=== PATIENT | female | born 1935 | race African-American/Black ===

== ENCOUNTER → 2016-08-20 | Outpatient (CLI) | payer MEDICARE, OTHER | LOC: RAD 13:08 | PROVIDERS: ATTEND Family Medicine | DX: R22.32 Localized swelling, mass and lump, left upper limb (principal) | CPT/HCPCS: 76882 ==

== ENCOUNTER → 2016-11-06 | Outpatient (CLI) | payer MEDICARE, OTHER ==
--- NOTE | 2016-11-06 08:44 | RADIOLOGY REPORT (SQ) ---
EXAM DESCRIPTION: U/S ABDOMEN COMPLETE W/DOPPLER COMPLETED DATE/TIME: 11/06/2016 8:36 am REASON FOR STUDY: ABD DISTENTION (R14.0) R14.0 ABDOMINAL DISTENSION (GASEOUS) COMPARISON: None. TECHNIQUE: Dynamic and static grayscale images acquired of the abdomen and recorded on PACS. Additio nal selected color Doppler and spectral images recorded. LIMITATIONS: None. FINDINGS: PANCREAS: No masses. Visualized pancreatic duct normal caliber. LIVER: The liver demonstrates nodular/coarsened echotexture with increased echogenicity. Liver is no rmal in size. No focal liver lesions. LIVER VASCULATURE: Normal directional flow of the main portal vein and hepatic veins. GALLBLADDER: No stones. Normal wall thickness. No pericholecystic fluid. ULTRASOUND-DETECTED LOYD'S SIGN: Negative. INTRAHEPATIC DUCTS AND COMMON DUCT: CBD and intrahepatic ducts normal caliber. No filling defects. INFERIOR VENA CAVA: Normal flow. AORTA: No aneurysm. RIGHT KIDNEY: Normal size. Normal echogenicity. No solid or suspicious masses. No hydronephros is. No calcifications. LEFT KIDNEY: Normal size. Normal echogenicity. No solid or suspicious masses. No hydronephrosi s. No calcifications. SPLEEN: Normal size. No solid masses. PERITONEAL AND PLEURAL SPACES: No ascites or effusions. OTHER: No other significant finding. IMPRESSION: 1. Hepatic steatosis/ possible early cirrhosis. No focal liver lesions. 2. Otherwise unremarkable abdominal ultrasound. TECHNICAL DOCUMENTATION: JOB ID: [id number] [employer]- All Rights Reserved
== END ==
LOC: RAD 07:55
PROVIDERS: ATTEND Family Medicine
DX: R14.0 Abdominal distension (gaseous) (principal); K76.0 Fatty (change of) liver, not elsewhere classified
CPT/HCPCS: 76700; 93976

== ENCOUNTER → 2016-11-22 | Outpatient (CLI) | payer MEDICARE, OTHER ==
--- NOTE | 2016-11-22 08:48 | RADIOLOGY REPORT (SQ) ---
EXAM DESCRIPTION: CT ABD/PELVIS WITH IV ORAL COMPLETED DATE/TIME: 11/22/2016 8:23 am REASON FOR STUDY: ABDOMINAL DISTENSION GASEOUS (R14.0), BILIARY CIRRHOSIS, UNSPEC (K74.5) R14.0 ABD OMINAL DISTENSION (GASEOUS) K74.5 BILIARY CIRRHOSIS, UNSPECIFIED COMPARISON: 04/04/2011 CT abdomen pelvis Abdominal ultrasound 11/06/2016 TECHNIQUE: CT scan of the abdomen and pelvis performed using helical scanning technique with dynamic intravenous contrast injection. No oral contrast. Images reviewed with lung, soft tissue, and bone windows. Reconstructed coronal and sagittal MPR images reviewed. Delayed images for evaluation of the urinary system also acquired. All images stored on PACS. All CT scanners at this facility use dose modulation, iterative reconstruction, and/or weight based d osing when appropriate to reduce radiation dose to as low as reasonably achievable (ALARA). [facility]: Dose Right [facility]: CareDose [facility]: Dose Right [facility]: Teradose 4D [facility]: [employer] CONTRAST TYPE AND DOSE: contrast/concentration: Isovue 370.00 mg/ml; Total Contrast Delivered: 81.0 ml; Total Saline Delivered: 68.0 ml RENAL FUNCTION: Creatinine 0.74 RADIATION DOSE: Up-to-date CT equipment and radiation dose reduction techniques were employed. CTDIv ol: 9.6 - 11.0 mGy. DLP: 947 mGy-cm.. LIMITATIONS: None. FINDINGS: LOWER CHEST: Mild cardiomegaly. No nodules or infiltrates. LIVER: Normal size. No masses. No dilated ducts. SPLEEN: Normal size. No focal lesions. PANCREAS: No masses. No significant calcifications. No adjacent inflammation or peripancreatic fluid collections. Pancreatic duct not dilated. GALLBLADDER: No identified stones by CT criteria. No inflammatory changes to suggest cholecystitis. ADRENAL GLANDS: Right adrenal gland unremarkable. Stable 1.4 cm and 1.7 cm low-density left adrenal nodules as compared to 04/04/2011, benign. RIGHT KIDNEY AND URETER: No solid masses. No significant calcifications. No hydronephrosis or hyd roureter. LEFT KIDNEY AND URETER: No solid masses. No significant calcifications. No hydronephrosis or hydr oureter. AORTA AND VESSELS: No aneurysm. No dissection. Renal arteries, SMA, celiac without stenosis. RETROPERITONEUM: No retroperitoneal adenopathy, hemorrhage or masses. BOWEL AND PERITONEAL CAVITY: No masses or inflammatory changes. No free fluid or peritoneal masses. Descending and sigmoid colon diverticuli without CT signs of acute diverticulitis APPENDIX: Normal. PELVIS: No mass. No free fluid. Normal bladder. ABDOMINAL WALL: Tiny fat containing umbilical hernia sagittal image 44 BONES: No significant or acute findings. OTHER: No other significant finding. IMPRESSION: NO SIGNIFICANT OR ACUTE FINDING IN THE ABDOMEN OR PELVIS ON CT SCAN WITH IV CONTRAST. TECHNICAL DOCUMENTATION: JOB ID: [id number] Quality ID # [id number]: Final reports with documentation of one or more dose reduction techniques (e.g., Au tomated exposure control, adjustment of the mA and/or kV according to patient size, use of iterative reconstruction technique) 2010 [employer]- All Rights Reserved
== END ==
LOC: RAD 07:31
PROVIDERS: ATTEND Family Medicine
DX: R14.0 Abdominal distension (gaseous) (principal); K74.5 Biliary cirrhosis, unspecified
CPT/HCPCS: 74177

== ENCOUNTER → 2019-05-11 | Outpatient (CLI) | payer MEDICARE, OTHER ==
--- NOTE | 2019-05-11 16:07 | RADIOLOGY REPORT (SQ) ---
EXAM DESCRIPTION: CT ABD/PELVIS WITH IV ORAL COMPLETED DATE/TIME: 05/11/2019 3:53 pm REASON FOR STUDY: K57.32 DVTRCLI OF LG INT W/O PERFORATION OR ABSCESS W/O BLEEDING K57.32 DVTRCLI O F LG INT W/O PERFORATION OR ABSCESS W/O BLEE COMPARISON: 11/22/2016 TECHNIQUE: CT scan of the abdomen and pelvis performed with intravenous and oral contrast using enriqueta papo scanning technique with dynamic intravenous contrast injection. Images reviewed with lung, soft t issue, and bone windows. Reconstructed coronal and sagittal MPR images reviewed. Delayed images for e valuation of the urinary system also acquired. All images stored on PACS. All CT scanners at this facility use dose modulation, iterative reconstruction, and/or weight based d osing when appropriate to reduce radiation dose to as low as reasonably achievable (ALARA). [facility]: Dose Right [facility]: CareDose [facility]: Dose Right [facility]: Teradose 4D [facility]: [employer] CONTRAST TYPE AND DOSE: contrast/concentration: Isovue 350.00 mg/ml; Total Contrast Delivered: 78.0 ml; Total Saline Delivered: 67.0 ml RENAL FUNCTION: GFR > 60. RADIATION DOSE: CT Rad equipment meets quality standard of care and radiation dose reduction techniq ues were employed. CTDIvol: 8.9 - 8.9 mGy. DLP: 926 mGy-cm. . LIMITATIONS: None. FINDINGS: LOWER CHEST: Cardiomegaly. LIVER: Cirrhosis. No masses or biliary dilatation. SPLEEN: Normal size. No focal lesions. PANCREAS: No masses. No significant calcifications. No adjacent inflammation or peripancreatic fluid collections. Pancreatic duct not dilated. GALLBLADDER: No identified stones by CT criteria. No inflammatory changes to suggest cholecystitis. ADRENAL GLANDS: Stable small left adrenal nodule. RIGHT KIDNEY AND URETER: No solid masses. No significant calcifications. No hydronephrosis or hyd roureter. LEFT KIDNEY AND URETER: No solid masses. No significant calcifications. No hydronephrosis or hydr oureter. AORTA AND VESSELS: No aneurysm. RETROPERITONEUM: No retroperitoneal adenopathy, hemorrhage or masses. BOWEL AND PERITONEAL CAVITY: Diverticulosis proximal sigmoid colon. No abscess. No ascites or free air. APPENDIX: Normal. PELVIS: No significant masses. Normal bladder. No free fluid. ABDOMINAL WALL: No masses. No hernias. BONES: No significant or acute findings. OTHER: No other significant finding. IMPRESSION: Sigmoid diverticulitis. TECHNICAL DOCUMENTATION: JOB ID: [id number] Quality ID # [id number]: Final reports with documentation of one or more dose reduction techniques (e.g., Au tomated exposure control, adjustment of the mA and/or kV according to patient size, use of iterative reconstruction technique) 2010 [employer]- All Rights Reserved Reading location - IP/workstation name: [email or web address]
== END ==
LOC: RAD 13:27
PROVIDERS: ATTEND Internal Medicine Geriatric Medicine
DX: K57.32 Diverticulitis of large intestine without perforation or abscess without bleeding (principal)
CPT/HCPCS: 74177; 82565

== ENCOUNTER 2019-08-24 13:15 | Inpatient (IN) | payer MEDICARE, OTHER ==
--- NOTE | 2019-08-24 13:37 | ER Document Report ---
HPI - HPI Time Seen by Provider: 08/24/19 13:31 Notes: 83-year-old female presenting to the emergency department as a direct admission from Dr. Bloom. Patient reports she has been having blood in her stools for several days. She reports mild abdominal discomfort. She denies any other sym ptoms at this time. - REPRODUCTIVE Reproductive: DENIES: : Past Medical History - General Information source: Patient - Social History Smoking Status: Never Smoker Frequency of alcohol use: None Drug Abuse: None Family History: Reviewed & Not Pertinent - Past Medical History Cardiac Medical History: Reports: Hx Hypertension Denies: Hx Atrial Fibrillation, Hx Congestive Heart Failure, Hx Coronary Artery Disease, Hx Heart Attack, Hx Hypercholesterolemia, Hx Peripheral Vascular Disease, Hx Heart Murmur Pulmonary Medical History: Reports: Hx Pneumonia Denies: Hx Tuberculosis Neurological Medical History: Denies: Hx Cerebrovascular Accident, Hx Seizures, Hx Parkinson's Disease Endocrine Medical History: Reports: Hx Diabetes Mellitus Type 2, Hx Hyperthyroidism. Denies: Hx Graves' Disease, Hx Hypothyroidism Malignancy Medical History: Denies: Hx Leukemia GI Medical History: Reports: Hx Gastroesophageal Reflux Disease. Denies: Hx Crohn's Disease, Hx Hiatal Hernia, Hx Irritable Bowel, Hx Liver Failure, Hx Pancreatitis, Hx Ulcer Musculoskeletal Medical History: Reports Hx Arthritis, Denies Hx Fibromyalgia, Denies Hx Multiple Sclerosis, Denies Hx Muscular Dystrophy, Denies Hx Systemic Lupus Erythematosus Psychiatric Medical History: Denies: Hx Dementia Traumatic Medical History: Reports: Hx Fractures - toes Infectious Medical History: Denies: Hx HIV Past Surgical History: Reports: Hx Thyroid Surgery, Hx Tonsillectomy. Denies: Hx Appendectomy, Hx Bowel Surgery, Hx Section, Hx Cholecystectomy, Hx Colostomy, Hx Coronary Artery Bypass Graft, Hx Gastric Bypass Surgery, Hx Herniorrhaphy, Hx Hysterectomy, Hx Mastectomy, Hx Pacemaker, Hx Tubal Ligation - Immunizations Hx Diphtheria, Pertussis, Tetanus Vaccination: No Hx Pneumococcal Vaccination: 01/05/06 Vertical Provider Document - CONSTITUTIONAL Notes: PHYSICAL EXAMINATION: GENERAL: Well-appearing, well-nourished and in no acute distress. HEAD: Atraumatic, normocephalic. EYES: Pupils equal round and reactive to light, extraocular movements intact, conjunctiva are normal. ENT: Nares patent, oropharynx clear without exudates. Moist mucous membranes. NECK: Normal range of motion, supple without lymphadenopathy LUNGS: Breath sounds clear to auscultation bilaterally and equal. No wheezes rales or rhonchi. HEART: Regular rate and rhythm without murmurs ABDOMEN: Soft,nondistended abdomen. Generalized abdominal tenderness with palpation, increasing pain in the left upper quadrant. No guarding, no rebound. No masses appreciated. Female : deferred Musculoskeletal: Normal range of motion, no pitting or edema. No cyanosis. NEUROLOGICAL: Cranial nerves grossly intact. Normal speech, normal gait. Normal sensory, motor exams PSYCH: Normal mood, normal affect. SKIN: Warm, Dry, normal turgor, no rashes or lesions noted. - INFECTION CONTROL TRAVEL OUTSIDE OF THE [place] IN LAST 30 DAYS: No Course - Re-evaluation Re-evalutation: 08/24/19 13:37 Patient is a direct admit from Dr. Bloom. She comes to the emergency department with admission orders. She will be held in the emergency department until there is a bed available upstairs. Patient has no acute complaints at this time. 08/24/19 13:38 Copy of admission orders given to secretary book keeper for order caller. - Vital Signs Vital signs: Temp Pulse Resp BP Pulse Ox 97.6 F 90 16 152/73 H 97 08/24/19 13:20 08/24/19 13:20 08/24/19 13:20 08/24/19 13:20 08/24/19 13:20 Discharge - Discharge Clinical Impression: Lower GI bleed, Colonic diverticular disease Hypertension Qualifiers: Hypertension type: unspecified Qualified Code(s): I10 - Essential (primary) hypertension GERD (gastroesophageal reflux disease) Qualifiers: Esophagitis presence: esophagitis presence not specified Qualified Code(s): K21.9 - Gastro-esophageal reflux disease without esophagitis Diabetes mellitus, type 2 Qualifiers: Diabetes mellitus rn long term care insulin use: unspecified retirement insulin use status Diabetes mellitus complication status: with other specified complication Qualified Code(s): E11.69 - Type 2 diabetes mellitus with other specified complication Coronary artery disease Qualifiers: Coronary Disease-Associated Artery/Lesion type: unspecified vessel or lesion type [place] vs. transplanted heart: [place] heart Associated angina: angina presence unspecified Qualified Code(s): I25.10 - Atherosclerotic heart disease of [place] coronary artery without angina pectoris Hyperlipidemia Qualifiers: Hyperlipidemia type: unspecified Qualified Code(s): E78.5 - Hyperlipidemia, unspecified Hypothyroidism Qualifiers: Hypothyroidism type: unspecified Qualified Code(s): E03.9 - Hypothyroidism, unspecified Condition: Good Disposition: ADMITTED INPATIENT Admitting Provider: Melody Unit Admitted: [facility] Referrals: MYRA BLOOM MD [Primary Care Provider] - Follow up as needed
[2019-08-24 14:27] LABS: HEMATOCRIT 34.2 % (36.0-47.0); HEMOGLOBIN 11.5 g/dL (12.0-15.5); MEAN CORPUSCULAR HEMOGLOBIN 29.4 pg (27.0-33.4); MEAN CORPUSCULAR HGB CONC 33.6 g/dL (32.0-36.0); MEAN CORPUSCULAR VOLUME 88 fl (80-97); PLATELET COUNT 185 10^3/uL (150-450); RED CELL DISTRIBUTION WIDTH 15.7 % (11.5-14.0); WHITE BLOOD COUNT 6.1 10^3/uL (4.0-10.5)
[2019-08-24 14:31] LABS: INTERNATIONAL RATION (INR) 1.29; PROTHROMBIN TIME 16.2 SEC (11.4-15.4)
[2019-08-24 14:32] LABS: PARTIAL THROMBOPLASTIN TIME 27.6 SEC (23.5-35.8)
[2019-08-24 14:52] LABS: ALBUMIN 4.2 g/dL (3.5-5.0); ALKALINE PHOSPHATASE 40 U/L (38-126); ANION GAP 7 (5-19); ASPARTATE AMINO TRANSFERASE 20 U/L (14-36); BILIRUBIN,TOTAL 0.6 mg/dL (0.2-1.3); BLOOD UREA NITROGEN 15 mg/dL (7-20); CALCIUM 9.1 mg/dL (8.4-10.2); CARBON DIOXIDE 28 mmol/L (22-30); CHLORIDE 103 mmol/L (98-107); GLUCOSE 91 mg/dL (75-110); TOTAL PROTEIN 7.4 g/dL (6.3-8.2)
[2019-08-24] MEDS: PIPERACILLIN SODIUM/TAZOBACTAM 3.375 GM in NORMAL SALINE 100 ML IV SCH (20:54)
[2019-08-24] MEDS: NORMAL SALINE 1000 ML 1,000 ML IV PRN (20:54)
--- NOTE | 2019-08-24 21:23 | PDOC H&P ---
History of Present Illness Admission Date/PCP: 08/24/19 13:48 MYRA MILTONFIONAPaul Patient complains of: Abdominal Pain, Blood in stool History of Present Illness: VANDA TAYLOR is a 83 year old female patient known to my practice who presented at the office earlier today with complain about three episodes of large amount of blood with bowel movement today. She reported that her toilet bowl was filled with blood and clot. She reported abdominal pain more to left side of her abdomen. No associated nausea or vomiting. No rectal pain or any protruding mass through her anus. She denied any significant history of hemorrhoid or constipation. She reported feeling sickly but denied dizziness, passing out, headache, fever or chills. While in the office she excused herself to use the bathroom but denied recurrent blood in her stool since she mainly urinate. Review of her laboratory report in the office revealed downward trend in her hemoglobin from 12 to 10 gm/dl over last 3 months. She was advised hospitalization for further evaluation and management. Her morbidities are as listed below. Past Medical History Cardiac Medical History: Reports: Hypertension Denies: Atrial Fibrillation, Congestive Heart Failure, Coronary Artery Disease, Myocardial Infarction, Hyperlipidema, Peripheral Vascular Disease, Heart Murmur Pulmonary Medical History: Reports: Pneumonia Denies: Tuberculosis Neurological Medical History: Denies: Seizures Endocrine Medical History: Reports: Diabetes Mellitus Type 2, Hyperthyroidism Denies: Hypothyroidism Malignancy Medical History: Denies: Leukemia GI Medical History: Reports: Gastroesophageal Reflux Disease Denies: Crohn's Disease, Hiatal Hernia Musculoskeltal Medical History: Reports: Arthritis Denies: Fibromyalgia Psychiatric Medical History: Denies: Dementia, Depression Hematology: Reports: Anemia Denies: Hemophilia, Sickle Cell Disease Infectious Medical History: Denies: HIV Past Surgical History Past Surgical History: Reports: Tonsillectomy Denies: Amputation, Appendectomy, Section, Cholecystectomy, Colostomy, Coronary Artery Bypass Graft, Gastric Bypass Surgery, Herniorrhaphy, Hysterectomy, Mastectomy, Pacemaker, Tubal Ligation Social History Smoking Status: Never Smoker Hx Recreational Drug Use: No Hx Prescription Drug Abuse: No - Advance Directive Resuscitation Status: Full Code Family History Family History: Reviewed & Not Pertinent Parental Family History Reviewed: Yes Children Family History Reviewed: Yes Sibling(s) Family History Reviewed.: Yes Medication/Allergy Home Medications: Metformin HCl [Glucophage 500 Mg Tablet] 1,000 mg PO BID 12/29/11 Omeprazole [Prilosec] 20 mg PO Q6AM 04/04/11 Acetylcyst/Nuzqemx65/Levomefol [Metafolbic Plus Caplet] 1 tab PO DAILY 08/24/19 Famotidine [Pepcid 20 mg Tablet] 40 mg PO DAILY 08/24/19 Fosinopril Sodium 20 mg PO DAILY 08/24/19 Gabapentin [Neurontin 100 mg Capsule] 100 mg PO BID 08/24/19 Glipizide [Glucotrol 10 mg Tablet] 10 mg PO BID 08/24/19 Levothyroxine Sodium [Synthroid 0.05 mg Tablet] 0.05 mg PO Q6AM 08/24/19 Pravastatin Sodium 10 mg PO DAILY 08/24/19 Allergies/Adverse Reactions: No Known Allergies Allergy (Verified 12/11/11 09:56) Review of Systems Constitutional: ABSENT: chills, fever(s), headache(s), weight gain, weight loss Eyes: ABSENT: visual disturbances Ears: ABSENT: hearing changes Nose, Mouth, and Throat: ABSENT: headache(s), mouth pain, sore throat, vertigo Cardiovascular: ABSENT: chest pain, dyspnea on exertion, edema, orthropnea, palpitations Respiratory: ABSENT: cough, hemoptysis Gastrointestinal: PRESENT: abdominal pain, hematochezia. ABSENT: bloating, coffee ground emesis, constipation, diarrhea, dysphagia, heartburn, hematemesis, melena, nausea, vomiting Genitourinary: ABSENT: dysuria, hematuria Musculoskeletal: ABSENT: joint swelling Integumentary: ABSENT: rash, wounds Neurological: ABSENT: abnormal gait, abnormal speech, confusion, dizziness, focal weakness, syncope Psychiatric: ABSENT: anxiety, depression, homidical ideation, suicidal ideation Endocrine: ABSENT: cold intolerance, heat intolerance, polydipsia, polyuria Hematologic/Lymphatic: ABSENT: easy bleeding, easy bruising, lymphadenopathy Allergic/Immunologic: ABSENT: seasonal rhinorrhea Physical Exam Vital Signs: Temp Pulse Resp BP Pulse Ox 98 F 83 18 132/54 H 93 08/24/19 17:51 08/24/19 17:30 08/24/19 17:51 08/24/19 17:51 08/24/19 17:51 Intake & Output 08/23/19 08/24/19 08/25/19 06:59 06:59 06:59 Intake Total 240 Balance 240 Weight 69 kg General appearance: PRESENT: no acute distress Head exam: PRESENT: atraumatic, normocephalic Eye exam: PRESENT: conjunctiva pink, EOMI, PERRLA. ABSENT: scleral icterus Ear exam: PRESENT: normal external ear exam Mouth exam: PRESENT: moist, tongue midline Throat exam: ABSENT: post pharyngeal erythema, tonsillar erythema, tonsillar exudate, tonsillogmegaly Neck exam: PRESENT: full ROM. ABSENT: carotid bruit, JVD, lymphadenopathy, thyromegaly Respiratory exam: PRESENT: clear to auscultation jaison Cardiovascular exam: PRESENT: RRR, +S1, +S2. ABSENT: diastolic murmur, rubs, systolic murmur Pulses: PRESENT: normal dorsalis pedis pul, +2 pedal pulses bilateral Vascular exam: ABSENT: pallor GI/Abdominal exam: PRESENT: normal bowel sounds, soft, tenderness - LUQ and LLQ in particular to deep palpation. ABSENT: distended, guarding, mass, organolmegaly, rebound Rectal exam: PRESENT: deferred Extremities exam: ABSENT: pedal edema Neurological exam: PRESENT: alert, awake, oriented to person, oriented to place, oriented to time, oriented to situation, CN II-XII grossly intact. ABSENT: motor sensory deficit Psychiatric exam: PRESENT: appropriate affect, normal mood. ABSENT: homicidal ideation, suicidal ideation Skin exam: PRESENT: dry, intact, warm. ABSENT: cyanosis, rash Results Laboratory Results: 08/24/19 14:10 08/24/19 14:10 08/24/19 08/24/19 14:10 14:10 WBC 6.1 RBC 3.90 Hgb 11.5 L Hct 34.2 L MCV 88 MCH 29.4 MCHC 33.6 RDW 15.7 H Plt Count 185 Sodium 138.4 Potassium 4.0 Chloride 103 Carbon Dioxide 28 Anion Gap 7 BUN 15 Creatinine 0.67 Est GFR ( Amer) > 60 Glucose 91 Calcium 9.1 Total Bilirubin 0.6 AST 20 Alkaline Phosphatase 40 Total Protein 7.4 Albumin 4.2 Assessment & Plan - Diagnosis (1) Lower GI bleed Is this a current diagnosis for this admission?: Yes Plan: See admitting attending physician orders for details about care plan. (2) Colonic diverticular disease Is this a current diagnosis for this admission?: Yes Plan: See admitting attending physician orders for details about care plan. (3) Diabetes mellitus, type 2 Qualifiers: Diabetes mellitus watermelon inspector insulin use: unspecified longterm insulin use status Diabetes mellitus complication status: with other specified complication Qualified Code(s): E11.69 - Type 2 diabetes mellitus with other specified complication Is this a current diagnosis for this admission?: Yes Plan: See admitting attending physician orders for details about care plan. (4) Hypertension Qualifiers: Hypertension type: unspecified Qualified Code(s): I10 - Essential (primary) hypertension Is this a current diagnosis for this admission?: Yes Plan: See admitting attending physician orders for details about care plan. (5) Coronary artery disease Qualifiers: Coronary Disease-Associated Artery/Lesion type: unspecified vessel or lesion type [place] vs. transplanted heart: [place] heart Associated angina: angina presence unspecified Qualified Code(s): I25.10 - Atherosclerotic heart disease of [place] coronary artery without angina pectoris Is this a current diagnosis for this admission?: Yes Plan: See admitting attending physician orders for details about care plan. (6) Hyperlipidemia Qualifiers: Hyperlipidemia type: unspecified Qualified Code(s): E78.5 - Hyperlipidemia, unspecified Is this a current diagnosis for this admission?: Yes Plan: See admitting attending physician orders for details about care plan. (7) Hypothyroidism Qualifiers: Hypothyroidism type: acquired Qualified Code(s): E03.9 - Hypothyroidism, unspecified Is this a current diagnosis for this admission?: Yes Plan: See admitting attending physician orders for details about care plan. (8) GERD (gastroesophageal reflux disease) Qualifiers: Esophagitis presence: esophagitis presence not specified Qualified Code(s): K21.9 - Gastro-esophageal reflux disease without esophagitis Is this a current diagnosis for this admission?: Yes Plan: See admitting attending physician orders for details about care plan. - Time Time Spent: 50 to 70 Minutes Medications reviewed and adjusted accordingly: Yes Anticipated discharge: Home with Homehealth Within: Other - Inpatient Certification Based on my medical assessment, after consideration of the patient's comorbidities, presenting symptoms, or acuity I expect that the services needed warrant INPATIENT care.: Yes I certify that my determination is in accordance with my understanding of [facility]'s requirements for reasonable and necessary INPATIENT services [42 CFR 412.3e].: Yes Medical Necessity: Significant Comorbidiites Make Outpatient Treatment Too Risky, Need Close Monitoring Due to Risk of Patient Decompensation, Need For IV Fluids, Need For Continuous Telemetry Monitoring, Need for IV Antibiotics, Risk of Complication if Not Cared For in Hospital, Risk of Diagnosis Which Will Require Inpatient Eval/Care/Monitoring Post Hospital Care: D/C Personnel Research Psychologist Documentation - Plan Summary Plan Summary: See admitting attending physician orders for details about care plan.
[2019-08-24] MEDS ORDERED: GLUCAGON,HUMAN RECOMB 1 MG INJ IM PRN (21:25)
[2019-08-24] MEDS ORDERED: DEXTROSE 50%-WATER 25 GM/50 ML DISP.SYRIN IV PRN ×2 (21:25)
[2019-08-24] MEDS ORDERED: DEXTROSE 40% GEL 15 GM TUBE PO PRN ×2 (21:25)
[2019-08-24] MEDS: INSULIN LISPRO 100 UNIT/ML 3 ML VIAL SUBCUT SCH (22:47)
[2019-08-25] MEDS: PIPERACILLIN SODIUM/TAZOBACTAM 3.375 GM in NORMAL SALINE 100 ML IV SCH ×4 (03:02→21:22)
[2019-08-25] MEDS: PANTOPRAZOLE SODIUM 40 MG TABLET.DR PO SCH (05:29)
[2019-08-25] MEDS: LEVOTHYROXINE SODIUM 0.05 MG TABLET PO SCH (05:29)
[2019-08-25] MEDS: INSULIN LISPRO 100 UNIT/ML 3 ML VIAL SUBCUT SCH ×4 (08:45→21:19)
[2019-08-25] MEDS: GLIPIZIDE 10 MG TABLET PO SCH ×2 (08:46→17:07)
[2019-08-25] MEDS: METFORMIN HCL 500 MG TABLET PO SCH ×2 (08:46→17:07)
[2019-08-25] MEDS: NORMAL SALINE 1000 ML 1,000 ML IV PRN (08:48)
[2019-08-25] MEDS: ENALAPRIL MALEATE 10 MG TABLET PO SCH (09:18)
[2019-08-25] MEDS: GABAPENTIN 100 MG CAPSULE PO SCH ×2 (09:18→17:07)
[2019-08-25] MEDS ORDERED: ENALAPRIL MALEATE 10 MG TABLET PO SCH (10:00)
[2019-08-25] MEDS ORDERED: (PENDING PHARMACY ID) (Pravastatin Sodium [Pravastatin Sodium] 10 MG) PO SCH (10:00)
--- NOTE | 2019-08-25 22:21 | PDOC PROGRESS REPORT ---
Subjective Progress Note for:: 08/25/19 Subjective:: No recurrent lower GI bleed since admission. No nausea, vomiting, or abdominal pain. No chest pain or difficulty with breathing. She remain on IV antibiotic and IV fluid support. Reason For Visit: LOWER GI BLEED,DM TYPE 2,HTN,GERD,CAD Physical Exam Vital Signs: Temp Pulse Resp BP Pulse Ox 97.5 F 59 L 18 123/64 100 08/25/19 16:08 08/25/19 16:08 08/25/19 16:08 08/25/19 16:08 08/25/19 16:08 Intake & Output 08/24/19 08/25/19 08/26/19 06:59 06:59 06:59 Intake Total 1440 975 Output Total 350 Balance 1090 975 Weight 68.5 kg 68.5 kg General appearance: PRESENT: no acute distress Head exam: PRESENT: atraumatic, normocephalic Eye exam: PRESENT: conjunctiva pink. ABSENT: scleral icterus Mouth exam: PRESENT: moist Respiratory exam: PRESENT: clear to auscultation jaison Cardiovascular exam: PRESENT: RRR, +S1, +S2. ABSENT: diastolic murmur, rubs, systolic murmur Vascular exam: ABSENT: pallor GI/Abdominal exam: PRESENT: normal bowel sounds, soft. ABSENT: distended, guarding, mass, organolmegaly, rebound, tenderness Extremities exam: ABSENT: pedal edema Musculoskeletal exam: PRESENT: ambulatory Neurological exam: PRESENT: alert, awake, oriented to person, oriented to place Psychiatric exam: PRESENT: appropriate affect, normal mood. ABSENT: homicidal ideation, suicidal ideation Skin exam: PRESENT: dry, warm Results Laboratory Results: 08/24/19 14:10 08/24/19 14:10 Assessment & Plan - Diagnosis (1) Lower GI bleed Is this a current diagnosis for this admission?: Yes (2) Colonic diverticular disease Is this a current diagnosis for this admission?: Yes (3) Diabetes mellitus, type 2 Qualifiers: Diabetes mellitus continuous churn buttermaker insulin use: unspecified continuous churn buttermaker insulin use status Diabetes mellitus complication status: with other specified complication Qualified Code(s): E11.69 - Type 2 diabetes mellitus with other specified complication Is this a current diagnosis for this admission?: Yes (4) Hypertension Qualifiers: Hypertension type: unspecified Qualified Code(s): I10 - Essential (primary) hypertension Is this a current diagnosis for this admission?: Yes (5) Coronary artery disease Qualifiers: Coronary Disease-Associated Artery/Lesion type: unspecified vessel or lesion type [place] vs. transplanted heart: [place] heart Associated angina: angina presence unspecified Qualified Code(s): I25.10 - Atherosclerotic heart disease of [place] coronary artery without angina pectoris Is this a current diagnosis for this admission?: Yes (6) Hyperlipidemia Qualifiers: Hyperlipidemia type: unspecified Qualified Code(s): E78.5 - Hyperlipidemia, unspecified Is this a current diagnosis for this admission?: Yes (7) Hypothyroidism Qualifiers: Hypothyroidism type: acquired Qualified Code(s): E03.9 - Hypothyroidism, unspecified Is this a current diagnosis for this admission?: Yes (8) GERD (gastroesophageal reflux disease) Qualifiers: Esophagitis presence: esophagitis presence not specified Qualified Code(s): K21.9 - Gastro-esophageal reflux disease without esophagitis Is this a current diagnosis for this admission?: Yes - Time Time Spent with patient: 25-34 minutes Level of Care: IMCU Medications reviewed and adjusted accordingly: Yes Anticipated discharge: Home with Homehealth Within: Other - Inpatient Certification Based on my medical assessment, after consideration of the patient's comorbidities, presenting symptoms, or acuity I expect that the services needed warrant INPATIENT care.: Yes I certify that my determination is in accordance with my understanding of Medicare's requirements for reasonable and necessary INPATIENT services [42 CFR 412.3e].: Yes Medical Necessity: Significant Comorbidiites Make Outpatient Treatment Too Risky, Need Close Monitoring Due to Risk of Patient Decompensation, Need For IV Fluids, Need For Continuous Telemetry Monitoring, Need for IV Antibiotics, Risk of Complication if Not Cared For in Hospital, Risk of Diagnosis Which Will Require Inpatient Eval/Care/Monitoring Post Hospital 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 Follow up on culture findings. Obtain CBC with Diff in AM.
[2019-08-26] MEDS: NORMAL SALINE 1000 ML 1,000 ML IV PRN (02:09)
[2019-08-26] MEDS: PIPERACILLIN SODIUM/TAZOBACTAM 3.375 GM in NORMAL SALINE 100 ML IV SCH ×4 (02:10→21:04)
[2019-08-26 03:48] LABS: ABSOLUTE EOSINOPHILS # (AUTO) 0.1 10^3/uL (0.0-0.6); ABSOLUTE LYMPHOCYTES (AUTO) 2.5 10^3/uL (0.5-4.7); ABSOLUTE MONOCYTES (AUTO) 0.7 10^3/uL (0.1-1.4); ABSOLUTE NEUT (AUTO) 2.9 10^3/uL (1.7-8.2); BASOPHILS % (AUTO) 0.8 % (0-2); EOSINOPHILS % (AUTO) 1.5 % (0-6); HEMATOCRIT 27.6 % (36.0-47.0); LYMPHOCYTES % (AUTO) 40.3 % (13-45); MEAN CORPUSCULAR HEMOGLOBIN 29.5 pg (27.0-33.4); MEAN CORPUSCULAR HGB CONC 33.4 g/dL (32.0-36.0); MEAN CORPUSCULAR VOLUME 88 fl (80-97); MONOCYTES % (AUTO) 10.6 % (3-13); PLATELET COUNT 154 10^3/uL (150-450); RED BLOOD COUNT 3.13 10^6/uL (3.72-5.28); RED CELL DISTRIBUTION WIDTH 15.6 % (11.5-14.0); SEGMENTED NEUTROPHILS % (AUTO) 46.8 % (42-78); TOTAL CELLS COUNTED % (AUTO) 100 %; WHITE BLOOD COUNT 6.2 10^3/uL (4.0-10.5)
[2019-08-26 03:51] LABS: HEMOGLOBIN 9.2 g/dL (12.0-15.5)
[2019-08-26] MEDS: PANTOPRAZOLE SODIUM 40 MG TABLET.DR PO SCH (05:03)
[2019-08-26] MEDS: LEVOTHYROXINE SODIUM 0.05 MG TABLET PO SCH (05:03)
--- NOTE | 2019-08-26 08:29 | PDOC PROGRESS REPORT ---
Subjective Progress Note for:: 08/26/19 Subjective:: Patient developed recurrent lower GI bleed since her last evaluation by me. She reported associated more PATEL and less LL quadrant pain. No nausea, vomiting, or abdominal pain. No chest pain or difficulty with breathing. She remain on IV antibiotic and IV fluid support.She is currently NPO awaiting bleeding scan. Surgicalist team are consulting on her at this time. Reason For Visit: LOWER GI BLEED,DM TYPE 2,HTN,GERD,CAD Physical Exam Vital Signs: Temp Pulse Resp BP Pulse Ox 98.2 F 57 L 18 114/51 L 100 08/26/19 03:51 08/26/19 06:56 08/26/19 03:51 08/26/19 03:51 08/26/19 03:51 Intake & Output 08/25/19 08/26/19 08/27/19 06:59 06:59 06:59 Intake Total 1440 2175 Output Total 350 Balance 1090 2175 Weight 68.5 kg 69.6 kg Results Laboratory Results: 08/26/19 03:30 08/24/19 14:10 08/26/19 03:30 WBC 6.2 RBC 3.13 L Hgb 9.2 L D Hct 27.6 L MCV 88 MCH 29.5 MCHC 33.4 RDW 15.6 H Plt Count 154 Seg Neutrophils % 46.8 Assessment & Plan - Diagnosis (1) Lower GI bleed Is this a current diagnosis for this admission?: Yes (2) Colonic diverticular disease Is this a current diagnosis for this admission?: Yes (3) Diabetes mellitus, type 2 Qualifiers: Diabetes mellitus salvage determiner insulin use: unspecified salvage determiner insulin use status Diabetes mellitus complication status: with other specified complication Qualified Code(s): E11.69 - Type 2 diabetes mellitus with other specified complication Is this a current diagnosis for this admission?: Yes (4) Hypertension Qualifiers: Hypertension type: unspecified Qualified Code(s): I10 - Essential (primary) hypertension Is this a current diagnosis for this admission?: Yes (5) Coronary artery disease Qualifiers: Coronary Disease-Associated Artery/Lesion type: unspecified vessel or lesion type [place] vs. transplanted heart: [place] heart Associated angina: angina presence unspecified Qualified Code(s): I25.10 - Atherosclerotic heart disease of [place] coronary artery without angina pectoris Is this a current diagnosis for this admission?: Yes (6) Hyperlipidemia Qualifiers: Hyperlipidemia type: unspecified Qualified Code(s): E78.5 - Hyperlipidemia, unspecified Is this a current diagnosis for this admission?: Yes (7) Hypothyroidism Qualifiers: Hypothyroidism type: acquired Qualified Code(s): E03.9 - Hypothyroidism, unspecified Is this a current diagnosis for this admission?: Yes (8) GERD (gastroesophageal reflux disease) Qualifiers: Esophagitis presence: esophagitis presence not specified Qualified Code(s): K21.9 - Gastro-esophageal reflux disease without esophagitis Is this a current diagnosis for this admission?: Yes - Time Time Spent with patient: 25-34 minutes Level of Care: IMCU Medications reviewed and adjusted accordingly: Yes Anticipated discharge: Home with Homehealth Within: Other - Inpatient Certification Based on my medical assessment, after consideration of the patient's comorbidities, presenting symptoms, or acuity I expect that the services needed warrant INPATIENT care.: Yes I certify that my determination is in accordance with my understanding of Medicare's requirements for reasonable and necessary INPATIENT services [42 CFR 412.3e].: Yes Medical Necessity: Significant Comorbidiites Make Outpatient Treatment Too Risky, Need Close Monitoring Due to Risk of Patient Decompensation, Need For IV Fluids, Need For Continuous Telemetry Monitoring, Need for IV Antibiotics, Need for Surgery, Risk of Complication if Not Cared For in Hospital, Risk of Diagnosis Which Will Require Inpatient Eval/Care/Monitoring Post Hospital 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 I will call her children to inform them about the turn of event. Dr. Reyes will cover my service till 09/01/2019.
--- NOTE | 2019-08-26 08:36 | PDOC CONSULTATION ---
Consultation Consult Date: 08/26/19 Attending physician:: MYRA BLOOM Provider Consulted: HÉCTOR YEH Consult reason:: lower gi bleed History of Present Illness Admission Date/PCP: 08/24/19 13:48 MYRA BLOOM History of Present Illness: VANDA TAYLOR is a 83 year old femaleVANDA TAYLOR is a 83 year old female patient known to my practice who presented at the office earlier today with complain about three episodes of large amount of blood with bowel movement today. She reported that her toilet bowl was filled with blood and clot. She reported abdominal pain more to left side of her abdomen. No associated nausea or vomiting. No rectal pain or any protruding mass through her anus. She denied any significant history of hemorrhoid or constipation. She reported feeling sickly but denied dizziness, passing out, headache, fever or chills. While in the office she excused herself to use the bathroom but denied recurrent blood in her stool since she mainly urinate. Review of her laboratory report in the office revealed downward trend in her hemoglobin from 12 to 10 gm/dl over last 3 months. She was advised hospitalization for further evaluation and management. Her morbidities are as listed below Past Medical History Cardiac Medical History: Reports: Hypertension Denies: Atrial Fibrillation, Congestive Heart Failure, Coronary Artery Disease, Myocardial Infarction, Hyperlipidema, Peripheral Vascular Disease, Heart Murmur Pulmonary Medical History: Reports: Pneumonia Denies: Tuberculosis Neurological Medical History: Denies: Seizures Endocrine Medical History: Reports: Diabetes Mellitus Type 2, Hyperthyroidism Denies: Hypothyroidism Malignancy Medical History: Denies: Leukemia GI Medical History: Reports: Gastroesophageal Reflux Disease Denies: Crohn's Disease, Hiatal Hernia Musculoskeltal Medical History: Reports: Arthritis Denies: Fibromyalgia Psychiatric Medical History: Denies: Dementia, Depression Hematology: Reports: Anemia Denies: Hemophilia, Sickle Cell Disease Infectious Medical History: Denies: HIV Past Surgical History Past Surgical History: Reports: Tonsillectomy Denies: Amputation, Appendectomy, Section, Cholecystectomy, Colostomy, Coronary Artery Bypass Graft, Gastric Bypass Surgery, Herniorrhaphy, Hysterectomy, Mastectomy, Pacemaker, Tubal Ligation Social History Smoking Status: Never Smoker Hx Recreational Drug Use: No Hx Prescription Drug Abuse: No - Advance Directive Resuscitation Status: Full Code Family History Family History: Reviewed & Not Pertinent Parental Family History Reviewed: No Children Family History Reviewed: NA Sibling(s) Family History Reviewed.: NA Medication/Allergy Home Medications: Metformin HCl [Glucophage 500 Mg Tablet] 1,000 mg PO BID 04/04/11 Omeprazole [Prilosec] 20 mg PO Q6AM 04/04/11 Acetylcyst/Dizentc88/Levomefol [Metafolbic Plus Caplet] 1 tab PO DAILY 08/24/19 Famotidine [Pepcid 20 mg Tablet] 40 mg PO DAILY 08/24/19 Fosinopril Sodium 20 mg PO DAILY 08/24/19 Gabapentin [Neurontin 100 mg Capsule] 100 mg PO BID 08/24/19 Glipizide [Glucotrol 10 mg Tablet] 10 mg PO BID 08/24/19 Levothyroxine Sodium [Synthroid 0.05 mg Tablet] 0.05 mg PO Q6AM 08/24/19 Pravastatin Sodium 10 mg PO DAILY 08/24/19 Allergies/Adverse Reactions: No Known Allergies Allergy (Verified 12/11/11 09:56) Review of Systems Constitutional: PRESENT: fatigue, weakness Ears: ABSENT: as per HPI, hearing changes, other Nose, Mouth, and Throat: ABSENT: as per HPI, headache(s), mouth pain, sore throat, vertigo, other Cardiovascular: ABSENT: as per HPI, chest pain, dyspnea on exertion, edema, orthropnea, palpitations, other Respiratory: ABSENT: as per HPI, cough, dyspnea, hemoptysis, sputum, other Gastrointestinal: PRESENT: abdominal pain, hematochezia Neurological: ABSENT: as per HPI, abnormal gait, abnormal movements, abnormal speech, confusion, convulsions, dizziness, focal weakness, frequent falls, lack of coordination, memory loss, numbness, paresthesias, restless legs, syncope, tingling, tremor(s), vertigo, weakness, other Psychiatric: ABSENT: as per HPI, anxiety, depression, hallucinations, homidical ideation, suicidal ideation, other Endocrine: ABSENT: as per HPI, cold intolerance, flushing, heat intolerance, menstrual abnormalities, polydipsia, polyphagia, polyuria, other Hematologic/Lymphatic: ABSENT: as per HPI, easy bleeding, easy bruising, lymph adenopathy, other Allergic/Immunologic: ABSENT: as per HPI, seasonal rhinorrhea, other Physical Exam Vital Signs: Temp Pulse Resp BP Pulse Ox 98.2 F 57 L 18 114/51 L 100 08/26/19 03:51 08/26/19 06:56 08/26/19 03:51 08/26/19 03:51 08/26/19 03:51 Intake & Output 08/25/19 08/26/19 08/27/19 06:59 06:59 06:59 Intake Total 1440 2175 Output Total 350 Balance 1090 2175 Weight 68.5 kg 69.6 kg General appearance: PRESENT: mild distress, obese Eye exam: PRESENT: EOMI Ear exam: PRESENT: normal external ear exam Mouth exam: PRESENT: moist Neck exam: PRESENT: full ROM Respiratory exam: PRESENT: clear to auscultation jaison Cardiovascular exam: PRESENT: RRR Pulses: PRESENT: normal radial pulses, normal femoral pulses Vascular exam: PRESENT: normal capillary refill Breast: PRESENT: Normal GI/Abdominal exam: PRESENT: soft, tenderness - left side Extremities exam: PRESENT: full ROM Musculoskeletal exam: PRESENT: full ROM Neurological exam: PRESENT: alert, awake, oriented to person, oriented to place Psychiatric exam: PRESENT: appropriate affect Skin exam: PRESENT: dry Results Laboratory Results: 08/26/19 03:30 08/24/19 14:10 08/26/19 03:30 WBC 6.2 RBC 3.13 L Hgb 9.2 L D Hct 27.6 L MCV 88 MCH 29.5 MCHC 33.4 RDW 15.6 H Plt Count 154 Seg Neutrophils % 46.8 Assessment & Plan - Plan Summary Plan Summary: pt with previous hx of lower gi bleed, known diverticulosis\ now with recurrent bleeding last colo 2 yrs ago\ will obtain tagged rbc scan.
[2019-08-26] MEDS: INSULIN LISPRO 100 UNIT/ML 3 ML VIAL SUBCUT SCH ×3 (08:43→23:26)
[2019-08-26] MEDS ORDERED: NEOSTIGMINE METHYLSULFATE 10 MG/10 ML VIAL ONE (09:54)
[2019-08-26] MEDS ORDERED: ROCURONIUM BROMIDE INJ 50 MG/5 ML VIAL IV ONE (09:54)
[2019-08-26] MEDS ORDERED: GLYCOPYRROLATE 1 MG/5 ML VIAL ONE (09:54)
[2019-08-26] MEDS ORDERED: SUCCINYLCHOLINE CHLORIDE INJ 200 MG/10 ML VIAL ONE (09:54)
--- NOTE | 2019-08-26 10:36 | RADIOLOGY REPORT (SQ) ---
EXAM DESCRIPTION: NM GI BLEED SCAN IMAGES COMPLETED DATE/TIME: 08/26/2019 10:20 am REASON FOR STUDY: chronic rectal bleeding COMPARISON: None. RADIONUCLIDE AND DOSE: 24.7 millicuries Technetium-labeled red blood cells. The route of agent administration: Intravenous. TECHNIQUE: Serial arterial-phase images acquired for 80 seconds immediately following injection of r adionuclide. Additional images acquired at 60 seconds per image. The study was terminated at 33 min utes at the patient's request, complaining of severe cramping with bright red stools. LIMITATIONS: None. FINDINGS: Flow images without focal areas of abnormal radionuclide location. Serial images show acc umulation of activity in the left lower quadrant corresponding to the proximal sigmoid colon. IMPRESSION: FINDINGS CONSISTENT WITH ACTIVE GI BLEEDING IN THE SIGMOID COLON. TECHNICAL DOCUMENTATION: JOB ID: [id number] 2010 [employer]- All Rights Reserved Reading location - IP/workstation name: [email or web address]
[2019-08-26 11:05] LABS: ABSOLUTE LYMPHOCYTES (AUTO) 2.4 10^3/uL (0.5-4.7); ABSOLUTE MONOCYTES (AUTO) 0.5 10^3/uL (0.1-1.4); ABSOLUTE NEUT (AUTO) 3.3 10^3/uL (1.7-8.2); BASOPHILS % (AUTO) 0.5 % (0-2); EOSINOPHILS % (AUTO) 0.7 % (0-6); HEMATOCRIT 21.3 % (36.0-47.0); LYMPHOCYTES % (AUTO) 37.9 % (13-45); MEAN CORPUSCULAR HEMOGLOBIN 29.6 pg (27.0-33.4); MEAN CORPUSCULAR HGB CONC 33.7 g/dL (32.0-36.0); MEAN CORPUSCULAR VOLUME 88 fl (80-97); MONOCYTES % (AUTO) 7.5 % (3-13); PLATELET COUNT 132 10^3/uL (150-450); RED BLOOD COUNT 2.42 10^6/uL (3.72-5.28); RED CELL DISTRIBUTION WIDTH 15.9 % (11.5-14.0); SEGMENTED NEUTROPHILS % (AUTO) 53.4 % (42-78); TOTAL CELLS COUNTED % (AUTO) 100 %; WHITE BLOOD COUNT 6.2 10^3/uL (4.0-10.5)
[2019-08-26 11:09] LABS: HEMOGLOBIN 7.2 g/dL (12.0-15.5)
[2019-08-26] MEDS ORDERED: MIDAZOLAM 2 MG/2 ML INJ ONE (12:43)
[2019-08-26] MEDS ORDERED: DEXAMETHASONE SOD PHOSPHATE INJ 4 MG/1 ML VIAL ONE (12:43)
[2019-08-26] MEDS ORDERED: FENTANYL CITRATE INJ/PF 100 MCG/2 ML AMPUL ONE ×2 (12:43→17:05)
[2019-08-26] MEDS ORDERED: ONDANSETRON HCL INJ/PF 4 MG/2 ML SDV ONE (12:43)
[2019-08-26] MEDS ORDERED: PROPOFOL INJ 200 MG/20 ML VIAL IV ONE (12:44)
[2019-08-26] MEDS ORDERED: BUPIVACAINE INJ/PF LIPOSOME/PF 266 MG/20 ML SDV ONE (12:51)
[2019-08-26] MEDS: METFORMIN HCL 500 MG TABLET PO SCH ×2 (13:22→17:27)
[2019-08-26] MEDS: GABAPENTIN 100 MG CAPSULE PO SCH ×2 (13:22→20:12)
[2019-08-26] MEDS: GLIPIZIDE 10 MG TABLET PO SCH ×2 (13:22→17:27)
[2019-08-26] MEDS: ENALAPRIL MALEATE 10 MG TABLET PO SCH (13:23)
[2019-08-26] MEDS ORDERED: DIPHENHYDRAMINE HCL 50 MG/ML VIAL IV PRN (14:32)
[2019-08-26] MEDS ORDERED: MEPERIDINE HCL/PF INJ 25 MG/1 ML DISP.SYRIN IV PRN (14:32)
[2019-08-26] MEDS ORDERED: PROMETHAZINE HCL INJ 25 MG/1 ML VIAL IV PRN ×2 (14:32)
[2019-08-26] MEDS ORDERED: ONDANSETRON HCL INJ/PF 4 MG/2 ML SDV IV PRN (14:32)
[2019-08-26] MEDS ORDERED: FENTANYL CITRATE INJ/PF 100 MCG/2 ML AMPUL IV PRN ×3 (14:32)
[2019-08-26] MEDS ORDERED: MORPHINE SULFATE 10 MG/ML INJ IV PRN (14:32)
[2019-08-26] MEDS ORDERED: BUPIVACAINE HCL 0.25 % INJ/PF (2.5 MG/1 ML) 30 ML VIAL ONE ×4 (17:05→18:30)
[2019-08-26] MEDS ORDERED: DEXTROSE 40% GEL 15 GM TUBE PO PRN ×2 (17:10)
[2019-08-26] MEDS ORDERED: DEXTROSE 50%-WATER 25 GM/50 ML DISP.SYRIN IV PRN ×2 (17:10)
[2019-08-26] MEDS ORDERED: GLUCAGON,HUMAN RECOMB 1 MG INJ SUBCUT PRN (17:10)
--- NOTE | 2019-08-26 17:22 | Operative Report ---
Nonrecallable Operative Report DATE OF SURGERY: 08/26/19 PREOPERATIVE DIAGNOSIS: Massive lower GI bleed POSTOPERATIVE DIAGNOSIS: Massive lower GI bleed secondary to diverticulosis OPERATION: Subtotal colectomy SURGEON: HÉCTOR YEH ANESTHESIA: GA TISSUE REMOVED OR ALTERED: ::colon COMPLICATIONS: None ESTIMATED BLOOD LOSS: 400 cc INTRAOPERATIVE FINDINGS: Severe pandiverticulosis PROCEDURE: Patient was brought to the operating room awake alert stable condition placed in the upper table supine position induced under general anesthesia intubated. After appropriate timeout site verification she was placed in low lithotomy position. The abdomen was prepped and draped in usual sterile fashion for the procedure. A midline incision was used from just above the umbilicus down to the pubic symphysis dissection was carried down through subcutaneous tissue with Bovie cautery midline fascia was entered. Prior entering the midline fascia we placed the Bookwalter retractor for visualization. The colon was tortuous and had multiple areas of diverticulosis with multiple most of them full of blood that extended mostly from the sigmoid colon all the way around to the proximal transverse colon. We initially began our dissection by mobilizing the white line of [place] on the left side down to the rectosigmoid junction. We carried this up to the splenic flexure. We divided the splenic flexure with the LigaSure device carrying this to the mid transverse colon. We then came across the rectosigmoid junction with 1 firing of the DIETER stapler with a blue load. I will mobilize the right side of the peritoneum to the inferior mesenteric artery and divided that with the LigaSure device. I continued my my mobilization all the way up to the mid transverse colon using the LigaSure device. Once this was accomplished we came across the mid transverse colon with 1 firing of the pursestring suture maker and divided the distal specimen and sent that off. We were careful not to injure the ureters or other surrounding structures. We then used a 29 mm anvil and placed it into the end of the distal transverse colon and tied the pursestring down. We then mobilized the rectosigmoid with blunt and sharp dissection using Bovie cautery to incise the peritoneum again avoiding injury to the ureters and then brought the transverse colon down to the rectosigmoid junction. However the because of the middle colic artery with short and there was significant amount of intra-abdominal fat it would not reach easily and there was some tension. However after completing anastomosis I noted that there was no leak but there was undue amount of tension therefore elected to redo the anastomosis. I mobilized the rest of the colon by dividing the omentum off the colon with the Bovie cautery and carried this around to the hepatic flexure and then the a sending colon. I elected to remove the ascending colon and divided it from the terminal ileum with a one firing of the DIETER stapler with a blue load. After removing the specimen I opened up the end of the terminal ileum and placed a 25 mm EEA stapler anvil into the end of the terminal ileum and closed down the pursestring. I then used a 25 mm stapler device through the rectum which was approximately 20 cm long and attach that to the anvil and the terminal ileum closed and fired creating an ileal proctostomy. We then checked this with the rigid proctoscope insufflating air with a bowel clamp on the distal small bowel with the anastomosis under water and there was no evidence of leak. I also visualize the anastomosis with the proctoscope and noted to be complete. I also noted both donuts were complete. Once this was complete I copiously irrigated the abdominal cavity and suctioned dry. Hemostasis was intact. Placed a Clark drain in the pelvis and brought out through separate stab wound in the left lower quadrant. We then closed midline fascia with a running double looped # PDS suture. Close skin with standard skin clips. Estimated blood loss was 400 cc sponge and needle counts were correct x2 the patient was awakened in the operative extubated transferred recovery in stable condition no complications.
[2019-08-26] MEDS ORDERED: TRANEXAMIC ACID INJ/PF 1,000 MG/10 ML SDV ONE (18:11)
[2019-08-26] MEDS ORDERED: PROMETHAZINE HCL INJ 25 MG/1 ML VIAL ONE (18:39)
[2019-08-26] MEDS ORDERED: TRANEXAMIC ACID INJ/PF 1,000 MG/10 ML SDV IV ONE (18:45)
[2019-08-26 18:57] LABS: ABSOLUTE LYMPHOCYTES (AUTO) 1.3 10^3/uL (0.5-4.7); ABSOLUTE MONOCYTES (AUTO) 0.3 10^3/uL (0.1-1.4); ABSOLUTE NEUT (AUTO) 2.4 10^3/uL (1.7-8.2); BASOPHILS % (AUTO) 0.2 % (0-2); EOSINOPHILS % (AUTO) 0.1 % (0-6); LYMPHOCYTES % (AUTO) 32.4 % (13-45); MEAN CORPUSCULAR HEMOGLOBIN 29.8 pg (27.0-33.4); MEAN CORPUSCULAR HGB CONC 33.5 g/dL (32.0-36.0); MEAN CORPUSCULAR VOLUME 89 fl (80-97); MONOCYTES % (AUTO) 6.7 % (3-13); RED BLOOD COUNT 3.37 10^6/uL (3.72-5.28); RED CELL DISTRIBUTION WIDTH 15.3 % (11.5-14.0); SEGMENTED NEUTROPHILS % (AUTO) 60.6 % (42-78); TOTAL CELLS COUNTED % (AUTO) 100 %; WHITE BLOOD COUNT 3.9 10^3/uL (4.0-10.5)
[2019-08-26 19:12] LABS: ANION GAP 8 (5-19); BLOOD UREA NITROGEN 13 mg/dL (7-20); CALCIUM 7.4 mg/dL (8.4-10.2); CARBON DIOXIDE 18 mmol/L (22-30); CHLORIDE 113 mmol/L (98-107); GLUCOSE 204 mg/dL (75-110)
[2019-08-26 19:23] LABS: PLATELET COUNT 81 10^3/uL (150-450)
[2019-08-26 19:31] LABS: INTERNATIONAL RATION (INR) 1.51; PROTHROMBIN TIME 18.4 SEC (11.4-15.4)
--- NOTE | 2019-08-26 20:50 | PDOC CRITICAL CARE PROG REPORT ---
General Date:: 08/26/19 ICU Day:: 0 Hospital Day:: 2 Resuscitation Status: Full Code Reason for ICU Addmission:: s/p subtotal colectomy, Post op Anemia - Medications: Medications reviewed and adjusted accordingly: Yes Physical Exam Vital Signs: Temp Pulse Resp BP Pulse Ox 98.2 F 92 24 H 134/68 H 97 08/26/19 17:22 08/26/19 17:52 08/26/19 17:52 08/26/19 17:52 08/26/19 17:52 Intake & Output 08/25/19 08/26/19 08/27/19 06:59 06:59 06:59 Intake Total 1440 2175 4500 Output Total 350 2285 Balance 1090 2175 2215 Weight 68.5 kg 69.6 kg Weight/Height Weight 69.6 kg Height 5 ft 4 in General appearance: PRESENT: mild distress Head exam: PRESENT: atraumatic Eye exam: PRESENT: PERRLA Mouth exam: PRESENT: moist Neck exam: PRESENT: full ROM Respiratory exam: PRESENT: decreased breath sounds, unlabored Cardiovascular exam: PRESENT: RRR, +S1, +S2 Pulses: PRESENT: +1 pedal pulses bilateral Vascular exam: PRESENT: normal capillary refill GI/Abdominal exam: PRESENT: soft, other - Midline lower abdominal incision Gentrourinary exam: PRESENT: indwelling catheter Tubes/Lines: PRESENT: Nasogastic Tube, Other - LLQ JUANY drain Laboratory/Radiographs Laboratory Results: 08/26/19 18:42 08/26/19 18:42 08/26/19 08/26/19 08/26/19 03:30 10:33 11:51 WBC 6.2 6.2 RBC 3.13 L 2.42 L Hgb 9.2 L D 7.2 L Hct 27.6 L 21.3 L MCV 88 88 MCH 29.5 29.6 MCHC 33.4 33.7 RDW 15.6 H 15.9 H Plt Count 154 132 L Seg Neutrophils % 46.8 53.4 Sodium Potassium Chloride Carbon Dioxide Anion Gap BUN Creatinine Est GFR ( Amer) Glucose Calcium Blood Type A POSITIVE Antibody Screen NEGATIVE 08/26/19 08/26/19 18:42 18:42 WBC 3.9 L RBC 3.37 L Hgb 10.0 L D Hct 30.0 L MCV 89 MCH 29.8 MCHC 33.5 RDW 15.3 H Plt Count 81 L Seg Neutrophils % 60.6 Sodium 139.3 Potassium 4.0 Chloride 113 H Carbon Dioxide 18 L Anion Gap 8 BUN 13 Creatinine 0.54 Est GFR ( Amer) > 60 Glucose 204 H Calcium 7.4 L Blood Type Antibody Screen Impressions: GI Bleed Scan Nuclear Medicine 08/26/19 00:00 IMPRESSION: FINDINGS CONSISTENT WITH ACTIVE GI BLEEDING IN THE SIGMOID COLON. All labs, radiographs, diagnostic studies and EKGs were personally reviewed: Yes In addition, reports of radiographic and diagnostic studies were read: Yes Assessment and Plan - Diagnosis (1) Colonic diverticular disease Is this a current diagnosis for this admission?: Yes (2) Lower GI bleed Is this a current diagnosis for this admission?: Yes Plan: s/p subtotal colectomy Monitor H&H and transfuse for less than 7.0 Monitor JUANY drain output (3) GERD (gastroesophageal reflux disease) Qualifiers: Esophagitis presence: esophagitis presence not specified Qualified Code(s): K21.9 - Gastro-esophageal reflux disease without esophagitis Is this a current diagnosis for this admission?: Yes Plan: Continue Protonix 40 mg IV every 12 hours (4) Hypertension Qualifiers: Hypertension type: unspecified Qualified Code(s): I10 - Essential (primary) hypertension Is this a current diagnosis for this admission?: Yes Plan: She is on Monopril at home, will hold at this time given her strict n.p.o. st atus and start Lopressor 5 mg IV every 4 hours (5) Diabetes mellitus, type 2 Qualifiers: Diabetes mellitus chcf insulin use: unspecified chcf insulin use status Diabetes mellitus complication status: with other specified complication Qualified Code(s): E11.69 - Type 2 diabetes mellitus with other specified complication Is this a current diagnosis for this admission?: Yes Plan: Is on metformin and glipizide at home will hold Continue sliding scale insulin coverage every 6 hours Critical Time Critical Time (minutes): 45 Level of Care: ICU -: 1. The care of a critical patient is a dynamic process. This note is a sales development representative synopsis but static in nature. The timeframe for treatments given in order is not necessarily the actual time these treatments may have been done. 2. This patient requires critical care secondary to ongoing requirements for therapy not offered or safe outside the critical care environment. Transfer to a lower level of care will result in altered life or limb morbidity and mortality. 3. Multidisciplinary rounds completed. 4. ABCDE bundle addressed. Provider Note Provider Note: Ms. Prince is an 83-year-old female with a past medical history of hyper tension, type 2 diabetes, hypothyroid, GERD, and osteoarthritis. She is a patient of Dr. Oliver, she presented to his office on 08/24/2019 with complaints of large amount of bleeding with bowel movements, and left-sided abdominal pain. She had no associated nausea or vomiting no rectal pain denied any history of hemorrhoids or constipation she did report of feeling lightheaded and fatigued, he was therefore instructed to be admitted to the hospital for further management. Her hemoglobin on admission was 11.5 she underwent a GI bleeding scan on 08/26/2019 which showed active bleeding in the sigmoid colon surgery was consulted and she was taken to the OR today she is status post subtotal colectomy. Intra-Op she received 4 units of packed red blood cells and 2 units of FFP, she remained oozy and her JUANY drain put out 500 cc she was given 1 dose of transexamic acid. She is admitted to the ICU and we are consulted for further ICU management.
[2019-08-26] MEDS: ONDANSETRON HCL INJ/PF 4 MG/2 ML SDV IV PRN (20:54)
[2019-08-26] MEDS: MORPHINE SULFATE 10 MG/ML INJ IV PRN ×2 (20:57→23:25)
[2019-08-26] MEDS: POTASSI CL 20 MEQ/1/2NS 1L 20 MEQ/1,000 ML RTUINJ IV PRN (21:05)
[2019-08-26] MEDS: METOPROLOL TARTRATE PF/INJ 5 MG/5 ML SDV IV SCH (21:41)
[2019-08-26] MEDS: PANTOPRAZOLE SODIUM 40 MG VIAL IV SCH (21:45)
[2019-08-27 00:39] LABS: ABSOLUTE LYMPHOCYTES (AUTO) 0.5 10^3/uL (0.5-4.7); ABSOLUTE MONOCYTES (AUTO) 0.4 10^3/uL (0.1-1.4); ABSOLUTE NEUT (AUTO) 3.2 10^3/uL (1.7-8.2); BASOPHILS % (AUTO) 0.1 % (0-2); HEMATOCRIT 26.9 % (36.0-47.0); HEMOGLOBIN 9.1 g/dL (12.0-15.5); LYMPHOCYTES % (AUTO) 11.2 % (13-45); MEAN CORPUSCULAR HEMOGLOBIN 29.9 pg (27.0-33.4); MEAN CORPUSCULAR HGB CONC 33.9 g/dL (32.0-36.0); MEAN CORPUSCULAR VOLUME 88 fl (80-97); MONOCYTES % (AUTO) 10.3 % (3-13); RED BLOOD COUNT 3.04 10^6/uL (3.72-5.28); SEGMENTED NEUTROPHILS % (AUTO) 78.4 % (42-78); TOTAL CELLS COUNTED % (AUTO) 100 %; WHITE BLOOD COUNT 4.1 10^3/uL (4.0-10.5)
[2019-08-27 01:05] LABS: PLATELET COUNT 87 10^3/uL (150-450)
[2019-08-27] MEDS: METOPROLOL TARTRATE PF/INJ 5 MG/5 ML SDV IV SCH ×7 (01:18→23:32)
[2019-08-27] MEDS: PIPERACILLIN SODIUM/TAZOBACTAM 3.375 GM in NORMAL SALINE 100 ML IV SCH ×4 (02:43→20:35)
[2019-08-27 05:16] LABS: ABSOLUTE LYMPHOCYTES (AUTO) 0.7 10^3/uL (0.5-4.7); ABSOLUTE MONOCYTES (AUTO) 0.5 10^3/uL (0.1-1.4); ABSOLUTE NEUT (AUTO) 5.2 10^3/uL (1.7-8.2); BASOPHILS % (AUTO) 0.3 % (0-2); HEMATOCRIT 26.3 % (36.0-47.0); HEMOGLOBIN 8.9 g/dL (12.0-15.5); LYMPHOCYTES % (AUTO) 10.3 % (13-45); MEAN CORPUSCULAR HEMOGLOBIN 29.6 pg (27.0-33.4); MEAN CORPUSCULAR HGB CONC 33.8 g/dL (32.0-36.0); MEAN CORPUSCULAR VOLUME 88 fl (80-97); RED BLOOD COUNT 3.01 10^6/uL (3.72-5.28); RED CELL DISTRIBUTION WIDTH 14.8 % (11.5-14.0); SEGMENTED NEUTROPHILS % (AUTO) 81.4 % (42-78); TOTAL CELLS COUNTED % (AUTO) 100 %; WHITE BLOOD COUNT 6.4 10^3/uL (4.0-10.5)
[2019-08-27 05:28] LABS: ANION GAP 11 (5-19); BLOOD UREA NITROGEN 10 mg/dL (7-20); CARBON DIOXIDE 17 mmol/L (22-30); CHLORIDE 111 mmol/L (98-107); GLUCOSE 233 mg/dL (75-110)
[2019-08-27 05:45] LABS: CALCIUM 6.9 mg/dL (8.4-10.2)
[2019-08-27] MEDS: INSULIN LISPRO 100 UNIT/ML 3 ML VIAL SUBCUT SCH ×4 (05:50→23:48)
[2019-08-27 06:06] LABS: PLATELET COUNT 89 10^3/uL (150-450)
--- NOTE | 2019-08-27 08:01 | EKG REPORT ---
SEVERITY:- ABNORMAL ECG - SINUS RHYTHM RBBB AND LAFB : Confirmed by: Veena Grant MD 27-Aug-2019 08:01:26
[2019-08-27] MEDS: FENTANYL CITRATE INJ/PF 100 MCG/2 ML AMPUL IV PRN ×4 (08:23→23:48)
[2019-08-27] MEDS ORDERED: NORMAL SALINE 250 ML IV PRN (08:31)
--- NOTE | 2019-08-27 08:38 | PDOC PROGRESS REPORT ---
Subjective Progress Note for:: 08/27/19 Subjective:: pod 1 subtotal colectomy Reason For Visit: LOWER GI BLEED,DM TYPE 2,HTN,GERD,CAD Physical Exam Vital Signs: Temp Pulse Resp BP Pulse Ox 97.4 F 100 16 104/47 L 100 08/27/19 03:35 08/26/19 19:22 08/27/19 05:32 08/27/19 05:32 08/27/19 05:32 Intake & Output 08/26/19 08/27/19 08/28/19 06:59 06:59 06:59 Intake Total 2175 5300 Output Total 4110 Balance 2175 1190 Weight 69.6 kg 69.8 kg General appearance: PRESENT: cooperative, mild distress Head exam: PRESENT: normocephalic Eye exam: PRESENT: EOMI Mouth exam: PRESENT: dry mucosa Teeth exam: PRESENT: poor dentation Neck exam: PRESENT: full ROM Respiratory exam: PRESENT: clear to auscultation jaison Cardiovascular exam: PRESENT: RRR Pulses: PRESENT: normal femoral pulses, normal dorsalis pedis pul Vascular exam: PRESENT: normal capillary refill Breast: PRESENT: Normal GI/Abdominal exam: PRESENT: other - abd soft, wound dry castillo 500cc last shift, more serous Rectal exam: PRESENT: deferred Gentrourinary exam: PRESENT: indwelling catheter Extremities exam: PRESENT: full ROM Musculoskeletal exam: PRESENT: full ROM Neurological exam: PRESENT: alert, awake, oriented to person Skin exam: PRESENT: dry Results Laboratory Results: 08/27/19 04:30 08/27/19 04:30 08/26/19 08/26/19 08/26/19 10:33 11:51 18:42 WBC 6.2 RBC 2.42 L Hgb 7.2 L Hct 21.3 L MCV 88 MCH 29.6 MCHC 33.7 RDW 15.9 H Plt Count 132 L Seg Neutrophils % 53.4 Sodium 139.3 Potassium 4.0 Chloride 113 H Carbon Dioxide 18 L Anion Gap 8 BUN 13 Creatinine 0.54 Est GFR ( Amer) > 60 Glucose 204 H Calcium 7.4 L Albumin Blood Type A POSITIVE Antibody Screen NEGATIVE 08/26/19 08/27/19 08/27/19 18:42 00:18 04:30 WBC 3.9 L 4.1 6.4 RBC 3.37 L 3.04 L 3.01 L Hgb 10.0 L D 9.1 L 8.9 L Hct 30.0 L 26.9 L 26.3 L MCV 89 88 88 MCH 29.8 29.9 29.6 MCHC 33.5 33.9 33.8 RDW 15.3 H 15.0 H 14.8 H Plt Count 81 L 87 L 89 L Seg Neutrophils % 60.6 78.4 H 81.4 H Sodium Potassium Chloride Carbon Dioxide Anion Gap BUN Creatinine Est GFR ( Amer) Glucose Calcium Albumin Blood Type Antibody Screen 08/27/19 08/27/19 04:30 04:30 WBC RBC Hgb Hct MCV MCH MCHC RDW Plt Count Seg Neutrophils % Sodium 138.7 Potassium 4.0 Chloride 111 H Carbon Dioxide 17 L Anion Gap 11 BUN 10 Creatinine 0.72 Est GFR ( Amer) > 60 Glucose 233 H Calcium 6.9 L* Albumin 2.4 L Blood Type Antibody Screen Impressions: GI Bleed Scan Nuclear Medicine 08/26/19 00:00 IMPRESSION: FINDINGS CONSISTENT WITH ACTIVE GI BLEEDING IN THE SIGMOID COLON. Assessment & Plan - Plan Summary Plan Summary: s/p subtotal colectomy for massive lower gi bleed due to diverticulosis doing better this am post op bleeing slowed hct more stable vitals more stable] will dc ng\ out of bed today txn 1 unit of prbc\ cont icu care today
[2019-08-27] MEDS: PANTOPRAZOLE SODIUM 40 MG VIAL IV SCH ×2 (09:08→21:09)
[2019-08-27] MEDS ORDERED: KETOROLAC TROMETHAMINE INJ/PF 30 MG/1 ML SDV IV PRN (10:15)
[2019-08-27 12:46] LABS: FREE T3 1.94 pg/mL (2.77-5.27); FREE T4 (FREE THYROXINE) 1.57 ng/dL (0.78-2.19)
[2019-08-27 12:59] LABS: THYROID STIMULATING HORMONE 2.38 uIU/mL (0.47-4.68)
--- NOTE | 2019-08-27 15:21 | PDOC CRITICAL CARE PROG REPORT ---
General Date:: 08/27/19 ICU Day:: 2 Hospital Day:: 4 Resuscitation Status: Full Code Events in the past 12 to 24 Hours:: 08/23: admitted with BRBPR. 08/25: RBC scan compatible with sigmoid bleed. subtotal colectomy w/reanastomosis. Transfused 4 units PRBC, 2 units FFP intraoperatively. Transfused 1 more unit PRBC postop. Extubated postop and transferred to ICU for postop care. 08/26: Complains of abdominal and thoracic pain with deep inspiration. Suboptimal postoperative pain control. Otherwise, no new complaints. Review of systems relevant to events:: Cardiovascular, gastrointestinal, hematologic Reason for ICU Addmission:: s/p subtotal colectomy, Post op Anemia - Medications: Medications reviewed and adjusted accordingly: Yes Physical Exam Vital Signs: Temp Pulse Resp BP Pulse Ox 97.4 F 100 19 115/59 L 100 08/27/19 03:35 08/26/19 19:22 08/27/19 08:32 08/27/19 08:32 08/27/19 08:32 Intake & Output 08/26/19 08/27/19 08/28/19 06:59 06:59 06:59 Intake Total 2175 5300 Output Total 4110 686 Balance 2175 1190 -686 Weight 69.6 kg 69.8 kg Weight/Height Weight 69.8 kg Height 1.63 m General appearance: PRESENT: no acute distress, well-developed, well-nourished Head exam: PRESENT: atraumatic, normocephalic Eye exam: PRESENT: conjunctiva pink, EOMI, PERRLA. ABSENT: scleral icterus Mouth exam: PRESENT: moist, tongue midline Neck exam: ABSENT: carotid bruit, JVD, lymphadenopathy, thyromegaly Respiratory exam: PRESENT: clear to auscultation jaison. ABSENT: rales, rhonchi, wheezes Cardiovascular exam: PRESENT: RRR. ABSENT: diastolic murmur, rubs, systolic murmur Pulses: PRESENT: normal dorsalis pedis pul GI/Abdominal exam: PRESENT: hypoactive bowel sounds, soft. ABSENT: distended, guarding, mass, organolmegaly, rebound, tenderness Extremities exam: PRESENT: full ROM, pedal edema. ABSENT: calf tenderness, clubbing Neurological exam: PRESENT: alert, awake, oriented to person, oriented to place, oriented to time, oriented to situation, CN II-XII grossly intact. ABSENT: motor sensory deficit Skin exam: PRESENT: dry, intact, warm, other - Abdominal incision site, clean, dry and intact. ABSENT: cyanosis, rash Tubes/Lines: PRESENT: Other - Clark drain Laboratory/Radiographs Laboratory Results: 08/27/19 04:30 08/27/19 04:30 08/26/19 08/26/19 08/26/19 10:33 11:51 18:42 WBC 6.2 RBC 2.42 L Hgb 7.2 L Hct 21.3 L MCV 88 MCH 29.6 MCHC 33.7 RDW 15.9 H Plt Count 132 L Seg Neutrophils % 53.4 Sodium 139.3 Potassium 4.0 Chloride 113 H Carbon Dioxide 18 L Anion Gap 8 BUN 13 Creatinine 0.54 Est GFR ( Amer) > 60 Glucose 204 H Calcium 7.4 L Albumin Blood Type A POSITIVE Antibody Screen NEGATIVE 08/26/19 08/27/19 08/27/19 18:42 00:18 04:30 WBC 3.9 L 4.1 6.4 RBC 3.37 L 3.04 L 3.01 L Hgb 10.0 L D 9.1 L 8.9 L Hct 30.0 L 26.9 L 26.3 L MCV 89 88 88 MCH 29.8 29.9 29.6 MCHC 33.5 33.9 33.8 RDW 15.3 H 15.0 H 14.8 H Plt Count 81 L 87 L 89 L Seg Neutrophils % 60.6 78.4 H 81.4 H Sodium Potassium Chloride Carbon Dioxide Anion Gap BUN Creatinine Est GFR ( Amer) Glucose Calcium Albumin Blood Type Antibody Screen 08/27/19 08/27/19 04:30 04:30 WBC RBC Hgb Hct MCV MCH MCHC RDW Plt Count Seg Neutrophils % Sodium 138.7 Potassium 4.0 Chloride 111 H Carbon Dioxide 17 L Anion Gap 11 BUN 10 Creatinine 0.72 Est GFR ( Amer) > 60 Glucose 233 H Calcium 6.9 L* Albumin 2.4 L Blood Type Antibody Screen Impressions: GI Bleed Scan Nuclear Medicine 08/26/19 00:00 IMPRESSION: FINDINGS CONSISTENT WITH ACTIVE GI BLEEDING IN THE SIGMOID COLON. All labs, radiographs, diagnostic studies and EKGs were personally reviewed: Yes In addition, reports of radiographic and diagnostic studies were read: Yes Assessment and Plan - Diagnosis (1) Colonic diverticular disease Is this a current diagnosis for this admission?: Yes Plan: Status post subtotal colectomy. Postoperative pain control. Currently trying fentanyl after morphine was found to cause hypotension. Incentive spirometry. (2) Lower GI bleed Is this a current diagnosis for this admission?: Yes Plan: Case discussed with Dr. Bush. S/p subtotal colectomy. Monitor H&H and transfuse for less than 7.0. Monitor JUANY drain output. (3) Diabetes mellitus, type 2 Qualifiers: Diabetes mellitus group home insulin use: without watermelon inspector use Diabetes mellitus complication status: with other specified complication Qualified Code(s): E11.69 - Type 2 diabetes mellitus with other specified complication Is this a current diagnosis for this admission?: Yes Plan: Continue to hold metformin and glipizide. Continue sliding scale insulin coverage every 6 hours (4) GERD (gastroesophageal reflux disease) Qualifiers: Esophagitis presence: esophagitis presence not specified Qualified Code(s): K21.9 - Gastro-esophageal reflux disease without esophagitis Is this a current diagnosis for this admission?: Yes Plan: Continue Protonix 40 mg IV twice daily. (5) Hypertension Qualifiers: Hypertension type: unspecified Qualified Code(s): I10 - Essential (primary) hypertension Is this a current diagnosis for this admission?: Yes Plan: Currently normotensive postoperatively. On Lopressor 5 mg IV every 4 hours. 5% salt poor albumin 500 mL infusion. Home antihypertensive medications on hold: Fosinopril 20 mg p.o. daily Lopressor 5 mg IV every 4 hours (6) Hypothyroidism Qualifiers: Hypothyroidism type: acquired Qualified Code(s): E03.9 - Hypothyroidism, unspecified Is this a current diagnosis for this admission?: Yes Plan: Home medication: Synthroid 0.05 mg p.o. daily Check TSH. Start IV Synthroid. (7) Coronary artery disease Qualifiers: Coronary Disease-Associated Artery/Lesion type: unspecified vessel or lesion type [place] vs. transplanted heart: [place] heart Associated angina: angina presence unspecified Qualified Code(s): I25.10 - Atherosclerotic heart disease of [place] coronary artery without angina pectoris Is this a current diagnosis for this admission?: Yes Critical Time Critical Time (minutes): 45 Level of Care: ICU -: 1. The care of a critical patient is a dynamic process. This note is a business services representative synopsis but static in nature. The timeframe for treatments given in order is not necessarily the actual time these treatments may have been done. 2. This patient requires critical care secondary to ongoing requirements for therapy not offered or safe outside the critical care environment. Transfer to a lower level of care will result in altered life or limb morbidity and mortality. 3. Multidisciplinary rounds completed. 4. ABCDE bundle addressed.
[2019-08-27 16:03] LABS: HEMATOCRIT 27.8 % (36.0-47.0); HEMOGLOBIN 9.7 g/dL (12.0-15.5); MEAN CORPUSCULAR HEMOGLOBIN 30.3 pg (27.0-33.4); MEAN CORPUSCULAR HGB CONC 34.8 g/dL (32.0-36.0); MEAN CORPUSCULAR VOLUME 87 fl (80-97); RED CELL DISTRIBUTION WIDTH 14.9 % (11.5-14.0); WHITE BLOOD COUNT 11.7 10^3/uL (4.0-10.5)
[2019-08-27 16:21] LABS: PLATELET COUNT 93 10^3/uL (150-450)
[2019-08-28] MEDS: METOPROLOL TARTRATE PF/INJ 5 MG/5 ML SDV IV SCH ×7 (01:44→21:43)
[2019-08-28] MEDS ORDERED: RINGERS SOLUTION,LACTATED 500 ML IV ONE ×2 (01:51→19:00)
[2019-08-28] MEDS: FENTANYL CITRATE INJ/PF 100 MCG/2 ML AMPUL IV PRN ×2 (02:05→06:18)
[2019-08-28] MEDS: PIPERACILLIN SODIUM/TAZOBACTAM 3.375 GM in NORMAL SALINE 100 ML IV SCH ×4 (02:23→21:43)
[2019-08-28] MEDS ORDERED: AMIODARONE HCL 150 MG in DEXTROSE 5%-WATER 100 ML IV ONE (03:54)
[2019-08-28] MEDS ORDERED: AMIODARONE HCL INJ 150 MG/3 ML VIAL IV ONE ×4 (04:01→20:48)
[2019-08-28] MEDS: DEXTROSE 5%-WATER 500 ML with AMIODARONE HCL 900 MG IV PRN ×4 (04:30→21:44)
[2019-08-28 04:42] LABS: HEMATOCRIT 27.1 % (36.0-47.0); HEMOGLOBIN 9.4 g/dL (12.0-15.5); MEAN CORPUSCULAR HEMOGLOBIN 30.2 pg (27.0-33.4); MEAN CORPUSCULAR HGB CONC 34.5 g/dL (32.0-36.0); MEAN CORPUSCULAR VOLUME 87 fl (80-97); RED CELL DISTRIBUTION WIDTH 15.4 % (11.5-14.0); WHITE BLOOD COUNT 11.3 10^3/uL (4.0-10.5)
[2019-08-28 04:43] LABS: PLATELET COUNT 93 10^3/uL (150-450)
[2019-08-28 04:49] LABS: ANION GAP 9 (5-19); BLOOD UREA NITROGEN 12 mg/dL (7-20); CALCIUM 7.4 mg/dL (8.4-10.2); CARBON DIOXIDE 17 mmol/L (22-30); CHLORIDE 112 mmol/L (98-107); GLUCOSE 191 mg/dL (75-110); POTASSIUM 3.6 mmol/L (3.6-5.0)
[2019-08-28 04:55] LABS: PREALBUMIN 11.1 mg/dL (17.6-36.0)
[2019-08-28 05:06] LABS: ABSOLUTE LYMPHOCYTES# (MANUAL) 0.6 10^3/uL (0.5-4.7); ABSOLUTE MONOCYTES # (MANUAL) 0.7 10^3/uL (0.1-1.4); BAND NEUTROPHILS % (MANUAL) 4 % (3-5); BASOPHILS % (MANUAL) 0 % (0-2); EOSINOPHILS % (MANUAL) 0 % (0-6); LYMPHOCYTES % (MANUAL) 5 % (13-45); MONOCYTES % (MANUAL) 6 % (3-13); SEGMENTED NEUTROPHILS % (MAN) 85 % (42-78); TOTAL CELLS COUNTED 100
[2019-08-28 05:08] LABS: ANISOCYTOSIS SLIGHT; PLATELET COMMENT DECREASED; TOXIC VACUOLATION PRESENT
[2019-08-28] MEDS: INSULIN LISPRO 100 UNIT/ML 3 ML VIAL SUBCUT SCH ×3 (06:17→17:36)
[2019-08-28] MEDS: POTASSI CL 20 MEQ/1/2NS 1L 20 MEQ/1,000 ML RTUINJ IV PRN ×2 (06:28→18:18)
--- NOTE | 2019-08-28 07:31 | PDOC PROGRESS REPORT ---
Subjective Progress Note for:: 08/28/19 Reason For Visit: LOWER GI BLEED,DM TYPE 2,HTN,GERD,CAD Physical Exam Vital Signs: Temp Pulse Resp BP Pulse Ox 98.1 F 102 H 26 H 109/79 100 08/28/19 03:34 08/27/19 19:56 08/28/19 06:00 08/28/19 05:33 08/28/19 06:00 Intake & Output 08/27/19 08/28/19 08/29/19 06:59 06:59 06:59 Intake Total 5300 2450 Output Total 4110 1451 Balance 1190 999 Weight 69.8 kg 71 kg Results Laboratory Results: 08/28/19 04:24 08/28/19 04:24 08/26/19 08/27/19 08/27/19 11:51 04:30 15:44 WBC 11.7 H RBC 3.20 L Hgb 9.7 L Hct 27.8 L MCV 87 MCH 30.3 MCHC 34.8 RDW 14.9 H Plt Count 93 L Seg Neutrophils % Sodium Potassium Chloride Carbon Dioxide Anion Gap BUN Creatinine Est GFR ( Amer) Glucose Calcium Magnesium Prealbumin TSH 2.38 Free T4 1.57 Free T3 pg/mL 1.94 L Blood Type A POSITIVE Antibody Screen NEGATIVE 08/28/19 08/28/19 04:24 04:24 WBC 11.3 H RBC 3.10 L Hgb 9.4 L Hct 27.1 L MCV 87 MCH 30.2 MCHC 34.5 RDW 15.4 H Plt Count 93 L Seg Neutrophils % Not Reportable Sodium 138.4 Potassium 3.6 Chloride 112 H Carbon Dioxide 17 L Anion Gap 9 BUN 12 Creatinine 0.65 Est GFR ( Amer) > 60 Glucose 191 H Calcium 7.4 L Magnesium 1.6 Prealbumin 11.1 L TSH Free T4 Free T3 pg/mL Blood Type Antibody Screen Impressions: GI Bleed Scan Nuclear Medicine 08/26/19 00:00 IMPRESSION: FINDINGS CONSISTENT WITH ACTIVE GI BLEEDING IN THE SIGMOID COLON. Assessment & Plan - Diagnosis (1) Colonic diverticular disease Is this a current diagnosis for this admission?: Yes (2) Lower GI bleed Is this a current diagnosis for this admission?: Yes - Plan Summary Plan Summary: 83-year-old female status post exploratory laparotomy for exsanguinating colonic hemorrhage. The patient is awake and alert this morning. She complains of abdominal pain. Overnight, she was found to be in atrial fibrillation. Consult will be made to cardiology today. She is currently controlled with amiodarone. Her urine output is marginal at 20 to 25 cc/h. She was given a 500 cc fluid bolus with good result. Her hemoglobin appears to be stable. Her abdomen is mildly distended this morning. She has not passed any flatus. Continue with n.p.o. for now. Continue IV fluids as previously ordered. Repeat labs tomorrow. Surgery will continue to follow closely with you.
[2019-08-28] MEDS: HALOPERIDOL LACTATE INJ 5 MG/1 ML VIAL ONE ×2 (08:00→08:03)
[2019-08-28] MEDS ORDERED: HALOPERIDOL LACTATE INJ 5 MG/1 ML VIAL IV ONE (08:15)
--- NOTE | 2019-08-28 08:45 | EKG REPORT ---
SEVERITY:- ABNORMAL ECG - ATRIAL FIBRILLATION RBBB AND LAFB : Confirmed by: Veena Grant MD 28-Aug-2019 08:45:13
--- NOTE | 2019-08-28 08:56 | RADIOLOGY REPORT (SQ) ---
EXAM DESCRIPTION: CHEST SINGLE VIEW IMAGES COMPLETED DATE/TIME: 08/28/2019 5:50 am REASON FOR STUDY: atelectasis COMPARISON: Two-view chest 10/10/2015 CTA chest 05/04/2011 EXAM PARAMETERS: NUMBER OF VIEWS: One view. TECHNIQUE: Single frontal radiographic view of the chest acquired. RADIATION DOSE: NA LIMITATIONS: Portable technique, rotated toward the [place] no orientation FINDINGS: LUNGS AND PLEURA: Question left basilar airspace disease atelectasis versus pneumonia. Right lung grossly clear. No pleural effusion or pneumothorax MEDIASTINUM AND HILAR STRUCTURES: No masses. Contour normal. HEART AND VASCULAR STRUCTURES: Stable moderate cardiomegaly BONES: No acute findings. HARDWARE: None in the chest. OTHER: No other significant finding. IMPRESSION: Opacity left lateral lung base, question atelectasis or pneumonia TECHNICAL DOCUMENTATION: JOB ID: [id number] 2010 [employer]- All Rights Reserved Reading location - IP/workstation name: [email or web address]
[2019-08-28] MEDS: PANTOPRAZOLE SODIUM 40 MG VIAL IV SCH ×2 (09:43→21:42)
[2019-08-28] MEDS ORDERED: DIGOXIN INJ 0.5 MG/2 ML AMPULE IV ONE ×3 (11:00→20:17)
[2019-08-28] MEDS ORDERED: METOPROLOL TARTRATE PF/INJ 5 MG/5 ML SDV IV ONE (12:45)
[2019-08-28] MEDS ORDERED: HALOPERIDOL LACTATE INJ 5 MG/1 ML VIAL IV PRN (15:07)
--- NOTE | 2019-08-28 15:40 | PDOC CRITICAL CARE PROG REPORT ---
General Date:: 08/28/19 ICU Day:: 3 Hospital Day:: 5 Resuscitation Status: Full Code Events in the past 12 to 24 Hours:: 08/23: admitted with BRBPR. 08/25: RBC scan compatible with sigmoid bleed. subtotal colectomy w/reanastomosis. Transfused 4 units PRBC, 2 units FFP intraoperatively. Transfused 1 more unit PRBC postop. Extubated postop and transferred to ICU for postop care. 08/26: Complains of abdominal and thoracic pain with deep inspiration. Suboptimal postoperative pain control. Otherwise, no new complaints. 08/27: Apparently experiencing delirium. The patient is quite verbally combative today. She called 911 from her hospital bed at shift change this morning. She stated that she had no idea where she was and how she got there. She does endorse some pain but states that it is reasonably controlled. WBC 6.4>11.7>11.3. Afebrile. Chest x-ray compatible with left basilar subsegmental atelectasis. Review of systems relevant to events:: Cardiovascular, gastrointestinal, hematologic Reason for ICU Addmission:: s/p subtotal colectomy, Post op Anemia - Medications: Medications reviewed and adjusted accordingly: Yes Physical Exam Vital Signs: Temp Pulse Resp BP Pulse Ox 97.9 F 137 H 21 H 103/61 59 L 08/28/19 14:00 08/28/19 10:00 08/28/19 14:45 08/28/19 14:45 08/28/19 14:20 Intake & Output 08/27/19 08/28/19 08/29/19 06:59 06:59 06:59 Intake Total 5300 2450 100 Output Total 4110 1451 Balance 1190 999 100 Weight 69.8 kg 71 kg Weight/Height Weight 71 kg Height 1.63 m General appearance: PRESENT: no acute distress, well-developed, well-nourished Head exam: PRESENT: atraumatic, normocephalic Eye exam: PRESENT: conjunctiva pink, EOMI, PERRLA. ABSENT: scleral icterus Neck exam: ABSENT: carotid bruit, JVD, lymphadenopathy, thyromegaly Respiratory exam: PRESENT: decreased breath sounds - Bases. ABSENT: rales, rhonchi, wheezes Cardiovascular exam: PRESENT: RRR. ABSENT: diastolic murmur, rubs, systolic murmur Pulses: PRESENT: normal dorsalis pedis pul GI/Abdominal exam: PRESENT: hypoactive bowel sounds, soft, other - Abdominal incision site clean, dry and intact.. ABSENT: distended, guarding, mass, organolmegaly, rebound, tenderness Extremities exam: PRESENT: full ROM. ABSENT: calf tenderness, clubbing, pedal edema Musculoskeletal exam: PRESENT: normal inspection. ABSENT: deformity Neurological exam: PRESENT: alert, awake, oriented to person, oriented to place, CN II-XII grossly intact. ABSENT: motor sensory deficit Psychiatric exam: PRESENT: agitated Skin exam: PRESENT: dry, intact, warm. ABSENT: cyanosis, rash Tubes/Lines: PRESENT: Other - Clark drain Laboratory/Radiographs Laboratory Results: 08/28/19 04:24 08/28/19 04:24 08/26/19 08/27/19 08/28/19 11:51 15:44 04:24 WBC 11.7 H 11.3 H RBC 3.20 L 3.10 L Hgb 9.7 L 9.4 L Hct 27.8 L 27.1 L MCV 87 87 MCH 30.3 30.2 MCHC 34.8 34.5 RDW 14.9 H 15.4 H Plt Count 93 L 93 L Seg Neutrophils % Not Reportable Sodium Potassium Chloride Carbon Dioxide Anion Gap BUN Creatinine Est GFR ( Amer) Glucose Calcium Magnesium Prealbumin Blood Type A POSITIVE Antibody Screen NEGATIVE 08/28/19 04:24 WBC RBC Hgb Hct MCV MCH MCHC RDW Plt Count Seg Neutrophils % Sodium 138.4 Potassium 3.6 Chloride 112 H Carbon Dioxide 17 L Anion Gap 9 BUN 12 Creatinine 0.65 Est GFR ( Amer) > 60 Glucose 191 H Calcium 7.4 L Magnesium 1.6 Prealbumin 11.1 L Blood Type Antibody Screen Impressions: GI Bleed Scan Nuclear Medicine 08/26/19 00:00 IMPRESSION: FINDINGS CONSISTENT WITH ACTIVE GI BLEEDING IN THE SIGMOID COLON. Chest X-Ray 08/28/19 05:00 IMPRESSION: Opacity left lateral lung base, question atelectasis or pneumonia All labs, radiographs, diagnostic studies and EKGs were personally reviewed: Yes In addition, reports of radiographic and diagnostic studies were read: Yes Assessment and Plan - Diagnosis (1) Colonic diverticular disease Is this a current diagnosis for this admission?: Yes Plan: Status post subtotal colectomy. Postoperative pain control. Hold fentanyl. Morphine as needed. Needs to do more incentive spirometry. 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 Continue sliding scale insulin coverage every 6 hours (4) GERD (gastroesophageal reflux disease) Qualifiers: Esophagitis presence: esophagitis presence not specified Qualified Code(s): K21.9 - Gastro-esophageal reflux disease without esophagitis Is this a current diagnosis for this admission?: Yes Plan: Continue Protonix 40 mg IV twice daily. (5) Hypertension Qualifiers: Hypertension type: unspecified Qualified Code(s): I10 - Essential (primary) hypertension Is this a current diagnosis for this admission?: Yes Plan: Currently normotensive postoperatively. On Lopressor 5 mg IV every 4 hours. 5% salt poor albumin 500 mL infusion. Home antihypertensive medications on hold: Fosinopril 20 mg p.o. daily Lopressor 5 mg IV every 4 hours (6) Hypothyroidism Qualifiers: Hypothyroidism type: acquired Qualified Code(s): E03.9 - Hypothyroidism, unspecified Is this a current diagnosis for this admission?: Yes (7) Coronary artery disease Qualifiers: Coronary Disease-Associated Artery/Lesion type: unspecified vessel or lesion type [place] vs. transplanted heart: [place] heart Associated angina: angina presence unspecified Qualified Code(s): I25.10 - Atherosclerotic heart disease of [place] coronary artery without angina pectoris Is this a current diagnosis for this admission?: Yes (8) Delirium Is this a current diagnosis for this admission?: Yes Plan: Haldol 2.5 mg IV every 6 hours PRN (9) Atrial fibrillation with rapid ventricular response Is this a current diagnosis for this admission?: Yes Plan: Currently on amiodarone infusion. Cardiology help appreciated. Plan Summary: OK to transfer out of ICU. Critical Time Critical Time (minutes): 60 Level of Care: ICU -: 1. The care of a critical patient is a dynamic process. This note is a financial foundations representative synopsis but static in nature. The timeframe for treatments given in order is not necessarily the actual time these treatments may have been done. 2. This patient requires critical care secondary to ongoing requirements for therapy not offered or safe outside the critical care environment. Transfer to a lower level of care will result in altered life or limb morbidity and mortality. 3. Multidisciplinary rounds completed. 4. ABCDE bundle addressed.
[2019-08-28] MEDS: MORPHINE SULFATE 10 MG/ML INJ IV PRN (18:34)
[2019-08-28] MEDS ORDERED: DIGOXIN INJ 0.5 MG/2 ML AMPULE ONE (20:21)
--- NOTE | 2019-08-28 20:28 | PDOC CONSULTATION ---
Consultation-Blank Consultation: CARDIOLOGY CONSULTATION by Dr. Veena Grant on 08/28/2019. Patient is seen at 12 noon. 60 minutes spent with patient more than 50% time spent direct patient care. REASON FOR CONSULTATION: Atrial fibrillation with rapid ventricular response POSTOPERATIVELY. Consult REQUESTING PROVIDER: Data Management Manager, [facility], [facility] ICU. Selected Entries 08/28/19 08/28/19 08/28/19 10:00 12:04 12:33 Heart Rate ( 128 Monitors) Respiratory 24 H Rate Blood Pressure 128/69 H Blood Pressure 88 Mean O2 Sat by Pulse 100 Oximetry Oxygen Delivery Room Air Method ( includes room air) HISTORY OF PRESENT ILLNESS: The patient appears to be drowsy and slightly confused although at times she answers questions appropriately. Chart reviewed. Patient is a 83-year-old Afro-Cuban female with known history of hypertension, diabetes mellitus type 2 [id number], hypothyroidism, and hyperlipidemia, with also some degree of Alzheimer's dementia who was admitted with acute GI bleed. The patient underwent total hemicolectomy for the GI bleed since it was ongoing. The patient postoperatively this morning was seen to go into atrial fibrillation with rapid ventricular response. Her heart rate is still fast in spite of the patient being on amiodarone drip. The patient denies chest pains or discomfort. She denies shortness of breath. She has no palpitations. Her blood pressure is stable. On review of her old records the patient in 2012 as mentioned to have atrial flutter. Although she is not been on anticoagulation since a long time. There is no history of TIA CVA. As mentioned earlier the patient has mild Alzheimer's dementia and is all met Folbic plus. In spite of the patient being on amiodarone drip after bolus and of also after the patient is received 2 doses of 0.25 mg of digoxin IV push she continues to be in atrial flutter fibrillation with a ventricular response in the 130s. With a stable blood pressure. She is hemodynamically stable. Past Medical History Cardiac Medical History: Reports: Hypertension Denies: Congestive Heart Failure, Coronary Artery Disease, Myocardial Infarction, Hyperlipidema, Peripheral Vascular Disease, Heart Murmur. As mentioned earlier and old records in 2012 there is a mention of atrial flutter. Full details of this is not known. Pulmonary Medical History: Reports: Pneumonia Denies: Tuberculosis Neurological Medical History: Denies: Seizures Endocrine Medical History: Reports: Diabetes Mellitus Type 2, Hypothyroidism Denies: Hyperthyroidism Malignancy Medical History: Denies: Leukemia GI Medical History: Reports: Gastroesophageal Reflux Disease Denies: Crohn's Disease, Hiatal Hernia Musculoskeltal Medical History: Reports: Arthritis Denies: Fibromyalgia Psychiatric Medical History: Denies: Dementia, Depression Hematology: Reports: Anemia Denies: Hemophilia, Sickle Cell Disease Infectious Medical History: Denies: HIV Past Surgical History Past Surgical History: Reports: Tonsillectomy Denies: Amputation, Appendectomy, Section, Cholecystectomy, Colostomy, Coronary Artery Bypass Graft, Gastric Bypass Surgery, Herniorrhaphy, Hysterectomy, Mastectomy, Pacemaker, Tubal Ligation Social History Smoking Status: Never Smoker Hx Recreational Drug Use: No Hx Prescription Drug Abuse: No - Advance Directive Resuscitation Status: Full Code Family History Family History: Reviewed & Not Pertinent Parental Family History Reviewed: Yes Children Family History Reviewed: Yes Sibling(s) Family History Reviewed.: Yes Medication/Allergy Home Medications: Metformin HCl [Glucophage 500 Mg Tablet] 1,000 mg PO BID 04/04/11 Omeprazole [Prilosec] 20 mg PO Q6AM 04/04/11 Acetylcyst/Jcydijw86/Levomefol [Metafolbic Plus Caplet] 1 tab PO DAILY 08/24/19 Famotidine [Pepcid 20 mg Tablet] 40 mg PO DAILY 08/24/19 Fosinopril Sodium 20 mg PO DAILY 08/24/19 Gabapentin [Neurontin 100 mg Capsule] 100 mg PO BID 08/24/19 Glipizide [Glucotrol 10 mg Tablet] 10 mg PO BID 08/24/19 Levothyroxine Sodium [Synthroid 0.05 mg Tablet] 0.05 mg PO Q6AM 08/24/19 Pravastatin Sodium 10 mg PO DAILY 08/24/19 Allergies/Adverse Reactions: No Known Allergies Allergy (Verified 12/11/11 09:56) Current Medications Generic Name Dose Route Start Last Admin Trade Name Freq PRN Reason Stop Dose Admin Dextrose 12.5 gm 08/26/19 17:10 Dextrose Inj 50% Syringe (25 Gm/50 Ml) IV 09/25/19 17:09 PRN PRN FOR BG 50-69 IN ALERT PATIENT Protocol Dextrose 25 gm 08/26/19 17:10 Dextrose Inj 50% Syringe (25 Gm/50 Ml) IV 09/25/19 17:09 PRN PRN See Label Comments Protocol Glucagon 1 mg 08/26/19 17:10 Glucagen Inj 1 Mg Vial SUBCUT 09/25/19 17:09 PRN PRN Evaluate for BG < 70 Protocol Glucose 15 gm 08/26/19 17:10 Glutose 40% Gel 15 Gm Tube PO 09/25/19 17:09 PRN PRN For BG 50-69 in Alert Patient Protocol Glucose 30 gm 08/26/19 17:10 Glutose 40% Gel 15 Gm Tube PO 09/25/19 17:09 PRN PRN FOR BG < 50 IN ALERT PATIENT Protocol Haloperidol Lactate 2.5 mg 08/28/19 15:07 Haldol 5 Mg/Ml Inj 1 Ml Vial IV 09/27/19 15:06 Q6HP PRN RESTLESSNESS/AGITATION Piperacillin Sod/Tazobactam 100 mls @ 200 mls/hr 08/24/19 21:00 08/28/19 21:43 Sod 3.375 gm/ Sodium Chloride IV 08/31/19 20:59 200 mls/hr Q6A LIZ Administration Potassium Chloride/Sodium Chloride 20 meq in 1,000 mls @ 100 mls/hr 08/26/19 17:10 08/28/19 18:18 1/2ns 1000 Ml/Kcl 20 Meq Premix Bag IV 09/25/19 17:09 100 mls/hr CONTINUOUS PRN 100 mls/hr THIS MED IS NOT "PRN" Administration Amiodarone HCl 900 mg/ 500 mls @ 0 mls/hr 08/28/19 03:52 08/28/19 21:44 Dextrose IV 08/31/19 03:51 33.33 mls/hr CONTINUOUS PRN 33.33 mls/hr THIS MED IS NOT "PRN" Administration Protocol Per Protocol Insulin Human Lispro 0 - 12 unit 08/27/19 00:00 08/28/19 17:36 Humalog Insulin 100 Unit/1 Ml 3 Ml Vial SUBCUT 09/26/19 00:00 Not Given Q6 LIZ Protocol Ketorolac Tromethamine 15 mg 08/28/19 20:49 08/28/19 21:42 Toradol Inj/Pf 30 Mg/1 Ml Sdv IV 09/02/19 20:48 15 mg Q6HP PRN Administration FOR PAIN SCALE 4-5 Metoprolol Tartrate 2.5 mg 08/28/19 22:00 08/28/19 21:43 Lopressor Inj/Pf 5 Mg/5 Ml Sdv IV 09/27/19 21:59 Not Given Q4 LIZ Morphine Sulfate 2 mg 08/26/19 17:10 08/26/19 23:25 Morphine 10 Mg/Ml Inj IV 09/02/19 17:09 2 mg Q2HP PRN Administration FOR PAIN Morphine Sulfate 1 mg 08/28/19 15:04 08/28/19 18:34 Morphine 10 Mg/Ml Inj IV 09/04/19 15:03 1 mg Q2HP PRN Administration FOR PAIN Ondansetron HCl 4 mg 08/26/19 17:10 08/26/19 20:54 Zofran Inj/Pf 4 Mg/2 Ml Sdv IV 09/25/19 17:09 4 mg Q4HP PRN Administration FOR NAUSEA/VOMITING Pantoprazole Sodium 40 mg 08/26/19 22:00 08/28/19 21:42 Protonix Iv Inj 40 Mg Vial IV 09/02/19 21:59 40 mg Q12 LIZ Administration Discontinued Medications Generic Name Dose Route Start Last Admin Trade Name Freq PRN Reason Stop Dose Admin Amiodarone HCl Confirm 08/28/19 04:01 08/28/19 04:23 Cordarone Inj 150 Mg/3 Ml Vial Administered 08/28/19 04:02 Not Given Dose 150 mg IV .STK-MED ONE Amiodarone HCl Confirm 08/28/19 04:20 08/28/19 04:31 Cordarone Inj 150 Mg/3 Ml Vial Administered 08/28/19 04:21 Not Given Dose 150 mg IV .STK-MED ONE Amiodarone HCl Confirm 08/28/19 20:41 08/28/19 21:25 Cordarone Inj 150 Mg/3 Ml Vial Administered 08/28/19 20:42 Not Given Dose 150 mg IV .STK-MED ONE Amiodarone HCl Confirm 08/28/19 20:48 08/28/19 21:25 Cordarone Inj 150 Mg/3 Ml Vial Administered 08/28/19 20:49 Not Given Dose 150 mg IV .STK-MED ONE Bupivacaine HCl Confirm 08/26/19 17:05 Sensorcaine-Mpf 0.25% Inj 30 Ml Sdv Administered 05/21/20 17:06 Dose 30 ml .ROUTE .STK-MED ONE Bupivacaine HCl Confirm 08/26/19 17:14 Sensorcaine-Mpf 0.25% Inj 30 Ml Sdv Administered 08/26/19 17:15 Dose 30 ml .ROUTE .STK-MED ONE Bupivacaine HCl Confirm 08/26/19 18:29 Sensorcaine-Mpf 0.25% Inj 30 Ml Sdv Administered 08/26/19 18:30 Dose 30 ml .ROUTE .STK-MED ONE Bupivacaine HCl Confirm 08/26/19 18:30 Sensorcaine-Mpf 0.25% Inj 30 Ml Sdv Administered 08/26/19 18:31 Dose 30 ml .ROUTE .STK-MED ONE Bupivacaine Liposome Confirm 08/26/19 12:51 Exparel 1.3% Inj/Pf 266 Mg/20 Ml Sdv Administered 08/26/19 12:52 Dose 266 mg .ROUTE .STK-MED ONE Dexamethasone Sodium Phosphate Confirm 08/26/19 12:43 Decadron Inj 4 Mg/Ml Vial Administered 08/26/19 12:44 Dose 4 mg .ROUTE .STK-MED ONE Dextrose 12.5 gm 08/24/19 21:25 Dextrose Inj 50% Syringe (25 Gm/50 Ml) IV 09/23/19 21:24 PRN PRN FOR BG 50-69 IN ALERT PATIENT Protocol Dextrose 25 gm 08/24/19 21:25 Dextrose Inj 50% Syringe (25 Gm/50 Ml) IV 09/23/19 21:24 PRN PRN PER PROTOCOL Protocol Digoxin 0.25 mg 08/28/19 11:00 08/28/19 11:03 Lanoxin Inj 0.5 Mg/2 Ml Ampule IV 08/28/19 11:01 0.25 mg NOW ONE Administration Digoxin 0.25 mg 08/28/19 14:00 08/28/19 14:03 Lanoxin Inj 0.5 Mg/2 Ml Ampule IV 08/28/19 14:01 0.25 mg NOW ONE Administration Digoxin 0.25 mg 08/28/19 20:17 08/28/19 20:43 Lanoxin Inj 0.5 Mg/2 Ml Ampule IV 08/28/19 20:18 0.25 mg NOW ONE Administration Digoxin Confirm 08/28/19 20:21 08/28/19 20:43 Lanoxin Inj 0.5 Mg/2 Ml Ampule Administered 08/28/19 20:22 Not Given Dose 0.5 mg .ROUTE .STK-MED ONE Diphenhydramine HCl 12.5 mg 08/26/19 14:32 Benadryl Inj 50 Mg/1 Ml Vial IV 08/26/19 17:32 .WHILE IN PACU PRN ITCHING Enalapril Maleate 10 mg 08/25/19 10:00 08/26/19 13:23 Vasotec 10 Mg Tablet PO 09/24/19 09:59 Not Given DAILY LIZ Epinephrine HCl Confirm 08/28/19 20:42 08/28/19 20:47 Epinephrine Inj 1 Mg/10 Ml Disp.Syrin Administered 08/28/19 20:43 Not Given Dose 1 mg .ROUTE .STK-MED ONE Fentanyl Citrate Confirm 08/26/19 12:43 Sublimaze Inj/Pf 100 Mcg/2 Ml Ampule Administered 08/26/19 12:44 Dose 100 mcg .ROUTE .STK-MED ONE Fentanyl Citrate 25 mcg 08/26/19 14:32 Sublimaze Inj/Pf 100 Mcg/2 Ml Ampule IV 08/26/19 17:32 .WHILE IN PACU PRN PAIN SCALE 2-3 Fentanyl Citrate 12.5 mcg 08/26/19 14:32 Sublimaze Inj/Pf 100 Mcg/2 Ml Ampule IV 08/26/19 17:32 .WHILE IN PACU PRN PAIN SCALE OF 1 Fentanyl Citrate 50 mcg 08/26/19 14:32 Sublimaze Inj/Pf 100 Mcg/2 Ml Ampule IV 08/26/19 17:32 .WHILE IN PACU PRN PAIN SCALE 4-5 Fentanyl Citrate Confirm 08/26/19 17:05 08/26/19 17:05 Sublimaze Inj/Pf 100 Mcg/2 Ml Ampule Administered 08/26/19 17:06 50 mcg Dose Administration 100 mcg .ROUTE .STK-MED ONE Fentanyl Citrate 25 mcg 08/27/19 07:31 08/28/19 06:18 Sublimaze Inj/Pf 100 Mcg/2 Ml Ampule IV 09/03/19 07:30 25 mcg Q2HP PRN Administration FOR PAIN SCALE 3-5 Gabapentin 100 mg 08/25/19 10:00 08/26/19 20:12 Neurontin 100 Mg Capsule PO 09/24/19 09:59 Not Given BID LIZ Glipizide 10 mg 08/25/19 08:00 08/26/19 17:27 Glucotrol 10 Mg Tablet PO 09/24/19 07:59 Not Given BIDBS LIZ Glucagon 1 mg 08/24/19 21:25 Glucagen Inj 1 Mg Vial IM 09/23/19 21:24 PRN PRN Evaluate for BG < 70 Protocol Glucose 15 gm 08/24/19 21:25 Glutose 40% Gel 15 Gm Tube PO 09/23/19 21:24 PRN PRN FOR BG 50-69 IN ALERT PATIENT Protocol Glucose 30 gm 08/24/19 21:25 Glutose 40% Gel 15 Gm Tube PO 09/23/19 21:24 PRN PRN FOR BG < 50 IN ALERT PATIENT Protocol Haloperidol Lactate 2.5 mg 08/28/19 08:15 08/28/19 08:03 Haldol 5 Mg/Ml Inj 1 Ml Vial IV 08/28/19 08:16 2.5 mg NOW ONE Administration Haloperidol Lactate Confirm 08/28/19 07:56 08/28/19 08:03 Haldol 5 Mg/Ml Inj 1 Ml Vial Administered 08/28/19 07:57 Not Given Dose 5 mg .ROUTE .STK-MED ONE Heparin Sodium (Porcine) Confirm 08/26/19 08:32 08/26/19 13:22 Heparin Flush 10 Unit/Ml 5 Ml Disp.Syrg Administered 08/26/19 08:33 Not Given Dose 50 unit IV .STK-MED ONE Sodium Chloride 1,000 mls @ 100 mls/hr 08/24/19 17:34 08/26/19 17:56 Nacl 0.9% 1000 Ml Iv Soln IV 09/23/19 17:33 Infused CONTINUOUS PRN Infusion THIS MED IS NOT "PRN" Sodium Chloride 250 mls @ 0 mls/hr 08/27/19 08:31 Nacl 0.9% 250 Ml Iv Soln IV 08/28/19 08:30 CONTINUOUS PRN AFTER EACH UNIT As Directed Lactated Ringer's 500 mls @ 0 mls/hr 08/28/19 01:51 08/28/19 02:37 Lactated Ringers 500 Ml Iv Soln IV 08/28/19 01:52 Infused BOLUS ONE Infusion Wide Open Amiodarone HCl 150 mg/ 100 mls @ 600 mls/hr 08/28/19 03:54 08/28/19 04:22 Dextrose IV 08/28/19 04:03 600 mls/hr NOW ONE Administration Protocol Lactated Ringer's 500 mls @ 999 mls/hr 08/28/19 19:00 08/28/19 19:07 Lactated Ringers 500 Ml Iv Soln IV 08/28/19 19:30 Infused NOW ONE Infusion Insulin Human Lispro 0 - 12 unit 08/24/19 22:00 08/26/19 17:28 Humalog Insulin 100 Unit/1 Ml 3 Ml Vial SUBCUT 09/23/19 21:59 Not Given ACHS [facility] Protocol Ketorolac Tromethamine 15 mg 08/27/19 10:15 Toradol Inj/Pf 30 Mg/1 Ml Sdv IV 09/01/19 10:14 Q6HP PRN FOR PAIN Levothyroxine Sodium 0.05 mg 08/25/19 06:00 08/26/19 05:03 Synthroid 0.05 Mg Tablet PO 09/24/19 05:59 0.05 mg Q6AM LIZ Administration Meperidine HCl 12.5 mg 08/26/19 14:32 Demerol Inj 25 Mg/1 Ml Syringe IV 08/26/19 17:32 .WHILE IN PACU PRN Shivering Metformin HCl 1,000 mg 08/25/19 08:00 08/26/19 17:27 Glucophage 500 Mg Tablet PO 09/24/19 07:59 Not Given BIDBS [facility] Metoprolol Tartrate 10 mg 08/26/19 22:00 08/28/19 17:36 Lopressor Inj/Pf 5 Mg/5 Ml Sdv IV 09/25/19 21:59 Not Given Q4 LIZ Metoprolol Tartrate 2.5 mg 08/28/19 12:45 08/28/19 12:58 Lopressor Inj/Pf 5 Mg/5 Ml Sdv IV 08/28/19 12:46 2.5 mg NOW ONE Administration Midazolam HCl Confirm 08/26/19 12:43 Versed 2 Mg/2 Ml Inj Administered 08/26/19 12:44 Dose 2 mg .ROUTE .STK-MED ONE Morphine Sulfate 3 mg 08/26/19 14:32 Morphine 10 Mg/Ml Inj IV 08/26/19 17:32 .WHILE IN PACU PRN FOR PAIN Ondansetron HCl Confirm 08/26/19 12:43 Zofran Inj/Pf 4 Mg/2 Ml Sdv Administered 08/26/19 12:44 Dose 4 mg .ROUTE .STK-MED ONE Ondansetron HCl 4 mg 08/26/19 14:32 Zofran Inj/Pf 4 Mg/2 Ml Sdv IV 08/26/19 17:33 .WHILE IN PACU PRN NAUSEA AND VOMITING Pantoprazole Sodium 40 mg 08/25/19 06:00 08/26/19 05:[address] Tablet PO 09/24/19 05:59 40 mg Q6AM LIZ Administration Patient Own Medication 10 mg 08/25/19 10:00 08/26/19 17:27 Pravastatin Sodium [Pravastatin Sodium] PO 09/24/19 09:59 Not Given DAILY LIZ Promethazine HCl 12.5 mg 08/26/19 14:32 Phenergan Inj 25 Mg/1 Ml Vial IV 08/26/19 17:32 .WHILE IN PACU PRN NAUSEA AND VOMITING Promethazine HCl 25 mg 08/26/19 14:32 Phenergan Inj 25 Mg/1 Ml Vial IV 08/26/19 17:32 .WHILE IN PACU PRN NAUSEA AND VOMITING Promethazine HCl Confirm 08/26/19 18:39 08/26/19 18:40 Phenergan Inj 25 Mg/1 Ml Vial Administered 08/26/19 18:40 3 mg Dose Administration 25 mg .ROUTE .STK-MED ONE Propofol Confirm 08/26/19 12:44 Diprivan Inj 200 Mg/20 Ml Vial Administered 08/26/19 12:45 Dose 200 mg IV .STK-MED ONE Tranexamic Acid Confirm 08/26/19 18:11 Tranexamic Acid Inj/Pf 1000 Mg/10 Ml Sdv Administered 08/26/19 18:12 Dose 1,000 mg .ROUTE .STK-MED ONE Tranexamic Acid 1,000 mg 08/26/19 18:45 08/26/19 20:13 Tranexamic Acid Inj/Pf 1000 Mg/10 Ml Sdv IV 08/26/19 18:46 Not Given NOW ONE RESUSCITATION STATUS: The patient is a full code. The patient's daughter is a surrogate healthcare decision maker. REVIEW OF SYSTEMS: Is limited due to the patient's mental status. There is no fever chills or Reiger's. HEAD: No severe headaches or head injury. EYES: Denies amlodipine or diplopia. No amaurosis fugax. EARS: No history of hearing loss or tinnitus. NOSE: No history of nosebleeds. No history of nasal polyps. No history of hayfever. MOUTH: No history of altered taste sensation. No bleeding from the gums. THROAT: No history of odynophagia or dysphagia. NECK: Denies neck pain or neck swelling. There is no goiter. LUNGS: No history of cough or sputum production or wheezing. No history of pulmonary embolism. No history of asthma or COPD. No sleep apnea. HEART: History of hypertension. No history of coronary artery disease denies chest pain or discomfort no history of congestive heart failure. No history of prior syncope. Patient at present in atrial fibrillation with rapid ventricular response. In 2011 there is a mention of atrial flutter but it is not very clear. ENDOCRINE: History of diabetes mellitus and hyper poor thyroidism on replacement. No history of heat or cold intolerance. No polydipsia polyuria. RENAL: No history of hematuria pyuria dysuria. No history of chronic kidney disease. MUSCULOSKELETAL. History of arthritis present. No psychological vascular disease. HE denies: No history of TIA or CVA. No history of headaches migraines or seizures. PSYCHIATRIC: Patient most likely has some mild Alzheimer's dementia. The patient is oriented to person but not to place or time. PHYSICAL EXAMINATION: The patient is well-built. In no acute distress. Selected Entries 08/28/19 08/28/19 08/28/19 10:00 12:03 12:04 Heart Rate ( 129 Monitors) Respiratory 20 Rate Blood Pressure 128/69 H Blood Pressure 88 Mean O2 Sat by Pulse Oximetry Oxygen Delivery Room Air Method ( includes room air) Temperature is 97.9 08/28/19 12:33 Heart Rate ( Monitors) Respiratory Rate Blood Pressure Blood Pressure Mean O2 Sat by Pulse 100 Oximetry Oxygen Delivery Method ( includes room air) Head: Is atraumatic normocephalic. EYES: Pupils are equal round regular reactive light accommodation. Extraocular movements are normal. There is no conjunctival pallor. There is no scleral icterus. EARS: Tympanic membranes are intact. External auditory canals are clear. NOSE: There is no deviated nasal septum. There is no inflammation of his mucous membrane. MOUTH: Mucous membranes in the mouth are dry. Tongue is dry. There is no ulcers of the mouth. There is no bleeding from the gums. THROAT: There is no redness of the oropharynx. There is no exudates. Acute neck: Supple. There is no JVD. Carotids are equal there is no bruit. There is no lymphadenopathy. There is no goiter. There is no accessory muscles of respiration use. Trachea central. LUNGS: There is a few dry crackles in the right mid zone right base. There is no rhonchi or wheezing. There is no rales of CHF. HEART: S1-S2 is heard. S1 is a variable intensity. There is no S3 gallop. There is no S4 gallop. There is systolic murmur left sternal border and the apex. There is murmur of aortic sclerosis present. There is no aortic stenosis or aortic regurgitation murmur heard. There is no significant valvular stenotic or regurgitant murmur heard. There is no rub. ABDOMEN: Soft dressing is dry. There is no hepatosp lenomegaly. Bowel sounds are absent. Extremities: Femorals are diminished there is no femoral bruits. Leg pulses are diminished. There is no pedal edema. There is no DVT or cellulitis. 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 With no focal deficits. PSYCHIATRIC: The patient does not appear to be agitated or anxious. Labs- Entire Visit 08/24/19 08/24/19 08/24/19 14:10 14:10 14:10 WBC 6.1 RBC 3.90 Hgb 11.5 L Hct 34.2 L MCV 88 MCH 29.4 MCHC 33.6 RDW 15.7 H Plt Count 185 Lymph % (Auto) Weakley % (Auto) Eos % (Auto) Baso % (Auto) Absolute Neuts (auto) Absolute Lymphs (auto) Absolute Monos (auto) Absolute Eos (auto) Absolute Basos (auto) Total Counted Seg Neutrophils % Seg Neuts % (Manual) Band Neutrophils % Lymphocytes % (Manual) Monocytes % (Manual) Eosinophils % (Manual) Basophils % (Manual) Abs Neuts (Manual) Abs Lymphs (Manual) Abs Monocytes (Manual) Absolute Eos (Manual) Abs Basophils (Manual) Toxic Vacuolation Platelet Comment Anisocytosis PT 16.2 H INR 1.29 APTT 27.6 Sodium 138.4 Potassium 4.0 Chloride 103 Carbon Dioxide 28 Anion Gap 7 BUN 15 Creatinine 0.67 Est GFR ( Amer) > 60 Est GFR (MDRD) Non-Af > 60 Glucose 91 POC Glucose Calcium 9.1 Magnesium Total Bilirubin 0.6 Direct Bilirubin 0.0 Neonat Total Bilirubin Not Reportable Neonat Direct Bilirubin Not Reportable Neonat Indirect Bili Not Reportable AST 20 ALT 12 Alkaline Phosphatase 40 Total Protein 7.4 Albumin 4.2 Prealbumin TSH Free T4 Free T3 pg/mL Random Cortisol Blood Type Blood Type Confirm Antibody Screen Crossmatch 08/24/19 08/24/19 08/24/19 14:45 17:29 21:16 WBC RBC Hgb Hct MCV MCH MCHC RDW Plt Count Lymph % (Auto) Weakley % (Auto) Eos % (Auto) Baso % (Auto) Absolute Neuts (auto) Absolute Lymphs (auto) Absolute Monos (auto) Absolute Eos (auto) Absolute Basos (auto) Total Counted Seg Neutrophils % Seg Neuts % (Manual) Band Neutrophils % Lymphocytes % (Manual) Monocytes % (Manual) Eosinophils % (Manual) Basophils % (Manual) Abs Neuts (Manual) Abs Lymphs (Manual) Abs Monocytes (Manual) Absolute Eos (Manual) Abs Basophils (Manual) Toxic Vacuolation Platelet Comment Anisocytosis PT INR APTT Sodium Potassium Chloride Carbon Dioxide Anion Gap BUN Creatinine Est GFR ( Amer) Est GFR (MDRD) Non-Af Glucose POC Glucose 77 160 H 197 H Calcium Magnesium Total Bilirubin Direct Bilirubin Neonat Total Bilirubin Neonat Direct Bilirubin Neonat Indirect Bili AST ALT Alkaline Phosphatase Total Protein Albumin Prealbumin TSH Free T4 Free T3 pg/mL Random Cortisol Blood Type Blood Type Confirm Antibody Screen Crossmatch 08/25/19 08/25/19 08/25/19 08:16 11:45 16:08 WBC RBC Hgb Hct MCV MCH MCHC RDW Plt Count Lymph % (Auto) Weakley % (Auto) Eos % (Auto) Baso % (Auto) Absolute Neuts (auto) Absolute Lymphs (auto) Absolute Monos (auto) Absolute Eos (auto) Absolute Basos (auto) Total Counted Seg Neutrophils % Seg Neuts % (Manual) Band Neutrophils % Lymphocytes % (Manual) Monocytes % (Manual) Eosinophils % (Manual) Basophils % (Manual) Abs Neuts (Manual) Abs Lymphs (Manual) Abs Monocytes (Manual) Absolute Eos (Manual) Abs Basophils (Manual) Toxic Vacuolation Platelet Comment Anisocytosis PT INR APTT Sodium Potassium Chloride Carbon Dioxide Anion Gap BUN Creatinine Est GFR ( Amer) Est GFR (MDRD) Non-Af Glucose POC Glucose 168 H 110 96 Calcium Magnesium Total Bilirubin Direct Bilirubin Neonat Total Bilirubin Neonat Direct Bilirubin Neonat Indirect Bili AST ALT Alkaline Phosphatase Total Protein Albumin Prealbumin TSH Free T4 Free T3 pg/mL Random Cortisol Blood Type Blood Type Confirm Antibody Screen Crossmatch 08/25/19 08/26/19 08/26/19 21:13 03:30 07:54 WBC 6.2 RBC 3.13 L Hgb 9.2 L D Hct 27.6 L MCV 88 MCH 29.5 MCHC 33.4 RDW 15.6 H Plt Count 154 Lymph % (Auto) 40.3 Weakley % (Auto) 10.6 Eos % (Auto) 1.5 Baso % (Auto) 0.8 Absolute Neuts (auto) 2.9 Absolute Lymphs (auto) 2.5 Absolute Monos (auto) 0.7 Absolute Eos (auto) 0.1 Absolute Basos (auto) 0.0 Total Counted Seg Neutrophils % 46.8 Seg Neuts % (Manual) Band Neutrophils % Lymphocytes % (Manual) Monocytes % (Manual) Eosinophils % (Manual) Basophils % (Manual) Abs Neuts (Manual) Abs Lymphs (Manual) Abs Monocytes (Manual) Absolute Eos (Manual) Abs Basophils (Manual) Toxic Vacuolation Platelet Comment Anisocytosis PT INR APTT Sodium Potassium Chloride Carbon Dioxide Anion Gap BUN Creatinine Est GFR ( Amer) Est GFR (MDRD) Non-Af Glucose POC Glucose 107 93 Calcium Magnesium Total Bilirubin Direct Bilirubin Neonat Total Bilirubin Neonat Direct Bilirubin Neonat Indirect Bili AST ALT Alkaline Phosphatase Total Protein Albumin Prealbumin TSH Free T4 Free T3 pg/mL Random Cortisol Blood Type Blood Type Confirm Antibody Screen Crossmatch 08/26/19 08/26/19 08/26/19 10:33 11:37 11:51 WBC 6.2 RBC 2.42 L Hgb 7.2 L Hct 21.3 L MCV 88 MCH 29.6 MCHC 33.7 RDW 15.9 H Plt Count 132 L Lymph % (Auto) 37.9 Weakley % (Auto) 7.5 Eos % (Auto) 0.7 Baso % (Auto) 0.5 Absolute Neuts (auto) 3.3 Absolute Lymphs (auto) 2.4 Absolute Monos (auto) 0.5 Absolute Eos (auto) 0.0 Absolute Basos (auto) 0.0 Total Counted Seg Neutrophils % 53.4 Seg Neuts % (Manual) Band Neutrophils % Lymphocytes % (Manual) Monocytes % (Manual) Eosinophils % (Manual) Basophils % (Manual) Abs Neuts (Manual) Abs Lymphs (Manual) Abs Monocytes (Manual) Absolute Eos (Manual) Abs Basophils (Manual) Toxic Vacuolation Platelet Comment Anisocytosis PT INR APTT Sodium Potassium Chloride Carbon Dioxide Anion Gap BUN Creatinine Est GFR ( Amer) Est GFR (MDRD) Non-Af Glucose POC Glucose 133 H Calcium Magnesium Total Bilirubin Direct Bilirubin Neonat Total Bilirubin Neonat Direct Bilirubin Neonat Indirect Bili AST ALT Alkaline Phosphatase Total Protein Albumin Prealbumin TSH Free T4 Free T3 pg/mL Random Cortisol Blood Type A POSITIVE Blood Type Confirm A POSITIVE Antibody Screen NEGATIVE Crossmatch See Detail 08/26/19 08/26/19 08/26/19 18:42 18:42 18:42 WBC 3.9 L RBC 3.37 L Hgb 10.0 L D Hct 30.0 L MCV 89 MCH 29.8 MCHC 33.5 RDW 15.3 H Plt Count 81 L Lymph % (Auto) 32.4 Weakley % (Auto) 6.7 Eos % (Auto) 0.1 Baso % (Auto) 0.2 Absolute Neuts (auto) 2.4 Absolute Lymphs (auto) 1.3 Absolute Monos (auto) 0.3 Absolute Eos (auto) 0.0 Absolute Basos (auto) 0.0 Total Counted Seg Neutrophils % 60.6 Seg Neuts % (Manual) Band Neutrophils % Lymphocytes % (Manual) Monocytes % (Manual) Eosinophils % (Manual) Basophils % (Manual) Abs Neuts (Manual) Abs Lymphs (Manual) Abs Monocytes (Manual) Absolute Eos (Manual) Abs Basophils (Manual) Toxic Vacuolation Platelet Comment Anisocytosis PT 18.4 H INR 1.51 APTT Sodium 139.3 Potassium 4.0 Chloride 113 H Carbon Dioxide 18 L Anion Gap 8 BUN 13 Creatinine 0.54 Est GFR ( Amer) > 60 Est GFR (MDRD) Non-Af > 60 Glucose 204 H POC Glucose Calcium 7.4 L Magnesium Total Bilirubin Direct Bilirubin Neonat Total Bilirubin Neonat Direct Bilirubin Neonat Indirect Bili AST ALT Alkaline Phosphatase Total Protein Albumin Prealbumin TSH Free T4 Free T3 pg/mL Random Cortisol Blood Type Blood Type Confirm Antibody Screen Crossmatch 08/26/19 08/27/19 08/27/19 23:11 00:18 04:30 WBC 4.1 6.4 RBC 3.04 L 3.01 L Hgb 9.1 L 8.9 L Hct 26.9 L 26.3 L MCV 88 88 MCH 29.9 29.6 MCHC 33.9 33.8 RDW 15.0 H 14.8 H Plt Count 87 L 89 L Lymph % (Auto) 11.2 L 10.3 L [place] % (Auto) 10.3 8.0 Eos % (Auto) 0.0 0.0 Baso % (Auto) 0.1 0.3 Absolute Neuts (auto) 3.2 5.2 Absolute Lymphs (auto) 0.5 0.7 Absolute Monos (auto) 0.4 0.5 Absolute Eos (auto) 0.0 0.0 Absolute Basos (auto) 0.0 0.0 Total Counted Seg Neutrophils % 78.4 H 81.4 H Seg Neuts % (Manual) Band Neutrophils % Lymphocytes % (Manual) Monocytes % (Manual) Eosinophils % (Manual) Basophils % (Manual) Abs Neuts (Manual) Abs Lymphs (Manual) Abs Monocytes (Manual) Absolute Eos (Manual) Abs Basophils (Manual) Toxic Vacuolation Platelet Comment Anisocytosis PT INR APTT Sodium Potassium Chloride Carbon Dioxide Anion Gap BUN Creatinine Est GFR ( Amer) Est GFR (MDRD) Non-Af Glucose POC Glucose 214 H Calcium Magnesium Total Bilirubin Direct Bilirubin Neonat Total Bilirubin Neonat Direct Bilirubin Neonat Indirect Bili AST ALT Alkaline Phosphatase Total Protein Albumin Prealbumin TSH Free T4 Free T3 pg/mL Random Cortisol Blood Type Blood Type Confirm Antibody Screen Crossmatch 08/27/19 08/27/19 08/27/19 04:30 04:30 04:30 WBC RBC Hgb Hct MCV MCH MCHC RDW Plt Count Lymph % (Auto) [place] % (Auto) Eos % (Auto) Baso % (Auto) Absolute Neuts (auto) Absolute Lymphs (auto) Absolute Monos (auto) Absolute Eos (auto) Absolute Basos (auto) Total Counted Seg Neutrophils % Seg Neuts % (Manual) Band Neutrophils % Lymphocytes % (Manual) Monocytes % (Manual) Eosinophils % (Manual) Basophils % (Manual) Abs Neuts (Manual) Abs Lymphs (Manual) Abs Monocytes (Manual) Absolute Eos (Manual) Abs Basophils (Manual) Toxic Vacuolation Platelet Comment Anisocytosis PT INR APTT Sodium 138.7 Potassium 4.0 Chloride 111 H Carbon Dioxide 17 L Anion Gap 11 BUN 10 Creatinine 0.72 Est GFR ( Amer) > 60 Est GFR (MDRD) Non-Af > 60 Glucose 233 H POC Glucose Calcium 6.9 L* Magnesium Total Bilirubin Direct Bilirubin Neonat Total Bilirubin Neonat Direct Bilirubin Neonat Indirect Bili AST ALT Alkaline Phosphatase Total Protein Albumin 2.4 L Prealbumin TSH 2.38 Free T4 1.57 Free T3 pg/mL 1.94 L Random Cortisol Blood Type Blood Type Confirm Antibody Screen Crossmatch 08/27/19 08/27/19 08/27/19 05:45 11:57 14:16 WBC RBC Hgb Hct MCV MCH MCHC RDW Plt Count Lymph % (Auto) [place] % (Auto) Eos % (Auto) Baso % (Auto) Absolute Neuts (auto) Absolute Lymphs (auto) Absolute Monos (auto) Absolute Eos (auto) Absolute Basos (auto) Total Counted Seg Neutrophils % Seg Neuts % (Manual) Band Neutrophils % Lymphocytes % (Manual) Monocytes % (Manual) Eosinophils % (Manual) Basophils % (Manual) Abs Neuts (Manual) Abs Lymphs (Manual) Abs Monocytes (Manual) Absolute Eos (Manual) Abs Basophils (Manual) Toxic Vacuolation Platelet Comment Anisocytosis PT INR APTT Sodium Potassium Chloride Carbon Dioxide Anion Gap BUN Creatinine Est GFR ( Amer) Est GFR (MDRD) Non-Af Glucose POC Glucose 211 H 216 H 189 H Calcium Magnesium Total Bilirubin Direct Bilirubin Neonat Total Bilirubin Neonat Direct Bilirubin Neonat Indirect Bili AST ALT Alkaline Phosphatase Total Protein Albumin Prealbumin TSH Free T4 Free T3 pg/mL Random Cortisol Blood Type Blood Type Confirm Antibody Screen Crossmatch 08/27/19 08/27/19 08/27/19 15:44 17:15 23:27 WBC 11.7 H RBC 3.20 L Hgb 9.7 L Hct 27.8 L MCV 87 MCH 30.3 MCHC 34.8 RDW 14.9 H Plt Count 93 L Lymph % (Auto) [place] % (Auto) Eos % (Auto) Baso % (Auto) Absolute Neuts (auto) Absolute Lymphs (auto) Absolute Monos (auto) Absolute Eos (auto) Absolute Basos (auto) Total Counted Seg Neutrophils % Seg Neuts % (Manual) Band Neutrophils % Lymphocytes % (Manual) Monocytes % (Manual) Eosinophils % (Manual) Basophils % (Manual) Abs Neuts (Manual) Abs Lymphs (Manual) Abs Monocytes (Manual) Absolute Eos (Manual) Abs Basophils (Manual) Toxic Vacuolation Platelet Comment Anisocytosis PT INR APTT Sodium Potassium Chloride Carbon Dioxide Anion Gap BUN Creatinine Est GFR ( Amer) Est GFR (MDRD) Non-Af Glucose POC Glucose 207 H 165 H Calcium Magnesium Total Bilirubin Direct Bilirubin Neonat Total Bilirubin Neonat Direct Bilirubin Neonat Indirect Bili AST ALT Alkaline Phosphatase Total Protein Albumin Prealbumin TSH Free T4 Free T3 pg/mL Random Cortisol Blood Type Blood Type Confirm Antibody Screen Crossmatch 08/28/19 08/28/19 08/28/19 04:24 04:24 04:24 WBC 11.3 H RBC 3.10 L Hgb 9.4 L Hct 27.1 L MCV 87 MCH 30.2 MCHC 34.5 RDW 15.4 H Plt Count 93 L Lymph % (Auto) Not Reportable [place] % (Auto) Not Reportable Eos % (Auto) Not Reportable Baso % (Auto) Not Reportable Absolute Neuts (auto) Not Reportable Absolute Lymphs (auto) Not Reportable Absolute Monos (auto) Not Reportable Absolute Eos (auto) Not Reportable Absolute Basos (auto) Not Reportable Total Counted 100 Seg Neutrophils % Not Reportable Seg Neuts % (Manual) 85 H Band Neutrophils % 4 Lymphocytes % (Manual) 5 L Monocytes % (Manual) 6 Eosinophils % (Manual) 0 Basophils % (Manual) 0 Abs Neuts (Manual) 10.1 H Abs Lymphs (Manual) 0.6 Abs Monocytes (Manual) 0.7 Absolute Eos (Manual) 0.0 Abs Basophils (Manual) 0.0 Toxic Vacuolation PRESENT Platelet Comment DECREASED Anisocytosis SLIGHT PT INR APTT Sodium 138.4 Potassium 3.6 Chloride 112 H Carbon Dioxide 17 L Anion Gap 9 BUN 12 Creatinine 0.65 Est GFR ( Amer) > 60 Est GFR (MDRD) Non-Af > 60 Glucose 191 H POC Glucose Calcium 7.4 L Magnesium 1.6 Total Bilirubin Direct Bilirubin Neonat Total Bilirubin Neonat Direct Bilirubin Neonat Indirect Bili AST ALT Alkaline Phosphatase Total Protein Albumin Prealbumin 11.1 L TSH Free T4 Free T3 pg/mL Random Cortisol 49.80 Blood Type Blood Type Confirm Antibody Screen Crossmatch 08/28/19 08/28/19 08/28/19 05:57 11:05 17:32 WBC RBC Hgb Hct MCV MCH MCHC RDW Plt Count Lymph % (Auto) [place] % (Auto) Eos % (Auto) Baso % (Auto) Absolute Neuts (auto) Absolute Lymphs (auto) Absolute Monos (auto) Absolute Eos (auto) Absolute Basos (auto) Total Counted Seg Neutrophils % Seg Neuts % (Manual) Band Neutrophils % Lymphocytes % (Manual) Monocytes % (Manual) Eosinophils % (Manual) Basophils % (Manual) Abs Neuts (Manual) Abs Lymphs (Manual) Abs Monocytes (Manual) Absolute Eos (Manual) Abs Basophils (Manual) Toxic Vacuolation Platelet Comment Anisocytosis PT INR APTT Sodium Potassium Chloride Carbon Dioxide Anion Gap BUN Creatinine Est GFR ( Amer) Est GFR (MDRD) Non-Af Glucose POC Glucose 193 H 191 H 164 H Calcium Magnesium Total Bilirubin Direct Bilirubin Neonat Total Bilirubin Neonat Direct Bilirubin Neonat Indirect Bili AST ALT Alkaline Phosphatase Total Protein Albumin Prealbumin TSH Free T4 Free T3 pg/mL Random Cortisol Blood Type Blood Type Confirm Antibody Screen Crossmatch GI Bleed Scan Nuclear Medicine 08/26/19 00:00 IMPRESSION: FINDINGS CONSISTENT WITH ACTIVE GI BLEEDING IN THE SIGMOID COLON. Chest X-Ray 08/28/19 05:00 IMPRESSION: Opacity left lateral lung base, question atelectasis or pneumonia. IMPRESSION/RECOMMENDATION: 1. Atrial fibrillation with rapid ventricular response. Continue the patient on amiodarone. Also the patient did receive digoxin intravenously will check a dig level in the morning. We will also use Lopressor 2.5 mg IV push every 4 hours as needed. Also the patient appears to be dehydrated. We will continue IV fluids. If rapid ventricular response continues then might start the patient on esmolol drip if blood pressure permits. 2. Lower GI bleed secondary to bleeding from sigmoid sigmoid diverticulum. S/p hemicolectomy. 3. Possible pneumonia: Continue antibiotics. 4. Anemia: Watch the patient's hemoglobin. 5. History of hypertension: Blood pressure stable. 6. Hypothyroidism on replacement. 7. Diabetes mellitus: Continue Accu-Cheks and treat blood sugars accordingly since the patient is n.p.o. 8. Alzheimer's dementia by history. This seems to be mild. Clinically no evidence of significant valvular disease or valvular pathology or heart failure. We will check an echo later. Medications reviewed medical regimen and management plan discussed with the family service caseworker. Medical decision making is of high complexity. Will follow THE patient's EKG yesterday shows sinus rhythm with right bundle branch block pattern and left anterior fascicular block. The patient is EKG done this morning shows atrial fibrillation with rapid ventricular response right bundle branch block pattern and left anterior fascicular block.
[2019-08-28] MEDS ORDERED: EPINEPHRINE INJ 1 MG/10 ML DISP.SYRIN ONE (20:42)
[2019-08-28] MEDS: KETOROLAC TROMETHAMINE INJ/PF 30 MG/1 ML SDV IV PRN (21:42)
[2019-08-29] MEDS: INSULIN LISPRO 100 UNIT/ML 3 ML VIAL SUBCUT SCH ×4 (02:00→18:23)
[2019-08-29] MEDS: METOPROLOL TARTRATE PF/INJ 5 MG/5 ML SDV IV SCH ×6 (02:12→22:31)
[2019-08-29] MEDS: PIPERACILLIN SODIUM/TAZOBACTAM 3.375 GM in NORMAL SALINE 100 ML IV SCH ×2 (03:38→08:18)
[2019-08-29] MEDS: POTASSI CL 20 MEQ/1/2NS 1L 20 MEQ/1,000 ML RTUINJ IV PRN ×2 (05:31→17:44)
[2019-08-29] MEDS: KETOROLAC TROMETHAMINE INJ/PF 30 MG/1 ML SDV IV PRN (07:41)
[2019-08-29 08:09] LABS: HEMATOCRIT 25.5 % (36.0-47.0); HEMOGLOBIN 8.7 g/dL (12.0-15.5); MEAN CORPUSCULAR HEMOGLOBIN 30.1 pg (27.0-33.4); MEAN CORPUSCULAR HGB CONC 34.1 g/dL (32.0-36.0); MEAN CORPUSCULAR VOLUME 88 fl (80-97); PLATELET COUNT 105 10^3/uL (150-450); RED BLOOD COUNT 2.89 10^6/uL (3.72-5.28); RED CELL DISTRIBUTION WIDTH 15.3 % (11.5-14.0); WHITE BLOOD COUNT 11.1 10^3/uL (4.0-10.5)
[2019-08-29 08:18] LABS: ANION GAP 6 (5-19); BLOOD UREA NITROGEN 9 mg/dL (7-20); CALCIUM 7.4 mg/dL (8.4-10.2); CARBON DIOXIDE 19 mmol/L (22-30); CHLORIDE 110 mmol/L (98-107); GLUCOSE 146 mg/dL (75-110); POTASSIUM 3.6 mmol/L (3.6-5.0)
[2019-08-29 08:25] LABS: ABSOLUTE LYMPHOCYTES# (MANUAL) 0.6 10^3/uL (0.5-4.7); ABSOLUTE MONOCYTES # (MANUAL) 0.3 10^3/uL (0.1-1.4); BAND NEUTROPHILS % (MANUAL) 2 % (3-5); BASOPHILS % (MANUAL) 0 % (0-2); EOSINOPHILS % (MANUAL) 0 % (0-6); LYMPHOCYTES % (MANUAL) 5 % (13-45); MONOCYTES % (MANUAL) 3 % (3-13); SEGMENTED NEUTROPHILS % (MAN) 90 % (42-78); TOTAL CELLS COUNTED 100
[2019-08-29 08:26] LABS: POLYCHROMASIA SLIGHT; TOXIC VACUOLATION PRESENT
[2019-08-29 08:27] LABS: ANISOCYTOSIS SLIGHT; BURR CELLS SLIGHT; OVALOCYTES SLIGHT; PLATELET COMMENT DECREASED; POIKILOCYTOSIS SLIGHT
[2019-08-29] MEDS ORDERED: DIGOXIN INJ 0.5 MG/2 ML AMPULE IV ONE (08:30)
[2019-08-29] MEDS: PANTOPRAZOLE SODIUM 40 MG VIAL IV SCH ×2 (09:18→22:31)
--- NOTE | 2019-08-29 10:39 | PDOC CRITICAL CARE PROG REPORT ---
General Date:: 08/29/19 ICU Day:: 4 Hospital Day:: 6 Resuscitation Status: Full Code Events in the past 12 to 24 Hours:: 08/23: admitted with BRBPR. 08/25: RBC scan compatible with sigmoid bleed. subtotal colectomy w/reanastomosis. Transfused 4 units PRBC, 2 units FFP intraoperatively. Transfused 1 more unit PRBC postop. Extubated postop and transferred to ICU for postop care. 08/26: Complains of abdominal and thoracic pain with deep inspiration. Suboptimal postoperative pain control. Otherwise, no new complaints. 08/27: Apparently experiencing delirium. The patient is quite verbally combative today. She called 911 from her hospital bed at shift change this morning. She stated that she had no idea where she was and how she got there. She does endorse some pain but states that it is reasonably controlled. WBC 6.4>11.7>11.3. Afebrile. Chest x-ray compatible with left basilar subsegmental atelectasis. 08/28: Delirium is significantly improved on Haldol as needed. Monitor still shows atrial fibrillation, rate controlled with amiodarone infusion. WBC 11.3-->11.1. Zosyn started by Dr. Oliver yesterday. Review of systems relevant to events:: Cardiovascular, gastrointestinal, hematologic Reason for ICU Addmission:: s/p subtotal colectomy, Post op Anemia - Medications: Medications reviewed and adjusted accordingly: Yes Physical Exam Vital Signs: Temp Pulse Resp BP Pulse Ox 97.6 F 118 H 20 99/40 L 100 08/29/19 08:00 08/29/19 10:00 08/29/19 10:00 08/29/19 10:00 08/29/19 10:00 Intake & Output 08/28/19 08/29/19 08/30/19 06:59 06:59 06:59 Intake Total 2450 3400 100 Output Total 1451 1030 200 Balance 999 2370 -100 Weight 71 kg 72.7 kg Weight/Height Weight 72.7 kg Height 1.63 m General appearance: PRESENT: no acute distress, well-developed, well-nourished Head exam: PRESENT: atraumatic, normocephalic Eye exam: PRESENT: conjunctiva pink, EOMI, PERRLA. ABSENT: scleral icterus Respiratory exam: PRESENT: rales - In the bases. ABSENT: rhonchi, wheezes Cardiovascular exam: PRESENT: irregular rhythm. ABSENT: diastolic murmur, rubs, systolic murmur Pulses: PRESENT: normal dorsalis pedis pul GI/Abdominal exam: PRESENT: hypoactive bowel sounds, soft, tenderness. ABSENT: distended, guarding, mass, organolmegaly, rebound Extremities exam: PRESENT: full ROM. ABSENT: calf tenderness, clubbing, pedal edema Neurological exam: PRESENT: alert, awake, oriented to person, oriented to place, oriented to time, oriented to situation, CN II-XII grossly intact. ABSENT: motor sensory deficit Skin exam: PRESENT: dry, intact, warm, other - Nominal incision clean, dry and intact. ABSENT: cyanosis, rash Tubes/Lines: PRESENT: Other - Clark drain Laboratory/Radiographs Laboratory Results: 08/29/19 04:33 08/29/19 04:33 08/29/19 08/29/19 04:33 04:33 WBC 11.1 H RBC 2.89 L Hgb 8.7 L Hct 25.5 L MCV 88 MCH 30.1 MCHC 34.1 RDW 15.3 H Plt Count 105 L Seg Neutrophils % Not Reportable Sodium 134.7 L Potassium 3.6 Chloride 110 H Carbon Dioxide 19 L Anion Gap 6 BUN 9 Creatinine 0.63 Est GFR ( Amer) > 60 Glucose 146 H Calcium 7.4 L Magnesium 1.8 Impressions: GI Bleed Scan Nuclear Medicine 08/26/19 00:00 IMPRESSION: FINDINGS CONSISTENT WITH ACTIVE GI BLEEDING IN THE SIGMOID COLON. Chest X-Ray 08/28/19 05:00 IMPRESSION: Opacity left lateral lung base, question atelectasis or pneumonia All labs, radiographs, diagnostic studies and EKGs were personally reviewed: Yes In addition, reports of radiographic and diagnostic studies were read: Yes Assessment and Plan - Diagnosis (1) Atrial fibrillation with rapid ventricular response Is this a current diagnosis for this admission?: Yes Plan: Currently on amiodarone infusion. Cardiology help appreciated. (2) Colonic diverticular disease Is this a current diagnosis for this admission?: Yes Plan: Status post subtotal colectomy. Postoperative pain control. Morphine as needed. Needs to do more incentive spirometry. (3) Lower GI bleed Is this a current diagnosis for this admission?: Yes Plan: Case discussed with Dr. Bush. S/p subtotal colectomy. Monitor H&H and transfuse for less than 7.0. Monitor Clark drain output. (4) Diabetes mellitus, type 2 Qualifiers: Diabetes mellitus shelter insulin use: without buttermaker continuous churn use Diabetes mellitus complication status: with other specified complication Qualified Code(s): E11.69 - Type 2 diabetes mellitus with other specified complication Is this a current diagnosis for this admission?: Yes (5) GERD (gastroesophageal reflux disease) Qualifiers: Esophagitis presence: esophagitis presence not specified Qualified Code(s): K21.9 - Gastro-esophageal reflux disease without esophagitis Is this a current diagnosis for this admission?: Yes (6) Hypertension Qualifiers: Hypertension type: unspecified Qualified Code(s): I10 - Essential (primary) hypertension Is this a current diagnosis for this admission?: Yes (7) Hypothyroidism Qualifiers: Hypothyroidism type: acquired Qualified Code(s): E03.9 - Hypothyroidism, unspecified Is this a current diagnosis for this admission?: Yes (8) Coronary artery disease Qualifiers: Coronary Disease-Associated Artery/Lesion type: unspecified vessel or lesion type [place] vs. transplanted heart: [place] heart Associated angina: angina presence unspecified Qualified Code(s): I25.10 - Atherosclerotic heart disease of [place] coronary artery without angina pectoris Is this a current diagnosis for this admission?: Yes (9) Delirium Is this a current diagnosis for this admission?: Yes Plan: Improved with Haldol 2.5 mg IV every 6 hours as needed. Also may have benefited from changing pain control to morphine (from fentanyl). Critical Time Critical Time (minutes): 45 Level of Care: ICU -: 1. The care of a critical patient is a dynamic process. This note is a admissions representative synopsis but static in nature. The timeframe for treatments given in order is not necessarily the actual time these treatments may have been done. 2. This patient requires critical care secondary to ongoing requirements for therapy not offered or safe outside the critical care environment. Transfer to a lower level of care will result in altered life or limb morbidity and mortality. 3. Multidisciplinary rounds completed. 4. ABCDE bundle addressed.
[2019-08-29] MEDS ORDERED: POTASSI CL 20 MEQ/50 ML RIDER 20 MEQ/50 ML RTUPB IV SCH (10:45)
[2019-08-29] MEDS: MAGNESIUM SULFATE/D5W 1 GM/100 ML RTUPB IV SCH ×2 (11:28→12:14)
--- NOTE | 2019-08-29 12:04 | PDOC PROGRESS REPORT ---
Subjective Progress Note for:: 08/29/19 Reason For Visit: LOWER GI BLEED,DM TYPE 2,HTN,GERD,CAD Patient remains in the ICU, postoperative day 3; required digoxin for rate control; remains on amiodarone drip. Did not get out of bed, remains n.p.o., urine output satisfactory. No hemodynamic problems overnight. Physical Exam Vital Signs: Temp Pulse Resp BP Pulse Ox 97.6 F 118 H 20 99/40 L 100 08/29/19 08:00 08/29/19 10:00 08/29/19 10:00 08/29/19 10:00 08/29/19 10:00 Intake & Output 08/28/19 08/29/19 08/30/19 06:59 06:59 06:59 Intake Total 2450 3400 100 Output Total 1451 1030 200 Balance 999 2370 -100 Weight 71 kg 72.7 kg General appearance: PRESENT: no acute distress, other - Answers most questions appropriately; patient had some confusion yesterday, seems better today. GI/Abdominal exam: PRESENT: other - Abdomen examined. Operative dressing removed. Skin flaps viable, jim intact. Sanguinous drainage from the left lower quadrant drain, 60 cc overnight. The abdomen is soft nontender no peritoneal signs no rigidity. Rectal exam: PRESENT: other Results Laboratory Results: 08/29/19 04:33 08/29/19 04:33 08/29/19 08/29/19 04:33 04:33 WBC 11.1 H RBC 2.89 L Hgb 8.7 L Hct 25.5 L MCV 88 MCH 30.1 MCHC 34.1 RDW 15.3 H Plt Count 105 L Seg Neutrophils % Not Reportable Sodium 134.7 L Potassium 3.6 Chloride 110 H Carbon Dioxide 19 L Anion Gap 6 BUN 9 Creatinine 0.63 Est GFR ( Amer) > 60 Glucose 146 H Calcium 7.4 L Magnesium 1.8 Impressions: GI Bleed Scan Nuclear Medicine 08/26/19 00:00 IMPRESSION: FINDINGS CONSISTENT WITH ACTIVE GI BLEEDING IN THE SIGMOID COLON. Chest X-Ray 08/28/19 05:00 IMPRESSION: Opacity left lateral lung base, question atelectasis or pneumonia Assessment & Plan - Diagnosis (1) Lower GI bleed Plan: Impression: Patient is postoperative day 3 exploratory laparotomy, subtotal colectomy, with primary ileorectal anastomosis, with drain placement, doing well from a GI standpoint, with early return of bowel function. Remains in ICU overnight due to atrial fibrillation with rapid ventricular response, now controlled with amiodarone, and toxin; receiving potassium and magnesium replacement. Slight drop in hemoglobin likely dilution related Plan: 1. We will get out of bed to chair with abdominal binder on; leave drain in 2. Start clear liquids under supervision 3. Discussed management with ICU staff; patient can likely be transferred to telemetry floor upstairs later today 4. Will discontinue intravenous antibiotics 5. Get discharge planning involved; patient was previously living at home by herself; intermittent mental status changes may be age, ICU psychosis, or dem entia related. We will keep the patient's family abreast of patient's progress - Time Time Spent: 50 to 70 Minutes
--- NOTE | 2019-08-29 12:19 | EKG REPORT ---
SEVERITY:- ABNORMAL ECG - ATRIAL FIBRILLATION, V-RATE 80-152 RBBB AND LAFB : Confirmed by: Veena Grant MD 29-Aug-2019 12:18:53
--- NOTE | 2019-08-29 12:39 | Progress Note ---
Provider Note Provider Note: CARDIOLOGY PROGRESS NOTE by Dr. Veena Grant on 08/29/2019. SUBJECTIVE: The patient continues to be in atrial fibrillation but rate is better controlled. She denies any chest pain or discomfort. She does not appear to be short of breath. There is no ventricle arrhythmia seen on the monitor. There is no further evidence of ongoing bleeding but her hemoglobin is down to 8.7. There is no leg edema. There is no TIA CVA symptoms. The patient does appear to be slightly confused. PHYSICAL EXAMINATION: The patient is of normal build. She is well-nourished. In no acute distress. Selected Entries 08/29/19 08/29/19 08/29/19 11:26 12:00 12:25 Temperature 97.5 F Temperature Oral Source Pulse Rate 103 H Heart Rate ( 111 96 Monitors) Respiratory 18 19 Rate Blood Pressure 121/53 L Blood Pressure 75 Mean O2 Sat by Pulse 99 Oximetry Oxygen Delivery Room Air Method ( includes room air) Head: Is atraumatic normocephalic. EYES: Pupils are equal round regular reactive light accommodation. Extraocular movements are normal. There is no conjunctival pallor. There is no scleral icterus. EARS: Tympanic membranes are intact. External auditory canals are clear. NOSE: There is no deviated nasal septum. There is no inflammation of his mucous membrane. MOUTH: Mucous membranes in the mouth are dry. Tongue is dry. There is no ulcers of the mouth. There is no bleeding from the gums. THROAT: There is no redness of the oropharynx. There is no exudates. Acute neck: Supple. There is no JVD. Carotids are equal there is no bruit. There is no lymphadenopathy. There is no goiter. There is no accessory muscles of respiration use. Trachea central. LUNGS: There is a few dry crackles in the right mid zone right base. There is no rhonchi or wheezing. There is no rales of CHF. HEART: S1-S2 is heard. S1 is a variable intensity. There is no S3 gallop. There is no S4 gallop. There is systolic murmur left sternal border and the apex. There is murmur of aortic sclerosis present. There is no aortic stenosis or aortic regurgitation murmur heard. There is no significant valvular stenotic or regurgitant murmur heard. There is no rub. ABDOMEN: Soft dressing is dry. There is no hepatosplenomegaly. Bowel sounds are absent. Extremities: Femorals are diminished there is no femoral bruits. Leg pulses are diminished. There is no pedal edema. There is no DVT or cellulitis. 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 With no focal deficits. PSYCHIATRIC: The patient does not appear to be agitated or anxious. ECHPCARDIOGRAM: The left ventricle is normal in size. There is mild concentric left ventricular hypertrophy. LV EF is 65% Left ventricular systolic function is normal. The left ventricular wall motion is normal. There is no thrombus. Cannot assess ASD ,VSD , or PFO. The right ventricle is not well visualized secondary to technical limitations The right atrium is normal. Right atrium not well visualized secondary to technical limitations The left atrial size is normal. There is no evidence of mitral valve prolapse. There is no vegetation seen on the mitral valve. There is no mitral valve stenosis. There is a trace amount of mitral regurgitation There is no aortic valvular vegetation. There is aortic sclerosis without aortic stenosis. There is no aortic valve stenosis There is no LVOT obstruction. There is a trace to mild amount of aortic regurgitation There is no tricuspid stenosis. There is a trace amount of tricuspid regurgitation RVSP is 28 to 33 mm of HG , with RA mean of 5 to 10.Upper normal to mildl pulmonsry hypertension. There is no pulmonic valvular stenosis. There is a trace amount of pulmonic regurgitation The aortic root is normal size. The inferior vena cava appeared normal and decreased > 50% with respiration (RAP 5-10 mmHg) There is no pericardial effusion. Labs- All tests 24 hr 08/28/19 08/29/19 08/29/19 04:24 02:19 04:33 WBC RBC Hgb Hct MCV MCH MCHC RDW Plt Count Lymph % (Auto) [place] % (Auto) Eos % (Auto) Baso % (Auto) Absolute Neuts (auto) Absolute Lymphs (auto) Absolute Monos (auto) Absolute Eos (auto) Absolute Basos (auto) Total Counted Seg Neutrophils % Seg Neuts % (Manual) Band Neutrophils % Lymphocytes % (Manual) Monocytes % (Manual) Eosinophils % (Manual) Basophils % (Manual) Abs Neuts (Manual) Abs Lymphs (Manual) Abs Monocytes (Manual) Absolute Eos (Manual) Abs Basophils (Manual) Toxic Vacuolation Platelet Comment Polychromasia Poikilocytosis Anisocytosis Ovalocytes [place] Cells Sodium Potassium Chloride Carbon Dioxide Anion Gap BUN Creatinine Est GFR ( Amer) Est GFR (MDRD) Non-Af Glucose POC Glucose 146 H Calcium Magnesium Random Cortisol 49.80 Digoxin 1.31 08/29/19 08/29/19 08/29/19 04:33 04:33 05:51 WBC 11.1 H RBC 2.89 L Hgb 8.7 L Hct 25.5 L MCV 88 MCH 30.1 MCHC 34.1 RDW 15.3 H Plt Count 105 L Lymph % (Auto) Not Reportable [place] % (Auto) Not Reportable Eos % (Auto) Not Reportable Baso % (Auto) Not Reportable Absolute Neuts (auto) Not Reportable Absolute Lymphs (auto) Not Reportable Absolute Monos (auto) Not Reportable Absolute Eos (auto) Not Reportable Absolute Basos (auto) Not Reportable Total Counted 100 Seg Neutrophils % Not Reportable Seg Neuts % (Manual) 90 H Band Neutrophils % 2 L Lymphocytes % (Manual) 5 L Monocytes % (Manual) 3 Eosinophils % (Manual) 0 Basophils % (Manual) 0 Abs Neuts (Manual) 10.2 H Abs Lymphs (Manual) 0.6 Abs Monocytes (Manual) 0.3 Absolute Eos (Manual) 0.0 Abs Basophils (Manual) 0.0 Toxic Vacuolation PRESENT Platelet Comment DECREASED Polychromasia SLIGHT Poikilocytosis SLIGHT Anisocytosis SLIGHT Ovalocytes SLIGHT [place] Cells SLIGHT Sodium 134.7 L Potassium 3.6 Chloride 110 H Carbon Dioxide 19 L Anion Gap 6 BUN 9 Creatinine 0.63 Est GFR ( Amer) > 60 Est GFR (MDRD) Non-Af > 60 Glucose 146 H POC Glucose 152 H Calcium 7.4 L Magnesium 1.8 Random Cortisol Digoxin 08/29/19 08/29/19 11:35 18:22 WBC RBC Hgb Hct MCV MCH MCHC RDW Plt Count Lymph % (Auto) [place] % (Auto) Eos % (Auto) Baso % (Auto) Absolute Neuts (auto) Absolute Lymphs (auto) Absolute Monos (auto) Absolute Eos (auto) Absolute Basos (auto) Total Counted Seg Neutrophils % Seg Neuts % (Manual) Band Neutrophils % Lymphocytes % (Manual) Monocytes % (Manual) Eosinophils % (Manual) Basophils % (Manual) Abs Neuts (Manual) Abs Lymphs (Manual) Abs Monocytes (Manual) Absolute Eos (Manual) Abs Basophils (Manual) Toxic Vacuolation Platelet Comment Polychromasia Poikilocytosis Anisocytosis Ovalocytes [place] Cells Sodium Potassium Chloride Carbon Dioxide Anion Gap BUN Creatinine Est GFR ( Amer) Est GFR (MDRD) Non-Af Glucose POC Glucose 137 H 150 H Calcium Magnesium Random Cortisol Digoxin GI Bleed Scan Nuclear Medicine 08/26/19 00:00 IMPRESSION: FINDINGS CONSISTENT WITH ACTIVE GI BLEEDING IN THE SIGMOID COLON. Chest X-Ray 08/28/19 05:00 IMPRESSION: Opacity left lateral lung base, question atelectasis or pneumonia IMPRESSION/RECOMMENDATION: 1. Atrial fibrillation with rapid ventricular response. Continue the patient on amiodarone. Also the patient did receive digoxin intravenously will check a dig level in the morning. We will also use Lopressor 2.5 mg IV push every 4 hours as needed. Also the patient appears to be dehydrated. We will continue IV fluids. If rapid ventricular response continues then might start the patient on esmolol drip if blood pressure permits. 2. Lower GI bleed secondary to bleeding from sigmoid sigmoid diverticulum. S/p hemicolectomy. 3. Possible pneumonia: Continue antibiotics. 4. Anemia: Watch the patient's hemoglobin. 5. History of hypertension: Blood pressure stable. 6. Hypothyroidism on replacement. 7. Diabetes mellitus: Continue Accu-Cheks and treat blood sugars accordingly since the patient is n.p.o. 8. Alzheimer's dementia by history. This seems to be mild. Medications reviewed. Medical regimen and management plan discussed with attending provider on the case. Patient stable will be transferred out of ICU to IMCU. Medications added. Medications reviewed. Medical regimen and management plan discussed with the piecer up. Medical decision making is of high complexity. 40 minutes spent with patient with more than 50% of time spent direct patient care. Will follow. ECHPCARDIOGRAM: The left ventricle is normal in size. There is mild concentric left ventricular hypertrophy. LV EF is 65% Left ventricular systolic function is normal. The left ventricular wall motion is normal. There is no thrombus. Cannot assess ASD ,VSD , or PFO. The right ventricle is not well visualized secondary to technical limitations The right atrium is normal. Right atrium not well visualized secondary to technical limitations The left atrial size is normal. There is no evidence of mitral valve prolapse. There is no vegetation seen on the mitral valve. There is no mitral valve stenosis. There is a trace amount of mitral regurgitation There is no aortic valvular vegetation. There is aortic sclerosis without aortic stenosis. There is no aortic valve stenosis There is no LVOT obstruction. There is a trace to mild amount of aortic regurgitation There is no tricuspid stenosis. There is a trace amount of tricuspid regurgitation RVSP is 28 to 33 mm of HG , with RA mean of 5 to 10.Upper normal to mildl pulmonsry hypertension. There is no pulmonic valvular stenosis. There is a trace amount of pulmonic regurgitation The aortic root is normal size. The inferior vena cava appeared normal and decreased > 50% with respiration (RAP 5-10 mmHg) There is no pericardial effusion.
--- NOTE | 2019-08-29 12:49 | XCELERA REPORT ---
[address] [address] Transthoracic Echocardiogram Report Name: VANDA TAYLOR Age: 83 yrs Gender: Female : 1935 Patient Status: [facility] [place] Study Date: 08/29/2019 09:04 AM Procedure: A two-dimensional transthoracic echocardiogram with color flow and Doppler was performed. The study was technically difficult with many images being suboptimal in quality. Reason For Study: Murmur / Atrial FIBRILLATION History: Murmur / Atrial FIBRILLATION. Ordering Physician: VEENA GRANT Performed By: Kinza Christensen Interpretation Summary The left ventricle is normal in size. There is mild concentric left ventricular hypertrophy. LV EF is 65% Left ventricular systolic function is normal. The left ventricular wall motion is normal. There is no thrombus. Cannot assess ASD ,VSD , or PFO. The right ventricle is not well visualized secondary to technical limitations The right atrium is normal. Right atrium not well visualized secondary to technical limitations The left atrial size is normal. There is no evidence of mitral valve prolapse. There is no vegetation seen on the mitral valve. There is no mitral valve stenosis. There is a trace amount of mitral regurgitation There is no aortic valvular vegetation. There is aortic sclerosis without aortic stenosis. There is no aortic valve stenosis There is no LVOT obstruction. There is a trace to mild amount of aortic regurgitation There is no tricuspid stenosis. There is a trace amount of tricuspid regurgitation RVSP is 28 to 33 mm of HG , with RA mean of 5 to 10.Upper normal to mildl pulmonsry hypertension. There is no pulmonic valvular stenosis. There is a trace amount of pulmonic regurgitation The aortic root is normal size. The inferior vena cava appeared normal and decreased > 50% with respiration (RAP 5-10 mmHg) There is no pericardial effusion. MMode/2D Measurements & Calculations RVDd: 2.5 cm LVIDd: 4.5 cm FS: 32.3 % Ao root diam: 3.3 cm IVSd: 1.1 cm LVIDs: 3.1 cm EDV(Teich): 93.6 ml Ao root area: 8.4 cm2 LVPWd: 1.2 cm ESV(Teich): 36.8 ml EF(Teich): 60.7 % Doppler Measurements & Calculations Ao V2 max: AI max luis: LV V1 max PG: PA V2 max: 128.9 cm/sec 334.1 cm/sec 5.1 mmHg 80.9 cm/sec Ao max P.6 mmHg AI max P.8 mmHg LV V1 max: PA max PG: AI dec slope: 112.8 cm/sec 2.6 mmHg 222.2 cm/sec2 AI P1/2t: 440.4 msec PI end-d luis: TR max luis: 52.2 cm/sec 239.4 cm/sec TR max P.3 mmHg Left Ventricle The left ventricle is normal in size. There is mild concentric left ventricular hypertrophy. LV EF is 65%. Left ventricular systolic function is normal. LV diastolic function could not be adequately assessed due to atrial fibrilation. The left ventricular wall motion is normal. There is no thrombus. Cannot assess ASD ,VSD , or PFO. Right Ventricle The right ventricle is not well visualized secondary to technical limitations. [place] The right atrium is normal. Right atrium not well visualized secondary to technical limitations. The left atrial size is normal. Mitral Valve There is no evidence of mitral valve prolapse. There is no vegetation seen on the mitral valve. There is no mitral valve stenosis. There is a trace amount of mitral regurgitation. Aortic Valve There is no aortic valvular vegetation. There is aortic sclerosis without aortic stenosis. There is no aortic valve stenosis. There is no LVOT obstruction. There is a trace to mild amount of aortic regurgitation. Tricuspid Valve There is no tricuspid stenosis. There is a trace amount of tricuspid regurgitation. RVSP is 28 to 33 mm of HG , with RA mean of 5 to 10.Upper normal to mildl pulmonsry hypertension. Pulmonic Valve There is no pulmonic valvular stenosis. There is a trace amount of pulmonic regurgitation. Great Vessels The aortic root is normal size. The inferior vena cava appeared normal and decreased > 50% with respiration (RAP 5-10 mmHg). Effusions There is no pericardial effusion. : VEENA GRANT Lakshmi
--- NOTE | 2019-08-29 17:10 | PDOC PROGRESS REPORT ---
Subjective Progress Note for:: 08/29/19 Subjective:: Patient was transferred from ICU to the floor, she was admitted for lower GI bleed due to pandiverticulosis, she underwent subtotal colectomy Reason For Visit: LOWER GI BLEED,DM TYPE 2,HTN,GERD,CAD Physical Exam Vital Signs: Temp Pulse Resp BP Pulse Ox 97.9 F 113 H 18 124/69 96 08/29/19 16:39 08/29/19 16:39 08/29/19 16:39 08/29/19 16:39 08/29/19 13:58 Intake & Output 08/28/19 08/29/19 08/30/19 06:59 06:59 06:59 Intake Total 2450 3400 277 Output Total 1451 1030 250 Balance 999 2370 27 Weight 71 kg 72.7 kg General appearance: PRESENT: no acute distress Eye exam: PRESENT: PERRLA Respiratory exam: PRESENT: clear to auscultation jaison Cardiovascular exam: PRESENT: +S1, +S2 GI/Abdominal exam: PRESENT: soft Neurological exam: PRESENT: alert, CN II-XII grossly intact Results Laboratory Results: 08/29/19 04:33 08/29/19 04:33 08/29/19 08/29/19 04:33 04:33 WBC 11.1 H RBC 2.89 L Hgb 8.7 L Hct 25.5 L MCV 88 MCH 30.1 MCHC 34.1 RDW 15.3 H Plt Count 105 L Seg Neutrophils % Not Reportable Sodium 134.7 L Potassium 3.6 Chloride 110 H Carbon Dioxide 19 L Anion Gap 6 BUN 9 Creatinine 0.63 Est GFR ( Amer) > 60 Glucose 146 H Calcium 7.4 L Magnesium 1.8 Impressions: GI Bleed Scan Nuclear Medicine 08/26/19 00:00 IMPRESSION: FINDINGS CONSISTENT WITH ACTIVE GI BLEEDING IN THE SIGMOID COLON. Chest X-Ray 08/28/19 05:00 IMPRESSION: Opacity left lateral lung base, question atelectasis or pneumonia Assessment & Plan - Diagnosis (1) Acute GI bleeding Is this a current diagnosis for this admission?: Yes (2) Diverticulosis of large intestine without perforation or abscess without bleeding Is this a current diagnosis for this admission?: Yes (3) Atherosclerotic heart disease of [place] coronary artery without angina pectoris Qualifiers: [place] vs. transplanted heart: [place] heart Qualified Code(s): I25.10 - Atherosclerotic heart disease of [place] coronary artery without angina pectoris Is this a current diagnosis for this admission?: Yes (4) Unspecified atrial fibrillation Qualifiers: Atrial fibrillation type: paroxysmal Qualified Code(s): I48.0 - Paroxysmal atrial fibrillation Is this a current diagnosis for this admission?: Yes - Time Time Spent with patient: 25-34 minutes Level of Care: IMCU - Plan Summary Plan Summary: Patient will continue present treatment
[2019-08-30] MEDS: INSULIN LISPRO 100 UNIT/ML 3 ML VIAL SUBCUT SCH ×5 (00:11→23:55)
[2019-08-30] MEDS: MORPHINE SULFATE 10 MG/ML INJ IV PRN ×3 (00:55→20:46)
[2019-08-30] MEDS: METOPROLOL TARTRATE PF/INJ 5 MG/5 ML SDV IV SCH ×6 (02:10→21:26)
[2019-08-30] MEDS ORDERED: AMIODARONE HCL INJ 150 MG/3 ML VIAL IV ONE (03:08)
[2019-08-30] MEDS: DEXTROSE 5%-WATER 500 ML with AMIODARONE HCL 900 MG IV PRN ×2 (03:16)
[2019-08-30] MEDS: POTASSI CL 20 MEQ/1/2NS 1L 20 MEQ/1,000 ML RTUINJ IV PRN ×2 (03:29→14:15)
[2019-08-30] MEDS: PANTOPRAZOLE SODIUM 40 MG VIAL IV SCH ×2 (10:00→21:26)
--- NOTE | 2019-08-30 10:46 | PDOC PROGRESS REPORT ---
Subjective Progress Note for:: 08/30/19 Reason For Visit: LOWER GI BLEED,DM TYPE 2,HTN,GERD,CAD Physical Exam Vital Signs: Temp Pulse Resp BP Pulse Ox 98.1 F 92 18 112/57 L 98 08/30/19 07:28 08/30/19 08:53 08/30/19 07:28 08/30/19 08:53 08/30/19 07:28 Intake & Output 08/29/19 08/30/19 08/31/19 06:59 06:59 06:59 Intake Total 3400 2752 Output Total 1030 1160 Balance 2370 1592 Weight 72.7 kg 72.6 kg Results Laboratory Results: 08/29/19 04:33 08/29/19 04:33 08/24/19 19:04 Blood Blood Culture - Final NO GROWTH IN 5 DAYS 08/24/19 18:56 Blood Blood Culture - Final NO GROWTH IN 5 DAYS Impressions: GI Bleed Scan Nuclear Medicine 08/26/19 00:00 IMPRESSION: FINDINGS CONSISTENT WITH ACTIVE GI BLEEDING IN THE SIGMOID COLON. Chest X-Ray 08/28/19 05:00 IMPRESSION: Opacity left lateral lung base, question atelectasis or pneumonia Assessment & Plan - Diagnosis (1) Colonic diverticular disease Is this a current diagnosis for this admission?: Yes (2) Lower GI bleed Is this a current diagnosis for this admission?: Yes - Plan Summary Plan Summary: 83-year-old female status post exploratory laparotomy for exsanguinating colonic hemorrhage. The patient is awake and alert this morning. She complains of abdominal pain. Her hemoglobin appears to be stable. Her abdomen is soft this morning. She reports passing flatus. She is tolerating clear liquids. Advance to full liquids. Surgery will continue to follow closely with you.
[2019-08-30 11:07] LABS: HEMATOCRIT 23.6 % (36.0-47.0); HEMOGLOBIN 8.3 g/dL (12.0-15.5); MEAN CORPUSCULAR HEMOGLOBIN 30.7 pg (27.0-33.4); MEAN CORPUSCULAR HGB CONC 35.3 g/dL (32.0-36.0); MEAN CORPUSCULAR VOLUME 87 fl (80-97); PLATELET COUNT 143 10^3/uL (150-450); RED BLOOD COUNT 2.72 10^6/uL (3.72-5.28); RED CELL DISTRIBUTION WIDTH 15.2 % (11.5-14.0); WHITE BLOOD COUNT 9.6 10^3/uL (4.0-10.5)
[2019-08-30 11:15] LABS: ALBUMIN 2.2 g/dL (3.5-5.0); ALKALINE PHOSPHATASE 50 U/L (38-126); ANION GAP 6 (5-19); ASPARTATE AMINO TRANSFERASE 26 U/L (14-36); BILIRUBIN,TOTAL 1.1 mg/dL (0.2-1.3); BLOOD UREA NITROGEN 9 mg/dL (7-20); CALCIUM 7.5 mg/dL (8.4-10.2); CARBON DIOXIDE 19 mmol/L (22-30); CHLORIDE 109 mmol/L (98-107); GLUCOSE 158 mg/dL (75-110); TOTAL PROTEIN 4.7 g/dL (6.3-8.2)
[2019-08-30 11:39] LABS: ABSOLUTE LYMPHOCYTES# (MANUAL) 0.8 10^3/uL (0.5-4.7); ABSOLUTE MONOCYTES # (MANUAL) 0.5 10^3/uL (0.1-1.4); BAND NEUTROPHILS % (MANUAL) 1 % (3-5); BASOPHILS % (MANUAL) 0 % (0-2); EOSINOPHILS % (MANUAL) 0 % (0-6); LYMPHOCYTES % (MANUAL) 8 % (13-45); MONOCYTES % (MANUAL) 5 % (3-13); SEGMENTED NEUTROPHILS % (MAN) 86 % (42-78); TOTAL CELLS COUNTED 100
[2019-08-30 11:41] LABS: ANISOCYTOSIS SLIGHT; POLYCHROMASIA SLIGHT
[2019-08-30 11:44] LABS: PLATELET COMMENT DECREASED
[2019-08-30 11:45] LABS: TOXIC VACUOLATION PRESENT
--- NOTE | 2019-08-30 11:57 | Progress Note ---
Provider Note Provider Note: CARDIOLOGY PROGRESS NOTE by Dr. Veena Grant on 08/30/2019. Subjective: Patient continues to be in atrial fibrillation with a controlled ventricular response. She denies any chest pain or discomfort. She denies any shortness of breath. She does appear to be oriented only x1. There is no TIA CVA symptoms. There is no evidence of ongoing bleeding. There is no ventricular arrhythmias seen on the monitor. The patient continues to be on amiodarone drip. PHYSICAL EXAMINATION: The patient is well-built. In no acute distress. Selected Entries 08/30/19 08/30/19 08/30/19 07:28 08:00 10:00 Pulse Rate Respiratory 18 Rate Blood Pressure 102/61 O2 Sat by Pulse 98 Oximetry Oxygen Delivery Room Air Method ( includes room air) Oxygen Delivery Room Air Method 08/30/19 10:50 Pulse Rate 93 Respiratory Rate Blood Pressure 112/89 H O2 Sat by Pulse Oximetry Oxygen Delivery Method ( includes room air) Oxygen Delivery Method Head: Is atraumatic normocephalic. EYES: Pupils are equal round regular reacti ve light accommodation. Extraocular movements are normal. There is no conjunctival pallor. There is no scleral icterus. EARS: Tympanic membranes are intact. External auditory canals are clear. NOSE: There is no deviated nasal septum. There is no inflammation of his mucous membrane. MOUTH: Mucous membranes in the mouth are dry. Tongue is dry. There is no ulcers of the mouth. There is no bleeding from the gums. THROAT: There is no redness of the oropharynx. There is no exudates. Acute neck: Supple. There is no JVD. Carotids are equal there is no bruit. There is no lymphadenopathy. There is no goiter. There is no accessory muscles of respiration use. Trachea central. LUNGS: There is a few dry crackles in the right mid zone right base. There is no rhonchi or wheezing. There is no rales of CHF. HEART: S1-S2 is heard. S1 is a variable intensity. There is no S3 gallop. There is no S4 gallop. There is systolic murmur left sternal border and the apex. There is murmur of aortic sclerosis present. There is no aortic stenosis or aortic regurgitation murmur heard. There is no significant valvular stenotic or regurgitant murmur heard. There is no rub. ABDOMEN: Soft dressing is dry. There is no hepatosplenomegaly. Bowel sounds are absent. Extremities: Femorals are diminished there is no femoral bruits. Leg pulses are diminished. There is no pedal edema. There is no DVT or cellulitis. 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 With no focal deficits. PSYCHIATRIC: The patient does not appear to be agitated or anxious. Labs- All tests 24 hr 08/29/19 08/30/19 08/30/19 18:22 00:04 05:56 WBC RBC Hgb Hct MCV MCH MCHC RDW Plt Count Lymph % (Auto) [place] % (Auto) Eos % (Auto) Baso % (Auto) Absolute Neuts (auto) Absolute Lymphs (auto) Absolute Monos (auto) Absolute Eos (auto) Absolute Basos (auto) Total Counted Seg Neutrophils % Seg Neuts % (Manual) Band Neutrophils % Lymphocytes % (Manual) Monocytes % (Manual) Eosinophils % (Manual) Basophils % (Manual) Abs Neuts (Manual) Abs Lymphs (Manual) Abs Monocytes (Manual) Absolute Eos (Manual) Abs Basophils (Manual) Toxic Vacuolation Platelet Comment Polychromasia Anisocytosis Sodium Potassium Chloride Carbon Dioxide Anion Gap BUN Creatinine Est GFR ( Amer) Est GFR (MDRD) Non-Af Glucose POC Glucose 150 H 177 H 161 H Calcium Total Bilirubin Direct Bilirubin Neonat Total Bilirubin Neonat Direct Bilirubin Neonat Indirect Bili AST ALT Alkaline Phosphatase Total Protein Albumin 08/30/19 08/30/19 10:50 10:50 WBC 9.6 RBC 2.72 L Hgb 8.3 L Hct 23.6 L MCV 87 MCH 30.7 MCHC 35.3 RDW 15.2 H Plt Count 143 L Lymph % (Auto) Not Reportable [place] % (Auto) Not Reportable Eos % (Auto) Not Reportable Baso % (Auto) Not Reportable Absolute Neuts (auto) Not Reportable Absolute Lymphs (auto) Not Reportable Absolute Monos (auto) Not Reportable Absolute Eos (auto) Not Reportable Absolute Basos (auto) Not Reportable Total Counted 100 Seg Neutrophils % Not Reportable Seg Neuts % (Manual) 86 H Band Neutrophils % 1 L Lymphocytes % (Manual) 8 L Monocytes % (Manual) 5 Eosinophils % (Manual) 0 Basophils % (Manual) 0 Abs Neuts (Manual) 8.4 H Abs Lymphs (Manual) 0.8 Abs Monocytes (Manual) 0.5 Absolute Eos (Manual) 0.0 Abs Basophils (Manual) 0.0 Toxic Vacuolation PRESENT Platelet Comment DECREASED Polychromasia SLIGHT Anisocytosis SLIGHT Sodium 133.9 L Potassium 4.0 Chloride 109 H Carbon Dioxide 19 L Anion Gap 6 BUN 9 Creatinine 0.64 Est GFR ( Amer) > 60 Est GFR (MDRD) Non-Af > 60 Glucose 158 H POC Glucose Calcium 7.5 L Total Bilirubin 1.1 Direct Bilirubin 0.0 Neonat Total Bilirubin Not Reportable Neonat Direct Bilirubin Not Reportable Neonat Indirect Bili Not Reportable AST 26 ALT 17 Alkaline Phosphatase 50 Total Protein 4.7 L Albumin 2.2 L GI Bleed Scan Nuclear Medicine 08/26/19 00:00 IMPRESSION: FINDINGS CONSISTENT WITH ACTIVE GI BLEEDING IN THE SIGMOID COLON. Chest X-Ray 08/28/19 05:00 IMPRESSION: Opacity left lateral lung base, question atelectasis or pneumonia EKG: Shows atrial fibrillation with controlled ventricular response. 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 IMPRESSION/RECOMMENDATION: 1. Atrial fibrillation with rapid ventricular response. Continue the patient on amiodarone. Also the patient did receive digoxin intravenously will check a dig level in the morning. We will also use Lopressor 2.5 mg IV push every 4 hours as needed. Also the patient appears to be dehydrated. We will continue IV fluids. If rapid ventricular response continues then might start the patient on esmolol drip if blood pressure permits. 2. Lower GI bleed secondary to bleeding from sigmoid sigmoid diverticulum. S/p hemicolectomy. 3. Possible pneumonia: Continue antibiotics. 4. Anemia: Watch the patient's hemoglobin. Consider transfusion to keep the hemoglobin up to 10 or above. 5. History of hypertension: Blood pressure stable. 6. Hypothyroidism on replacement. 7. Diabetes mellitus: Continue Accu-Cheks and treat blood sugars accordingly since the patient is n.p.o. 8. Alzheimer's dementia by history. This seems to be mild. 9. The patient is corrected Xavi vasc 2 score is 5. The patient had a massive lower GI bleed and although she has had hemicolectomy she is got pandiverticulosis. Hence will discuss with the surgical hist and the attending physician about the safety of starting the patient on chronic anticoagulation Medications reviewed. Medical regimen management plan discussed with attending provider. Medical decision making is a moderate complexity. 40 minutes spent with patient more than 50% of time spent direct patient care. Will follow.
--- NOTE | 2019-08-30 13:16 | EKG REPORT ---
SEVERITY:- ABNORMAL ECG - ATRIAL FIBRILLATION, V-RATE 67-150 RIGHT BUNDLE BRANCH BLOCK : Confirmed by: Prosper Alicea MD 30-Aug-2019 13:16:05
--- NOTE | 2019-08-30 16:01 | PDOC PROGRESS REPORT ---
Subjective Progress Note for:: 08/30/19 Subjective:: Patient had a life-threatening lower GI bleed status post emergent subtotal colectomy, now very confused Reason For Visit: LOWER GI BLEED,DM TYPE 2,HTN,GERD,CAD Physical Exam Vital Signs: Temp Pulse Resp BP Pulse Ox 98.4 F 82 17 130/85 H 98 08/30/19 12:12 08/30/19 15:09 08/30/19 12:12 08/30/19 15:09 08/30/19 12:12 Intake & Output 08/29/19 08/30/19 08/31/19 06:59 06:59 06:59 Intake Total 3400 2752 1120 Output Total 1030 1160 100 Balance 2370 1592 1020 Weight 72.7 kg 72.6 kg General appearance: PRESENT: no acute distress Eye exam: PRESENT: PERRLA Respiratory exam: PRESENT: clear to auscultation jaison Cardiovascular exam: PRESENT: +S1, +S2 GI/Abdominal exam: PRESENT: soft Results Laboratory Results: 08/30/19 10:50 08/30/19 10:50 08/26/19 08/30/19 08/30/19 11:51 10:50 10:50 WBC 9.6 RBC 2.72 L Hgb 8.3 L Hct 23.6 L MCV 87 MCH 30.7 MCHC 35.3 RDW 15.2 H Plt Count 143 L Seg Neutrophils % Not Reportable Sodium 133.9 L Potassium 4.0 Chloride 109 H Carbon Dioxide 19 L Anion Gap 6 BUN 9 Creatinine 0.64 Est GFR ( Amer) > 60 Glucose 158 H Calcium 7.5 L Total Bilirubin 1.1 AST 26 Alkaline Phosphatase 50 Total Protein 4.7 L Albumin 2.2 L Blood Type A POSITIVE Antibody Screen NEGATIVE 08/24/19 19:04 Blood Blood Culture - Final NO GROWTH IN 5 DAYS 08/24/19 18:56 Blood Blood Culture - Final NO GROWTH IN 5 DAYS Impressions: GI Bleed Scan Nuclear Medicine 08/26/19 00:00 IMPRESSION: FINDINGS CONSISTENT WITH ACTIVE GI BLEEDING IN THE SIGMOID COLON. Chest X-Ray 08/28/19 05:00 IMPRESSION: Opacity left lateral lung base, question atelectasis or pneumonia Assessment & Plan - Diagnosis (1) Acute GI bleeding Is this a current diagnosis for this admission?: Yes (2) Diverticulosis of large intestine without perforation or abscess without bleeding Is this a current diagnosis for this admission?: Yes (3) Atherosclerotic heart disease of [place] coronary artery without angina pectoris Qualifiers: [place] vs. transplanted heart: [place] heart Qualified Code(s): I25.10 - A therosclerotic heart disease of [place] coronary artery without angina pectoris Is this a current diagnosis for this admission?: Yes (4) Unspecified atrial fibrillation Qualifiers: Atrial fibrillation type: paroxysmal Qualified Code(s): I48.0 - Paroxysmal atrial fibrillation Is this a current diagnosis for this admission?: Yes (5) Delirium Is this a current diagnosis for this admission?: Yes Plan: This is multifactorial in etiology, portend poor prognosis, watch closely, review medications - Time Time Spent with patient: 15-24 minutes Level of Care: IMCU
[2019-08-31] MEDS: POTASSI CL 20 MEQ/1/2NS 1L 20 MEQ/1,000 ML RTUINJ IV PRN ×3 (00:56→22:18)
[2019-08-31] MEDS: METOPROLOL TARTRATE PF/INJ 5 MG/5 ML SDV IV SCH ×6 (01:28→21:42)
--- NOTE | 2019-08-31 05:26 | PDOC PROGRESS REPORT ---
Subjective Progress Note for:: 08/31/19 Reason For Visit: LOWER GI BLEED,DM TYPE 2,HTN,GERD,CAD Physical Exam Vital Signs: Temp Pulse Resp BP Pulse Ox 98.9 F 130 H 22 H 147/92 H 100 08/30/19 23:39 08/31/19 03:00 08/30/19 23:39 08/31/19 03:00 08/30/19 23:39 Intake & Output 08/29/19 08/30/19 08/31/19 06:59 06:59 06:59 Intake Total 3400 2752 2358 Output Total 1030 1160 725 Balance 2370 1592 1633 Weight 72.7 kg 72.6 kg 72.6 kg Results Laboratory Results: 08/30/19 10:50 08/30/19 10:50 08/26/19 08/30/19 08/30/19 11:51 10:50 10:50 WBC 9.6 RBC 2.72 L Hgb 8.3 L Hct 23.6 L MCV 87 MCH 30.7 MCHC 35.3 RDW 15.2 H Plt Count 143 L Seg Neutrophils % Not Reportable Sodium 133.9 L Potassium 4.0 Chloride 109 H Carbon Dioxide 19 L Anion Gap 6 BUN 9 Creatinine 0.64 Est GFR ( Amer) > 60 Glucose 158 H Calcium 7.5 L Total Bilirubin 1.1 AST 26 Alkaline Phosphatase 50 Total Protein 4.7 L Albumin 2.2 L Blood Type A POSITIVE Antibody Screen NEGATIVE Impressions: GI Bleed Scan Nuclear Medicine 08/26/19 00:00 IMPRESSION: FINDINGS CONSISTENT WITH ACTIVE GI BLEEDING IN THE SIGMOID COLON. Chest X-Ray 08/28/19 05:00 IMPRESSION: Opacity left lateral lung base, question atelectasis or pneumonia Assessment & Plan - Diagnosis (1) Colonic diverticular disease Is this a current diagnosis for this admission?: Yes (2) Lower GI bleed Is this a current diagnosis for this admission?: Yes - Plan Summary Plan Summary: 83-year-old female status post exploratory laparotomy for exsanguinating colonic hemorrhage. The patient is awake and alert this morning, although she remains confused. She complains of abdominal pain. Her hemoglobin appears to be stable. Her abdomen is soft this morning. She reports passing flatus. She is tolerating full liquids. She reports that she does not feel hungry, and she does feel constipated. I will add Colace 200 mg p.o. twice daily. She denies any nausea or vomiting. I will advance her diet as she tolerates.
[2019-08-31] MEDS ORDERED: DOCUSATE SODIUM 100 MG CAPSULE PO PRN (05:27)
[2019-08-31] MEDS: INSULIN LISPRO 100 UNIT/ML 3 ML VIAL SUBCUT SCH ×3 (06:50→21:39)
--- NOTE | 2019-08-31 08:47 | RADIOLOGY REPORT (SQ) ---
EXAM DESCRIPTION: KUB/ABDOMEN (SINGLE VIEW) IMAGES COMPLETED DATE/TIME: 08/31/2019 8:34 am REASON FOR STUDY: abdominal distention COMPARISON: None. NUMBER OF VIEWS: One view. TECHNIQUE: Supine radiographic image of the abdomen acquired. LIMITATIONS: None. FINDINGS: BOWEL GAS PATTERN: No dilated loops of bowel. CALCIFICATIONS: None. SOFT TISSUES: None. HARDWARE: Martínez catheter, intra- abdominal drain that terminates in the right lower quadrant, and hernando gical cutaneous jim. BONES: Degenerative spondylosis at L5-S1. OTHER: No other finding. IMPRESSION: Postoperative findings as detailed above without evidence of a mechanical bowel obstruct ion. TECHNICAL DOCUMENTATION: JOB ID: [id number] 2010 [employer]- All Rights Reserved Reading location - IP/workstation name: [email or web address]
[2019-08-31] MEDS: PANTOPRAZOLE SODIUM 40 MG VIAL IV SCH ×2 (09:48→21:42)
[2019-08-31] MEDS ORDERED: DOCUSATE SODIUM 100 MG CAPSULE PO SCH (10:00)
[2019-08-31] MEDS ORDERED: DIGOXIN INJ 0.5 MG/2 ML AMPULE ONE (15:24)
[2019-08-31] MEDS ORDERED: DIGOXIN INJ 0.5 MG/2 ML AMPULE IV ONE (16:15)
[2019-08-31] MEDS ORDERED: DEXTROSE 5%-WATER 500 ML with AMIODARONE HCL 900 MG IV PRN ×2 (17:29)
[2019-08-31] MEDS: MORPHINE SULFATE 10 MG/ML INJ IV PRN (21:43)
--- NOTE | 2019-08-31 22:36 | PDOC PROGRESS REPORT ---
Subjective Progress Note for:: 08/31/19 Subjective:: Patient seen by the bedside she is still confused, she may need rehabilitation Reason For Visit: LOWER GI BLEED,DM TYPE 2,HTN,GERD,CAD Physical Exam Vital Signs: Temp Pulse Resp BP Pulse Ox 98.9 F 109 H 22 H 130/89 H 100 08/30/19 23:39 08/31/19 18:00 08/30/19 23:39 08/31/19 18:00 08/30/19 23:39 Intake & Output 08/30/19 08/31/19 09/01/19 06:59 06:59 06:59 Intake Total 2752 2358 1000 Output Total 1160 1380 1575 Balance 1592 978 -575 Weight 72.6 kg 72.6 kg General appearance: PRESENT: no acute distress Eye exam: PRESENT: PERRLA Respiratory exam: PRESENT: clear to auscultation jaison Cardiovascular exam: PRESENT: +S1, +S2 GI/Abdominal exam: PRESENT: soft Neurological exam: PRESENT: alert Results Laboratory Results: 08/30/19 10:50 08/30/19 10:50 Impressions: GI Bleed Scan Nuclear Medicine 08/26/19 00:00 IMPRESSION: FINDINGS CONSISTENT WITH ACTIVE GI BLEEDING IN THE SIGMOID COLON. Chest X-Ray 08/28/19 05:00 IMPRESSION: Opacity left lateral lung base, question atelectasis or pneumonia KUB X-Ray 08/31/19 00:00 IMPRESSION: Postoperative findings as detailed above without evidence of a mechanical bowel obstruction. Assessment & Plan - Diagnosis (1) Acute GI bleeding Is this a current diagnosis for this admission?: Yes (2) Diverticulosis of large intestine without perforation or abscess without bleeding Is this a current diagnosis for this admission?: Yes (3) Atherosclerotic heart disease of [place] coronary artery without angina pectoris Qualifiers: [place] vs. transplanted heart: [place] heart Qualified Code(s): I25.10 - Atherosclerotic heart disease of [place] coronary artery without angina pectoris Is this a current diagnosis for this admission?: Yes (4) Unspecified atrial fibrillation Qualifiers: Atrial fibrillation type: paroxysmal Qualified Code(s): I48.0 - Paroxysmal atrial fibrillation Is this a current diagnosis for this admission?: Yes (5) Delirium Is this a current diagnosis for this admission?: Yes Plan: This is multifactorial in etiology, portend poor prognosis, watch closely, - Time Time Spent with patient: 15-24 minutes
[2019-09-01] MEDS: INSULIN LISPRO 100 UNIT/ML 3 ML VIAL SUBCUT SCH ×5 (00:24→23:57)
[2019-09-01] MEDS: METOPROLOL TARTRATE PF/INJ 5 MG/5 ML SDV IV SCH ×6 (04:47→22:15)
[2019-09-01] MEDS: PANTOPRAZOLE SODIUM 40 MG VIAL IV SCH ×2 (09:21→22:14)
[2019-09-01] MEDS: POTASSI CL 20 MEQ/1/2NS 1L 20 MEQ/1,000 ML RTUINJ IV PRN ×2 (09:21→18:44)
[2019-09-01] MEDS: MORPHINE SULFATE 10 MG/ML INJ IV PRN (13:21)
--- NOTE | 2019-09-01 16:25 | PDOC PROGRESS REPORT ---
Subjective Progress Note for:: 09/01/19 Subjective:: awake, sl confused, no complaints Reason For Visit: LOWER GI BLEED,DM TYPE 2,HTN,GERD,CAD Physical Exam Vital Signs: Temp Pulse Resp BP Pulse Ox 98.1 F 125 H 16 161/82 H 100 09/01/19 11:32 09/01/19 14:00 09/01/19 11:32 09/01/19 13:00 09/01/19 11:32 Intake & Output 08/31/19 09/01/19 09/02/19 06:59 06:59 06:59 Intake Total 2358 2000 1000 Output Total 1380 3125 1000 Balance 978 -1125 0 Weight 72.6 kg 72.4 kg 72.4 kg General appearance: PRESENT: no acute distress Head exam: PRESENT: normocephalic Eye exam: PRESENT: EOMI Ear exam: PRESENT: normal external ear exam Teeth exam: PRESENT: poor dentation Neck exam: PRESENT: full ROM Respiratory exam: PRESENT: clear to auscultation jaison Cardiovascular exam: PRESENT: RRR Vascular exam: PRESENT: normal capillary refill Breast: PRESENT: Normal GI/Abdominal exam: PRESENT: soft, other - drain removed sutures in place Gentrourinary exam: PRESENT: indwelling catheter Neurological exam: PRESENT: altered, awake Psychiatric exam: PRESENT: appropriate affect Skin exam: PRESENT: dry Results Laboratory Results: 08/30/19 10:50 08/30/19 10:50 Impressions: GI Bleed Scan Nuclear Medicine 08/26/19 00:00 IMPRESSION: FINDINGS CONSISTENT WITH ACTIVE GI BLEEDING IN THE SIGMOID COLON. Chest X-Ray 08/28/19 05:00 IMPRESSION: Opacity left lateral lung base, question atelectasis or pneumonia KUB X-Ray 08/31/19 00:00 IMPRESSION: Postoperative findings as detailed above without evidence of a mechanical bowel obstruction. Assessment & Plan - Plan Summary Plan Summary: s/p sub total colectomy for colonic diverticular bleeding now with return of bowel function on full liquids dementia pt has not yet been out of bed per physical therapy who feels it is unsafe plan cont current rx cont current diet discharge planning will prob need extended care
[2019-09-01] MEDS ORDERED: MULTIVITAMIN (INFANT) W-IRON DROPS 50 ML PO SCH (18:30)
--- NOTE | 2019-09-01 19:13 | Progress Note ---
Provider Note Provider Note: Cardiology PROGRESS NOTE by Dr. Manrique has been on 09/01/2019. SUBJECTIVE: The patient is demented and appears to be agitated at times. Heart rate is still very fast with a still being in atrial fibrillation. She is tolerating a diet and has had set of passed flatus intermittently. There is no ventricle arrhythmia seen on the monitor. The patient's Xavi vascular to corrected score is 5 hence the patient is a very high risk for developing a stroke. But the same time we need the permission of the surgeon to restart the patient on anticoagulation chronically. Would recommend controlling the patient's severe dementia and agitation with psych medication. We will stop the patient's amiodarone and start the patient on a Cardizem drip. PHYSICAL EXAMINATION: The patient is well-built. She is disoriented x3 and agitated. Selected Entries 09/01/19 07:40 Temperature 98.0 F Temperature Oral Source Pulse Rate 133 H Respiratory 18 Rate Blood Pressure 127/74 H Blood Pressure 91 Mean BP Location Right Arm BP Position Supine O2 Sat by Pulse 100 Oximetry Oxygen Delivery Room Air Method Head: Is atraumatic normocephalic. EYES: Pupils are equal round regular reactive light accommodation. Extraocular movements are normal. There is no conjunctival pallor. There is no scleral icterus. EARS: Tympanic membranes are intact. External auditory canals are clear. NOSE: There is no deviated nasal septum. There is no inflammation of his mucous membrane. MOUTH: Mucous membranes in the mouth are dry. Tongue is dry. There is no ulcers of the mouth. There is no bleeding from the gums. THROAT: There is no redness of the oropharynx. There is no exudates. Acute neck: Supple. There is no JVD. Carotids are equal there is no bruit. There is no lymphadenopathy. There is no goiter. There is no accessory muscles of respiration use. Trachea central. LUNGS: There is a few dry crackles in the right mid zone right base. There is no rhonchi or wheezing. There is no rales of CHF. HEART: S1-S2 is heard. S1 is a variable intensity. There is no S3 gallop. There is no S4 gallop. There is systolic murmur left sternal border and the apex. There is murmur of aortic sclerosis present. There is no aortic stenosis or aortic regurgitation murmur heard. There is no significant valvular stenotic or regurgitant murmur heard. There is no rub. ABDOMEN: Soft dressing is dry. There is no hepatosplenomegaly. Bowel sounds are absent. Extremities: Femorals are diminished there is no femoral bruits. Leg pulses are diminished. There is no pedal edema. There is no DVT or cellulitis. [employer] patient the patient is conscious awake oriented x1. With no focal deficits. PSYCHIATRIC: The patient does not appear to be agitated or anxious. Labs- All tests 24 hr 08/31/19 09/01/19 09/01/19 23:53 06:00 11:32 POC Glucose 185 H 166 H 186 H GI Bleed Scan Nuclear Medicine 08/26/19 00:00 IMPRESSION: FINDINGS CONSISTENT WITH ACTIVE GI BLEEDING IN THE SIGMOID COLON. Chest X-Ray 08/28/19 05:00 IMPRESSION: Opacity left lateral lung base, question atelectasis or pneumonia KUB X-Ray 08/31/19 00:00 IMPRESSION: Postoperative findings as detailed above without evidence of a mechanical bowel obstruction. IMPRESSION/RECOMMENDATION: 1. Atrial fibrillation with rapid ventricular response. In view of the patient still being atrial fibrillation will discontinue the patient's amiodarone drip and start the patient on a Cardizem drip. We will also start the patient on digoxin 0.125 mg IV push daily. Will discuss with the attending physician and the surgical hist to see if it is safe to start the patient on chronic anticoagulation. 2. Lower GI bleed secondary to bleeding from sigmoid sigmoid diverticulum. S/p hemicolectomy. 3. Possible pneumonia: Continue antibiotics. 4. Anemia: Watch the patient's hemoglobin. Consider transfusion to keep the hemoglobin up to 10 or above. 5. History of hypertension: Blood pressure stable. 6. Hypothyroidism on replacement. 7. Diabetes mellitus: Continue Accu-Cheks and treat blood sugars accordingly since the patient is n.p.o. 8. Alzheimer's dementia by history. This seems to be mild. 9. The patient is corrected Xavi vasc 2 score is 5. The patient had a massive lower GI bleed and although she has had hemicolectomy she is got pandiverticulosis. Hence will discuss with the surgical hist and the attending physician about the safety of starting the patient on chronic anticoagulation Occasions reviewed. Medication change. Medical decision making and management plan discussed with attending provider on the case. Medical decision making is of high complexity. 40-minute spent with patient more than 50% of time spent di rect patient care. Will follow.
[2019-09-01 19:14] LABS: HEMATOCRIT 25.5 % (36.0-47.0); HEMOGLOBIN 8.8 g/dL (12.0-15.5); MEAN CORPUSCULAR HEMOGLOBIN 30.4 pg (27.0-33.4); MEAN CORPUSCULAR HGB CONC 34.4 g/dL (32.0-36.0); MEAN CORPUSCULAR VOLUME 88 fl (80-97); PLATELET COUNT 230 10^3/uL (150-450); RED BLOOD COUNT 2.89 10^6/uL (3.72-5.28); RED CELL DISTRIBUTION WIDTH 15.6 % (11.5-14.0); WHITE BLOOD COUNT 8.4 10^3/uL (4.0-10.5)
[2019-09-01 19:31] LABS: ALBUMIN 2.3 g/dL (3.5-5.0); ALKALINE PHOSPHATASE 53 U/L (38-126); ANION GAP 8 (5-19); ASPARTATE AMINO TRANSFERASE 38 U/L (14-36); BILIRUBIN,DIRECT 0.3 mg/dL (0.0-0.4); BILIRUBIN,TOTAL 1.6 mg/dL (0.2-1.3); BLOOD UREA NITROGEN 6 mg/dL (7-20); CALCIUM 7.9 mg/dL (8.4-10.2); CARBON DIOXIDE 18 mmol/L (22-30); CHLORIDE 107 mmol/L (98-107); GLUCOSE 175 mg/dL (75-110); POTASSIUM 4.7 mmol/L (3.6-5.0); TOTAL PROTEIN 5.2 g/dL (6.3-8.2)
[2019-09-01 19:36] LABS: ABSOLUTE LYMPHOCYTES# (MANUAL) 1.1 10^3/uL (0.5-4.7); ABSOLUTE MONOCYTES # (MANUAL) 0.5 10^3/uL (0.1-1.4); BAND NEUTROPHILS % (MANUAL) 3 % (3-5); BASOPHILS % (MANUAL) 0 % (0-2); EOSINOPHILS % (MANUAL) 0 % (0-6); LYMPHOCYTES % (MANUAL) 13 % (13-45); MONOCYTES % (MANUAL) 6 % (3-13); NUCLEATED RED BLOOD CELLS 3 /100 WBC (0); SEGMENTED NEUTROPHILS % (MAN) 78 % (42-78); TOTAL CELLS COUNTED 100
[2019-09-01 19:37] LABS: ANISOCYTOSIS 1+
[2019-09-01 19:38] LABS: OVALOCYTES 1+; PLATELET COMMENT ADEQUATE; POLYCHROMASIA 1+
[2019-09-01] MEDS ORDERED: DIGOXIN INJ 0.5 MG/2 ML AMPULE IV ONE (19:45)
--- NOTE | 2019-09-01 22:00 | PDOC PROGRESS REPORT ---
Subjective Progress Note for:: 09/01/19 Subjective:: Patient is s/p subtotal colectomy with drainage tube in situ. Minimal serous content in the reservoir. PO intake remain poor. No reported nausea, vomiting, or expressed abdominal pain. No chest pain or difficulty with breathing. She remain on IV antibiotic and IV fluid support. Maintain on IV Amiodarone and metoprolol for rate control. Reason For Visit: LOWER GI BLEED,DM TYPE 2,HTN,GERD,CAD Physical Exam Vital Signs: Temp Pulse Resp BP Pulse Ox 98.2 F 128 H 18 167/110 H 100 09/01/19 15:08 09/01/19 15:08 09/01/19 15:08 09/01/19 15:08 09/01/19 15:08 Intake & Output 08/31/19 09/01/19 09/02/19 06:59 06:59 06:59 Intake Total 2358 2000 1000 Output Total 1380 3125 1000 Balance 978 -1125 0 Weight 72.6 kg 72.4 kg 72.4 kg Physical Exam: General appearance: PRESENT: no acute distress Head exam: PRESENT: atraumatic, normocephalic Eye exam: PRESENT: conjunctiva pink. ABSENT: pallor, scleral icterus Mouth exam: PRESENT: moist Respiratory exam: PRESENT: clear to auscultation jaison Cardiovascular exam: PRESENT: RRR, +S1, +S2. ABSENT: diastolic murmur, rubs, systolic murmur GI/Abdominal exam: PRESENT: normal bowel sounds, soft, ABSENT: distended, guarding, mass, organomegaly, rebound, tenderness Extremities exam: ABSENT: pedal edema Musculoskeletal exam: PRESENT: ambulatory Neurological exam: PRESENT: alert, awake, oriented to person, oriented to place Psychiatric exam: PRESENT: appropriate affect, normal mood. ABSENT: homicidal ideation, suicidal ideation Skin exam: PRESENT: dry, warm Results Laboratory Results: 08/30/19 10:50 08/30/19 10:50 Impressions: GI Bleed Scan Nuclear Medicine 08/26/19 00:00 IMPRESSION: FINDINGS CONSISTENT WITH ACTIVE GI BLEEDING IN THE SIGMOID COLON. Chest X-Ray 08/28/19 05:00 IMPRESSION: Opacity left lateral lung base, question atelectasis or pneumonia KUB X-Ray 08/31/19 00:00 IMPRESSION: Postoperative findings as detailed above without evidence of a mechanical bowel obstruction. Assessment & Plan - Diagnosis (1) Lower GI bleed Is this a current diagnosis for this admission?: Yes Plan: Monitor her hemoglobin and transfuse as indicated. (2) Colonic diverticular disease Is this a current diagnosis for this admission?: Yes Plan: s/p subtotal colectomy with direct reanastomosis. Hemoglobin is fairly stable at this time. (3) Atrial fibrillation with rapid ventricular response Is this a current diagnosis for this admission?: Yes Plan: Her Xavi vasc score is high at 5. She will continue on rate control management as per cardiology input. I will discuss issue of anticoagulation with Dr. Mahan, cardiology, in view of her recent subtotal colectomy due to severe lower GI bleed from diverticular disease. (4) Senile dementia with delirium Qualifiers: Dementia behavioral disturbance: without behavioral disturbance Qualified Code(s): F03.90 - Unspecified dementia without behavioral disturbance; F05 - Delirium due to known physiological condition Is this a current diagnosis for this admission?: Yes Plan: Multi-factorial in view if her ongoing acute illness. I will start her on Risperdal, stress vitamins with iron and Zinc sulfate therapy. We will continue efforts at improving oral food intake for nutrition sustenance. Her overall prognosis is further complicated by the development of delirium. (5) Diabetes mellitus, type 2 Qualifiers: Diabetes mellitus residential insulin use: without residential use Diabetes mellitus complication status: with other specified complication Qualified Code(s): E11.69 - Type 2 diabetes mellitus with other specified complication Is this a current diagnosis for this admission?: Yes (6) Hypertension Qualifiers: Hypertension type: unspecified Qualified Code(s): I10 - Essential (primary) hypertension Is this a current diagnosis for this admission?: Yes (7) Coronary artery disease Qualifiers: Coronary Disease-Associated Artery/Lesion type: unspecified vessel or lesion type [place] vs. transplanted heart: [place] heart Associated angina: angina presence unspecified Qualified Code(s): I25.10 - Atherosclerotic heart disease of [place] coronary artery without angina pectoris Is this a current diagnosis for this admission?: Yes (8) Hyperlipidemia Qualifiers: Hyperlipidemia type: unspecified Qualified Code(s): E78.5 - Hyperlipidemia, unspecified Is this a current diagnosis for this admission?: Yes (9) Hypothyroidism Qualifiers: Hypothyroidism type: acquired Qualified Code(s): E03.9 - Hypothyroidism, unspecified Is this a current diagnosis for this admission?: Yes (10) GERD (gastroesophageal reflux disease) Qualifiers: Esophagitis presence: esophagitis presence not specified Qualified Code(s): K21.9 - Gastro-esophageal reflux disease without esophagitis Is this a current diagnosis for this admission?: Yes - Time Time Spent with patient: 35 or more minutes Level of Care: IMCU Medications reviewed and adjusted accordingly: Yes Anticipated discharge: SNF Within: Other - Inpatient Certification Based on my medical assessment, after consideration of the patient's comorbidities, presenting symptoms, or acuity I expect that the services needed warrant INPATIENT care.: Yes I certify that my determination is in accordance with my understanding of Medicare's requirements for reasonable and necessary INPATIENT services [42 CFR 412.3e].: Yes Medical Necessity: Significant Comorbidiites Make Outpatient Treatment Too Risky, Need Close Monitoring Due to Risk of Patient Decompensation, Need For IV Fluids, Need For Continuous Telemetry Monitoring, Need for IV Antibiotics, Risk of Complication if Not Cared For in Hospital, Risk of Diagnosis Which Will Require Inpatient Eval/Care/Monitoring Post Hospital Care: D/C or Transfer Summary - Plan Summary Plan Summary: See attending physician orders for details. I discussed at length with her son, Noah Prince, at [phone] regarding her overall poor prognosis and need for rehabilitation upon discharge.
[2019-09-01] MEDS: DILTIAZEM HCL/D5W 125 MG/125 ML RTUINJ IV PRN (22:05)
[2019-09-01] MEDS: RISPERIDONE 0.5 MG TAB.RAPDIS PO SCH (22:08)
[2019-09-01] MEDS: ZINC SULFATE 220 MG CAPSULE PO SCH (22:08)
[2019-09-01] MEDS: MULTIVITS W-MIN/IRON SOLN 60 ML PO SCH (22:08)
[2019-09-02] MEDS: METOPROLOL TARTRATE PF/INJ 5 MG/5 ML SDV IV SCH ×6 (02:15→22:31)
[2019-09-02] MEDS: POTASSI CL 20 MEQ/1/2NS 1L 20 MEQ/1,000 ML RTUINJ IV PRN (04:13)
[2019-09-02] MEDS: MORPHINE SULFATE 10 MG/ML INJ IV PRN ×2 (04:38→15:40)
[2019-09-02] MEDS: INSULIN LISPRO 100 UNIT/ML 3 ML VIAL SUBCUT SCH ×3 (06:16→17:11)
--- NOTE | 2019-09-02 08:17 | PDOC PROGRESS REPORT ---
Subjective Progress Note for:: 09/02/19 Subjective:: pt stable, due to altered mental status, unable to communicate with pt. Reason For Visit: LOWER GI BLEED,DM TYPE 2,HTN,GERD,CAD Physical Exam Vital Signs: Temp Pulse Resp BP Pulse Ox 97.8 F 78 18 100/44 L 98 09/02/19 07:40 09/02/19 07:40 09/02/19 07:40 09/02/19 07:40 09/02/19 07:40 Intake & Output 09/01/19 09/02/19 09/03/19 06:59 06:59 06:59 Intake Total 1999 3457 Output Total 3125 2915 Balance -1125 543 Weight 72.4 kg 72.6 kg General appearance: PRESENT: no acute distress Head exam: PRESENT: normocephalic Eye exam: PRESENT: EOMI Ear exam: PRESENT: normal external ear exam Mouth exam: PRESENT: moist Teeth exam: PRESENT: poor dentation Neck exam: PRESENT: full ROM Respiratory exam: PRESENT: clear to auscultation jaison Cardiovascular exam: PRESENT: irregular rhythm, tachycardia Pulses: PRESENT: normal femoral pulses Vascular exam: PRESENT: normal capillary refill Breast: PRESENT: Normal GI/Abdominal exam: PRESENT: other - abd soft, drain with min op jim in place,wound dry Rectal exam: PRESENT: deferred Neurological exam: PRESENT: altered, awake Skin exam: PRESENT: dry Results Laboratory Results: 09/01/19 18:55 09/01/19 18:55 09/01/19 09/01/19 18:55 18:55 WBC 8.4 RBC 2.89 L Hgb 8.8 L Hct 25.5 L MCV 88 MCH 30.4 MCHC 34.4 RDW 15.6 H Plt Count 230 Seg Neutrophils % Not Reportable Sodium 133.0 L Potassium 4.7 Chloride 107 Carbon Dioxide 18 L Anion Gap 8 BUN 6 L Creatinine 0.43 L Est GFR ( Amer) > 60 Glucose 175 H Calcium 7.9 L Total Bilirubin 1.6 H AST 38 H Alkaline Phosphatase 53 Total Protein 5.2 L Albumin 2.3 L Impressions: GI Bleed Scan Nuclear Medicine 08/26/19 00:00 IMPRESSION: FINDINGS CONSISTENT WITH ACTIVE GI BLEEDING IN THE SIGMOID COLON. Chest X-Ray 08/28/19 05:00 IMPRESSION: Opacity left lateral lung base, question atelectasis or pneumonia KUB X-Ray 08/31/19 00:00 IMPRESSION: Postoperative findings as detailed above without evidence of a mechanical bowel obstruction. Assessment & Plan - Plan Summary Plan Summary: s/p subtotal colectomy for massive lower gi bleed due to diverticulosis pt now iwth return of bowel function hct now stable drain removed pts mental status still poor, question of dementia vs metabolic plan jim need to be removed in a week, surgery will sign off at this time please reconsult as necessary.
[2019-09-02] MEDS: PANTOPRAZOLE SODIUM 40 MG VIAL IV SCH (10:44)
[2019-09-02] MEDS: RISPERIDONE 0.5 MG TAB.RAPDIS PO SCH ×2 (10:45→17:06)
[2019-09-02] MEDS: MULTIVITS W-MIN/IRON SOLN 60 ML PO SCH ×2 (10:45→17:07)
[2019-09-02] MEDS: ZINC SULFATE 220 MG CAPSULE PO SCH ×2 (10:45→17:07)
[2019-09-02] MEDS: DIGOXIN INJ 0.5 MG/2 ML AMPULE IV SCH (10:48)
--- NOTE | 2019-09-02 12:45 | PDOC PROGRESS REPORT ---
Subjective Progress Note for:: 09/02/19 Subjective:: Baseline dementia and ongoing delirium limit her participation. More able to follow commands. No reported fever or difficulty with breathing. Reason For Visit: LOWER GI BLEED,DM TYPE 2,HTN,GERD,CAD Physical Exam Vital Signs: Temp Pulse Resp BP Pulse Ox 98.0 F 72 18 126/73 H 98 09/02/19 10:48 09/02/19 10:48 09/02/19 10:48 09/02/19 10:48 09/02/19 10:48 Intake & Output 09/01/19 09/02/19 09/03/19 06:59 06:59 06:59 Intake Total 1999 3458 50 Output Total 3125 2915 250 Balance -1125 543 -200 Weight 72.4 kg 72.6 kg Physical Exam: General appearance: PRESENT: no acute distress Head exam: PRESENT: atraumatic, normocephalic Eye exam: PRESENT: conjunctiva pink. ABSENT: pallor, scleral icterus Mouth exam: PRESENT: moist Respiratory exam: PRESENT: clear to auscultation jaison Cardiovascular exam: PRESENT: RRR, +S1, +S2. ABSENT: diastolic murmur, rubs, systolic murmur GI/Abdominal exam: PRESENT: normal bowel sounds, soft, ABSENT: drainage tube is out, distended, guarding, mass, organomegaly, rebound, tenderness Extremities exam: ABSENT: pedal edema Musculoskeletal exam: PRESENT: ambulatory Neurological exam: PRESENT: alert, awake, oriented to person, oriented to place Psychiatric exam: PRESENT: appropriate affect, normal mood. ABSENT: homicidal ideation, suicidal ideation Skin exam: PRESENT: dry, warm, multiple surgical jim anterior abdominal wall site of recent subtotal colectomy in place Results Laboratory Results: 09/01/19 18:55 09/01/19 18:55 09/01/19 09/01/19 18:55 18:55 WBC 8.4 RBC 2.89 L Hgb 8.8 L Hct 25.5 L MCV 88 MCH 30.4 MCHC 34.4 RDW 15.6 H Plt Count 230 Seg Neutrophils % Not Reportable Sodium 133.0 L Potassium 4.7 Chloride 107 Carbon Dioxide 18 L Anion Gap 8 BUN 6 L Creatinine 0.43 L Est GFR ( Amer) > 60 Glucose 175 H Calcium 7.9 L Total Bilirubin 1.6 H AST 38 H Alkaline Phosphatase 53 Total Protein 5.2 L Albumin 2.3 L Impressions: GI Bleed Scan Nuclear Medicine 08/26/19 00:00 IMPRESSION: FINDINGS CONSISTENT WITH ACTIVE GI BLEEDING IN THE SIGMOID COLON. Chest X-Ray 08/28/19 05:00 IMPRESSION: Opacity left lateral lung base, question atelectasis or pneumonia KUB X-Ray 08/31/19 00:00 IMPRESSION: Postoperative findings as detailed above without evidence of a mechanical bowel obstruction. Assessment & Plan - Diagnosis (1) Lower GI bleed Is this a current diagnosis for this admission?: Yes (2) Colonic diverticular disease Is this a current diagnosis for this admission?: Yes (3) Atrial fibrillation with rapid ventricular response Is this a current diagnosis for this admission?: Yes (4) Senile dementia with delirium Qualifiers: Dementia behavioral disturbance: without behavioral disturbance Qualified Code(s): F03.90 - Unspecified dementia without behavioral disturbance; F05 - Delirium due to known physiological condition Is this a current diagnosis for this admission?: Yes (5) Diabetes mellitus, type 2 Qualifiers: Diabetes mellitus intermission coordinator insulin use: without [facility] use Diabetes mellitus complication status: with other specified complication Qualified Code(s): E11.69 - Type 2 diabetes mellitus with other specified complication Is this a current diagnosis for this admission?: Yes (6) Hypertension Qualifiers: Hypertension type: unspecified Qualified Code(s): I10 - Essential (primary) hypertension Is this a current diagnosis for this admission?: Yes (7) Coronary artery disease Qualifiers: Coronary Disease-Associated Artery/Lesion type: unspecified vessel or lesion type [place] vs. transplanted heart: [place] heart Associated angina: angina presence unspecified Qualified Code(s): I25.10 - Atherosclerotic heart disease of [place] coronary artery without angina pectoris Is this a current diagnosis for this admission?: Yes (8) Hyperlipidemia Qualifiers: Hyperlipidemia type: unspecified Qualified Code(s): E78.5 - Hyperlipidemia, unspecified Is this a current diagnosis for this admission?: Yes (9) Hypothyroidism Qualifiers: Hypothyroidism type: acquired Qualified Code(s): E03.9 - Hypothyroidism, unspecified Is this a current diagnosis for this admission?: Yes (10) GERD (gastroesophageal reflux disease) Qualifiers: Esophagitis presence: esophagitis presence not specified Qualified Code(s): K21.9 - Gastro-esophageal reflux disease without esophagitis Is this a current diagnosis for this admission?: Yes - Time Time Spent with patient: 25-34 minutes Level of Care: IMCU Medications reviewed and adjusted accordingly: Yes Anticipated discharge: Home, Home with Homehealth, SNF Within: Other - Inpatient Certification Based on my medical assessment, after consideration of the patient's comorbidities, presenting symptoms, or acuity I expect that the services needed warrant INPATIENT care.: Yes I certify that my determination is in accordance with my understanding of Medicare's requirements for reasonable and necessary INPATIENT services [42 CFR 412.3e].: Yes Medical Necessity: Significant Comorbidiites Make Outpatient Treatment Too Risky, Need Close Monitoring Due to Risk of Patient Decompensation, Need For IV Fluids, Need For Continuous Telemetry Monitoring, Need for Surgery, Risk of Complication if Not Cared For in Hospital, Risk of Diagnosis Which Will Require Inpatient Eval/Care/Monitoring Post Hospital Care: D/C Dentistry Professor Documentation, D/C or Transfer Summary - Plan Summary Plan Summary: D/C 1/2 N/s with potassium additive. Start on N/s at 100ml/hour. Speech pathologist evaluation of swallowing safety. Continue on all other current medication management. I discussed issue of anticoagulation with the surgeon, Lupillo Bush, and he is agreeable to starting anticoagulation tomorrow.
[2019-09-02] MEDS: NORMAL SALINE 1000 ML 1,000 ML IV PRN ×2 (13:18→22:27)
[2019-09-02] MEDS: DILTIAZEM HCL/D5W 125 MG/125 ML RTUINJ IV PRN (13:19)
--- NOTE | 2019-09-02 19:11 | Progress Note ---
Provider Note Provider Note: CARDIOLOGY PROGRESS NOTE by Dr. Veena Grant on 09/02/2019. SUBJECTIVE: The patient is presently sedated. When she wakes up she is confused. She continues to be in a atrial fibrillation with ventricular response now much improved. There is no complaints of chest pain or discomfort. There is no ventricle arrhythmias seen on the monitor. There is no leg edema. PHYSICAL EXAMINATION: The patient is well-built in no acute distress.she is drowsy due to sedation. Selected Entries 09/02/19 16:24 Temperature 98.2 F Temperature Axillary Source Pulse Rate 100 Respiratory 18 Rate Blood Pressure 125/80 Blood Pressure 95 Mean BP Location Right Arm BP Position Supine O2 Sat by Pulse 100 Oximetry Oxygen Delivery Room Air Method Head: Is atraumatic normocephalic. EYES: Pupils are equal round regular reactive light accommodation. Extraocular movements are normal. There is no conjunctival pallor. There is no scleral icterus. EARS: Tympanic membranes are intact. External auditory canals are clear. NOSE: There is no deviated nasal septum. There is no inflammation of his mucous membrane. MOUTH: Mucous membranes in the mouth are dry. Tongue is dry. There is no ulcers of the mouth. There is no bleeding from the gums. THROAT: There is no redness of the oropharynx. There is no exudates. Acute neck: Supple. There is no JVD. Carotids are equal there is no bruit. There is no lymphadenopathy. There is no goiter. There is no accessory muscles of respiration use. Trachea central. LUNGS: There is a few dry crackles in the right mid zone right base. There is no rhonchi or wheezing. There is no rales of CHF. HEART: S1-S2 is heard. S1 is a variable intensity. There is no S3 gallop. There is no S4 gallop. There is systolic murmur left sternal border and the apex. There is murmur of aortic sclerosis present. There is no aortic stenosis or aortic regurgitation murmur heard. There is no significant valvular stenotic or regurgitant murmur heard. There is no rub. ABDOMEN: Soft dressing is dry. There is no hepatosplenomegal y. Bowel sounds are absent. Extremities: Femorals are diminished there is no femoral bruits. Leg pulses are diminished. There is no pedal edema. There is no DVT or cellulitis. 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 With no focal deficits. PSYCHIATRIC: The patient does not appear to be agitated or anxious. Labs- All tests 24 hr 09/01/19 09/01/19 09/01/19 18:55 18:55 18:55 WBC 8.4 RBC 2.89 L Hgb 8.8 L Hct 25.5 L MCV 88 MCH 30.4 MCHC 34.4 RDW 15.6 H Plt Count 230 Lymph % (Auto) Not Reportable [place] % (Auto) Not Reportable Eos % (Auto) Not Reportable Baso % (Auto) Not Reportable Absolute Neuts (auto) Not Reportable Absolute Lymphs (auto) Not Reportable Absolute Monos (auto) Not Reportable Absolute Eos (auto) Not Reportable Absolute Basos (auto) Not Reportable Total Counted 100 Seg Neutrophils % Not Reportable Seg Neuts % (Manual) 78 Band Neutrophils % 3 Lymphocytes % (Manual) 13 Monocytes % (Manual) 6 Eosinophils % (Manual) 0 Basophils % (Manual) 0 Abs Neuts (Manual) 6.8 Abs Lymphs (Manual) 1.1 Abs Monocytes (Manual) 0.5 Absolute Eos (Manual) 0.0 Abs Basophils (Manual) 0.0 Nucleated RBCs 3 Platelet Comment ADEQUATE Polychromasia 1+ Anisocytosis 1+ Ovalocytes 1+ Sodium 133.0 L Potassium 4.7 Chloride 107 Carbon Dioxide 18 L Anion Gap 8 BUN 6 L Creatinine 0.43 L Est GFR ( Amer) > 60 Est GFR (MDRD) Non-Af > 60 Glucose 175 H POC Glucose Calcium 7.9 L Magnesium 1.9 Total Bilirubin 1.6 H Direct Bilirubin 0.3 Neonat Total Bilirubin Not Reportable Neonat Direct Bilirubin Not Reportable Neonat Indirect Bili Not Reportable AST 38 H ALT 25 Alkaline Phosphatase 53 Total Protein 5.2 L Albumin 2.3 L 09/01/19 09/02/19 09/02/19 23:23 06:09 10:49 WBC RBC Hgb Hct MCV MCH MCHC RDW Plt Count Lymph % (Auto) [place] % (Auto) Eos % (Auto) Baso % (Auto) Absolute Neuts (auto) Absolute Lymphs (auto) Absolute Monos (auto) Absolute Eos (auto) Absolute Basos (auto) Total Counted Seg Neutrophils % Seg Neuts % (Manual) Band Neutrophils % Lymphocytes % (Manual) Monocytes % (Manual) Eosinophils % (Manual) Basophils % (Manual) Abs Neuts (Manual) Abs Lymphs (Manual) Abs Monocytes (Manual) Absolute Eos (Manual) Abs Basophils (Manual) Nucleated RBCs Platelet Comment Polychromasia Anisocytosis Ovalocytes Sodium Potassium Chloride Carbon Dioxide Anion Gap BUN Creatinine Est GFR ( Amer) Est GFR (MDRD) Non-Af Glucose POC Glucose 182 H 186 H 162 H Calcium Magnesium Total Bilirubin Direct Bilirubin Neonat Total Bilirubin Neonat Direct Bilirubin Neonat Indirect Bili AST ALT Alkaline Phosphatase Total Protein Albumin 09/02/19 17:11 WBC RBC Hgb Hct MCV MCH MCHC RDW Plt Count Lymph % (Auto) [place] % (Auto) Eos % (Auto) Baso % (Auto) Absolute Neuts (auto) Absolute Lymphs (auto) Absolute Monos (auto) Absolute Eos (auto) Absolute Basos (auto) Total Counted Seg Neutrophils % Seg Neuts % (Manual) Band Neutrophils % Lymphocytes % (Manual) Monocytes % (Manual) Eosinophils % (Manual) Basophils % (Manual) Abs Neuts (Manual) Abs Lymphs (Manual) Abs Monocytes (Manual) Absolute Eos (Manual) Abs Basophils (Manual) Nucleated RBCs Platelet Comment Polychromasia Anisocytosis Ovalocytes Sodium Potassium Chloride Carbon Dioxide Anion Gap BUN Creatinine Est GFR ( Amer) Est GFR (MDRD) Non-Af Glucose POC Glucose 160 H Calcium Magnesium Total Bilirubin Direct Bilirubin Neonat Total Bilirubin Neonat Direct Bilirubin Neonat Indirect Bili AST ALT Alkaline Phosphatase Total Protein Albumin GI Bleed Scan Nuclear Medicine 08/26/19 00:00 IMPRESSION: FINDINGS CONSISTENT WITH ACTIVE GI BLEEDING IN THE SIGMOID COLON. Chest X-Ray 08/28/19 05:00 IMPRESSION: Opacity left lateral lung base, question atelectasis or pneumonia KUB X-Ray 08/31/19 00:00 IMPRESSION: Postoperative findings as detailed above without evidence of a mechanical bowel obstruction. IMPRESSION/RECOMMENDATION: 1. Atrial fibrillation with rapid ventricular response. In view of the patient still being atrial fibrillation will discontinue the patient's amiodarone drip and start the patient on a Cardizem drip. We will also start the patient on digoxin 0.125 mg IV push daily. Will discuss with the attending physician and the surgical hist to see if it is safe to start the patient on chronic anticoagulation. 2. Lower GI bleed secondary to bleeding from sigmoid sigmoid diverticulum. S/p hemicolectomy. 3. Possible pneumonia: Continue antibiotics. 4. Anemia: Watch the patient's hemoglobin. Consider transfusion to keep the hemoglobin up to 10 or above. 5. History of hypertension: Blood pressure stable. 6. Hypothyroidism on replacement. 7. Diabetes mellitus: Continue Accu-Cheks and treat blood sugars accordingly since the patient is n.p.o. 8. Alzheimer's dementia by history. This seems to be mild. 9. The patient is corrected Xavi vasc 2 score is 5. The patient had a massive lower GI bleed and although she has had hemicolectomy. Discussed with Dr. Bush, the surgical hist. He opines that it should be safe to start the patient on chronic anticoagulation therapy in a couple of days. We will wait for the surgical incisions to fully sealed. Occasions reviewed. Medication change. Medical decision making and management plan discussed with attending provider on the case. Medical decision making is of high complexity. 40-minute spent with patient more than 50% of time spent direct patient care. Will follow.
[2019-09-03] MEDS: INSULIN LISPRO 100 UNIT/ML 3 ML VIAL SUBCUT SCH ×4 (00:05→18:22)
[2019-09-03] MEDS: METOPROLOL TARTRATE PF/INJ 5 MG/5 ML SDV IV SCH ×6 (02:46→21:35)
[2019-09-03] MEDS: MORPHINE SULFATE 10 MG/ML INJ IV PRN ×2 (04:17→23:23)
[2019-09-03] MEDS: RISPERIDONE 0.5 MG TAB.RAPDIS PO SCH ×2 (09:40→17:10)
[2019-09-03] MEDS: ZINC SULFATE 220 MG CAPSULE PO SCH (09:40)
[2019-09-03] MEDS: MULTIVITS W-MIN/IRON SOLN 60 ML PO SCH (09:40)
[2019-09-03] MEDS: DIGOXIN INJ 0.5 MG/2 ML AMPULE IV SCH (09:42)
[2019-09-03] MEDS: DILTIAZEM HCL/D5W 125 MG/125 ML RTUINJ IV PRN (14:06)
--- NOTE | 2019-09-03 15:39 | PDOC PROGRESS REPORT ---
Subjective Progress Note for:: 09/03/19 Subjective:: She is less agitated today and surprisingly recognized me as her doctor this afternoon. Her baseline dementia persist. No reported fever or difficulty with breathing. PO intake remain a challenge. Reason For Visit: LOWER GI BLEED,DM TYPE 2,HTN,GERD,CAD Physical Exam Vital Signs: Temp Pulse Resp BP Pulse Ox 98.5 F 108 H 18 128/78 H 100 09/03/19 12:00 09/03/19 15:00 09/03/19 12:00 09/03/19 15:00 09/03/19 12:00 Intake & Output 09/02/19 09/03/19 09/04/19 06:59 06:59 06:59 Intake Total 3458 1866 174 Output Total 2915 1050 225 Balance 543 816 -51 Weight 72.6 kg 72.5 kg Physical Exam: General appearance: PRESENT: no acute distress Head exam: PRESENT: atraumatic, normocephalic Eye exam: PRESENT: conjunctiva pink. ABSENT: pallor, scleral icterus Mouth exam: PRESENT: moist Respiratory exam: PRESENT: clear to auscultation jaison Cardiovascular exam: PRESENT: Irregular rhythm, +S1, +S2. ABSENT: diastolic m urmur, rubs, systolic murmur GI/Abdominal exam: PRESENT: normal bowel sounds, soft, expressed tenderness to palpation around surgical site and lower quadrants. ABSENT: drainage tube is out, distended, guarding, mass, organomegaly, rebound, tenderness Extremities exam: ABSENT: pedal edema Musculoskeletal exam: PRESENT: ambulatory Neurological exam: PRESENT: alert, awake, oriented to person, oriented to place Psychiatric exam: PRESENT: appropriate affect, normal mood. ABSENT: homicidal ideation, suicidal ideation Skin exam: PRESENT: dry, warm, multiple surgical jim anterior abdominal wall site of recent subtotal colectomy in place Results Laboratory Results: 09/01/19 18:55 09/01/19 18:55 Impressions: GI Bleed Scan Nuclear Medicine 08/26/19 00:00 IMPRESSION: FINDINGS CONSISTENT WITH ACTIVE GI BLEEDING IN THE SIGMOID COLON. Chest X-Ray 08/28/19 05:00 IMPRESSION: Opacity left lateral lung base, question atelectasis or pneumonia KUB X-Ray 08/31/19 00:00 IMPRESSION: Postoperative findings as detailed above without evidence of a mechanical bowel obstruction. Assessment & Plan - Diagnosis (1) Lower GI bleed Is this a current diagnosis for this admission?: Yes (2) Colonic diverticular disease Is this a current diagnosis for this admission?: Yes (3) Atrial fibrillation with rapid ventricular response Is this a current diagnosis for this admission?: Yes (4) Senile dementia with delirium Qualifiers: Dementia behavioral disturbance: without behavioral disturbance Qualified Code(s): F03.90 - Unspecified dementia without behavioral disturbance; F05 - Delirium due to known physiological condition Is this a current diagnosis for this admission?: Yes (5) Diabetes mellitus, type 2 Qualifiers: Diabetes mellitus intermediate school teacher insulin use: without [place] [facility] use Diabetes mellitus complication status: with other specified complication Qualified Code(s): E11.69 - Type 2 diabetes mellitus with other specified complication Is this a current diagnosis for this admission?: Yes (6) Hypertension Qualifiers: Hypertension type: unspecified Qualified Code(s): I10 - Essential (primary) hypertension Is this a current diagnosis for this admission?: Yes (7) Coronary artery disease Qualifiers: Coronary Disease-Associated Artery/Lesion type: unspecified vessel or lesion type [place] vs. transplanted heart: [place] heart Associated angina: angina presence unspecified Qualified Code(s): I25.10 - Atherosclerotic heart disease of [place] coronary artery without angina pectoris Is this a current diagnosis for this admission?: Yes (8) Hyperlipidemia Qualifiers: Hyperlipidemia type: unspecified Qualified Code(s): E78.5 - Hyperlipidemia, unspecified Is this a current diagnosis for this admission?: Yes (9) Hypothyroidism Qualifiers: Hypothyroidism type: acquired Qualified Code(s): E03.9 - Hypothyroidism, unspecified Is this a current diagnosis for this admission?: Yes (10) GERD (gastroesophageal reflux disease) Qualifiers: Esophagitis presence: esophagitis presence not specified Qualified Code(s): K21.9 - Gastro-esophageal reflux disease without esophagitis Is this a current diagnosis for this admission?: Yes - Time Time Spent with patient: 25-34 minutes Level of Care: IMCU Medications reviewed and adjusted accordingly: Yes Anticipated discharge: Home, Home with Homehealth, SNF Within: Other - Inpatient Certification Based on my medical assessment, after consideration of the patient's comorbidities, presenting symptoms, or acuity I expect that the services needed warrant INPATIENT care.: Yes I certify that my determination is in accordance with my understanding of Medicare's requirements for reasonable and necessary INPATIENT services [42 CFR 412.3e].: Yes Medical Necessity: Significant Comorbidiites Make Outpatient Treatment Too Risky, Need Close Monitoring Due to Risk of Patient Decompensation, Need For IV Fluids, Need For Continuous Telemetry Monitoring, Risk of Complication if Not Cared For in Hospital, Risk of Diagnosis Which Will Require Inpatient Eval/Care/Monitoring Post Hospital Care: D/C Ship Ceiler Documentation, D/C or Transfer Summary - Plan Summary Plan Summary: Continue current rate control management for her atrial fibrillation. Her anticoagulation issue was discussed with Dr. Mahan who recommend starting anticoagulation tomorrow.
[2019-09-03] MEDS: NORMAL SALINE 1000 ML 1,000 ML IV PRN (18:03)
--- NOTE | 2019-09-03 19:07 | Progress Note ---
Provider Note Provider Note: CARDIOLOGY PROGRESS NOTE by Dr. Veena Grant on 09/03/2019. SUBJECTIVE: The patient mentation is slightly better but still has baseline dementia. She continues to be in atrial fibrillation. But rate is better but still requiring IV Cardizem. Her p.o. intake is not very good. There is no ventricular is missing her monitor. The patient denies any chest pain or discomfort. She denies any shortness of breath. She is moves all 4 extremities. The patient is drains have been removed. PHYSICAL EXAMINATION: The patient is well-built. In no acute distress. She is confused or and oriented x1. Selected Entries 09/03/19 12:00 Temperature 98.5 F Temperature Oral Source Pulse Rate 74 Respiratory 18 Rate Blood Pressure 105/49 L Blood Pressure 67 Mean BP Location Right Arm BP Position Supine O2 Sat by Pulse 100 Oximetry Oxygen Delivery Room Air Method Head: Is atraumatic normocephalic. EYES: Pupils are equal round regular reactive light accommodation. Extraocular movements are normal. There is no conjunctival pallor. There is no scleral icterus. EARS: Tympanic membranes are intact. External auditory canals are clear. NOSE: There is no deviated nasal septum. There is no inflammation of his mucous membrane. MOUTH: Mucous membranes in the mouth are dry. Tongue is dry. There is no ulcers of the mouth. There is no bleeding from the gums. THROAT: There is no redness of the oropharynx. There is no exudates. Acute neck: Supple. There is no JVD. Carotids are equal there is no bruit. There is no lymphadenopathy. There is no goiter. There is no accessory muscles of respiration use. Trachea central. LUNGS: There is a few dry crackles in the right mid zone right base. There is no rhonchi or wheezing. There is no rales of CHF. HEART: S1-S2 is heard. S1 is a variable intensity. There is no S3 gallop. There is no S4 gallop. There is systolic murmur left sternal border and the apex. There is murmur of aortic sclerosis present. There is no aortic stenosis or aortic regurgitation murmur heard. There is no significant valvular stenotic or regurgitant murmur heard. There is no rub. ABDOMEN: Soft dressing is dry. There is no hepatosplenomegaly. Bowel sounds are absent. Extremities: Femorals are diminished there is no femoral bruits. Leg pulses are diminished. There is no pedal edema. There is no DVT or cellulitis. 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 With no focal deficits. PSYCHIATRIC: The patient does not appear to be agitated or anxious. GI Bleed Scan Nuclear Medicine 08/26/19 00:00 IMPRESSION: FINDINGS CONSISTENT WITH ACTIVE GI BLEEDING IN THE SIGMOID COLON. Chest X-Ray 08/28/19 05:00 IMPRESSION: Opacity left lateral lung base, question atelectasis or pneumonia KUB X-Ray 08/31/19 00:00 IMPRESSION: Postoperative findings as detailed above without evidence of a mechanical bowel obstruction. Labs- All tests 24 hr 09/03/19 09/03/19 09/03/19 00:02 05:38 12:15 POC Glucose 181 H 170 H 203 H 09/03/19 17:59 POC Glucose 199 H IMPRESSION/RECOMMENDATION: 1. Atrial fibrillation with rapid ventricular response. In view of the patient still being atrial fibrillation will discontinue the patient's amiodarone drip and start the patient on a Cardizem drip. We will also start the patient on digoxin 0.125 mg IV push daily. Will discuss with the attending physician and the surgical hist to see if it is safe to start the patient on chronic anticoagulation. 2. Lower GI bleed secondary to bleeding from sigmoid sigmoid diverticulum. S/p hemicolectomy. 3. Possible pneumonia: Continue antibiotics. 4. Anemia: Watch the patient's hemoglobin. Consider transfusion to keep the hemoglobin up to 10 or above. 5. History of hypertension: Blood pressure stable. 6. Hypothyroidism on replacement. 7. Diabetes mellitus: Continue Accu-Cheks and treat blood sugars accordingly since the patient is n.p.o. 8. Alzheimer's dementia by history. This seems to be mild. 9. The patient is corrected Xavi vasc 2 score is 5. The patient had a massive lower GI bleed and although she has had hemicolectomy. Discussed with Dr. Bush, the surgical hist. He opines that it should be safe to start the patient on chronic anticoagulation therapy in a couple of days. We will wait for the surgical incisions to fully sealed. We will probably start the patient on Eliquis from tomorrow. Medications reviewed. Medical regimen evaluation plan discussed with the attending provider Dr. Oliver. Medical decision making is a moderate complexity. 40 minutes spent with patient with more than 50% time spent in direct patient care. Will follow
[2019-09-04] MEDS: INSULIN LISPRO 100 UNIT/ML 3 ML VIAL SUBCUT SCH ×4 (00:58→19:26)
[2019-09-04] MEDS: METOPROLOL TARTRATE PF/INJ 5 MG/5 ML SDV IV SCH ×6 (01:35→21:14)
[2019-09-04] MEDS: DILTIAZEM HCL/D5W 125 MG/125 ML RTUINJ IV PRN ×2 (03:57→16:31)
[2019-09-04] MEDS: NORMAL SALINE 1000 ML 1,000 ML IV PRN ×2 (03:57→15:04)
[2019-09-04] MEDS: DIGOXIN INJ 0.5 MG/2 ML AMPULE IV SCH (11:18)
[2019-09-04] MEDS: RISPERIDONE 0.5 MG TAB.RAPDIS PO SCH ×2 (11:18→19:28)
[2019-09-04] MEDS: MULTIVITS W-MIN/IRON SOLN 60 ML PO SCH (11:18)
[2019-09-04] MEDS: ZINC SULFATE 220 MG CAPSULE PO SCH (11:18)
--- NOTE | 2019-09-04 18:01 | PDOC PROGRESS REPORT ---
Subjective Progress Note for:: 09/04/19 Subjective:: Patient seen by the bedside she remains confused Reason For Visit: LOWER GI BLEED,DM TYPE 2,HTN,GERD,CAD Physical Exam Vital Signs: Temp Pulse Resp BP Pulse Ox 97.8 F 75 22 H 126/66 H 100 09/04/19 16:15 09/04/19 16:15 09/04/19 16:15 09/04/19 16:15 09/04/19 16:15 Intake & Output 09/03/19 09/04/19 09/05/19 06:59 06:59 06:59 Intake Total 1866 2364 1125 Output Total 1050 1200 Balance 816 1164 1125 Weight 72.5 kg 72.7 kg General appearance: PRESENT: no acute distress Eye exam: PRESENT: PERRLA Respiratory exam: PRESENT: clear to auscultation jaison Cardiovascular exam: PRESENT: +S1, +S2 GI/Abdominal exam: PRESENT: soft Results Laboratory Results: 09/01/19 18:55 09/01/19 18:55 Impressions: GI Bleed Scan Nuclear Medicine 08/26/19 00:00 IMPRESSION: FINDINGS CONSISTENT WITH ACTIVE GI BLEEDING IN THE SIGMOID COLON. Chest X-Ray 08/28/19 05:00 IMPRESSION: Opacity left lateral lung base, question atelectasis or pneumonia KUB X-Ray 08/31/19 00:00 IMPRESSION: Postoperative findings as detailed above without evidence of a mechanical bowel obstruction. Assessment & Plan - Diagnosis (1) Acute GI bleeding Is this a current diagnosis for this admission?: Yes (2) Diverticulosis of large intestine without perforation or abscess without bleeding Is this a current diagnosis for this admission?: Yes (3) Atherosclerotic heart disease of [place] coronary artery without angina pectoris Qualifiers: [place] vs. transplanted heart: [place] heart Qualified Code(s): I25.10 - Atherosclerotic heart disease of [place] coronary artery without angina pectoris Is this a current diagnosis for this admission?: Yes (4) Unspecified atrial fibrillation Qualifiers: Atrial fibrillation type: paroxysmal Qualified Code(s): I48.0 - Paroxysmal atrial fibrillation Is this a current diagnosis for this admission?: Yes (5) Delirium Is this a current diagnosis for this admission?: Yes - Time Time Spent with patient: 15-24 minutes Level of Care: IMCU
--- NOTE | 2019-09-04 22:18 | Progress Note ---
Provider Note Provider Note: CARDIOLOGY PROGRESS NOTE by Dr. Veena Grant on All subjective: The patient is back to her baseline but still some mild dementia. She is oriented x1. She is not taking by mouth very well. Hence it is a problem giving her medication. She is still on the IV Cardizem and IV digoxin. The heart rate seems to be controlled. As mentioned below have discussed with the patient's son and will start the patient on anticoagulation chronically. Patient denies chest pain or discomfort. There is no shortness of breath. There is no TIA CVA symptoms. There is no ventricle arrhythmia seen on the monitor. PHYSICAL EXAMINATION: The patient is well-built. In no acute distress. Selected Entries 09/04/19 11:44 Temperature 97.9 F Temperature Axillary Source Pulse Rate 78 Respiratory 17 Rate Blood Pressure 115/71 Blood Pressure 85 Mean BP Location Right Arm BP Position Supine O2 Sat by Pulse 100 Oximetry Oxygen Delivery Room Air Method 0. Head: Is atraumatic normocephalic. EYES: Pupils are equal round regular reactive light accommodation. Extraocular movements are normal. There is no conjunctival pallor. There is no scleral icterus. EARS: Tympanic membranes are intact. External auditory canals are clear. NOSE: There is no deviated nasal septum. There is no inflammation of his mucous membrane. MOUTH: Mucous membranes in the mouth are dry. Tongue is dry. There is no ulcers of the mouth. There is no bleeding from the gums. THROAT: There is no redness of the oropharynx. There is no exudates. Acute neck: Supple. There is no JVD. Carotids are equal there is no bruit. There is no lymphadenopathy. There is no goiter. There is no accessory muscles of respiration use. Trachea central. LUNGS: There is a few dry crackles in the right mid zone right base. There is no rhonchi or wheezing. There is no rales of CHF. HEART: S1-S2 is heard. S1 is a variable intensity. There is no S3 gallop. There is no S4 gallop. There is systolic murmur left sternal border and the apex. There is murmur of aortic sclerosis present. There is no aortic stenosis or aortic regurgitation murmur heard. There is no significant valvular stenotic or regurgitant murmur heard. There is no rub. ABDOMEN: Soft dressing is dry. There is no hepatosplenomegaly. Bowel sounds are absent. Extremities: Femorals are diminished there is no femoral bruits. Leg pulses are diminished. There is no pedal edema. There is no DVT or cellulitis. 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 With no focal deficits. PSYCHIATRIC: The patient does not appear to be agitated or anxious. Labs- All tests 24 hr 09/04/19 09/04/19 09/04/19 00:53 06:17 12:39 POC Glucose 193 H 184 H 185 H 09/04/19 19:02 POC Glucose 187 H GI Bleed Scan Nuclear Medicine 08/26/19 00:00 IMPRESSION: FINDINGS CONSISTENT WITH ACTIVE GI BLEEDING IN THE SIGMOID COLON. Chest X-Ray 08/28/19 05:00 IMPRESSION: Opacity left lateral lung base, question atelectasis or pneumonia KUB X-Ray 08/31/19 00:00 IMPRESSION: Postoperative findings as detailed above without evidence of a mechanical bowel obstruction. IMPRESSION/RECOMMENDATION: 1. Atrial fibrillation with rapid ventricular response. In view of the patient still being atrial fibrillation will discontinue the patient's amiodarone drip and start the patient on a Cardizem drip. We will also start the patient on digoxin 0.125 mg IV push daily. Will discuss with the attending physician and the surgical hist to see if it is safe to start the patient on chronic anticoagulation. The patient still not taking by mouth fully. Hence we will continue the patient on IV Cardizem and IV digoxin until the patient is able to take orally. 2. Lower GI bleed secondary to bleeding from sigmoid sigmoid diverticulum. S/p hemicolectomy. 3. Possible pneumonia: Continue antibiotics. 4. Anemia: Watch the patient's hemoglobin. 5. History of hypertension: Blood pressure stable. 6. Hypothyroidism on replacement. 7. Diabetes mellitus: Continue Accu-Cheks and treat blood sugars accordingly since the patient is n.p.o. 8. Alzheimer's dementia by history. This seems to be mild. 9. The patient is corrected Xavi vasc 2 score is 5. The patient had a massive lower GI bleed and although she has had hemicolectomy. Discussed with the alvaro samano's son about her chronic anticoagulation. I have explained to him that she is at high risk for stroke. Stroke prophylaxis benefits of chronic anticoagulation has bleeding complications of anticoagulation be discussed in detail. I have told him that at present it seems that the culprit for the patient's GI bleed has been removed. But still in view of the patient's age there is always a chance of bleeding secondary to chronic anticoagulant. The son understands and accepts this risk. We will start the patient on Eliquis 5 mg. Twice daily from tomorrow. In fact have discussed Coumadin versus newer oral anticoagulation agents. The risks and benefits of each and the side effects of each of all been discussed in detail. After that we will start the patient on oral anticoagulation agent and will start patient on Eliquis. Medications reviewed. Medical regimen medication started. Medical regimen management plan discussed with attending provider on the case. Medical decision making is of high complexity in view of the need to start patient on new medication. 50 minutes spent on this patient with more than 50% time spent in direct patient care. Will follow.
[2019-09-05] MEDS: NORMAL SALINE 1000 ML 1,000 ML IV PRN ×3 (01:05→20:16)
[2019-09-05] MEDS: INSULIN LISPRO 100 UNIT/ML 3 ML VIAL SUBCUT SCH ×4 (02:48→18:04)
[2019-09-05] MEDS: ONDANSETRON HCL INJ/PF 4 MG/2 ML SDV IV PRN (04:58)
[2019-09-05] MEDS: METOPROLOL TARTRATE PF/INJ 5 MG/5 ML SDV IV SCH ×6 (05:05→22:21)
[2019-09-05] MEDS: MULTIVITS W-MIN/IRON SOLN 60 ML PO SCH (11:27)
[2019-09-05] MEDS: DILTIAZEM HCL/D5W 125 MG/125 ML RTUINJ IV PRN (11:35)
[2019-09-05] MEDS: DIGOXIN INJ 0.5 MG/2 ML AMPULE IV SCH (11:36)
[2019-09-05] MEDS: ZINC SULFATE 220 MG CAPSULE PO SCH (11:44)
[2019-09-05] MEDS: RISPERIDONE 0.5 MG TAB.RAPDIS PO SCH ×2 (11:44→18:40)
[2019-09-05] MEDS: APIXABAN 5 MG TABLET PO SCH ×2 (11:45→18:04)
[2019-09-05 13:53] LABS: HEMATOCRIT 23.1 % (36.0-47.0); MEAN CORPUSCULAR HEMOGLOBIN 30.3 pg (27.0-33.4); MEAN CORPUSCULAR HGB CONC 33.5 g/dL (32.0-36.0); MEAN CORPUSCULAR VOLUME 90 fl (80-97); PLATELET COUNT 246 10^3/uL (150-450); RED BLOOD COUNT 2.56 10^6/uL (3.72-5.28); RED CELL DISTRIBUTION WIDTH 16.2 % (11.5-14.0)
[2019-09-05 13:54] LABS: ALKALINE PHOSPHATASE 45 U/L (38-126); ANION GAP 7 (5-19); ASPARTATE AMINO TRANSFERASE 27 U/L (14-36); BILIRUBIN,DIRECT 0.4 mg/dL (0.0-0.4); BILIRUBIN,TOTAL 1.4 mg/dL (0.2-1.3); BLOOD UREA NITROGEN 7 mg/dL (7-20); CALCIUM 7.5 mg/dL (8.4-10.2); CARBON DIOXIDE 18 mmol/L (22-30); CHLORIDE 111 mmol/L (98-107); GLUCOSE 178 mg/dL (75-110); POTASSIUM 3.4 mmol/L (3.6-5.0); TOTAL PROTEIN 4.7 g/dL (6.3-8.2)
[2019-09-05 13:55] LABS: HEMOGLOBIN 7.7 g/dL (12.0-15.5)
--- NOTE | 2019-09-05 16:05 | RADIOLOGY REPORT (SQ) ---
EXAM DESCRIPTION: MRI HEAD WITHOUT IMAGES COMPLETED DATE/TIME: 09/05/2019 3:41 pm REASON FOR STUDY: suspect stroke COMPARISON: None. TECHNIQUE: Multiplanar imaging includes non-contrasted T1, T2, FLAIR, and Diffusion with ADC map seq uences. Images stored on PACS. LIMITATIONS: None. FINDINGS: ANATOMY: No anomalies. Normal vascular flow voids. Pituitary fossa normal. CSF SPACES: Normal in size and contour. No hemorrhage. CEREBRUM: Age-appropriate white matter signal on FLAIR imaging. Sulci and gyri normal in size and co ntour. No evidence of hemorrhage, mass or extraaxial fluid collection. POSTERIOR FOSSA: No signal alteration. No hemorrhage. No edema, masses or mass effect. Internal vikas tory canals, cerebello-pontine angles, mastoids normal. DIFFUSION: Positive for acute or sub-acute infarction in two 6 mm foci, one in the left frontal lobe precentral gyrus and another in the medial left cerebellar cortex. ORBITS: No masses. Globes normal. PARANASAL SINUSES: No fluid levels. Mucosa normal. OTHER: No other significant finding. IMPRESSION: Positive for acute or sub-acute infarction in two 6 mm foci, one in the left frontal lob e precentral gyrus and another in the medial left cerebellar cortex. Distribution suggests embolic s ource. EVIDENCE OF ACUTE STROKE: YES. LEFT MCA and VERTEBROBASILAR. COMMENT: The findings were sent to the Radiology Results Communication Center at 15:57 on 09/05/2019 to be communicated to a licensed caregiver. TECHNICAL DOCUMENTATION: JOB ID: [id number] [place]-[id number] 2010 [employer]- All Rights Reserved Reading location - IP/workstation name: [employer]
--- NOTE | 2019-09-05 16:31 | PDOC PROGRESS REPORT ---
Subjective Progress Note for:: 09/05/19 Subjective:: Patient seen by the bedside, she was dysarthric with facial droop, CVA suspected, stat MRI brain obtained, demonstrated left frontal lobe infarct and left cerebellar infarct consistent with acute MCA and vertebral basilar artery infarction. Patient discussed with family management per stroke protocol started, history of A. fib, most likely embolic stroke patient already on Eliquis Reason For Visit: LOWER GI BLEED,DM TYPE 2,HTN,GERD,CAD Physical Exam Vital Signs: Temp Pulse Resp BP Pulse Ox 98.2 F 75 18 102/36 L 100 09/05/19 06:52 09/05/19 11:00 09/05/19 06:52 09/05/19 11:00 09/05/19 06:52 Intake & Output 09/04/19 09/05/19 09/06/19 06:59 06:59 06:59 Intake Total 2364 2295 1073 Output Total 1200 750 100 Balance 1164 1545 973 Weight 72.7 kg 83.9 kg General appearance: PRESENT: no acute distress Eye exam: PRESENT: PERRLA Respiratory exam: PRESENT: clear to auscultation jaison Cardiovascular exam: PRESENT: +S1, +S2 GI/Abdominal exam: PRESENT: soft Neurological exam: PRESENT: alert Results Laboratory Results: 09/05/19 05:39 09/05/19 05:39 09/05/19 09/05/19 05:39 05:39 WBC 8.0 RBC 2.56 L Hgb 7.7 L Hct 23.1 L MCV 90 MCH 30.3 MCHC 33.5 RDW 16.2 H Plt Count 246 Sodium 135.9 L Potassium 3.4 L Chloride 111 H Carbon Dioxide 18 L Anion Gap 7 BUN 7 Creatinine 0.51 L Est GFR ( Amer) > 60 Glucose 178 H Calcium 7.5 L Total Bilirubin 1.4 H AST 27 Alkaline Phosphatase 45 Total Protein 4.7 L Albumin 2.0 L Impressions: GI Bleed Scan Nuclear Medicine 08/26/19 00:00 IMPRESSION: FINDINGS CONSISTENT WITH ACTIVE GI BLEEDING IN THE SIGMOID COLON. Chest X-Ray 08/28/19 05:00 IMPRESSION: Opacity left lateral lung base, question atelectasis or pneumonia KUB X-Ray 08/31/19 00:00 IMPRESSION: Postoperative findings as detailed above without evidence of a mechanical bowel obstruction. 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 Distribution suggests embolic source. EVIDENCE OF ACUTE STROKE: YES. LEFT MCA and VERTEBROBASILAR. Assessment & Plan - Diagnosis (1) Acute GI bleeding Is this a current diagnosis for this admission?: Yes (2) Diverticulosis of large intestine without perforation or abscess without bleeding Is this a current diagnosis for this admission?: Yes (3) Atherosclerotic heart disease of [place] coronary artery without angina pectoris Qualifiers: [place] vs. transplanted heart: [place] heart Qualified Code(s): I25.10 - A therosclerotic heart disease of [place] coronary artery without angina pectoris Is this a current diagnosis for this admission?: Yes (4) Unspecified atrial fibrillation Qualifiers: Atrial fibrillation type: paroxysmal Qualified Code(s): I48.0 - Paroxysmal atrial fibrillation Is this a current diagnosis for this admission?: Yes (5) Delirium Is this a current diagnosis for this admission?: Yes (6) Left acute arterial ischemic stroke, MCA (middle cerebral artery) Is this a current diagnosis for this admission?: Yes Plan: She has new embolic stroke involving the left MCA territory and the cerebellum on the left side this is a mild stroke most likely from atrial fibrillation, patient already on anticoagulant Eliquis, no need for antiplatelet since there is a known risk factor, A. fib. Start stroke protocol, keep n.p.o. consult PT OT nutrition, family advised of the new clinical issue (7) Embolic stroke involving left cerebellar artery Is this a current diagnosis for this admission?: Yes (8) Anemia Qualifiers: Anemia type: unspecified type Qualified Code(s): D64.9 - Anemia, unspecified Is this a current diagnosis for this admission?: Yes Plan: Repeat cbc,iron studies no evidence of active bleed - Time Time Spent with patient: 35 or more minutes Level of Care: IMCU Medications reviewed and adjusted accordingly: Yes
[2019-09-05 17:08] LABS: ABSOLUTE LYMPHOCYTES (AUTO) 0.8 10^3/uL (0.5-4.7); ABSOLUTE MONOCYTES (AUTO) 0.6 10^3/uL (0.1-1.4); ABSOLUTE NEUT (AUTO) 5.7 10^3/uL (1.7-8.2); ABSOLUTE RETICS # 0.146 10^6/uL (0.028-0.122); BASOPHILS % (AUTO) 0.3 % (0-2); EOSINOPHILS % (AUTO) 0.6 % (0-6); HEMATOCRIT 22.7 % (36.0-47.0); LYMPHOCYTES % (AUTO) 10.8 % (13-45); MEAN CORPUSCULAR HEMOGLOBIN 29.8 pg (27.0-33.4); MEAN CORPUSCULAR HGB CONC 33.2 g/dL (32.0-36.0); MEAN CORPUSCULAR VOLUME 90 fl (80-97); MONOCYTES % (AUTO) 8.7 % (3-13); PLATELET COUNT 269 10^3/uL (150-450); RED BLOOD COUNT 2.53 10^6/uL (3.72-5.28); RED CELL DISTRIBUTION WIDTH 15.8 % (11.5-14.0); RETICULOCYTE COUNT (AUTO) 5.78 % (0.66-2.85); SEGMENTED NEUTROPHILS % (AUTO) 79.6 % (42-78); TOTAL CELLS COUNTED % (AUTO) 100 %; WHITE BLOOD COUNT 7.2 10^3/uL (4.0-10.5)
[2019-09-05 17:09] LABS: HEMOGLOBIN 7.6 g/dL (12.0-15.5)
[2019-09-05 17:28] LABS: CREATINE KINASE 52 U/L (30-135); IRON(TIBC) 15.4 ug/dL (37-170)
[2019-09-05 17:38] LABS: CREATINE KINASE MB 0.36 ng/mL (<4.55)
[2019-09-05 17:55] LABS: TROPONIN I 0.035 ng/mL
[2019-09-05] MEDS ORDERED: NORMAL SALINE 250 ML IV PRN ×2 (21:16)
--- NOTE | 2019-09-05 21:17 | EKG REPORT ---
SEVERITY:- ABNORMAL ECG - ATRIAL FIBRILLATION RIGHT BUNDLE BRANCH BLOCK : Confirmed by: Prosper Alicea MD 05-Sep-2019 21:16:24
--- NOTE | 2019-09-05 21:28 | Progress Note ---
Provider Note Provider Note: CARDIOLOGY PROGRESS NOTE by Dr. Veena Grant on 09/05/2019. SUBJECTIVE: The patient speech is slurred and she is more confused today. Hence it was thought that the patient might have had sustained a CVA. Later an MRI was done and this showed subacute infarct secondary to emboli. Although there is no evidence of ongoing bleeding the patient's hemoglobin is dropped to 7.6. I have discussed with Dr. Reyes to transfuse the patient with packed RBCs to bring the hemoglobin closer to 10 or above. She continues to be in atrial fibrillation. In spite of mental status she moves all 4 extremities with no focal weakness. There is no ventricle arrhythmia seen on the monitor. In view of the patient's confusion no further history or symptomatology can be elicited. PHYSICAL EXAMINATION: The patient is well-built. But in no acute distress. She is confused. Selected Entries 09/05/19 15:57 Temperature 97.9 F Temperature Axillary Source Pulse Rate 64 Respiratory 18 Rate Blood Pressure 143/56 H Blood Pressure 85 Mean BP Location Right Leg BP Position Supine O2 Sat by Pulse 97 Oximetry Oxygen Delivery Room Air Method Head: Is atraumatic normocephalic. EYES: Pupils are equal round regular reactive light accommodation. Extraocular movements are normal. There is no conjunctival pallor. There is no scleral icterus. EARS: Tympanic membranes are intact. External auditory canals are clear. NOSE: There is no deviated nasal septum. There is no inflammation of his mucous membrane. MOUTH: Mucous membranes in the mouth are dry. Tongue is dry. There is no ulcers of the mouth. There is no bleeding from the gums. THROAT: There is no redness of the oropharynx. There is no exudates. Acute neck: Supple. There is no JVD. Carotids are equal there is no bruit. There is no lymphadenopathy. There is no goiter. There is no accessory muscles of respiration use. Trachea central. LUNGS: There is a few dry crackles in the right mid zone right base. There is no rhonchi or wheezing. There is no rales of CHF. HEART: S1-S2 is heard. S1 is a variable intensity. There is no S3 gallop. There is no S4 gallop. There is systolic murmur left sternal border and the apex. There is murmur of aortic sclerosis present. There is no aortic stenosis or aortic regurgitation murmur heard. There is no significant valvular stenotic or regurgitant murmur heard. There is no rub. ABDOMEN: Soft dressing is dry. There is no hepatosplenomegaly . Bowel sounds are absent. Extremities: Femorals are diminished there is no femoral bruits. Leg pulses are diminished. There is no pedal edema. There is no DVT or cellulitis. 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 With no focal deficits. PSYCHIATRIC: The patient does not appear to be agitated or anxious. Labs- All tests 24 hr 09/04/19 09/05/19 09/05/19 23:40 00:09 05:08 WBC RBC Hgb Hct MCV MCH MCHC RDW Plt Count Lymph % (Auto) [place] % (Auto) Eos % (Auto) Baso % (Auto) Reticulocyte # Absolute Neuts (auto) Absolute Lymphs (auto) Absolute Monos (auto) Absolute Eos (auto) Absolute Basos (auto) Seg Neutrophils % Retic Count (auto) Sodium Potassium Chloride Carbon Dioxide Anion Gap BUN Creatinine Est GFR ( Amer) Est GFR (MDRD) Non-Af Glucose POC Glucose 212 H 190 H 184 H Calcium Iron TIBC % Saturation Transferrin Ferritin Total Bilirubin Direct Bilirubin Neonat Total Bilirubin Neonat Direct Bilirubin Neonat Indirect Bili AST ALT Alkaline Phosphatase Creatine Kinase CK-MB (CK-2) Troponin I Total Protein Albumin Vitamin B12 Folate Digoxin Crossmatch 09/05/19 09/05/19 09/05/19 05:39 05:39 05:39 WBC 8.0 RBC 2.56 L Hgb 7.7 L Hct 23.1 L MCV 90 MCH 30.3 MCHC 33.5 RDW 16.2 H Plt Count 246 Lymph % (Auto) [place] % (Auto) Eos % (Auto) Baso % (Auto) Reticulocyte # Absolute Neuts (auto) Absolute Lymphs (auto) Absolute Monos (auto) Absolute Eos (auto) Absolute Basos (auto) Seg Neutrophils % Retic Count (auto) Sodium 135.9 L Potassium 3.4 L Chloride 111 H Carbon Dioxide 18 L Anion Gap 7 BUN 7 Creatinine 0.51 L Est GFR ( Amer) > 60 Est GFR (MDRD) Non-Af > 60 Glucose 178 H POC Glucose Calcium 7.5 L Iron TIBC % Saturation Transferrin Ferritin Total Bilirubin 1.4 H Direct Bilirubin 0.4 Neonat Total Bilirubin Not Reportable Neonat Direct Bilirubin Not Reportable Neonat Indirect Bili Not Reportable AST 27 ALT 19 Alkaline Phosphatase 45 Creatine Kinase CK-MB (CK-2) Troponin I Total Protein 4.7 L Albumin 2.0 L Vitamin B12 Folate Digoxin 0.90 Crossmatch 09/05/19 09/05/19 09/05/19 11:13 16:45 16:45 WBC RBC Hgb Hct MCV MCH MCHC RDW Plt Count Lymph % (Auto) [place] % (Auto) Eos % (Auto) Baso % (Auto) Reticulocyte # Absolute Neuts (auto) Absolute Lymphs (auto) Absolute Monos (auto) Absolute Eos (auto) Absolute Basos (auto) Seg Neutrophils % Retic Count (auto) Sodium Potassium Chloride Carbon Dioxide Anion Gap BUN Creatinine Est GFR ( Amer) Est GFR (MDRD) Non-Af Glucose POC Glucose 149 H Calcium Iron 15.4 L TIBC 194 L % Saturation 8 Transferrin Ferritin 137.00 Total Bilirubin Direct Bilirubin Neonat Total Bilirubin Neonat Direct Bilirubin Neonat Indirect Bili AST ALT Alkaline Phosphatase Creatine Kinase 52 CK-MB (CK-2) 0.36 Troponin I 0.035 Total Protein Albumin Vitamin B12 990.0 H Folate 19.80 Digoxin Crossmatch 09/05/19 09/05/19 09/05/19 16:45 16:45 17:31 WBC 7.2 RBC 2.53 L Hgb 7.6 L Hct 22.7 L MCV 90 MCH 29.8 MCHC 33.2 RDW 15.8 H Plt Count 269 Lymph % (Auto) 10.8 L [place] % (Auto) 8.7 Eos % (Auto) 0.6 Baso % (Auto) 0.3 Reticulocyte # 0.146 H Absolute Neuts (auto) 5.7 Absolute Lymphs (auto) 0.8 Absolute Monos (auto) 0.6 Absolute Eos (auto) 0.0 Absolute Basos (auto) 0.0 Seg Neutrophils % 79.6 H Retic Count (auto) 5.78 H Sodium Potassium Chloride Carbon Dioxide Anion Gap BUN Creatinine Est GFR ( Amer) Est GFR (MDRD) Non-Af Glucose POC Glucose 177 H Calcium Iron TIBC % Saturation Transferrin 121.80 L Ferritin Total Bilirubin Direct Bilirubin Neonat Total Bilirubin Neonat Direct Bilirubin Neonat Indirect Bili AST ALT Alkaline Phosphatase Creatine Kinase CK-MB (CK-2) Troponin I Total Protein Albumin Vitamin B12 Folate Digoxin Crossmatch 09/05/19 21:35 WBC RBC Hgb Hct MCV MCH MCHC RDW Plt Count Lymph % (Auto) [place] % (Auto) Eos % (Auto) Baso % (Auto) Reticulocyte # Absolute Neuts (auto) Absolute Lymphs (auto) Absolute Monos (auto) Absolute Eos (auto) Absolute Basos (auto) Seg Neutrophils % Retic Count (auto) Sodium Potassium Chloride Carbon Dioxide Anion Gap BUN Creatinine Est GFR ( Amer) Est GFR (MDRD) Non-Af Glucose POC Glucose Calcium Iron TIBC % Saturation Transferrin Ferritin Total Bilirubin Direct Bilirubin Neonat Total Bilirubin Neonat Direct Bilirubin Neonat Indirect Bili AST ALT Alkaline Phosphatase Creatine Kinase CK-MB (CK-2) Troponin I Total Protein Albumin Vitamin B12 Folate Digoxin Crossmatch See Detail GI Bleed Scan Nuclear Medicine 08/26/19 00:00 IMPRESSION: FINDINGS CONSISTENT WITH ACTIVE GI BLEEDING IN THE SIGMOID COLON. Chest X-Ray 08/28/19 05:00 IMPRESSION: Opacity left lateral lung base, question atelectasis or pneumonia KUB X-Ray 08/31/19 00:00 IMPRESSION: Postoperative findings as detailed above without evidence of a mechanical bowel obstruction. 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 Distribution suggests embolic source. EVIDENCE OF ACUTE STROKE: YES. LEFT MCA and VERTEBROBASILAR. IMPRESSION/RECOMMENDATION: 1. 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 2. Lower GI bleed secondary to bleeding from sigmoid sigmoid diverticulum. S/p hemicolectomy. 3. Anemia: Patient's hemoglobin is dropped to 7.6 with decreased urine output. Recommend transfuse 2 units of packed RBCs as discussed with Dr. Reyes. . 4. Atrial fibrillation with rapid ventricular response. In view of the patient still being atrial fibrillation will discontinue the patient's amiodarone drip and start the patient on a Cardizem drip. We will also start the patient on digoxin 0.125 mg IV push daily. Will discuss with the attending physician and the surgical hist to see if it is safe to start the patient on chronic anticoagulation. The patient still not taking by mouth fully. Hence we will continue the patient on IV Cardizem and IV digoxin until the patient is able to take orally.Anemia: Watch the patient's hemoglobin. 5. Possible pneumonia: Continue antibiotics 6. History of hypertension: Blood pressure stable. 7. Hypothyroidism on replacement. 8. Diabetes mellitus: Continue Accu-Cheks and treat blood sugars accordingly si nce the patient is n.p.o. 9. Alzheimer's dementia by history. This seems to be mild. Occasions reviewed. Medical management discussed with Dr. Reyes recommendations made. Medical decision making is of high complexity. Medical management and medication regimen discussed with Dr. Reyes covering for Dr. Oliver. 40 minutes spent with patient more than 50% time spent in direct patient care. Will follow
[2019-09-05] MEDS: ATORVASTATIN CALCIUM 80 MG TABLET PO SCH (22:19)
[2019-09-06] MEDS: INSULIN LISPRO 100 UNIT/ML 3 ML VIAL SUBCUT SCH ×4 (00:16→18:02)
[2019-09-06 01:23] LABS: CREATINE KINASE MB 0.46 ng/mL (<4.55); TROPONIN I 0.032 ng/mL
[2019-09-06] MEDS: METOPROLOL TARTRATE PF/INJ 5 MG/5 ML SDV IV SCH ×6 (03:11→21:38)
[2019-09-06 06:36] LABS: ABSOLUTE LYMPHOCYTES (AUTO) 0.7 10^3/uL (0.5-4.7); ABSOLUTE MONOCYTES (AUTO) 0.7 10^3/uL (0.1-1.4); ABSOLUTE NEUT (AUTO) 5.2 10^3/uL (1.7-8.2); BASOPHILS % (AUTO) 0.5 % (0-2); EOSINOPHILS % (AUTO) 0.4 % (0-6); HEMATOCRIT 30.9 % (36.0-47.0); LYMPHOCYTES % (AUTO) 10.9 % (13-45); MEAN CORPUSCULAR HEMOGLOBIN 30.2 pg (27.0-33.4); MEAN CORPUSCULAR HGB CONC 34.3 g/dL (32.0-36.0); MEAN CORPUSCULAR VOLUME 88 fl (80-97); MONOCYTES % (AUTO) 10.4 % (3-13); PLATELET COUNT 246 10^3/uL (150-450); RED CELL DISTRIBUTION WIDTH 15.4 % (11.5-14.0); SEGMENTED NEUTROPHILS % (AUTO) 77.8 % (42-78); TOTAL CELLS COUNTED % (AUTO) 100 %; WHITE BLOOD COUNT 6.6 10^3/uL (4.0-10.5)
[2019-09-06 06:38] LABS: HEMOGLOBIN 10.6 g/dL (12.0-15.5)
[2019-09-06 06:51] LABS: CREATINE KINASE 50 U/L (30-135); TRIGLYCERIDES 87 mg/dL (<150)
[2019-09-06 07:02] LABS: CREATINE KINASE MB 0.41 ng/mL (<4.55); DIRECT LDL 76 mg/dL (<100); TROPONIN I 0.031 ng/mL
[2019-09-06] MEDS: APIXABAN 5 MG TABLET PO SCH ×2 (10:23→18:03)
[2019-09-06] MEDS: DIGOXIN INJ 0.5 MG/2 ML AMPULE IV SCH (10:23)
[2019-09-06] MEDS: ZINC SULFATE 220 MG CAPSULE PO SCH (10:24)
[2019-09-06] MEDS: RISPERIDONE 0.5 MG TAB.RAPDIS PO SCH ×2 (10:24→18:03)
[2019-09-06] MEDS: MULTIVITS W-MIN/IRON SOLN 60 ML PO SCH (10:24)
[2019-09-06] MEDS: DILTIAZEM HCL/D5W 125 MG/125 ML RTUINJ IV PRN (14:53)
--- NOTE | 2019-09-06 16:10 | Progress Note ---
Provider Note Provider Note: CARDIOLOGY PROGRESS NOTE by Dr. Veena Grant on 09/06/2019 SUBJECTIVE: The patient is still confused and speech is very slurred and unrecognizable. She seems to have right-sided weakness but cannot be sure. She knows her name but otherwise she is disoriented. She continues to be in atrial fibrillation with controlled ventricular response, but the patient is on IV Cardizem. She is still not able to take p.o. I have started her on Eliquis there is no bleeding on Eliquis. There is no recurrence or extension of the CVA. There is no ventricular arrhythmias seen on the monitor. PHYSICAL EXAMINATION: The patient appears ill looking but in no acute distress. Selected Entries 09/06/19 09/06/19 11:00 11:52 Temperature 97.8 F Temperature Axillary Source Pulse Rate 74 53 L Respiratory 17 Rate Blood Pressure 119/50 L Blood Pressure 73 Mean BP Location Right Arm BP Position Supine O2 Sat by Pulse 99 Oximetry Oxygen Delivery Room Air Method Head: Is atraumatic normocephalic. EYES: Pupils are equal round regular reactive light accommodation. Extraocular movements are normal. There is no conjunctival pallor. There is no scleral icterus. EARS: Tympanic membranes are intact. External auditory canals are clear. NOSE: There is no deviated nasal septum. There is no inflammation of his mucous membrane. MOUTH: Mucous membranes in the mouth are dry. Tongue is dry. There is no ulcers of the mouth. There is no bleeding from the gums. THROAT: There is no redness of the oropharynx. There is no exudates. Acute neck: Supple. There is no JVD. Carotids are equal there is no bruit. There is no lymphadenopathy. There is no goiter. There is no accessory muscles of respiration use. Trachea central. LUNGS: There is a few dry crackles in the right mid zone right base. There is no rhonchi or wheezing. There is no rales of CHF. HEART: S1-S2 is heard. S1 is a variable intensity. There is no S3 gallop. There is no S4 gallop. There is systolic murmur left sternal border and the apex. There is murmur of aortic sclerosis present. There is no aortic stenosis or aortic regurgitation murmur heard. There is no significant valvular stenotic or regurgitant murmur heard. There is no rub. ABDOMEN: Soft dressing is dry. There is no hepatosplenomegaly. Bowel sounds are absent. Extremities: Femorals are diminished there is no femoral bruits. Leg pulses are diminished. There is no pedal edema. There is no DVT or cellulitis. 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 With no focal deficits. PSYCHIATRIC: The patient does not appear to be agitated or anxious. GI Bleed Scan Nuclear Medicine 08/26/19 00:00 IMPRESSION: FINDINGS CONSISTENT WITH ACTIVE GI BLEEDING IN THE SIGMOID COLON. Chest X-Ray 08/28/19 05:00 IMPRESSION: Opacity left lateral lung base, question atelectasis or pneumonia KUB X-Ray 08/31/19 00:00 IMPRESSION: Postoperative findings as detailed above without evidence of a mech anical bowel obstruction. 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 Distribution suggests embolic source. EVIDENCE OF ACUTE STROKE: YES. LEFT MCA and VERTEBROBASILAR. Labs- All tests 24 hr 08/26/19 09/05/19 09/05/19 11:51 16:45 16:45 WBC RBC Hgb Hct MCV MCH MCHC RDW Plt Count Lymph % (Auto) Imperial % (Auto) Eos % (Auto) Baso % (Auto) Reticulocyte # Absolute Neuts (auto) Absolute Lymphs (auto) Absolute Monos (auto) Absolute Eos (auto) Absolute Basos (auto) Seg Neutrophils % Retic Count (auto) POC Glucose Iron 15.4 L TIBC 194 L % Saturation 8 Transferrin Ferritin 137.00 Creatine Kinase 52 CK-MB (CK-2) 0.36 Troponin I 0.035 Triglycerides Cholesterol LDL Cholesterol Direct VLDL Cholesterol HDL Cholesterol Vitamin B12 990.0 H Folate 19.80 Blood Type Antibody Screen Crossmatch See Detail 09/05/19 09/05/19 09/05/19 16:45 16:45 17:31 WBC 7.2 RBC 2.53 L Hgb 7.6 L Hct 22.7 L MCV 90 MCH 29.8 MCHC 33.2 RDW 15.8 H Plt Count 269 Lymph % (Auto) 10.8 L Imperial % (Auto) 8.7 Eos % (Auto) 0.6 Baso % (Auto) 0.3 Reticulocyte # 0.146 H Absolute Neuts (auto) 5.7 Absolute Lymphs (auto) 0.8 Absolute Monos (auto) 0.6 Absolute Eos (auto) 0.0 Absolute Basos (auto) 0.0 Seg Neutrophils % 79.6 H Retic Count (auto) 5.78 H POC Glucose 177 H Iron TIBC % Saturation Transferrin 121.80 L Ferritin Creatine Kinase CK-MB (CK-2) Troponin I Triglycerides Cholesterol LDL Cholesterol Direct VLDL Cholesterol HDL Cholesterol Vitamin B12 Folate Blood Type Antibody Screen Crossmatch 09/05/19 09/05/19 09/06/19 21:35 23:27 00:45 WBC RBC Hgb Hct MCV MCH MCHC RDW Plt Count Lymph % (Auto) Imperial % (Auto) Eos % (Auto) Baso % (Auto) Reticulocyte # Absolute Neuts (auto) Absolute Lymphs (auto) Absolute Monos (auto) Absolute Eos (auto) Absolute Basos (auto) Seg Neutrophils % Retic Count (auto) POC Glucose 171 H Iron TIBC % Saturation Transferrin Ferritin Creatine Kinase 55 CK-MB (CK-2) Troponin I Triglycerides Cholesterol LDL Cholesterol Direct VLDL Cholesterol HDL Cholesterol Vitamin B12 Folate Blood Type A POSITIVE Antibody Screen NEGATIVE Crossmatch See Detail 09/06/19 09/06/19 09/06/19 00:45 05:19 06:04 WBC RBC Hgb Hct MCV MCH MCHC RDW Plt Count Lymph % (Auto) Imperial % (Auto) Eos % (Auto) Baso % (Auto) Reticulocyte # Absolute Neuts (auto) Absolute Lymphs (auto) Absolute Monos (auto) Absolute Eos (auto) Absolute Basos (auto) Seg Neutrophils % Retic Count (auto) POC Glucose 154 H Iron TIBC % Saturation Transferrin Ferritin Creatine Kinase 50 CK-MB (CK-2) 0.46 Troponin I 0.032 Triglycerides 87 Cholesterol 117.10 LDL Cholesterol Direct 76 VLDL Cholesterol 17.0 HDL Cholesterol 29 L Vitamin B12 Folate Blood Type Antibody Screen Crossmatch 09/06/19 09/06/19 09/06/19 06:04 06:04 11:52 WBC 6.6 RBC 3.50 L Hgb 10.6 L D Hct 30.9 L MCV 88 MCH 30.2 MCHC 34.3 RDW 15.4 H Plt Count 246 Lymph % (Auto) 10.9 L Imperial % (Auto) 10.4 Eos % (Auto) 0.4 Baso % (Auto) 0.5 Reticulocyte # Absolute Neuts (auto) 5.2 Absolute Lymphs (auto) 0.7 Absolute Monos (auto) 0.7 Absolute Eos (auto) 0.0 Absolute Basos (auto) 0.0 Seg Neutrophils % 77.8 Retic Count (auto) POC Glucose 197 H Iron TIBC % Saturation Transferrin Ferritin Creatine Kinase CK-MB (CK-2) 0.41 Troponin I 0.031 Triglycerides Cholesterol LDL Cholesterol Direct VLDL Cholesterol HDL Cholesterol Vitamin B12 Folate Blood Type Antibody Screen Crossmatch IMPRESSION/RECOMMENDATION: 1. 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 2. Lower GI bleed secondary to bleeding from sigmoid sigmoid diverticulum. S/p hemicolectomy. 3. Lower abdominal incisional wound infection draining pus. Continue antibiotics. Surgical hist on the case 4. Anemia: Patient's hemoglobin is dropped to 7.6 with decreased urine output. Recommend transfuse 2 units of packed RBCs as discussed with Dr. Reyes. . 5. Atrial fibrillation with rapid ventricular response. In view of the patient still being atrial fibrillation will discontinue the patient's amiodarone drip and start the patient on a Cardizem drip. We will also start the patient on digoxin 0.125 mg IV push daily. Will discuss with the attending physician and the surgical hist to see if it is safe to start the patient on chronic anticoagulation. The patient still not taking by mouth fully. Hence we will continue the patient on IV Cardizem and IV digoxin until the patient is able to take orally.Anemia: Watch the patient's hemoglobin. 6. Possible pneumonia: Continue antibiotics 7. History of hypertension: Blood pressure stable. 8. Hypothyroidism on replacement. 9. Diabetes mellitus: Continue Accu-Cheks and treat blood sugars accordingly since the patient is n.p.o. 10. Alzheimer's dementia by history. This seems to be mild. Occasions reviewed. Medical management discussed with Dr. Oliver. Recommendations made. Medical decision making is of high complexity. Medical management and medication regimen will be discussed with Dr. Oliver. 40 minutes spent with patient more than 50% time spent in direct patient care. Will follow
--- NOTE | 2019-09-06 18:32 | PDOC PROGRESS REPORT ---
Subjective Progress Note for:: 09/06/19 Subjective:: Some pains in her lower incision that is draining pus Reason For Visit: LOWER GI BLEED,DM TYPE 2,HTN,GERD,CAD Physical Exam Vital Signs: Temp Pulse Resp BP Pulse Ox 97.7 F 41 L 18 135/86 H 99 09/06/19 16:11 09/06/19 16:11 09/06/19 16:11 09/06/19 15:32 09/06/19 16:11 Intake & Output 09/05/19 09/06/19 09/07/19 06:59 06:59 06:59 Intake Total 2295 2536 150 Output Total 750 575 100 Balance 1545 1961 50 Weight 83.9 kg 87.5 kg Exam: Lower half of incision with abscess cavity. All jim removed on the lower half and fascia noted to be intact. Results Laboratory Results: 09/06/19 06:04 09/05/19 05:39 09/05/19 09/05/19 09/06/19 16:45 21:35 06:04 WBC RBC Hgb Hct MCV MCH MCHC RDW Plt Count Seg Neutrophils % Iron 15.4 L TIBC 194 L % Saturation 8 Ferritin 137.00 Triglycerides 87 Cholesterol 117.10 LDL Cholesterol Direct 76 VLDL Cholesterol 17.0 HDL Cholesterol 29 L Vitamin B12 990.0 H Folate 19.80 Blood Type A POSITIVE Antibody Screen NEGATIVE 09/06/19 06:04 WBC 6.6 RBC 3.50 L Hgb 10.6 L D Hct 30.9 L MCV 88 MCH 30.2 MCHC 34.3 RDW 15.4 H Plt Count 246 Seg Neutrophils % 77.8 Iron TIBC % Saturation Ferritin Triglycerides Cholesterol LDL Cholesterol Direct VLDL Cholesterol HDL Cholesterol Vitamin B12 Folate Blood Type Antibody Screen 09/05/19 09/05/19 09/06/19 16:45 16:45 00:45 Creatine Kinase 52 55 CK-MB (CK-2) 0.36 Troponin I 0.035 09/06/19 09/06/19 09/06/19 00:45 06:04 06:04 Creatine Kinase 50 CK-MB (CK-2) 0.46 0.41 Troponin I 0.032 0.031 Impressions: GI Bleed Scan Nuclear Medicine 08/26/19 00:00 IMPRESSION: FINDINGS CONSISTENT WITH ACTIVE GI BLEEDING IN THE SIGMOID COLON. Chest X-Ray 08/28/19 05:00 IMPRESSION: Opacity left lateral lung base, question atelectasis or pneumonia KUB X-Ray 08/31/19 00:00 IMPRESSION: Postoperative findings as detailed above without evidence of a mechanical bowel obstruction. 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 Distribution suggests embolic source. EVIDENCE OF ACUTE STROKE: YES. LEFT MCA and VERTEBROBASILAR. Assessment & Plan - Diagnosis (1) Subcutaneous abscess postop Is this a current diagnosis for this admission?: Yes - Time Critical Time spent with patient: 15-24 minutes - Plan Summary Plan Summary: Start wet-to-dry dressings to abdominal wound every 12 hours Obtain cultures of abscess Okay to start on IV antibiotics
[2019-09-06] MEDS ORDERED: VANCOMYCIN HCL 1,000 MG in DEXTROSE 5%-WATER 250 ML IV ONE ×2 (20:19→21:30)
--- NOTE | 2019-09-06 20:38 | PDOC PROGRESS REPORT ---
Subjective Progress Note for:: 09/06/19 Subjective:: She continue to demonstrate memory impairment close to her baseline but there is new development of slurred speech since my last clinical evaluation. No reported fever or difficulty with breathing. Oral intake remain a challenge. There is development of copious expressed purulent material with tenderness over lower end of her surgical incision wound. Reason For Visit: LOWER GI BLEED,DM TYPE 2,HTN,GERD,CAD Physical Exam Vital Signs: Temp Pulse Resp BP Pulse Ox 97.9 F 85 15 122/46 L 97 09/06/19 04:52 09/06/19 08:04 09/06/19 07:53 09/06/19 08:04 09/06/19 07:53 Intake & Output 09/05/19 09/06/19 09/07/19 06:59 06:59 06:59 Intake Total 2295 2536 Output Total 750 575 Balance 1545 1961 Weight 83.9 kg 87.5 kg Physical Exam: General appearance: PRESENT: no acute distress Head exam: PRESENT: atraumatic, normocephalic Eye exam: PRESENT: conjunctiva pink. ABSENT: pallor, scleral icterus Mouth exam: PRESENT: moist Respiratory exam: PRESENT: clear to auscultation, decreased breath sounds bilaterally Cardiovascular exam: PRESENT: Irregular rhythm, +S1, +S2. ABSENT: diastolic murmur, rubs, systolic murmur GI/Abdominal exam: PRESENT: normal bowel sounds, soft, expressed tenderness to palpation around lower surgical site with purulent drainage. ABSENT: drainage tube is out, distended, guarding, mass, organomegaly, rebound Extremities exam: ABSENT: pedal edema Neurological exam: PRESENT: Disoriented, awake, oriented to person, new onset slurred speech since my last evaluation Psychiatric exam: PRESENT: appropriate affect, normal mood. ABSENT: homicidal ideation, suicidal ideation Skin exam: PRESENT: dry, warm, multiple surgical jim anterior abdominal wall site of recent subtotal colectomy in place with purulent drainage from lower section on the incision region. Results Laboratory Results: 09/06/19 06:04 09/05/19 05:39 09/05/19 09/05/19 09/05/19 05:39 05:39 16:45 WBC 8.0 RBC 2.56 L Hgb 7.7 L Hct 23.1 L MCV 90 MCH 30.3 MCHC 33.5 RDW 16.2 H Plt Count 246 Seg Neutrophils % Retic Count (auto) Sodium 135.9 L Potassium 3.4 L Chloride 111 H Carbon Dioxide 18 L Anion Gap 7 BUN 7 Creatinine 0.51 L Est GFR ( Amer) > 60 Glucose 178 H Calcium 7.5 L Iron 15.4 L TIBC 194 L % Saturation 8 Transferrin Ferritin 137.00 Total Bilirubin 1.4 H AST 27 Alkaline Phosphatase 45 Total Protein 4.7 L Albumin 2.0 L Triglycerides Cholesterol LDL Cholesterol Direct VLDL Cholesterol HDL Cholesterol Vitamin B12 990.0 H Folate 19.80 Blood Type Antibody Screen 09/05/19 09/05/19 09/05/19 16:45 16:45 21:35 WBC 7.2 RBC 2.53 L Hgb 7.6 L Hct 22.7 L MCV 90 MCH 29.8 MCHC 33.2 RDW 15.8 H Plt Count 269 Seg Neutrophils % 79.6 H Retic Count (auto) 5.78 H Sodium Potassium Chloride Carbon Dioxide Anion Gap BUN Creatinine Est GFR ( Amer) Glucose Calcium Iron TIBC % Saturation Transferrin 121.80 L Ferritin Total Bilirubin AST Alkaline Phosphatase Total Protein Albumin Triglycerides Cholesterol LDL Cholesterol Direct VLDL Cholesterol HDL Cholesterol Vitamin B12 Folate Blood Type A POSITIVE Antibody Screen NEGATIVE 09/06/19 09/06/19 06:04 06:04 WBC 6.6 RBC 3.50 L Hgb 10.6 L D Hct 30.9 L MCV 88 MCH 30.2 MCHC 34.3 RDW 15.4 H Plt Count 246 Seg Neutrophils % 77.8 Retic Count (auto) Sodium Potassium Chloride Carbon Dioxide Anion Gap BUN Creatinine Est GFR ( Amer) Glucose Calcium Iron TIBC % Saturation Transferrin Ferritin Total Bilirubin AST Alkaline Phosphatase Total Protein Albumin Triglycerides 87 Cholesterol 117.10 LDL Cholesterol Direct 76 VLDL Cholesterol 17.0 HDL Cholesterol 29 L Vitamin B12 Folate Blood Type Antibody Screen 09/05/19 09/05/19 09/06/19 16:45 16:45 00:45 Creatine Kinase 52 55 CK-MB (CK-2) 0.36 Troponin I 0.035 09/06/19 09/06/19 09/06/19 00:45 06:04 06:04 Creatine Kinase 50 CK-MB (CK-2) 0.46 0.41 Troponin I 0.032 0.031 Impressions: GI Bleed Scan Nuclear Medicine 08/26/19 00:00 IMPRESSION: FINDINGS CONSISTENT WITH ACTIVE GI BLEEDING IN THE SIGMOID COLON. Chest X-Ray 08/28/19 05:00 IMPRESSION: Opacity left lateral lung base, question atelectasis or pneumonia KUB X-Ray 08/31/19 00:00 IMPRESSION: Postoperative findings as detailed above without evidence of a mechanical bowel obstruction. 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 Distribution suggests embolic source. EVIDENCE OF ACUTE STROKE: YES. LEFT MCA and VERTEBROBASILAR. Assessment & Plan - Diagnosis (1) Lower GI bleed Is this a current diagnosis for this admission?: Yes (2) Colonic diverticular disease Is this a current diagnosis for this admission?: Yes (3) Atrial fibrillation with rapid ventricular response Is this a current diagnosis for this admission?: Yes (4) Senile dementia with delirium Qualifiers: Dementia behavioral disturbance: without behavioral disturbance Qualified Code(s): F03.90 - Unspecified dementia without behavioral disturbance; F05 - Delirium due to known physiological condition Is this a current diagnosis for this admission?: Yes (5) Diabetes mellitus, type 2 Qualifiers: Diabetes mellitus detention insulin use: 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 transplanted heart: [place] heart Associated angina: angina presence unspecified Qualified Code(s): I25.10 - Atherosclerotic heart disease of [place] coronary artery without angina pectoris Is this a current diagnosis for this admission?: Yes (8) Hyperlipidemia Qualifiers: Hyperlipidemia type: unspecified Qualified Code(s): E78.5 - Hyperlipidemia, unspecified Is this a current diagnosis for this admission?: Yes (9) Hypothyroidism Qualifiers: Hypothyroidism type: acquired Qualified Code(s): E03.9 - Hypothyroidism, unspecified Is this a current diagnosis for this admission?: Yes (10) GERD (gastroesophageal reflux disease) Qualifiers: Esophagitis presence: esophagitis presence not specified Qualified Code(s): K21.9 - Gastro-esophageal reflux disease without esophagitis Is this a current diagnosis for this admission?: Yes (11) Subcutaneous abscess postop Is this a current diagnosis for this admission?: Yes Plan: Obtain wound gram staining and culture, blood culture x 2 set, start on IV Vancomycin and Zosyn coverage. Surgical consult and discussion with Dr. Tsang, on duty surgicalist. - Time Time Spent with patient: 25-34 minutes Level of Care: IMCU Medications reviewed and adjusted accordingly: Yes Anticipated discharge: SNF Within: Other - Inpatient Certification Based on my medical assessment, after consideration of the patient's comorbidities, presenting symptoms, or acuity I expect that the services needed warrant INPATIENT care.: Yes I certify that my determination is in accordance with my understanding of Medicare's requirements for reasonable and necessary INPATIENT services [42 CFR 412.3e].: Yes Medical Necessity: Significant Comorbidiites Make Outpatient Treatment Too Risky, Need Close Monitoring Due to Risk of Patient Decompensation, Need For IV Fluids, Need For Continuous Telemetry Monitoring, Need for IV Antibiotics, Need for Surgery, Risk of Complication if Not Cared For in Hospital, Risk of Diagnosis Which Will Require Inpatient Eval/Care/Monitoring Post Hospital Care: D/C or Transfer Summary - Plan Summary Plan Summary: See attending physician orders for details about care plan.
[2019-09-06] MEDS: ATORVASTATIN CALCIUM 80 MG TABLET PO SCH (21:38)
[2019-09-06] MEDS: PIPERACILLIN SODIUM/TAZOBACTAM 3.375 GM in NORMAL SALINE 100 ML IV SCH (21:38)
[2019-09-06] MEDS ORDERED: VANCOMYCIN HCL 1,000 MG in DEXTROSE 5%-WATER 250 ML IV SCH (22:00)
[2019-09-07] MEDS: INSULIN LISPRO 100 UNIT/ML 3 ML VIAL SUBCUT SCH ×4 (00:44→18:42)
[2019-09-07] MEDS: METOPROLOL TARTRATE PF/INJ 5 MG/5 ML SDV IV SCH ×6 (02:28→23:14)
[2019-09-07] MEDS: PIPERACILLIN SODIUM/TAZOBACTAM 3.375 GM in NORMAL SALINE 100 ML IV SCH ×4 (03:45→22:38)
[2019-09-07] MEDS: NORMAL SALINE 1000 ML 1,000 ML IV PRN ×2 (05:51→18:05)
[2019-09-07 05:59] LABS: ABSOLUTE MONOCYTES (AUTO) 0.7 10^3/uL (0.1-1.4); ABSOLUTE NEUT (AUTO) 4.1 10^3/uL (1.7-8.2); BASOPHILS % (AUTO) 0.4 % (0-2); EOSINOPHILS % (AUTO) 0.5 % (0-6); HEMATOCRIT 33.4 % (36.0-47.0); HEMOGLOBIN 11.7 g/dL (12.0-15.5); LYMPHOCYTES % (AUTO) 16.6 % (13-45); MEAN CORPUSCULAR HEMOGLOBIN 30.5 pg (27.0-33.4); MEAN CORPUSCULAR VOLUME 87 fl (80-97); MONOCYTES % (AUTO) 11.8 % (3-13); PLATELET COUNT 291 10^3/uL (150-450); RED BLOOD COUNT 3.83 10^6/uL (3.72-5.28); RED CELL DISTRIBUTION WIDTH 15.4 % (11.5-14.0); SEGMENTED NEUTROPHILS % (AUTO) 70.7 % (42-78); TOTAL CELLS COUNTED % (AUTO) 100 %; WHITE BLOOD COUNT 5.8 10^3/uL (4.0-10.5)
[2019-09-07 06:20] LABS: ALBUMIN 2.2 g/dL (3.5-5.0); ALKALINE PHOSPHATASE 49 U/L (38-126); ANION GAP 6 (5-19); ASPARTATE AMINO TRANSFERASE 31 U/L (14-36); BILIRUBIN,DIRECT 0.5 mg/dL (0.0-0.4); BILIRUBIN,TOTAL 1.8 mg/dL (0.2-1.3); BLOOD UREA NITROGEN 5 mg/dL (7-20); CALCIUM 7.7 mg/dL (8.4-10.2); CARBON DIOXIDE 21 mmol/L (22-30); CHLORIDE 112 mmol/L (98-107); GLUCOSE 183 mg/dL (75-110); POTASSIUM 3.4 mmol/L (3.6-5.0); TOTAL PROTEIN 5.3 g/dL (6.3-8.2)
[2019-09-07] MEDS ORDERED: VANCOMYCIN HCL 0 MG in DEXTROSE 5%-WATER 250 ML IV NR (08:30)
[2019-09-07] MEDS: DIGOXIN INJ 0.5 MG/2 ML AMPULE IV SCH (09:13)
[2019-09-07] MEDS: ZINC SULFATE 220 MG CAPSULE PO SCH (09:14)
[2019-09-07] MEDS: MULTIVITS W-MIN/IRON SOLN 60 ML PO SCH (09:14)
[2019-09-07] MEDS: RISPERIDONE 0.5 MG TAB.RAPDIS PO SCH ×2 (09:14→18:05)
[2019-09-07] MEDS: POTASSI CL 20 MEQ/50 ML RIDER 20 MEQ/50 ML RTUPB IV SCH ×2 (09:14→11:02)
[2019-09-07] MEDS: APIXABAN 5 MG TABLET PO SCH ×2 (09:14→18:05)
[2019-09-07] MEDS: DILTIAZEM HCL/D5W 125 MG/125 ML RTUINJ IV PRN (11:05)
[2019-09-07] MEDS: VANCOMYCIN HCL 1,000 MG in DEXTROSE 5%-WATER 250 ML IV SCH ×2 (13:48→23:17)
--- NOTE | 2019-09-07 17:29 | PDOC PROGRESS REPORT ---
Subjective Progress Note for:: 09/07/19 Subjective:: Minimal lower abdominal incision pains Reason For Visit: LOWER GI BLEED,DM TYPE 2,HTN,GERD,CAD Physical Exam Vital Signs: Temp Pulse Resp BP Pulse Ox 98.0 F 96 16 136/63 H 97 09/07/19 16:29 09/07/19 16:29 09/07/19 16:29 09/07/19 16:29 09/07/19 16:29 Intake & Output 09/06/19 09/07/19 09/08/19 06:59 06:59 06:59 Intake Total 2536 1718 296 Output Total 575 925 400 Balance 1961 793 -104 Weight 87.5 kg 86.1 kg Exam: Abdomen is soft and nontender. Lower abdominal wet-to-dry dry dressings intact. Dressings were changed by nurses this morning. Results Laboratory Results: 09/07/19 05:22 09/07/19 05:22 09/07/19 09/07/19 09/07/19 05:22 05:22 05:22 WBC 5.8 RBC 3.83 Hgb 11.7 L Hct 33.4 L MCV 87 MCH 30.5 MCHC 35.0 RDW 15.4 H Plt Count 291 Seg Neutrophils % 70.7 Sodium 139.2 Potassium 3.4 L Chloride 112 H Carbon Dioxide 21 L Anion Gap 6 BUN 5 L Creatinine 0.44 L Est GFR ( Amer) > 60 Glucose 183 H Calcium 7.7 L Magnesium 1.9 2.0 Total Bilirubin 1.8 H AST 31 Alkaline Phosphatase 49 Total Protein 5.3 L Albumin 2.2 L 09/05/19 09/05/19 09/06/19 16:45 16:45 00:45 Creatine Kinase 52 55 CK-MB (CK-2) 0.36 Troponin I 0.035 09/06/19 09/06/19 09/06/19 00:45 06:04 06:04 Creatine Kinase 50 CK-MB (CK-2) 0.46 0.41 Troponin I 0.032 0.031 Impressions: GI Bleed Scan Nuclear Medicine 08/26/19 00:00 IMPRESSION: FINDINGS CONSISTENT WITH ACTIVE GI BLEEDING IN THE SIGMOID COLON. Chest X-Ray 08/28/19 05:00 IMPRESSION: Opacity left lateral lung base, question atelectasis or pneumonia KUB X-Ray 08/31/19 00:00 IMPRESSION: Postoperative findings as detailed above without evidence of a mechanical bowel obstruction. 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 Distribution suggests embolic source. EVIDENCE OF ACUTE STROKE: YES. LEFT MCA and VERTEBROBASILAR. Assessment & Plan - Diagnosis (1) Subcutaneous abscess postop Is this a current diagnosis for this admission?: Yes - Time Critical Time spent with patient: Less than 15 minutes - Inpatient Certification Medical Necessity: Need for IV Antibiotics - Plan Summary Plan Summary: Patient is about 2 weeks post colectomy. Developed subcu abscess noted no yesterday. Lower half of the incision was opened and pus sent for culture. Started on wet-to-dry dressings every 12 hours. Also started on IV antibiotics per Dr. Oliver. 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
--- NOTE | 2019-09-07 19:18 | PDOC PROGRESS REPORT ---
Subjective Progress Note for:: 09/07/19 Subjective:: Patient is more verbally engaging today with improvement in her orientation. P.O intake remain a problem as well as swallowing although tolerating medication administration orally. PT and speech pathology evaluation today was impossible due to her noncompliance and uncooperative attitude with the staff. No reported fever. No vomiting or diarrhea. Abdominal wound continue to exude purulent material. Reason For Visit: LOWER GI BLEED,DM TYPE 2,HTN,GERD,CAD Physical Exam Vital Signs: Temp Pulse Resp BP Pulse Ox 97.9 F 76 20 132/62 H 97 09/07/19 03:22 09/07/19 07:00 09/07/19 04:00 09/07/19 06:00 09/07/19 04:00 Intake & Output 09/06/19 09/07/19 09/08/19 06:59 06:59 06:59 Intake Total 2536 1718 Output Total 575 925 Balance 1961 793 Weight 87.5 kg 86.1 kg Physical Exam: General appearance: PRESENT: no acute distress Head exam: PRESENT: atraumatic, normocephalic Eye exam: PRESENT: conjunctiva pink. ABSENT: pallor, scleral icterus Mouth exam: PRESENT: moist Respiratory exam: PRESENT: clear to auscultation, decreased breath sounds bilaterally Cardiovascular exam: PRESENT: Irregular rhythm, +S1, +S2. ABSENT: diastolic murmur, rubs, systolic murmur GI/Abdominal exam: PRESENT: normal bowel sounds, soft, minimal tenderness to palpation around lower surgical site with dressing in place. ABSENT: drainage tube is out, distended, guarding, mass, organomegaly, rebound Extremities exam: ABSENT: pedal edema Neurological exam: PRESENT: Disoriented, awake, oriented to person, new onset slurred speech since my last evaluation Psychiatric exam: PRESENT: appropriate affect, normal mood. ABSENT: homicidal ideation, suicidal ideation Skin exam: PRESENT: dry, warm, multiple surgical jim anterior abdominal wall site of recent subtotal colectomy in place with purulent drainage from lower section on the incision region. Results Laboratory Results: 09/07/19 05:22 09/07/19 05:22 09/07/19 09/07/19 05:22 05:22 WBC 5.8 RBC 3.83 Hgb 11.7 L Hct 33.4 L MCV 87 MCH 30.5 MCHC 35.0 RDW 15.4 H Plt Count 291 Seg Neutrophils % 70.7 Sodium 139.2 Potassium 3.4 L Chloride 112 H Carbon Dioxide 21 L Anion Gap 6 BUN 5 L Creatinine 0.44 L Est GFR ( Amer) > 60 Glucose 183 H Calcium 7.7 L Magnesium 1.9 Total Bilirubin 1.8 H AST 31 Alkaline Phosphatase 49 Total Protein 5.3 L Albumin 2.2 L 09/05/19 09/05/19 09/06/19 16:45 16:45 00:45 Creatine Kinase 52 55 CK-MB (CK-2) 0.36 Troponin I 0.035 09/06/19 09/06/19 09/06/19 00:45 06:04 06:04 Creatine Kinase 50 CK-MB (CK-2) 0.46 0.41 Troponin I 0.032 0.031 Impressions: GI Bleed Scan Nuclear Medicine 08/26/19 00:00 IMPRESSION: FINDINGS CONSISTENT WITH ACTIVE GI BLEEDING IN THE SIGMOID COLON. Chest X-Ray 08/28/19 05:00 IMPRESSION: Opacity left lateral lung base, question atelectasis or pneumonia KUB X-Ray 08/31/19 00:00 IMPRESSION: Postoperative findings as detailed above without evidence of a mechanical bowel obstruction. 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 Distribution suggests embolic source. EVIDENCE OF ACUTE STROKE: YES. LEFT MCA and VERTEBROBASILAR. Assessment & Plan - Diagnosis (1) Lower GI bleed Is this a current diagnosis for this admission?: Yes (2) Colonic diverticular disease Is this a current diagnosis for this admission?: Yes (3) Atrial fibrillation with rapid ventricular response Is this a current diagnosis for this admission?: Yes (4) Senile dementia with delirium Qualifiers: Dementia behavioral disturbance: without behavioral disturbance Qualified Code(s): F03.90 - Unspecified dementia without behavioral disturbance; F05 - Delirium due to known physiological condition Is this a current diagnosis for this admission?: Yes (5) Diabetes mellitus, type 2 Qualifiers: Diabetes mellitus long term care phlebotomist insulin use: without long term care phlebotomist use Diabetes mellitus complication status: with other specified complication Qualified Code(s): E11.69 - Type 2 diabetes mellitus with other specified complication Is this a current diagnosis for this admission?: Yes (6) Hypertension Qualifiers: Hypertension type: unspecified Qualified Code(s): I10 - Essential (primary) hypertension Is this a current diagnosis for this admission?: Yes (7) Coronary artery disease Qualifiers: Coronary Disease-Associated Artery/Lesion type: unspecified vessel or lesion type [place] vs. transplanted heart: [place] heart Associated angina: angina presence unspecified Qualified Code(s): I25.10 - Atherosclerotic heart disease of [place] coronary artery without angina pectoris Is this a current diagnosis for this admission?: Yes (8) Hyperlipidemia Qualifiers: Hyperlipidemia type: unspecified Qualified Code(s): E78.5 - Hyperlipidemia, unspecified Is this a current diagnosis for this admission?: Yes (9) Hypothyroidism Qualifiers: Hypothyroidism type: acquired Qualified Code(s): E03.9 - Hypothyroidism, unspecified Is this a current diagnosis for this admission?: Yes (10) GERD (gastroesophageal reflux disease) Qualifiers: Esophagitis presence: esophagitis presence not specified Qualified Code(s): K21.9 - Gastro-esophageal reflux disease without esophagitis Is this a current diagnosis for this admission?: Yes (11) Embolic stroke involving left vertebral artery Is this a current diagnosis for this admission?: Yes Plan: Continue oral anticoagulation therapy and rehabilitation efforts. (12) Left acute arterial ischemic stroke, MCA (middle cerebral artery) Is this a current diagnosis for this admission?: Yes Plan: Continue oral anticoagulation therapy and rehabilitation efforts. (13) Subcutaneous abscess postop Is this a current diagnosis for this admission?: Yes - Time Time Spent with patient: 25-34 minutes Level of Care: IMCU Medications reviewed and adjusted accordingly: Yes Anticipated discharge: SNF Within: Other - Inpatient Certification Based on my medical assessment, after consideration of the patient's comorbidities, presenting symptoms, or acuity I expect that the services needed warrant INPATIENT care.: Yes I certify that my determination is in accordance with my understanding of Medicare's requirements for reasonable and necessary INPATIENT services [42 CFR 412.3e].: Yes Medical Necessity: Significant Comorbidiites Make Outpatient Treatment Too Risky, Need Close Monitoring Due to Risk of Patient Decompensation, Need For Continuous Telemetry Monitoring, Need for IV Antibiotics, Need for Surgery, Risk of Complication if Not Cared For in Hospital, Risk of Diagnosis Which Will Require Inpatient Eval/Care/Monitoring Post Hospital Care: D/C or Transfer Summary - Plan Summary Plan Summary: Continue current antibiotic therapy. Follow up on culture findings. Consideration for wound vac placement discuss with surgical team. Potassium replacement in progress. Start on oral supplementation at meal time as per patient preference. Obtain AM labs.
--- NOTE | 2019-09-07 22:27 | Progress Note ---
Provider Note Provider Note: CARDIOLOGY PROGRESS NOTE by Dr. Manrique has been on 09/07/2019. SUBJECTIVE: The patient is back to baseline and is oriented x1. Her speech seems to be less slurred. The patient does take some medications at times. She is been taking Eliquis. She does not appear to be in any distress. Her heart rate is controlled controlled but still on IV Cardizem drip. We will see if we can transition just to p.o. from tomorrow. There is no bleeding on Eliquis. There is no recurrence of TIA or extension of the CVA. PHYSICAL EXAMINATION: The patient is a frail build. Appears ill looking. Selected Entries 09/07/19 16:29 Temperature 98.0 F Temperature Axillary Source Pulse Rate 96 Respiratory 16 Rate Blood Pressure 136/63 H Blood Pressure 87 Mean BP Location Left Arm BP Position Supine O2 Sat by Pulse 97 Oximetry Oxygen Delivery Room Air Method Head: Is atraumatic normocephalic. EYES: Pupils are equal round regular reactive light accommodation. Extraocular movements are normal. There is no conjunctival pallor. There is no scleral icterus. EARS: Tympanic membranes are intact. External auditory canals are clear. NOSE: There is no deviated nasal septum. There is no inflammation of his mucous membrane. MOUTH: Mucous membranes in the mouth are dry. Tongue is dry. There is no ulcers of the mouth. There is no bleeding from the gums. THROAT: There is no redness of the oropharynx. There is no exudates. Acute neck: Supple. There is no JVD. C arotids are equal there is no bruit. There is no lymphadenopathy. There is no goiter. There is no accessory muscles of respiration use. Trachea central. LUNGS: There is a few dry crackles in the right mid zone right base. There is no rhonchi or wheezing. There is no rales of CHF. HEART: S1-S2 is heard. S1 is a variable intensity. There is no S3 gallop. There is no S4 gallop. There is systolic murmur left sternal border and the apex. There is murmur of aortic sclerosis present. There is no aortic stenosis or aortic regurgitation murmur heard. There is no significant valvular stenotic or regurgitant murmur heard. There is no rub. ABDOMEN: Soft dressing is dry. There is no hepatosplenomegaly. Bowel sounds are present. There is dressing on the incision.. Extremities: Femorals are diminished there is no femoral bruits. Leg pulses are diminished. There is no pedal edema. There is no DVT or cellulitis. [employer] patient the patient is conscious awake oriented x1. With no f ocal deficits. PSYCHIATRIC: The patient does not appear to be agitated or anxious. Labs- All tests 24 hr 09/07/19 09/07/19 09/07/19 00:01 05:22 05:22 WBC 5.8 RBC 3.83 Hgb 11.7 L Hct 33.4 L MCV 87 MCH 30.5 MCHC 35.0 RDW 15.4 H Plt Count 291 Lymph % (Auto) 16.6 [place] % (Auto) 11.8 Eos % (Auto) 0.5 Baso % (Auto) 0.4 Absolute Neuts (auto) 4.1 Absolute Lymphs (auto) 1.0 Absolute Monos (auto) 0.7 Absolute Eos (auto) 0.0 Absolute Basos (auto) 0.0 Seg Neutrophils % 70.7 Sodium 139.2 Potassium 3.4 L Chloride 112 H Carbon Dioxide 21 L Anion Gap 6 BUN 5 L Creatinine 0.44 L Est GFR ( Amer) > 60 Est GFR (MDRD) Non-Af > 60 Glucose 183 H POC Glucose 233 H Calcium 7.7 L Magnesium 1.9 Total Bilirubin 1.8 H Direct Bilirubin 0.5 H Neonat Total Bilirubin Not Reportable Neonat Direct Bilirubin Not Reportable Neonat Indirect Bili Not Reportable AST 31 ALT 19 Alkaline Phosphatase 49 Total Protein 5.3 L Albumin 2.2 L 09/07/19 09/07/19 09/07/19 05:22 05:49 06:08 WBC RBC Hgb Hct MCV MCH MCHC RDW Plt Count Lymph % (Auto) [place] % (Auto) Eos % (Auto) Baso % (Auto) Absolute Neuts (auto) Absolute Lymphs (auto) Absolute Monos (auto) Absolute Eos (auto) Absolute Basos (auto) Seg Neutrophils % Sodium Potassium Chloride Carbon Dioxide Anion Gap BUN Creatinine Est GFR ( Amer) Est GFR (MDRD) Non-Af Glucose POC Glucose 195 H 182 H Calcium Magnesium 2.0 Total Bilirubin Direct Bilirubin Neonat Total Bilirubin Neonat Direct Bilirubin Neonat Indirect Bili AST ALT Alkaline Phosphatase Total Protein Albumin 09/07/19 09/07/19 11:47 23:41 WBC RBC Hgb Hct MCV MCH MCHC RDW Plt Count Lymph % (Auto) [place] % (Auto) Eos % (Auto) Baso % (Auto) Absolute Neuts (auto) Absolute Lymphs (auto) Absolute Monos (auto) Absolute Eos (auto) Absolute Basos (auto) Seg Neutrophils % Sodium Potassium Chloride Carbon Dioxide Anion Gap BUN Creatinine Est GFR ( Amer) Est GFR (MDRD) Non-Af Glucose POC Glucose 154 H 216 H Calcium Magnesium Total Bilirubin Direct Bilirubin Neonat Total Bilirubin Neonat Direct Bilirubin Neonat Indirect Bili AST ALT Alkaline Phosphatase Total Protein Albumin GI Bleed Scan Nuclear Medicine 08/26/19 00:00 IMPRESSION: FINDINGS CONSISTENT WITH ACTIVE GI BLEEDING IN THE SIGMOID COLON. Chest X-Ray 08/28/19 05:00 IMPRESSION: Opacity left lateral lung base, question atelectasis or pneumonia KUB X-Ray 08/31/19 00:00 IMPRESSION: Postoperative findings as detailed above without evidence of a mechanical bowel obstruction. 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 Distribution suggests embolic source. EVIDENCE OF ACUTE STROKE: YES. LEFT MCA and VERTEBROBASILAR. IMPRESSION/RECOMMENDATION: 1. 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 2. Lower GI bleed secondary to bleeding from sigmoid sigmoid diverticulum. S/p hemicolectomy. 3. Lower abdominal incisional wound infection draining pus. Continue antibiotics. Surgical hist on the case 4. Anemia: Patient's hemoglobin is dropped to 7.6 with decreased urine output. Recommend transfuse 2 units of packed RBCs as discussed with Dr. Reyes. . 5. Atrial fibrillation with rapid ventricular response. In view of the patient still being atrial fibrillation will discontinue the patient's amiodarone drip and start the patient on a Cardizem drip. We will also start the patient on d igoxin 0.125 mg IV push daily. Will discuss with the attending physician and the surgical hist to see if it is safe to start the patient on chronic anticoagulation. The patient still not taking by mouth fully. Hence we will continue the patient on IV Cardizem and IV digoxin until the patient is able to take orally.Anemia: Watch the patient's hemoglobin. 6. Possible pneumonia: Continue antibiotics 7. History of hypertension: Blood pressure stable. 8. Hypothyroidism on replacement. 9. Diabetes mellitus: Continue Accu-Cheks and treat blood sugars accordingly since the patient is n.p.o. 10. Alzheimer's dementia by history. This seems to be mild. Occasions reviewed. Medical management discussed with Dr. Reyes recommendations made. Medical decision making is of high complexity. Medical management and medication regimen will be discussed with Dr. Oliver. 40 minutes spent with patient more than 50% time spent in direct patient care. Will follow.
[2019-09-07] MEDS: ATORVASTATIN CALCIUM 80 MG TABLET PO SCH (22:45)
[2019-09-08] MEDS: INSULIN LISPRO 100 UNIT/ML 3 ML VIAL SUBCUT SCH ×5 (00:02→23:55)
--- NOTE | 2019-09-08 02:59 | Operative Report ---
Operative Report DATE OF SURGERY: 09/08/19 PREOPERATIVE DIAGNOSIS: Needed central line for Cardizem drip. Has poor periph eral veins for IV access POSTOPERATIVE DIAGNOSIS: Same OPERATION: Central line placement under ultrasound guidance SURGEON: PRIYANKA ALY ANESTHESIA: Local TISSUE REMOVED OR ALTERED: None COMPLICATIONS: None ESTIMATED BLOOD LOSS: 5 cc QUANTITATIVE BLOOD LOSS: 5 INTRAOPERATIVE FINDINGS: Normal right internal jugular vein by ultrasound PROCEDURE: After informed consent was obtained patient was placed in Trendelenburg position and the right neck prepped and draped in the sterile fashion. Patient has some stiffness of the neck and the nurses to hold her head to the left during the procedure. With the use of the ultrasound the right anterior internal jugular vein was not identified and the skin over it was then anesthetized with lidocai ne. The vein was subsequently punctured percutaneously and return flow on the needle was dark blood and nonpulsatile. A guidewire was then inserted through the needle to the superior vena cava and needle subsequently removed. Insertion site was then dilated and a triple-lumen catheter inserted through the guidewire to a distance of about 14 cm from the clavicle area. All the 3 ports were then aspirated blood easily and instilled saline easily. The catheter was then anchored to the skin with 3-0 silk Biopatch placed at the insertion site and a sterile transparent dressing placed over the Biopatch and catheter. A chest x- ray was later done which showed catheter in good position with no pneumothorax. Patient tolerated procedure well.
[2019-09-08] MEDS: PIPERACILLIN SODIUM/TAZOBACTAM 3.375 GM in NORMAL SALINE 100 ML IV SCH ×4 (03:09→22:26)
--- NOTE | 2019-09-08 03:17 | RADIOLOGY REPORT (SQ) ---
CHEST 1 VIEW on 09/08/2019 at 2:45 AM CLINICAL INDICATION: Central line placement COMPARISON: 08/28/2019 FINDINGS: New right IJ central venous catheter tip extends just into the right atrium. There is no pneumothorax. Mild biapical pulmonary scarring is noted. Cardiomegaly is noted. There are probable small bilateral pleural effusions. Mild vascular congestion is noted. Vascular calcification is noted in the aorta. IMPRESSION: Findings suggesting mild changes of CHF.
[2019-09-08] MEDS: METOPROLOL TARTRATE PF/INJ 5 MG/5 ML SDV IV SCH ×4 (03:39→13:19)
[2019-09-08 05:48] LABS: ABSOLUTE LYMPHOCYTES (AUTO) 0.7 10^3/uL (0.5-4.7); ABSOLUTE MONOCYTES (AUTO) 0.7 10^3/uL (0.1-1.4); ABSOLUTE NEUT (AUTO) 3.4 10^3/uL (1.7-8.2); BASOPHILS % (AUTO) 0.5 % (0-2); EOSINOPHILS % (AUTO) 0.6 % (0-6); HEMATOCRIT 31.3 % (36.0-47.0); HEMOGLOBIN 10.9 g/dL (12.0-15.5); MEAN CORPUSCULAR HEMOGLOBIN 30.4 pg (27.0-33.4); MEAN CORPUSCULAR HGB CONC 34.9 g/dL (32.0-36.0); MEAN CORPUSCULAR VOLUME 87 fl (80-97); PLATELET COUNT 321 10^3/uL (150-450); RED CELL DISTRIBUTION WIDTH 15.6 % (11.5-14.0); SEGMENTED NEUTROPHILS % (AUTO) 68.9 % (42-78); TOTAL CELLS COUNTED % (AUTO) 100 %; WHITE BLOOD COUNT 4.9 10^3/uL (4.0-10.5)
[2019-09-08 06:14] LABS: BLOOD UREA NITROGEN 3 mg/dL (7-20); CALCIUM 7.5 mg/dL (8.4-10.2); CARBON DIOXIDE 24 mmol/L (22-30); GLUCOSE 214 mg/dL (75-110)
[2019-09-08 06:20] LABS: CHLORIDE 107 mmol/L (98-107)
[2019-09-08 06:21] LABS: ANION GAP 5 (5-19)
--- NOTE | 2019-09-08 08:37 | PDOC PROGRESS REPORT ---
Subjective Progress Note for:: 09/08/19 Reason For Visit: LOWER GI BLEED,DM TYPE 2,HTN,GERD,CAD Physical Exam Vital Signs: Temp Pulse Resp BP Pulse Ox 98.4 F 72 20 127/70 H 100 09/08/19 04:00 09/08/19 08:00 09/08/19 04:00 09/08/19 08:00 09/08/19 04:00 Intake & Output 09/07/19 09/08/19 09/09/19 06:59 06:59 06:59 Intake Total 1718 2096 Output Total 928 4280 Balance 793 -254 Weight 86.1 kg 87.6 kg General appearance: PRESENT: no acute distress Head exam: PRESENT: normocephalic Eye exam: PRESENT: EOMI Ear exam: PRESENT: normal external ear exam Mouth exam: PRESENT: moist Neck exam: PRESENT: full ROM Respiratory exam: PRESENT: clear to auscultation jaison Cardiovascular exam: PRESENT: RRR Pulses: PRESENT: normal radial pulses, normal femoral pulses Breast: PRESENT: Normal GI/Abdominal exam: PRESENT: soft - Her abdomen is soft nontender the upper portion of this incision is clean and dry with jim intact the lower 4 cm of incision has been opened the wound examined the subcutaneous tissue was clean without evidence of infection or drainage. The wound is now been closed at bedside with Steri-Strips. Rectal exam: PRESENT: deferred Extremities exam: PRESENT: full ROM Neurological exam: PRESENT: altered, awake Skin exam: PRESENT: dry Results Laboratory Results: 09/08/19 05:35 09/08/19 05:35 09/07/19 09/08/19 09/08/19 05:22 05:35 05:35 WBC 4.9 RBC 3.60 L Hgb 10.9 L Hct 31.3 L MCV 87 MCH 30.4 MCHC 34.9 RDW 15.6 H Plt Count 321 Seg Neutrophils % 68.9 Sodium 135.1 L Potassium 3.0 L* Chloride 107 Carbon Dioxide 24 Anion Gap 5 BUN 3 L Creatinine 0.42 L Est GFR ( Amer) > 60 Glucose 214 H Calcium 7.5 L Magnesium 2.0 09/05/19 09/05/19 09/06/19 16:45 16:45 00:45 Creatine Kinase 52 55 CK-MB (CK-2) 0.36 Troponin I 0.035 09/06/19 09/06/19 09/06/19 00:45 06:04 06:04 Creatine Kinase 50 CK-MB (CK-2) 0.46 0.41 Troponin I 0.032 0.031 Impressions: GI Bleed Scan Nuclear Medicine 08/26/19 00:00 IMPRESSION: FINDINGS CONSISTENT WITH ACTIVE GI BLEEDING IN THE SIGMOID COLON. KUB X-Ray 08/31/19 00:00 IMPRESSION: Postoperative findings as detailed above without evidence of a mechanical bowel obstruction. 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 Distribution suggests embolic source. EVIDENCE OF ACUTE STROKE: YES. LEFT MCA and VERTEBROBASILAR. Chest X-Ray 09/08/19 02:16 IMPRESSION: Findings suggesting mild changes of CHF. Assessment & Plan - Diagnosis (1) Acute GI bleeding Is this a current diagnosis for this admission?: Yes - Plan Summary Plan Summary: Impression status post subtotal colectomy for diverticular bleeding. Recently the lower portion of the wound was opened for some drainage which most likely was seroma or a infected seroma. The wound is now clean and been Steri-Stripped closed. Recommendations is continued dry dressing to the top of the Steri-Strips in the lower abdomen and an abdominal binder. Surgery will sign off at this time please reconsult for any further problems.
[2019-09-08] MEDS: POTASSIUM CHLORIDE 20 MEQ/50 ML RTU IV SCH ×3 (08:39→13:02)
[2019-09-08] MEDS: NORMAL SALINE 1000 ML 1,000 ML IV PRN ×2 (08:40→19:26)
[2019-09-08] MEDS: RISPERIDONE 0.5 MG TAB.RAPDIS PO SCH ×2 (09:57→17:43)
[2019-09-08] MEDS: APIXABAN 5 MG TABLET PO SCH ×2 (09:57→17:43)
[2019-09-08] MEDS: DIGOXIN INJ 0.5 MG/2 ML AMPULE IV SCH (09:57)
[2019-09-08] MEDS: ZINC SULFATE 220 MG CAPSULE PO SCH (10:04)
[2019-09-08] MEDS: MULTIVITS W-MIN/IRON SOLN 60 ML PO SCH (10:13)
[2019-09-08] MEDS: VANCOMYCIN HCL 1,000 MG in DEXTROSE 5%-WATER 250 ML IV SCH (10:49)
[2019-09-08 11:03] LABS: VANCOMYCIN,TROUGH 11.7 ug/mL (5.0-20.0)
[2019-09-08] MEDS: DILTIAZEM HCL/D5W 125 MG/125 ML RTUINJ IV PRN (11:47)
--- NOTE | 2019-09-08 12:19 | RADIOLOGY REPORT (SQ) ---
EXAM DESCRIPTION: CT HEAD WITHOUT IMAGES COMPLETED DATE/TIME: 09/08/2019 12:07 pm REASON FOR STUDY: CVA/ICH COMPARISON: 09/05/2019 TECHNIQUE: Axial images acquired through the brain without intravenous contrast. Images reviewed wi th bone, brain and subdural windows. Additional sagittal and coronal reconstructions were generated. Images stored on PACS. All CT scanners at this facility use dose modulation, iterative reconstruction, and/or weight based d osing when appropriate to reduce radiation dose to as low as reasonably achievable (ALARA). [facility]: Dose Right [facility]: CareDose [facility]: Dose Right [facility]: Teradose 4D [facility]: Oodle RADIATION DOSE: CT Rad equipment meets quality standard of care and radiation dose reduction techniq ues were employed. CTDIvol: 48.6 mGy. DLP: 905 mGy-cm.mGy. LIMITATIONS: None. FINDINGS: VENTRICLES: Prominent. CEREBRUM: No masses. No hemorrhage. No midline shift. Areas of low density in the white matter mos t likely due to chronic micro-vascular ischemic change. No evidence for acute large vascular territo ry infarction. CEREBELLUM: No masses. No hemorrhage. No alteration of density. No evidence for acute infarction. EXTRAAXIAL SPACES: Age-related involutional change. No fluid collections. No masses. ORBITS AND GLOBE: No intra- or extraconal masses. Normal contour of globe without masses. Bilateral cataract surgery. CALVARIUM: No fracture. PARANASAL SINUSES: No fluid or mucosal thickening. SOFT TISSUES: No mass or hematoma. OTHER: No other significant finding. IMPRESSION: 1. NO EVIDENCE OF ACUTE INTRACRANIAL PROCESS. 2. CHRONIC CHANGES OF ATROPHY AND MICROVASCULAR ISCHEMIA. EVIDENCE OF ACUTE STROKE: NO. TECHNICAL DOCUMENTATION: JOB ID: [id number] Quality ID # [id number]: Final reports with documentation of one or more dose reduction techniques (e.g., Au tomated exposure control, adjustment of the mA and/or kV according to patient size, use of iterative reconstruction technique) 2010 [employer]- All Rights Reserved Reading location - IP/workstation name: [email or web address]
[2019-09-08] MEDS: MORPHINE SULFATE 10 MG/ML INJ IV PRN ×2 (16:57→22:26)
--- NOTE | 2019-09-08 16:57 | PDOC PROGRESS REPORT ---
Subjective Progress Note for:: 09/08/19 Subjective:: Patient demonstrated concern about increase somnolence this morning necessitating CT head for possible intracranial bleed on Eloquis anticoagulation and recent stroke. There was no acute event on the CT scan. She is more engaging this afternoon and oriented to person. Her oral intake remain a challenge. No vomiting or diarrhea. She continue to express pain to palpation of her abdomen. She denied any chest pain or difficulty with breathing. Reason For Visit: LOWER GI BLEED,DM TYPE 2,HTN,GERD,CAD Physical Exam Vital Signs: Temp Pulse Resp BP Pulse Ox 98.4 F 83 18 142/65 H 93 09/08/19 04:00 09/08/19 16:00 09/08/19 16:00 09/08/19 16:00 09/08/19 16:00 Intake & Output 09/07/19 09/08/19 09/09/19 06:59 06:59 06:59 Intake Total 1718 3096 674 Output Total 925 2350 Balance 793 746 674 Weight 86.1 kg 87.6 kg Physical Exam: General appearance: PRESENT: no acute distress Head exam: PRESENT: atraumatic, normocephalic Eye exam: PRESENT: conjunctiva pink. ABSENT: pallor, scleral icterus Mouth exam: PRESENT: moist Respiratory exam: PRESENT: clear to auscultation, decreased breath sounds bilaterally Cardiovascular exam: PRESENT: Irregular rhythm, +S1, +S2. ABSENT: diastolic murmur, rubs, systolic murmur GI/Abdominal exam: PRESENT: normal bowel sounds, soft, minimal tenderness to palpation around lower surgical site with dressing in place. ABSENT: drainage tube is out, distended, guarding, mass, organomegaly, rebound Extremities exam: ABSENT: pedal edema Neurological exam: PRESENT: Disoriented, awake, oriented to person, new onset slurred speech since my last evaluation Psychiatric exam: PRESENT: appropriate affect, normal mood. ABSENT: homicidal ideation, suicidal ideation Skin exam: PRESENT: dry, warm, multiple surgical jim anterior abdominal wall site of recent subtotal colectomy in place with purulent drainage from lower section on the incision region. Results Laboratory Results: 09/08/19 05:35 09/08/19 10:13 09/08/19 09/08/19 09/08/19 05:35 05:35 10:13 WBC 4.9 RBC 3.60 L Hgb 10.9 L Hct 31.3 L MCV 87 MCH 30.4 MCHC 34.9 RDW 15.6 H Plt Count 321 Seg Neutrophils % 68.9 Sodium 135.1 L Potassium 3.0 L* Chloride 107 Carbon Dioxide 24 Anion Gap 5 BUN 3 L Creatinine 0.42 L 0.43 L Est GFR ( Amer) > 60 > 60 Glucose 214 H Calcium 7.5 L 09/06/19 17:35 Abdomen - Incision Site Gram Stain - Final 09/05/19 09/05/19 09/06/19 16:45 16:45 00:45 Creatine Kinase 52 55 CK-MB (CK-2) 0.36 Troponin I 0.035 09/06/19 09/06/19 09/06/19 00:45 06:04 06:04 Creatine Kinase 50 CK-MB (CK-2) 0.46 0.41 Troponin I 0.032 0.031 Impressions: GI Bleed Scan Nuclear Medicine 08/26/19 00:00 IMPRESSION: FINDINGS CONSISTENT WITH ACTIVE GI BLEEDING IN THE SIGMOID COLON. KUB X-Ray 08/31/19 00:00 IMPRESSION: Postoperative findings as detailed above without evidence of a mechanical bowel obstruction. 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 Distribution suggests embolic source. EVIDENCE OF ACUTE STROKE: YES. LEFT MCA and VERTEBROBASILAR. Head CT 09/08/19 00:00 IMPRESSION: 1. NO EVIDENCE OF ACUTE INTRACRANIAL PROCESS. 2. CHRONIC CHANGES OF ATROPHY AND MICROVASCULAR ISCHEMIA. EVIDENCE OF ACUTE STROKE: NO. Chest X-Ray 09/08/19 02:16 IMPRESSION: Findings suggesting mild changes of CHF. Assessment & Plan - Diagnosis (1) Lower GI bleed Is this a current diagnosis for this admission?: Yes (2) Colonic diverticular disease Is this a current diagnosis for this admission?: Yes (3) Atrial fibrillation with rapid ventricular response Is this a current diagnosis for this admission?: Yes (4) Senile dementia with delirium Qualifiers: Dementia behavioral disturbance: without behavioral disturbance Qualified Code(s): F03.90 - Unspecified dementia without behavioral disturbance; F05 - Delirium due to known physiological condition Is this a current diagnosis for this admission?: Yes (5) Diabetes mellitus, type 2 Qualifiers: Diabetes mellitus termite helper insulin use: without senior care use Diabetes mellitus complication status: with other specified complication Qualified Code(s): E11.69 - Type 2 diabetes mellitus with other specified complication Is this a current diagnosis for this admission?: Yes (6) Hypertension Qualifiers: Hypertension type: unspecified Qualified Code(s): I10 - Essential (primary) hypertension Is this a current diagnosis for this admission?: Yes (7) Coronary artery disease Qualifiers: Coronary Disease-Associated Artery/Lesion type: unspecified vessel or lesion type [place] vs. transplanted heart: [place] heart Associated angina: angina presence unspecified Qualified Code(s): I25.10 - Atherosclerotic heart disease of [place] coronary artery without angina pectoris Is this a current diagnosis for this admission?: Yes (8) Hyperlipidemia Qualifiers: Hyperlipidemia type: unspecified Qualified Code(s): E78.5 - Hyperlipidemia, unspecified Is this a current diagnosis for this admission?: Yes (9) Hypothyroidism Qualifiers: Hypothyroidism type: acquired Qualified Code(s): E03.9 - Hypothyroidism, unspecified Is this a current diagnosis for this admission?: Yes (10) GERD (gastroesophageal reflux disease) Qualifiers: Esophagitis presence: esophagitis presence not specified Qualified Code(s): K21.9 - Gastro-esophageal reflux disease without esophagitis Is this a current diagnosis for this admission?: Yes (11) Embolic stroke involving left vertebral artery Is this a current diagnosis for this admission?: Yes (12) Left acute arterial ischemic stroke, MCA (middle cerebral artery) Is this a current diagnosis for this admission?: Yes (13) Subcutaneous abscess postop Is this a current diagnosis for this admission?: Yes Plan: E. coli and Gram negative rui identified. Blood culture remain no growth to date. Continue IV Zosyn and Vancomycin coverage. Discussed with surgical team use of wound vac for management. Follow up on final culture findings and adjust antibiotic coverage as indicated. (14) Hypokalemia due to inadequate potassium intake Is this a current diagnosis for this admission?: Yes Plan: Continue IV potassium rider administration for 60 mEq over next 6 hours. Obtain BMP, Mag in AM. - Time Time Spent with patient: 25-34 minutes Level of Care: IMCU Medications reviewed and adjusted accordingly: Yes Anticipated discharge: SNF Within: Other - Inpatient Certification Based on my medical assessment, after consideration of the patient's comorbidities, presenting symptoms, or acuity I expect that the services needed warrant INPATIENT care.: Yes I certify that my determination is in accordance with my understanding of Medicare's requirements for reasonable and necessary INPATIENT services [42 CFR 412.3e].: Yes Medical Necessity: Significant Comorbidiites Make Outpatient Treatment Too Risky, Need Close Monitoring Due to Risk of Patient Decompensation, Need For IV Fluids, Need For Continuous Telemetry Monitoring, Need for IV Antibiotics, Need for Surgery, Risk of Complication if Not Cared For in Hospital, Risk of Diagnosis Which Will Require Inpatient Eval/Care/Monitoring Post Hospital Care: D/C or Transfer Summary - Plan Summary Plan Summary: Start on IV Morphine 1 mg q4 hours prn for pain management. Maintain on all other current medication management. Cardiology and surgical teams contribution appreciated.
--- NOTE | 2019-09-08 21:03 | Progress Note ---
Provider Note Provider Note: CARDIOLOGY PROGRESS NOTE by Dr. Veena Grant on 09/08/2019. SUBJECTIVE: The patient is more obtunded and more lethargic. Raising the possibility of acute intracranial process especially given the fact that the patient is on Eliquis and the patient had recent CVA. A head CT obtained shows no evidence of intracranial hemorrhage or new CVA. She continues to be in atrial fibrillation. She is on IV Cardizem infusion. The patient's oral intake is been a problem. This is being addressed by Dr. Oliver. There is no ventricle arrhythmia seen on the monitor. PHYSICAL EXAMINATION: The patient is well-built in no acute distress. Selected Entries 09/08/19 09/08/19 08:00 08:56 Pulse Rate 72 Respiratory 18 Rate Blood Pressure 127/70 H O2 Sat by Pulse 95 Oximetry Oxygen Delivery Room Air Method ( includes room air) Head: Is atraumatic normocephalic. EYES: Pupils are equal round regular reactive light. There is no conjunctival pallor. There is no scleral icterus. EARS: Tympanic membranes are intact. External auditory canals are clear. NOSE: There is no deviated nasal septum. There is no inflammation of his mucous membrane. MOUTH: Mucous membranes in the mouth are dry. Tongue is dry. There is no ulcers of the mouth. There is no bleeding from the gums. THROAT: There is no redness of the oropharynx. There is no exudates. Acute neck: Supple. There is no JVD. Carotids are equal there is no bruit. There is no lymphadenopathy. There is no goiter. There is no accessory muscles of respiration use. Trachea central. LUNGS: There is a few dry crackles in the right mid zone right base. There is no rhonchi or wheezing. There is no rales of CHF. HEART: S1-S2 is heard. S1 is a variable intensity. There is no S3 gallop. There is no S4 gallop. There is systolic murmur left sternal border and the apex. There is murmur of aortic sclerosis present. There is no aortic stenosis or aortic regurgitation murmur heard. There is no significant valvular stenotic or regurgitant murmur heard. There is no rub. ABDOMEN: Soft dressing is dry. There is no hepatosplenomegaly. Bowel sounds are absent. Extremities: Femorals are diminished there is no femoral bruits. Leg pulses are diminished. There is no pedal edema. There is no DVT or cellulitis. SUPPORT MANAGER patient the patient is very lethargic and difficult to arouse. Hence mental status cannot be adequately assessed. She does move all 4 extremities.. PSYCHIATRIC: Due to the patient's mental status meaningful psychiatric examination could not be performed. Labs- All tests 24 hr 09/07/19 09/08/19 09/08/19 23:41 05:33 05:35 WBC 4.9 RBC 3.60 L Hgb 10.9 L Hct 31.3 L MCV 87 MCH 30.4 MCHC 34.9 RDW 15.6 H Plt Count 321 Lymph % (Auto) 15.0 [place] % (Auto) 15.0 H Eos % (Auto) 0.6 Baso % (Auto) 0.5 Absolute Neuts (auto) 3.4 Absolute Lymphs (auto) 0.7 Absolute Monos (auto) 0.7 Absolute Eos (auto) 0.0 Absolute Basos (auto) 0.0 Seg Neutrophils % 68.9 Sodium Potassium Chloride Carbon Dioxide Anion Gap BUN Creatinine Est GFR ( Amer) Est GFR (MDRD) Non-Af Glucose POC Glucose 216 H 200 H Calcium Time Trough Drawn Vancomycin Trough 09/08/19 09/08/19 09/08/19 05:35 10:13 10:13 WBC RBC Hgb Hct MCV MCH MCHC RDW Plt Count Lymph % (Auto) [place] % (Auto) Eos % (Auto) Baso % (Auto) Absolute Neuts (auto) Absolute Lymphs (auto) Absolute Monos (auto) Absolute Eos (auto) Absolute Basos (auto) Seg Neutrophils % Sodium 135.1 L Potassium 3.0 L* Chloride 107 Carbon Dioxide 24 Anion Gap 5 BUN 3 L Creatinine 0.42 L 0.43 L Est GFR ( Amer) > 60 > 60 Est GFR (MDRD) Non-Af > 60 > 60 Glucose 214 H POC Glucose Calcium 7.5 L Time Trough Drawn 1013 Vancomycin Trough 11.7 09/08/19 09/08/19 12:15 16:52 WBC RBC Hgb Hct MCV MCH MCHC RDW Plt Count Lymph % (Auto) [place] % (Auto) Eos % (Auto) Baso % (Auto) Absolute Neuts (auto) Absolute Lymphs (auto) Absolute Monos (auto) Absolute Eos (auto) Absolute Basos (auto) Seg Neutrophils % Sodium Potassium Chloride Carbon Dioxide Anion Gap BUN Creatinine Est GFR ( Amer) Est GFR (MDRD) Non-Af Glucose POC Glucose 219 H 171 H Calcium Time Trough Drawn Vancomycin Trough GI Bleed Scan Nuclear Medicine 08/26/19 00:00 IMPRESSION: FINDINGS CONSISTENT WITH ACTIVE GI BLEEDING IN THE SIGMOID COLON. Chest X-Ray 08/28/19 05:00 IMPRESSION: Opacity left lateral lung base, question atelectasis or pneumonia KUB X-Ray 08/31/19 00:00 IMPRESSION: Postoperative findings as detailed above without evidence of a mechanical bowel obstruction. 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 Distribution suggests embolic source. EVIDENCE OF ACUTE STROKE: YES. LEFT MCA and VERTEBROBASILAR. Head CT 09/08/19 00:00 IMPRESSION: 1. NO EVIDENCE OF ACUTE INTRACRANIAL PROCESS. 2. CHRONIC CHANGES OF ATROPHY AND MICROVASCULAR ISCHEMIA. EVIDENCE OF ACUTE STROKE: NO. Chest X-Ray 09/08/19 02:16 IMPRESSION: Findings suggesting mild changes of CHF. IMPRESSION/RECOMMENDATION: 1. 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 Increase in the patient's altered mental status was with obtundation. CT of the head shows no evidence of intracranial hemorrhage. Hence we will continue Eliquis. 2. Lower GI bleed secondary to bleeding from sigmoid sigmoid diverticulum. S/p hemicolectomy. 3. Lower abdominal incisional wound infection draining pus. Continue antibiotics. Surgical hist on the case 4. Anemia: Patient's hemoglobin is dropped to 7.6 with decreased urine output. Recommend transfuse 2 units of packed RBCs as discussed with Dr. Reyes. . 5. Atrial fibrillation with rapid ventricular response. In view of the patient still being atrial fibrillation will discontinue the patient's amiodarone drip and start the patient on a Cardizem drip. We will also start the patient on digoxin 0.125 mg IV push daily. Will discuss with the attending physician and the surgical hist to see if it is safe to start the patient on chronic anticoagulation. The patient still not taking by mouth fully. Hence we will continue the patient on IV Cardizem and IV digoxin until the patient is able to take orally.Anemia: Watch the patient's hemoglobin. 6. Possible pneumonia: Continue antibiotics 7. History of hypertension: Blood pressure stable. 8. Hypothyroidism on replacement. 9. Diabetes mellitus: Continue Accu-Cheks and treat blood sugars accordingly since the patient is n.p.o. 10. Alzheimer's dementia by history. This seems to be mild. Medications reviewed. Medical management and medical regimen discussed with Dr. Oliver. Medical decision making is of moderate complexity. 40-minute spent with patient with more than 50% time spent in direct patient care. Will follow.
[2019-09-08] MEDS: ATORVASTATIN CALCIUM 80 MG TABLET PO SCH (22:27)
[2019-09-08] MEDS: VANCOMYCIN HCL 1,250 MG in DEXTROSE 5%-WATER 250 ML IV SCH (22:55)
[2019-09-09] MEDS: MORPHINE SULFATE 10 MG/ML INJ IV PRN (03:42)
[2019-09-09] MEDS: PIPERACILLIN SODIUM/TAZOBACTAM 3.375 GM in NORMAL SALINE 100 ML IV SCH ×4 (03:42→21:10)
[2019-09-09] MEDS: INSULIN LISPRO 100 UNIT/ML 3 ML VIAL SUBCUT SCH ×3 (05:55→19:09)
[2019-09-09] MEDS: NORMAL SALINE 1000 ML 1,000 ML IV PRN (05:55)
[2019-09-09 06:24] LABS: ABSOLUTE EOSINOPHILS # (AUTO) 0.1 10^3/uL (0.0-0.6); ABSOLUTE MONOCYTES (AUTO) 0.7 10^3/uL (0.1-1.4); ABSOLUTE NEUT (AUTO) 4.1 10^3/uL (1.7-8.2); BASOPHILS % (AUTO) 0.4 % (0-2); EOSINOPHILS % (AUTO) 1.4 % (0-6); HEMATOCRIT 30.4 % (36.0-47.0); HEMOGLOBIN 10.4 g/dL (12.0-15.5); LYMPHOCYTES % (AUTO) 16.4 % (13-45); MEAN CORPUSCULAR HEMOGLOBIN 29.9 pg (27.0-33.4); MEAN CORPUSCULAR HGB CONC 34.2 g/dL (32.0-36.0); MEAN CORPUSCULAR VOLUME 87 fl (80-97); PLATELET COUNT 295 10^3/uL (150-450); RED BLOOD COUNT 3.48 10^6/uL (3.72-5.28); RED CELL DISTRIBUTION WIDTH 15.6 % (11.5-14.0); SEGMENTED NEUTROPHILS % (AUTO) 69.8 % (42-78); TOTAL CELLS COUNTED % (AUTO) 100 %; WHITE BLOOD COUNT 5.8 10^3/uL (4.0-10.5)
[2019-09-09 06:44] LABS: ALBUMIN 1.9 g/dL (3.5-5.0); ALKALINE PHOSPHATASE 43 U/L (38-126); ASPARTATE AMINO TRANSFERASE 23 U/L (14-36); BILIRUBIN,DIRECT 0.1 mg/dL (0.0-0.4); BILIRUBIN,TOTAL 1.1 mg/dL (0.2-1.3); BLOOD UREA NITROGEN 4 mg/dL (7-20); CALCIUM 7.4 mg/dL (8.4-10.2); CARBON DIOXIDE 24 mmol/L (22-30); GLUCOSE 200 mg/dL (75-110); POTASSIUM 3.1 mmol/L (3.6-5.0); TOTAL PROTEIN 4.6 g/dL (6.3-8.2)
[2019-09-09 06:50] LABS: CHLORIDE 109 mmol/L (98-107)
[2019-09-09 06:54] LABS: ANION GAP 3 (5-19)
[2019-09-09] MEDS: APIXABAN 5 MG TABLET PO SCH ×2 (10:19→19:08)
[2019-09-09] MEDS: RISPERIDONE 0.5 MG TAB.RAPDIS PO SCH ×2 (10:19→19:09)
[2019-09-09] MEDS: ZINC SULFATE 220 MG CAPSULE PO SCH (10:19)
[2019-09-09] MEDS: MULTIVITS W-MIN/IRON SOLN 60 ML PO SCH (10:20)
[2019-09-09] MEDS: DIGOXIN INJ 0.5 MG/2 ML AMPULE IV SCH (10:23)
[2019-09-09] MEDS: VANCOMYCIN HCL 1,250 MG in DEXTROSE 5%-WATER 250 ML IV SCH ×2 (10:24→21:58)
--- NOTE | 2019-09-09 18:56 | PDOC PROGRESS REPORT ---
Subjective Progress Note for:: 09/09/19 Subjective:: Patient is slightly agitated presently with baseline confusion. No reported chest pain or difficulty with breathing. No fever, No vomiting or diarrhea. PO intake remain a concern. Reason For Visit: LOWER GI BLEED,DM TYPE 2,HTN,GERD,CAD Physical Exam Vital Signs: Temp Pulse Resp BP Pulse Ox 97.2 F 54 L 20 120/43 L 98 09/09/19 07:09 09/09/19 07:09 09/09/19 07:09 09/09/19 07:09 09/09/19 07:09 Intake & Output 09/08/19 09/09/19 09/10/19 06:59 06:59 06:59 Intake Total 3096 2924 Output Total 2350 650 Balance 746 2274 Weight 87.6 kg 88.8 kg Physical Exam: General appearance: PRESENT: no acute distress Head exam: PRESENT: atraumatic, normocephalic Eye exam: PRESENT: conjunctiva pink. ABSENT: pallor, scleral icterus Mouth exam: PRESENT: moist Respiratory exam: PRESENT: clear to auscultation, decreased breath sounds bilaterally Cardiovascular exam: PRESENT: Irregular rhythm, +S1, +S2. ABSENT: diastolic murmur, rubs, systolic murmur GI/Abdominal exam: PRESENT: normal bowel sounds, soft, minimal tenderness around lower surgical site with dressing in place. ABSENT: drainage tube is out, distended, guarding, mass, organomegaly, rebound Extremities exam: ABSENT: pedal edema Neurological exam: PRESENT: Disoriented, awake, oriented to person, new onset slurred speech since my last evaluation Psychiatric exam: PRESENT: appropriate affect, normal mood. ABSENT: homicidal ideation, suicidal ideation Skin exam: PRESENT: dry, warm, multiple surgical jim anterior abdominal wall site of recent subtotal colectomy in place with purulent drainage from lower section on the incision region. Results Laboratory Results: 09/09/19 06:00 09/09/19 06:00 09/08/19 09/09/19 09/09/19 10:13 06:00 06:00 WBC 5.8 RBC 3.48 L Hgb 10.4 L Hct 30.4 L MCV 87 MCH 29.9 MCHC 34.2 RDW 15.6 H Plt Count 295 Seg Neutrophils % 69.8 Sodium 135.9 L Potassium 3.1 L Chloride 109 H Carbon Dioxide 24 Anion Gap 3 L BUN 4 L Creatinine 0.43 L 0.57 Est GFR ( Amer) > 60 > 60 Glucose 200 H Calcium 7.4 L Total Bilirubin 1.1 AST 23 Alkaline Phosphatase 43 Total Protein 4.6 L Albumin 1.9 L 09/06/19 17:35 Abdomen - Incision Site Gram Stain - Final 09/05/19 09/05/19 09/06/19 16:45 16:45 00:45 Creatine Kinase 52 55 CK-MB (CK-2) 0.36 Troponin I 0.035 09/06/19 09/06/19 09/06/19 00:45 06:04 06:04 Creatine Kinase 50 CK-MB (CK-2) 0.46 0.41 Troponin I 0.032 0.031 Impressions: GI Bleed Scan Nuclear Medicine 08/26/19 00:00 IMPRESSION: FINDINGS CONSISTENT WITH ACTIVE GI BLEEDING IN THE SIGMOID COLON. KUB X-Ray 08/31/19 00:00 IMPRESSION: Postoperative findings as detailed above without evidence of a mechanical bowel obstruction. 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 Distribution suggests embolic source. EVIDENCE OF ACUTE STROKE: YES. LEFT MCA and VERTEBROBASILAR. Head CT 09/08/19 00:00 IMPRESSION: 1. NO EVIDENCE OF ACUTE INTRACRANIAL PROCESS. 2. CHRONIC CHANGES OF ATROPHY AND MICROVASCULAR ISCHEMIA. EVIDENCE OF ACUTE STROKE: NO. Chest X-Ray 09/08/19 02:16 IMPRESSION: Findings suggesting mild changes of CHF. Assessment & Plan - Diagnosis (1) Lower GI bleed Is this a current diagnosis for this admission?: Yes (2) Colonic diverticular disease Is this a current diagnosis for this admission?: Yes (3) Atrial fibrillation with rapid ventricular response Is this a current diagnosis for this admission?: Yes (4) Senile dementia with delirium Qualifiers: Dementia behavioral disturbance: without behavioral disturbance Qualified Code(s): F03.90 - Unspecified dementia without behavioral disturbance; F05 - Delirium due to known physiological condition Is this a current diagnosis for this admission?: Yes (5) Diabetes mellitus, type 2 Qualifiers: Diabetes mellitus long-term insulin use: without manager terminal use Diabetes mellitus complication status: with other specified complication Qualified Code(s): E11.69 - Type 2 diabetes mellitus with other specified complication Is this a current diagnosis for this admission?: Yes (6) Hypertension Qualifiers: Hypertension type: unspecified Qualified Code(s): I10 - Essential (primary) hypertension Is this a current diagnosis for this admission?: Yes (7) Coronary artery disease Qualifiers: Coronary Disease-Associated Artery/Lesion type: unspecified vessel or lesion type [place] vs. transplanted heart: [place] heart Associated angina: angina presence unspecified Qualified Code(s): I25.10 - Atherosclerotic heart disease of [place] coronary artery without angina pectoris Is this a current diagnosis for this admission?: Yes (8) Hyperlipidemia Qualifiers: Hyperlipidemia type: unspecified Qualified Code(s): E78.5 - Hyperlipidemia, unspecified Is this a current diagnosis for this admission?: Yes (9) Hypothyroidism Qualifiers: Hypothyroidism type: acquired Qualified Code(s): E03.9 - Hypothyroidism, unspecified Is this a current diagnosis for this admission?: Yes (10) GERD (gastroesophageal reflux disease) Qualifiers: Esophagitis presence: esophagitis presence not specified Qualified Code(s): K21.9 - Gastro-esophageal reflux disease without esophagitis Is this a current diagnosis for this admission?: Yes (11) Embolic stroke involving left vertebral artery Is this a current diagnosis for this admission?: Yes (12) Left acute arterial ischemic stroke, MCA (middle cerebral artery) Is this a current diagnosis for this admission?: Yes (13) Subcutaneous abscess postop Is this a current diagnosis for this admission?: Yes (14) Hypokalemia due to inadequate potassium intake Is this a current diagnosis for this admission?: Yes - Time Time Spent with patient: 25-34 minutes Level of Care: IMCU Medications reviewed and adjusted accordingly: Yes Anticipated discharge: Home with Homehealth, SNF Within: Other - Inpatient Certification Based on my medical assessment, after consideration of the patient's comorbidities, presenting symptoms, or acuity I expect that the services needed warrant INPATIENT care.: Yes I certify that my determination is in accordance with my understanding of [facility]'s requirements for reasonable and necessary INPATIENT services [42 CFR 412.3e].: Yes Medical Necessity: Significant Comorbidiites Make Outpatient Treatment Too Risky, Need Close Monitoring Due to Risk of Patient Decompensation, Need For Continuous Telemetry Monitoring, Need for IV Antibiotics, Risk of Complication if Not Cared For in Hospital, Risk of Diagnosis Which Will Require Inpatient Eval/Care/Monitoring Post Hospital Care: D/C or Transfer Summary - Plan Summary Plan Summary: Continue current medication management. Follow up on blood culture regarding spectrum antibiotic coverage and with surgical team regarding wound management.
--- NOTE | 2019-09-09 19:39 | Progress Note ---
Provider Note Provider Note: CARDIOLOGY PROGRESS NOTE by Dr. Veena Grant on 09/09/2019 SUBJECTIVE: The patient is more confused. She is also hallucinating. She continues to be atrial fibrillation with ventricular response backslash. Oral intake is a problem. She continues to be on Cardizem drip which has been now increased from 5 mg/h to 10 mg/h. There is no ventricular arrhythmias seen on the monitor. Physical EXAMINATION: The patient is well-built. In no acute distress but is severely confused. Although she has hallucinations she is not agitated. Selected Entries 09/09/19 09/09/19 09/09/19 14:51 16:00 17:00 Pulse Rate 137 H Respiratory 18 Rate Blood Pressure 131/79 H O2 Sat by Pulse 96 Oximetry Oxygen Delivery Room Air Method Head: Is atraumatic normocephalic. EYES: Pupils are equal round regular reactive light. There is no conjunctival pallor. There is no scleral icterus. EARS: Tympanic membranes are intact. External auditory canals are clear. NOSE: There is no deviated nasal septum. There is no inflammation of his mucous membrane. MOUTH: Mucous membranes in the mouth are dry. Tongue is dry. There is no ulcers of the mouth. There is no bleeding from the gums. THROAT: There is no redness of the oropharynx. There is no exudates. Acute neck: Supple. There is no JVD. Carotids are equal there is no bruit. There is no lymphadenopathy. There is no goiter. There is no accessory muscles of respiration use. Trachea central. LUNGS: There is a few dry crackles in the right mid zone right base. There is no rhonchi or wheezing. There is no rales of CHF. HEART: S1-S2 is heard. S1 is a variable intensity. There is no S3 gallop. There is no S4 gallop. There is systolic murmur left sternal border and the apex. There is murmur of aortic sclerosis present. There is no aortic stenosis or aortic regurgitation murmur heard. There is no significant valvular stenotic or regurgitant murmur heard. There is no rub. ABDOMEN: Soft dressing is dry. There is no hepatosplenomegaly. Bowel sounds are absent. Extremities: Femorals are diminished there is no femoral bruits. Leg pulses are diminished. There is no pedal edema. There is no DVT or cellulitis. 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 Hence mental status cannot be adequately assessed. She does move all 4 extremities.. PSYCHIATRIC: Due to the patient's mental status meaningful psychiatric examination could not be performed Labs- All tests 24 hr 09/09/19 09/09/19 09/09/19 05:52 06:00 06:00 WBC 5.8 RBC 3.48 L Hgb 10.4 L Hct 30.4 L MCV 87 MCH 29.9 MCHC 34.2 RDW 15.6 H Plt Count 295 Lymph % (Auto) 16.4 Mcdowell % (Auto) 12.0 Eos % (Auto) 1.4 Baso % (Auto) 0.4 Absolute Neuts (auto) 4.1 Absolute Lymphs (auto) 1.0 Absolute Monos (auto) 0.7 Absolute Eos (auto) 0.1 Absolute Basos (auto) 0.0 Seg Neutrophils % 69.8 Sodium 135.9 L Potassium 3.1 L Chloride 109 H Carbon Dioxide 24 Anion Gap 3 L BUN 4 L Creatinine 0.57 Est GFR ( Amer) > 60 Est GFR (MDRD) Non-Af > 60 Glucose 200 H POC Glucose 221 H Calcium 7.4 L Total Bilirubin 1.1 Direct Bilirubin 0.1 Neonat Total Bilirubin Not Reportable Neonat Direct Bilirubin Not Reportable Neonat Indirect Bili Not Reportable AST 23 ALT 14 Alkaline Phosphatase 43 Total Protein 4.6 L Albumin 1.9 L 09/09/19 09/09/19 12:13 18:05 WBC RBC Hgb Hct MCV MCH MCHC RDW Plt Count Lymph % (Auto) Mcdowell % (Auto) Eos % (Auto) Baso % (Auto) Absolute Neuts (auto) Absolute Lymphs (auto) Absolute Monos (auto) Absolute Eos (auto) Absolute Basos (auto) Seg Neutrophils % Sodium Potassium Chloride Carbon Dioxide Anion Gap BUN Creatinine Est GFR ( Amer) Est GFR (MDRD) Non-Af Glucose POC Glucose 182 H 200 H Calcium Total Bilirubin Direct Bilirubin Neonat Total Bilirubin Neonat Direct Bilirubin Neonat Indirect Bili AST ALT Alkaline Phosphatase Total Protein Albumin GI Bleed Scan Nuclear Medicine 08/26/19 00:00 IMPRESSION: FINDINGS CONSISTENT WITH ACTIVE GI BLEEDING IN THE SIGMOID COLON. Chest X-Ray 08/28/19 05:00 IMPRESSION: Opacity left lateral lung base, question atelectasis or pneumonia KUB X-Ray 08/31/19 00:00 IMPRESSION: Postoperative findings as detailed above without evidence of a mechanical bowel obstruction. 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 Distribution suggests embolic source. EVIDENCE OF ACUTE STROKE: YES. LEFT MCA and VERTEBROBASILAR. Head CT 09/08/19 00:00 IMPRESSION: 1. NO EVIDENCE OF ACUTE INTRACRANIAL PROCESS. 2. CHRONIC CHANGES OF ATROPHY AND MICROVASCULAR ISCHEMIA. EVIDENCE OF ACUTE STROKE: NO. Chest X-Ray 09/08/19 02:16 IMPRESSION: Findings suggesting mild changes of CHF. IMPRESSION/RECOMMENDATION: 1. 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 Increase in the patient's altered mental status was with obtundation. CT of the head shows no evidence of intracranial hemorrhage. Hence we will continue Eliquis. 2. Lower GI bleed secondary to bleeding from sigmoid sigmoid diverticulum. S/p hemicolectomy. 3. Lower abdominal incisional wound infection draining pus. Continue antibiotics. Surgical hist on the case 4. Anemia: Patient's hemoglobin is dropped to 7.6 with decreased urine output. Recommend transfuse 2 units of packed RBCs as discussed with Dr. Reyes. . 5. Atrial fibrillation with rapid ventricular response. In view of the patient still being atrial fibrillation will discontinue the patient's amiodarone drip and start the patient on a Cardizem drip. We will also start the patient on digoxin 0.125 mg IV push daily. Will discuss with the attending physician and the surgical hist to see if it is safe to start the patient on chronic anticoagulation. The patient still not taking by mouth fully. Hence we will continue the patient on IV Cardizem and IV digoxin until the patient is able to take orally.Anemia: Watch the patient's hemoglobin. 6. Possible pneumonia: Continue antibiotics 7. History of hypertension: Blood pressure stable. 8. Hypothyroidism on replacement. 9. Diabetes mellitus: Continue Accu-Cheks and treat blood sugars accordingly since the patient is n.p.o. 10. Alzheimer's dementia by history. This seems to be mild. Medications reviewed. Medical management and medical regimen discussed with Dr. Osunkoya. Medical decision making is of moderate complexity. 40-minute spent with patient with more than 50% time spent in direct patient care. Will follow.
[2019-09-09] MEDS: ATORVASTATIN CALCIUM 80 MG TABLET PO SCH (21:10)
[2019-09-10] MEDS: POTASSI CL 20 MEQ/50 ML RIDER 20 MEQ/50 ML RTUPB IV SCH ×2 (01:10→02:44)
[2019-09-10] MEDS: INSULIN LISPRO 100 UNIT/ML 3 ML VIAL SUBCUT SCH ×4 (01:11→17:27)
[2019-09-10] MEDS: POTASSIUM CHLORIDE 20 MEQ/50 ML RTU IV SCH (02:45)
[2019-09-10] MEDS: PIPERACILLIN SODIUM/TAZOBACTAM 3.375 GM in NORMAL SALINE 100 ML IV SCH ×4 (03:21→21:25)
[2019-09-10] MEDS: DILTIAZEM HCL/D5W 125 MG/125 ML RTUINJ IV PRN (06:04)
[2019-09-10] MEDS: NORMAL SALINE 1000 ML 1,000 ML IV PRN ×2 (06:04→17:35)
[2019-09-10] MEDS: DIGOXIN INJ 0.5 MG/2 ML AMPULE IV SCH (09:46)
[2019-09-10] MEDS: RISPERIDONE 0.5 MG TAB.RAPDIS PO SCH ×2 (09:46→17:15)
[2019-09-10] MEDS: APIXABAN 5 MG TABLET PO SCH ×2 (09:46→17:15)
[2019-09-10] MEDS: MULTIVITS W-MIN/IRON SOLN 60 ML PO SCH (09:46)
[2019-09-10] MEDS: ZINC SULFATE 220 MG CAPSULE PO SCH (09:46)
[2019-09-10] MEDS: VANCOMYCIN HCL 1,250 MG in DEXTROSE 5%-WATER 250 ML IV SCH ×2 (10:43→22:18)
[2019-09-10 10:50] LABS: VANCOMYCIN,TROUGH 18.2 ug/mL (5.0-20.0)
--- NOTE | 2019-09-10 15:44 | PDOC PROGRESS REPORT ---
Subjective Progress Note for:: 09/10/19 Subjective:: Patient still demonstrate episodes of increase somnolence and confusion. No expressed chest pain or difficulty with breathing. poor PO intake persist and she continue to express pain in lower abdominal region and right arm/elbow region. No reported fever or chills. Reason For Visit: LOWER GI BLEED,DM TYPE 2,HTN,GERD,CAD Physical Exam Vital Signs: Temp Pulse Resp BP Pulse Ox 98.1 F 71 18 121/73 98 09/10/19 12:08 09/10/19 15:00 09/10/19 12:08 09/10/19 15:00 09/10/19 12:08 Intake & Output 09/09/19 09/10/19 09/11/19 06:59 06:59 06:59 Intake Total 3174 2189 1201 Output Total 650 3250 400 Balance 2524 -1061 801 Weight 88.8 kg 90 kg Physical Exam: General appearance: PRESENT: no acute distress Head exam: PRESENT: atraumatic, normocephalic Eye exam: PRESENT: conjunctiva pink. ABSENT: pallor, scleral icterus Mouth exam: PRESENT: moist Respiratory exam: PRESENT: clear to auscultation, decreased breath sounds bilaterally Cardiovascular exam: PRESENT: Irregular rhythm, +S1, +S2. ABSENT: diastolic murmur, rubs, systolic murmur GI/Abdominal exam: PRESENT: normal bowel sounds, soft, minimal tenderness around lower surgical site with dressing in place. ABSENT: drainage tube is out, distended, guarding, mass, organomegaly, rebound Extremities exam: ABSENT: pedal edema Neurological exam: PRESENT: Sleepy but arousable to painful stimuli wake, oriented to person when awaken. Psychiatric exam: PRESENT: appropriate affect, normal mood. ABSENT: homicidal ideation, suicidal ideation Skin exam: PRESENT: dry, warm, multiple surgical jim anterior abdominal wall site of recent subtotal colectomy in place with purulent drainage from lower section on the incision region. Results Laboratory Results: 09/09/19 06:00 09/10/19 09:55 09/09/19 09/10/19 06:00 09:55 Creatinine 0.73 Est GFR ( Amer) > 60 Magnesium 1.7 09/06/19 17:35 Abdomen - Incision Site Gram Stain - Final 09/06/19 17:35 Abdomen - Incision Site Wound Culture - Final Escherichia Coli Proteus Mirabilis Pseudomonas Aeruginosa Yeast, Not Garima Albicans 09/05/19 09/05/19 09/06/19 16:45 16:45 00:45 Creatine Kinase 52 55 CK-MB (CK-2) 0.36 Troponin I 0.035 09/06/19 09/06/19 09/06/19 00:45 06:04 06:04 Creatine Kinase 50 CK-MB (CK-2) 0.46 0.41 Troponin I 0.032 0.031 Impressions: GI Bleed Scan Nuclear Medicine 08/26/19 00:00 IMPRESSION: FINDINGS CONSISTENT WITH ACTIVE GI BLEEDING IN THE SIGMOID COLON. KUB X-Ray 08/31/19 00:00 IMPRESSION: Postoperative findings as detailed above without evidence of a mechanical bowel obstruction. 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 Distribution suggests embolic source. EVIDENCE OF ACUTE STROKE: YES. LEFT MCA and VERTEBROBASILAR. Head CT 09/08/19 00:00 IMPRESSION: 1. NO EVIDENCE OF ACUTE INTRACRANIAL PROCESS. 2. CHRONIC CHANGES OF ATROPHY AND MICROVASCULAR ISCHEMIA. EVIDENCE OF ACUTE STROKE: NO. Chest X-Ray 09/08/19 02:16 IMPRESSION: Findings suggesting mild changes of CHF. Assessment & Plan - Diagnosis (1) Lower GI bleed Is this a current diagnosis for this admission?: Yes (2) Colonic diverticular disease Is this a current diagnosis for this admission?: Yes (3) Atrial fibrillation with rapid ventricular response Is this a current diagnosis for this admission?: Yes (4) Senile dementia with delirium Qualifiers: Dementia behavioral disturbance: without behavioral disturbance Qualified Code(s): F03.90 - Unspecified dementia without behavioral disturbance; F05 - Del irium due to known physiological condition Is this a current diagnosis for this admission?: Yes (5) Diabetes mellitus, type 2 Qualifiers: Diabetes mellitus intermediate project manager insulin use: without intermediate project manager use Diabetes m ellitus complication status: with other specified complication Qualified Code(s): E11.69 - Type 2 diabetes mellitus with other specified complication Is this a current diagnosis for this admission?: Yes (6) Hypertension Qualifiers: Hypertension type: unspecified Qualified Code(s): I10 - Essential (primary) hypertension Is this a current diagnosis for this admission?: Yes (7) Coronary artery disease Qualifiers: Coronary Disease-Associated Artery/Lesion type: unspecified vessel or lesion type [place] vs. transplanted heart: [place] heart Associated angina: angina presence unspecified Qualified Code(s): I25.10 - Atherosclerotic heart disease of [place] coronary artery without angina pectoris Is this a current diagnosis for this admission?: Yes (8) Hyperlipidemia Qualifiers: Hyperlipidemia type: unspecified Qualified Code(s): E78.5 - Hyperlipidemia, unspecified Is this a current diagnosis for this admission?: Yes (9) Hypothyroidism Qualifiers: Hypothyroidism type: acquired Qualified Code(s): E03.9 - Hypothyroidism, unspecified Is this a current diagnosis for this admission?: Yes (10) GERD (gastroesophageal reflux disease) Qualifiers: Esophagitis presence: esophagitis presence not specified Qualified Code(s): K21.9 - Gastro-esophageal reflux disease without esophagitis Is this a current diagnosis for this admission?: Yes (11) Embolic stroke involving left vertebral artery Is this a current diagnosis for this admission?: Yes (12) Left acute arterial ischemic stroke, MCA (middle cerebral artery) Is this a current diagnosis for this admission?: Yes (13) Subcutaneous abscess postop Is this a current diagnosis for this admission?: Yes (14) Hypokalemia due to inadequate potassium intake Is this a current diagnosis for this admission?: Yes - Time Time Spent with patient: 25-34 minutes Level of Care: IMCU Medications reviewed and adjusted accordingly: Yes Anticipated discharge: Home with Homehealth, SNF Within: Other - Inpatient Certification Based on my medical assessment, after consideration of the patient's comorbi dities, presenting symptoms, or acuity I expect that the services needed warrant INPATIENT care.: Yes I certify that my determination is in accordance with my understanding of Medicare's requirements for reasonable and necessary INPATIENT services [42 CFR 412.3e].: Yes Medical Necessity: Significant Comorbidiites Make Outpatient Treatment Too Risky, Need Close Monitoring Due to Risk of Patient Decompensation, Need For Continuous Telemetry Monitoring, Need for IV Antibiotics, Risk of Complication if Not Cared For in Hospital, Risk of Diagnosis Which Will Require Inpatient Eval/Care/Monitoring Post Hospital Care: D/C or Transfer Summary - Plan Summary Plan Summary: Continue current medication management.Follow up on blood culture findings. Obtain CBC with diff and CMP in AM.
--- NOTE | 2019-09-10 20:08 | Progress Note ---
Provider Note Provider Note: Cardiology PROGRESS NOTE by Dr. Veena Grant on 09/10/2019. SUBJECTIVE the patient continues to be confused. She is not agitated. He continues to be in atrial fibrillation. P.o. intake is a problem. As the patient is on IV Cardizem. There is no ventricular arrhythmias seen on the monitor. There is no progression of this or recurrence of CVA. There is no bleeding on Eliquis. PHYSICAL EXAMINATION: The patient is well-built. Seems to be in no acute distress. Selected Entries 09/10/19 15:07 Temperature 98.0 F Temperature Oral Source Pulse Rate 98 Respiratory 18 Rate Blood Pressure 120/52 L Blood Pressure 74 Mean BP Location Left Arm BP Position Supine O2 Sat by Pulse 98 Oximetry Oxygen Delivery Room Air Method Head: Is atraumatic normocephalic. EYES: Pupils are equal round regular reactive light. There is no conjunctival pallor. There is no scleral icterus. EARS: Tympanic membranes are intact. External auditory canals are clear. NOSE: There is no deviated nasal septum. There is no inflammation of his mucous membrane. MOUTH: Mucous membranes in the mouth are dry. Tongue is dry. There is no ulcers of the mouth. There is no bleeding from the gums. THROAT: There is no redness of the oropharynx. There is no exudates. Acute neck: Supple. There is no JVD. Carotids are equal there is no bruit. There is no lymphadenopathy. There is no goiter. There is no accessory muscles of respiration use. Trachea central. LUNGS: There is a few dry crackles in the right mid zone right base. There is no rhonchi or wheezing. There is no rales of CHF. HEART: S1-S2 is heard. S1 is a variable intensity. There is no S3 gallop. There is no S4 gallop. There is systolic murmur left sternal border and the apex. There is murmur of aortic sclerosis present. There is no aortic stenosis or aortic regurgitation murmur heard. There is no significant valvular stenotic or regurgitant murmur heard. There is no rub. ABDOMEN: Soft dressing is dry. There is no hepatosplenomegaly. Bowel sounds are absent. Extremities: Femorals are diminished there is no femoral bruits. Leg pulses are diminished. There is no pedal edema. There is no DVT or cellulitis. 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 Hence mental status cannot be adequately assessed. She does move all 4 extremities.. PSYCHIATRIC: Due to the patient's mental status meaningful psychiatric examination could not be performed. GI Bleed Scan Nuclear Medicine 08/26/19 00:00 IMPRESSION: FINDINGS CONSISTENT WITH ACTIVE GI BLEEDING IN THE SIGMOID COLON. Chest X-Ray 08/28/19 05:00 IMPRESSION: Opacity left lateral lung base, question atelectasis or pneumonia KUB X-Ray 08/31/19 00:00 IMPRESSION: Postoperative findings as detailed above without evidence of a mechanical bowel obstruction. 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 Distribution suggests embolic source. EVIDENCE OF ACUTE STROKE: YES. LEFT MCA and VERTEBROBASILAR. Head CT 09/08/19 00:00 IMPRESSION: 1. NO EVIDENCE OF ACUTE INTRACRANIAL PROCESS. 2. CHRONIC CHANGES OF ATROPHY AND MICROVASCULAR ISCHEMIA. EVIDENCE OF ACUTE STROKE: NO. Chest X-Ray 09/08/19 02:16 IMPRESSION: Findings suggesting mild changes of CHF. Labs- Entire Visit 08/24/19 08/24/19 08/24/19 14:10 14:10 14:10 WBC 6.1 RBC 3.90 Hgb 11.5 L Hct 34.2 L MCV 88 MCH 29.4 MCHC 33.6 RDW 15.7 H Plt Count 185 Lymph % (Auto) Branch % (Auto) Eos % (Auto) Baso % (Auto) Reticulocyte # Absolute Neuts (auto) Absolute Lymphs (auto) Absolute Monos (auto) Absolute Eos (auto) Absolute Basos (auto) Total Counted Seg Neutrophils % Seg Neuts % (Manual) Band Neutrophils % Lymphocytes % (Manual) Monocytes % (Manual) Eosinophils % (Manual) Basophils % (Manual) Abs Neuts (Manual) Abs Lymphs (Manual) Abs Monocytes (Manual) Absolute Eos (Manual) Abs Basophils (Manual) Nucleated RBCs Toxic Vacuolation Platelet Comment Polychromasia Poikilocytosis Anisocytosis Ovalocytes [place] Cells Retic Count (auto) PT 16.2 H INR 1.29 APTT 27.6 Sodium 138.4 Potassium 4.0 Chloride 103 Carbon Dioxide 28 Anion Gap 7 BUN 15 Creatinine 0.67 Est GFR ( Amer) > 60 Est GFR (MDRD) Non-Af > 60 Glucose 91 POC Glucose Calcium 9.1 Magnesium Iron TIBC % Saturation Transferrin Ferritin Total Bilirubin 0.6 Direct Bilirubin 0.0 Neonat Total Bilirubin Not Reportable Neonat Direct Bilirubin Not Reportable Neonat Indirect Bili Not Reportable AST 20 ALT 12 Alkaline Phosphatase 40 Creatine Kinase CK-MB (CK-2) Troponin I Total Protein 7.4 Albumin 4.2 Prealbumin Triglycerides Cholesterol LDL Cholesterol Direct VLDL Cholesterol HDL Cholesterol Vitamin B12 Folate TSH Free T4 Free T3 pg/mL Random Cortisol Time Trough Drawn Vancomycin Trough Digoxin Blood Type Blood Type Confirm Antibody Screen Crossmatch 08/24/19 08/24/19 08/24/19 14:45 17:29 21:16 WBC RBC Hgb Hct MCV MCH MCHC RDW Plt Count Lymph % (Auto) Branch % (Auto) Eos % (Auto) Baso % (Auto) Reticulocyte # Absolute Neuts (auto) Absolute Lymphs (auto) Absolute Monos (auto) Absolute Eos (auto) Absolute Basos (auto) Total Counted Seg Neutrophils % Seg Neuts % (Manual) Band Neutrophils % Lymphocytes % (Manual) Monocytes % (Manual) Eosinophils % (Manual) Basophils % (Manual) Abs Neuts (Manual) Abs Lymphs (Manual) Abs Monocytes (Manual) Absolute Eos (Manual) Abs Basophils (Manual) Nucleated RBCs Toxic Vacuolation Platelet Comment Polychromasia Poikilocytosis Anisocytosis Ovalocytes [place] Cells Retic Count (auto) PT INR APTT Sodium Potassium Chloride Carbon Dioxide Anion Gap BUN Creatinine Est GFR ( Amer) Est GFR (MDRD) Non-Af Glucose POC Glucose 77 160 H 197 H Calcium Magnesium Iron TIBC % Saturation Transferrin Ferritin Total Bilirubin Direct Bilirubin Neonat Total Bilirubin Neonat Direct Bilirubin Neonat Indirect Bili AST ALT Alkaline Phosphatase Creatine Kinase CK-MB (CK-2) Troponin I Total Protein Albumin Prealbumin Triglycerides Cholesterol LDL Cholesterol Direct VLDL Cholesterol HDL Cholesterol Vitamin B12 Folate TSH Free T4 Free T3 pg/mL Random Cortisol Time Trough Drawn Vancomycin Trough Digoxin Blood Type Blood Type Confirm Antibody Screen Crossmatch 08/25/19 08/25/19 08/25/19 08:16 11:45 16:08 WBC RBC Hgb Hct MCV MCH MCHC RDW Plt Count Lymph % (Auto) Branch % (Auto) Eos % (Auto) Baso % (Auto) Reticulocyte # Absolute Neuts (auto) Absolute Lymphs (auto) Absolute Monos (auto) Absolute Eos (auto) Absolute Basos (auto) Total Counted Seg Neutrophils % Seg Neuts % (Manual) Band Neutrophils % Lymphocytes % (Manual) Monocytes % (Manual) Eosinophils % (Manual) Basophils % (Manual) Abs Neuts (Manual) Abs Lymphs (Manual) Abs Monocytes (Manual) Absolute Eos (Manual) Abs Basophils (Manual) Nucleated RBCs Toxic Vacuolation Platelet Comment Polychromasia Poikilocytosis Anisocytosis Ovalocytes [place] Cells Retic Count (auto) PT INR APTT Sodium Potassium Chloride Carbon Dioxide Anion Gap BUN Creatinine Est GFR ( Amer) Est GFR (MDRD) Non-Af Glucose POC Glucose 168 H 110 96 Calcium Magnesium Iron TIBC % Saturation Transferrin Ferritin Total Bilirubin Direct Bilirubin Neonat Total Bilirubin Neonat Direct Bilirubin Neonat Indirect Bili AST ALT Alkaline Phosphatase Creatine Kinase CK-MB (CK-2) Troponin I Total Protein Albumin Prealbumin Triglycerides Cholesterol LDL Cholesterol Direct VLDL Cholesterol HDL Cholesterol Vitamin B12 Folate TSH Free T4 Free T3 pg/mL Random Cortisol Time Trough Drawn Vancomycin Trough Digoxin Blood Type Blood Type Confirm Antibody Screen Crossmatch 08/25/19 08/26/19 08/26/19 21:13 03:30 07:54 WBC 6.2 RBC 3.13 L Hgb 9.2 L D Hct 27.6 L MCV 88 MCH 29.5 MCHC 33.4 RDW 15.6 H Plt Count 154 Lymph % (Auto) 40.3 Branch % (Auto) 10.6 Eos % (Auto) 1.5 Baso % (Auto) 0.8 Reticulocyte # Absolute Neuts (auto) 2.9 Absolute Lymphs (auto) 2.5 Absolute Monos (auto) 0.7 Absolute Eos (auto) 0.1 Absolute Basos (auto) 0.0 Total Counted Seg Neutrophils % 46.8 Seg Neuts % (Manual) Band Neutrophils % Lymphocytes % (Manual) Monocytes % (Manual) Eosinophils % (Manual) Basophils % (Manual) Abs Neuts (Manual) Abs Lymphs (Manual) Abs Monocytes (Manual) Absolute Eos (Manual) Abs Basophils (Manual) Nucleated RBCs Toxic Vacuolation Platelet Comment Polychromasia Poikilocytosis Anisocytosis Ovalocytes [place] Cells Retic Count (auto) PT INR APTT Sodium Potassium Chloride Carbon Dioxide Anion Gap BUN Creatinine Est GFR ( Amer) Est GFR (MDRD) Non-Af Glucose POC Glucose 107 93 Calcium Magnesium Iron TIBC % Saturation Transferrin Ferritin Total Bilirubin Direct Bilirubin Neonat Total Bilirubin Neonat Direct Bilirubin Neonat Indirect Bili AST ALT Alkaline Phosphatase Creatine Kinase CK-MB (CK-2) Troponin I Total Protein Albumin Prealbumin Triglycerides Cholesterol LDL Cholesterol Direct VLDL Cholesterol HDL Cholesterol Vitamin B12 Folate TSH Free T4 Free T3 pg/mL Random Cortisol Time Trough Drawn Vancomycin Trough Digoxin Blood Type Blood Type Confirm Antibody Screen Crossmatch 08/26/19 08/26/19 08/26/19 10:33 11:37 11:51 WBC 6.2 RBC 2.42 L Hgb 7.2 L Hct 21.3 L MCV 88 MCH 29.6 MCHC 33.7 RDW 15.9 H Plt Count 132 L Lymph % (Auto) 37.9 Branch % (Auto) 7.5 Eos % (Auto) 0.7 Baso % (Auto) 0.5 Reticulocyte # Absolute Neuts (auto) 3.3 Absolute Lymphs (auto) 2.4 Absolute Monos (auto) 0.5 Absolute Eos (auto) 0.0 Absolute Basos (auto) 0.0 Total Counted Seg Neutrophils % 53.4 Seg Neuts % (Manual) Band Neutrophils % Lymphocytes % (Manual) Monocytes % (Manual) Eosinophils % (Manual) Basophils % (Manual) Abs Neuts (Manual) Abs Lymphs (Manual) Abs Monocytes (Manual) Absolute Eos (Manual) Abs Basophils (Manual) Nucleated RBCs Toxic Vacuolation Platelet Comment Polychromasia Poikilocytosis Anisocytosis Ovalocytes [place] Cells Retic Count (auto) PT INR APTT Sodium Potassium Chloride Carbon Dioxide Anion Gap BUN Creatinine Est GFR ( Amer) Est GFR (MDRD) Non-Af Glucose POC Glucose 133 H Calcium Magnesium Iron TIBC % Saturation Transferrin Ferritin Total Bilirubin Direct Bilirubin Neonat Total Bilirubin Neonat Direct Bilirubin Neonat Indirect Bili AST ALT Alkaline Phosphatase Creatine Kinase CK-MB (CK-2) Troponin I Total Protein Albumin Prealbumin Triglycerides Cholesterol LDL Cholesterol Direct VLDL Cholesterol HDL Cholesterol Vitamin B12 Folate TSH Free T4 Free T3 pg/mL Random Cortisol Time Trough Drawn Vancomycin Trough Digoxin Blood Type A POSITIVE Blood Type Confirm A POSITIVE Antibody Screen NEGATIVE Crossmatch See Detail 08/26/19 08/26/19 08/26/19 18:42 18:42 18:42 WBC 3.9 L RBC 3.37 L Hgb 10.0 L D Hct 30.0 L MCV 89 MCH 29.8 MCHC 33.5 RDW 15.3 H Plt Count 81 L Lymph % (Auto) 32.4 Branch % (Auto) 6.7 Eos % (Auto) 0.1 Baso % (Auto) 0.2 Reticulocyte # Absolute Neuts (auto) 2.4 Absolute Lymphs (auto) 1.3 Absolute Monos (auto) 0.3 Absolute Eos (auto) 0.0 Absolute Basos (auto) 0.0 Total Counted Seg Neutrophils % 60.6 Seg Neuts % (Manual) Band Neutrophils % Lymphocytes % (Manual) Monocytes % (Manual) Eosinophils % (Manual) Basophils % (Manual) Abs Neuts (Manual) Abs Lymphs (Manual) Abs Monocytes (Manual) Absolute Eos (Manual) Abs Basophils (Manual) Nucleated RBCs Toxic Vacuolation Platelet Comment Polychromasia Poikilocytosis Anisocytosis Ovalocytes [place] Cells Retic Count (auto) PT 18.4 H INR 1.51 APTT Sodium 139.3 Potassium 4.0 Chloride 113 H Carbon Dioxide 18 L Anion Gap 8 BUN 13 Creatinine 0.54 Est GFR ( Amer) > 60 Est GFR (MDRD) Non-Af > 60 Glucose 204 H POC Glucose Calcium 7.4 L Magnesium Iron TIBC % Saturation Transferrin Ferritin Total Bilirubin Direct Bilirubin Neonat Total Bilirubin Neonat Direct Bilirubin Neonat Indirect Bili AST ALT Alkaline Phosphatase Creatine Kinase CK-MB (CK-2) Troponin I Total Protein Albumin Prealbumin Triglycerides Cholesterol LDL Cholesterol Direct VLDL Cholesterol HDL Cholesterol Vitamin B12 Folate TSH Free T4 Free T3 pg/mL Random Cortisol Time Trough Drawn Vancomycin Trough Digoxin Blood Type Blood Type Confirm Antibody Screen Crossmatch 08/26/19 08/27/19 08/27/19 23:11 00:18 04:30 WBC 4.1 6.4 RBC 3.04 L 3.01 L Hgb 9.1 L 8.9 L Hct 26.9 L 26.3 L MCV 88 88 MCH 29.9 29.6 MCHC 33.9 33.8 RDW 15.0 H 14.8 H Plt Count 87 L 89 L Lymph % (Auto) 11.2 L 10.3 L Branch % (Auto) 10.3 8.0 Eos % (Auto) 0.0 0.0 Baso % (Auto) 0.1 0.3 Reticulocyte # Absolute Neuts (auto) 3.2 5.2 Absolute Lymphs (auto) 0.5 0.7 Absolute Monos (auto) 0.4 0.5 Absolute Eos (auto) 0.0 0.0 Absolute Basos (auto) 0.0 0.0 Total Counted Seg Neutrophils % 78.4 H 81.4 H Seg Neuts % (Manual) Band Neutrophils % Lymphocytes % (Manual) Monocytes % (Manual) Eosinophils % (Manual) Basophils % (Manual) Abs Neuts (Manual) Abs Lymphs (Manual) Abs Monocytes (Manual) Absolute Eos (Manual) Abs Basophils (Manual) Nucleated RBCs Toxic Vacuolation Platelet Comment Polychromasia Poikilocytosis Anisocytosis Ovalocytes [place] Cells Retic Count (auto) PT INR APTT Sodium Potassium Chloride Carbon Dioxide Anion Gap BUN Creatinine Est GFR ( Amer) Est GFR (MDRD) Non-Af Glucose POC Glucose 214 H Calcium Magnesium Iron TIBC % Saturation Transferrin Ferritin Total Bilirubin Direct Bilirubin Neonat Total Bilirubin Neonat Direct Bilirubin Neonat Indirect Bili AST ALT Alkaline Phosphatase Creatine Kinase CK-MB (CK-2) Troponin I Total Protein Albumin Prealbumin Triglycerides Cholesterol LDL Cholesterol Direct VLDL Cholesterol HDL Cholesterol Vitamin B12 Folate TSH Free T4 Free T3 pg/mL Random Cortisol Time Trough Drawn Vancomycin Trough Digoxin Blood Type Blood Type Confirm Antibody Screen Crossmatch 08/27/19 08/27/19 08/27/19 04:30 04:30 04:30 WBC RBC Hgb Hct MCV MCH MCHC RDW Plt Count Lymph % (Auto) Branch % (Auto) Eos % (Auto) Baso % (Auto) Reticulocyte # Absolute Neuts (auto) Absolute Lymphs (auto) Absolute Monos (auto) Absolute Eos (auto) Absolute Basos (auto) Total Counted Seg Neutrophils % Seg Neuts % (Manual) Band Neutrophils % Lymphocytes % (Manual) Monocytes % (Manual) Eosinophils % (Manual) Basophils % (Manual) Abs Neuts (Manual) Abs Lymphs (Manual) Abs Monocytes (Manual) Absolute Eos (Manual) Abs Basophils (Manual) Nucleated RBCs Toxic Vacuolation Platelet Comment Polychromasia Poikilocytosis Anisocytosis Ovalocytes [place] Cells Retic Count (auto) PT INR APTT Sodium 138.7 Potassium 4.0 Chloride 111 H Carbon Dioxide 17 L Anion Gap 11 BUN 10 Creatinine 0.72 Est GFR ( Amer) > 60 Est GFR (MDRD) Non-Af > 60 Glucose 233 H POC Glucose Calcium 6.9 L* Magnesium Iron TIBC % Saturation Transferrin Ferritin Total Bilirubin Direct Bilirubin Neonat Total Bilirubin Neonat Direct Bilirubin Neonat Indirect Bili AST ALT Alkaline Phosphatase Creatine Kinase CK-MB (CK-2) Troponin I Total Protein Albumin 2.4 L Prealbumin Triglycerides Cholesterol LDL Cholesterol Direct VLDL Cholesterol HDL Cholesterol Vitamin B12 Folate TSH 2.38 Free T4 1.57 Free T3 pg/mL 1.94 L Random Cortisol Time Trough Drawn Vancomycin Trough Digoxin Blood Type Blood Type Confirm Antibody Screen Crossmatch 08/27/19 08/27/19 08/27/19 05:45 11:57 14:16 WBC RBC Hgb Hct MCV MCH MCHC RDW Plt Count Lymph % (Auto) Branch % (Auto) Eos % (Auto) Baso % (Auto) Reticulocyte # Absolute Neuts (auto) Absolute Lymphs (auto) Absolute Monos (auto) Absolute Eos (auto) Absolute Basos (auto) Total Counted Seg Neutrophils % Seg Neuts % (Manual) Band Neutrophils % Lymphocytes % (Manual) Monocytes % (Manual) Eosinophils % (Manual) Basophils % (Manual) Abs Neuts (Manual) Abs Lymphs (Manual) Abs Monocytes (Manual) Absolute Eos (Manual) Abs Basophils (Manual) Nucleated RBCs Toxic Vacuolation Platelet Comment Polychromasia Poikilocytosis Anisocytosis Ovalocytes [place] Cells Retic Count (auto) PT INR APTT Sodium Potassium Chloride Carbon Dioxide Anion Gap BUN Creatinine Est GFR ( Amer) Est GFR (MDRD) Non-Af Glucose POC Glucose 211 H 216 H 189 H Calcium Magnesium Iron TIBC % Saturation Transferrin Ferritin Total Bilirubin Direct Bilirubin Neonat Total Bilirubin Neonat Direct Bilirubin Neonat Indirect Bili AST ALT Alkaline Phosphatase Creatine Kinase CK-MB (CK-2) Troponin I Total Protein Albumin Prealbumin Triglycerides Cholesterol LDL Cholesterol Direct VLDL Cholesterol HDL Cholesterol Vitamin B12 Folate TSH Free T4 Free T3 pg/mL Random Cortisol Time Trough Drawn Vancomycin Trough Digoxin Blood Type Blood Type Confirm Antibody Screen Crossmatch 08/27/19 08/27/19 08/27/19 15:44 17:15 23:27 WBC 11.7 H RBC 3.20 L Hgb 9.7 L Hct 27.8 L MCV 87 MCH 30.3 MCHC 34.8 RDW 14.9 H Plt Count 93 L Lymph % (Auto) Branch % (Auto) Eos % (Auto) Baso % (Auto) Reticulocyte # Absolute Neuts (auto) Absolute Lymphs (auto) Absolute Monos (auto) Absolute Eos (auto) Absolute Basos (auto) Total Counted Seg Neutrophils % Seg Neuts % (Manual) Band Neutrophils % Lymphocytes % (Manual) Monocytes % (Manual) Eosinophils % (Manual) Basophils % (Manual) Abs Neuts (Manual) Abs Lymphs (Manual) Abs Monocytes (Manual) Absolute Eos (Manual) Abs Basophils (Manual) Nucleated RBCs Toxic Vacuolation Platelet Comment Polychromasia Poikilocytosis Anisocytosis Ovalocytes [place] Cells Retic Count (auto) PT INR APTT Sodium Potassium Chloride Carbon Dioxide Anion Gap BUN Creatinine Est GFR ( Amer) Est GFR (MDRD) Non-Af Glucose POC Glucose 207 H 165 H Calcium Magnesium Iron TIBC % Saturation Transferrin Ferritin Total Bilirubin Direct Bilirubin Neonat Total Bilirubin Neonat Direct Bilirubin Neonat Indirect Bili AST ALT Alkaline Phosphatase Creatine Kinase CK-MB (CK-2) Troponin I Total Protein Albumin Prealbumin Triglycerides Cholesterol LDL Cholesterol Direct VLDL Cholesterol HDL Cholesterol Vitamin B12 Folate TSH Free T4 Free T3 pg/mL Random Cortisol Time Trough Drawn Vancomycin Trough Digoxin Blood Type Blood Type Confirm Antibody Screen Crossmatch 08/28/19 08/28/19 08/28/19 04:24 04:24 04:24 WBC 11.3 H RBC 3.10 L Hgb 9.4 L Hct 27.1 L MCV 87 MCH 30.2 MCHC 34.5 RDW 15.4 H Plt Count 93 L Lymph % (Auto) Not Reportable Branch % (Auto) Not Reportable Eos % (Auto) Not Reportable Baso % (Auto) Not Reportable Reticulocyte # Absolute Neuts (auto) Not Reportable Absolute Lymphs (auto) Not Reportable Absolute Monos (auto) Not Reportable Absolute Eos (auto) Not Reportable Absolute Basos (auto) Not Reportable Total Counted 100 Seg Neutrophils % Not Reportable Seg Neuts % (Manual) 85 H Band Neutrophils % 4 Lymphocytes % (Manual) 5 L Monocytes % (Manual) 6 Eosinophils % (Manual) 0 Basophils % (Manual) 0 Abs Neuts (Manual) 10.1 H Abs Lymphs (Manual) 0.6 Abs Monocytes (Manual) 0.7 Absolute Eos (Manual) 0.0 Abs Basophils (Manual) 0.0 Nucleated RBCs Toxic Vacuolation PRESENT Platelet Comment DECREASED Polychromasia Poikilocytosis Anisocytosis SLIGHT Ovalocytes [place] Cells Retic Count (auto) PT INR APTT Sodium 138.4 Potassium 3.6 Chloride 112 H Carbon Dioxide 17 L Anion Gap 9 BUN 12 Creatinine 0.65 Est GFR ( Amer) > 60 Est GFR (MDRD) Non-Af > 60 Glucose 191 H POC Glucose Calcium 7.4 L Magnesium 1.6 Iron TIBC % Saturation Transferrin Ferritin Total Bilirubin Direct Bilirubin Neonat Total Bilirubin Neonat Direct Bilirubin Neonat Indirect Bili AST ALT Alkaline Phosphatase Creatine Kinase CK-MB (CK-2) Troponin I Total Protein Albumin Prealbumin 11.1 L Triglycerides Cholesterol LDL Cholesterol Direct VLDL Cholesterol HDL Cholesterol Vitamin B12 Folate TSH Free T4 Free T3 pg/mL Random Cortisol 49.80 Time Trough Drawn Vancomycin Trough Digoxin Blood Type Blood Type Confirm Antibody Screen Crossmatch 08/28/19 08/28/19 08/28/19 05:57 11:05 17:32 WBC RBC Hgb Hct MCV MCH MCHC RDW Plt Count Lymph % (Auto) Branch % (Auto) Eos % (Auto) Baso % (Auto) Reticulocyte # Absolute Neuts (auto) Absolute Lymphs (auto) Absolute Monos (auto) Absolute Eos (auto) Absolute Basos (auto) Total Counted Seg Neutrophils % Seg Neuts % (Manual) Band Neutrophils % Lymphocytes % (Manual) Monocytes % (Manual) Eosinophils % (Manual) Basophils % (Manual) Abs Neuts (Manual) Abs Lymphs (Manual) Abs Monocytes (Manual) Absolute Eos (Manual) Abs Basophils (Manual) Nucleated RBCs Toxic Vacuolation Platelet Comment Polychromasia Poikilocytosis Anisocytosis Ovalocytes [place] Cells Retic Count (auto) PT INR APTT Sodium Potassium Chloride Carbon Dioxide Anion Gap BUN Creatinine Est GFR ( Amer) Est GFR (MDRD) Non-Af Glucose POC Glucose 193 H 191 H 164 H Calcium Magnesium Iron TIBC % Saturation Transferrin Ferritin Total Bilirubin Direct Bilirubin Neonat Total Bilirubin Neonat Direct Bilirubin Neonat Indirect Bili AST ALT Alkaline Phosphatase Creatine Kinase CK-MB (CK-2) Troponin I Total Protein Albumin Prealbumin Triglycerides Cholesterol LDL Cholesterol Direct VLDL Cholesterol HDL Cholesterol Vitamin B12 Folate TSH Free T4 Free T3 pg/mL Random Cortisol Time Trough Drawn Vancomycin Trough Digoxin Blood Type Blood Type Confirm Antibody Screen Crossmatch 08/29/19 08/29/19 08/29/19 02:19 04:33 04:33 WBC 11.1 H RBC 2.89 L Hgb 8.7 L Hct 25.5 L MCV 88 MCH 30.1 MCHC 34.1 RDW 15.3 H Plt Count 105 L Lymph % (Auto) Not Reportable Branch % (Auto) Not Reportable Eos % (Auto) Not Reportable Baso % (Auto) Not Reportable Reticulocyte # Absolute Neuts (auto) Not Reportable Absolute Lymphs (auto) Not Reportable Absolute Monos (auto) Not Reportable Absolute Eos (auto) Not Reportable Absolute Basos (auto) Not Reportable Total Counted 100 Seg Neutrophils % Not Reportable Seg Neuts % (Manual) 90 H Band Neutrophils % 2 L Lymphocytes % (Manual) 5 L Monocytes % (Manual) 3 Eosinophils % (Manual) 0 Basophils % (Manual) 0 Abs Neuts (Manual) 10.2 H Abs Lymphs (Manual) 0.6 Abs Monocytes (Manual) 0.3 Absolute Eos (Manual) 0.0 Abs Basophils (Manual) 0.0 Nucleated RBCs Toxic Vacuolation PRESENT Platelet Comment DECREASED Polychromasia SLIGHT Poikilocytosis SLIGHT Anisocytosis SLIGHT Ovalocytes SLIGHT [place] Cells SLIGHT Retic Count (auto) PT INR APTT Sodium Potassium Chloride Carbon Dioxide Anion Gap BUN Creatinine Est GFR ( Amer) Est GFR (MDRD) Non-Af Glucose POC Glucose 146 H Calcium Magnesium Iron TIBC % Saturation Transferrin Ferritin Total Bilirubin Direct Bilirubin Neonat Total Bilirubin Neonat Direct Bilirubin Neonat Indirect Bili AST ALT Alkaline Phosphatase Creatine Kinase CK-MB (CK-2) Troponin I Total Protein Albumin Prealbumin Triglycerides Cholesterol LDL Cholesterol Direct VLDL Cholesterol HDL Cholesterol Vitamin B12 Folate TSH Free T4 Free T3 pg/mL Random Cortisol Time Trough Drawn Vancomycin Trough Digoxin 1.31 Blood Type Blood Type Confirm Antibody Screen Crossmatch 08/29/19 08/29/19 08/29/19 04:33 05:51 11:35 WBC RBC Hgb Hct MCV MCH MCHC RDW Plt Count Lymph % (Auto) Branch % (Auto) Eos % (Auto) Baso % (Auto) Reticulocyte # Absolute Neuts (auto) Absolute Lymphs (auto) Absolute Monos (auto) Absolute Eos (auto) Absolute Basos (auto) Total Counted Seg Neutrophils % Seg Neuts % (Manual) Band Neutrophils % Lymphocytes % (Manual) Monocytes % (Manual) Eosinophils % (Manual) Basophils % (Manual) Abs Neuts (Manual) Abs Lymphs (Manual) Abs Monocytes (Manual) Absolute Eos (Manual) Abs Basophils (Manual) Nucleated RBCs Toxic Vacuolation Platelet Comment Polychromasia Poikilocytosis Anisocytosis Ovalocytes [place] Cells Retic Count (auto) PT INR APTT Sodium 134.7 L Potassium 3.6 Chloride 110 H Carbon Dioxide 19 L Anion Gap 6 BUN 9 Creatinine 0.63 Est GFR ( Amer) > 60 Est GFR (MDRD) Non-Af > 60 Glucose 146 H POC Glucose 152 H 137 H Calcium 7.4 L Magnesium 1.8 Iron TIBC % Saturation Transferrin Ferritin Total Bilirubin Direct Bilirubin Neonat Total Bilirubin Neonat Direct Bilirubin Neonat Indirect Bili AST ALT Alkaline Phosphatase Creatine Kinase CK-MB (CK-2) Troponin I Total Protein Albumin Prealbumin Triglycerides Cholesterol LDL Cholesterol Direct VLDL Cholesterol HDL Cholesterol Vitamin B12 Folate TSH Free T4 Free T3 pg/mL Random Cortisol Time Trough Drawn Vancomycin Trough Digoxin Blood Type Blood Type Confirm Antibody Screen Crossmatch 08/29/19 08/30/19 08/30/19 18:22 00:04 05:56 WBC RBC Hgb Hct MCV MCH MCHC RDW Plt Count Lymph % (Auto) Branch % (Auto) Eos % (Auto) Baso % (Auto) Reticulocyte # Absolute Neuts (auto) Absolute Lymphs (auto) Absolute Monos (auto) Absolute Eos (auto) Absolute Basos (auto) Total Counted Seg Neutrophils % Seg Neuts % (Manual) Band Neutrophils % Lymphocytes % (Manual) Monocytes % (Manual) Eosinophils % (Manual) Basophils % (Manual) Abs Neuts (Manual) Abs Lymphs (Manual) Abs Monocytes (Manual) Absolute Eos (Manual) Abs Basophils (Manual) Nucleated RBCs Toxic Vacuolation Platelet Comment Polychromasia Poikilocytosis Anisocytosis Ovalocytes [place] Cells Retic Count (auto) PT INR APTT Sodium Potassium Chloride Carbon Dioxide Anion Gap BUN Creatinine Est GFR ( Amer) Est GFR (MDRD) Non-Af Glucose POC Glucose 150 H 177 H 161 H Calcium Magnesium Iron TIBC % Saturation Transferrin Ferritin Total Bilirubin Direct Bilirubin Neonat Total Bilirubin Neonat Direct Bilirubin Neonat Indirect Bili AST ALT Alkaline Phosphatase Creatine Kinase CK-MB (CK-2) Troponin I Total Protein Albumin Prealbumin Triglycerides Cholesterol LDL Cholesterol Direct VLDL Cholesterol HDL Cholesterol Vitamin B12 Folate TSH Free T4 Free T3 pg/mL Random Cortisol Time Trough Drawn Vancomycin Trough Digoxin Blood Type Blood Type Confirm Antibody Screen Crossmatch 08/30/19 08/30/19 08/30/19 10:50 10:50 12:10 WBC 9.6 RBC 2.72 L Hgb 8.3 L Hct 23.6 L MCV 87 MCH 30.7 MCHC 35.3 RDW 15.2 H Plt Count 143 L Lymph % (Auto) Not Reportable Branch % (Auto) Not Reportable Eos % (Auto) Not Reportable Baso % (Auto) Not Reportable Reticulocyte # Absolute Neuts (auto) Not Reportable Absolute Lymphs (auto) Not Reportable Absolute Monos (auto) Not Reportable Absolute Eos (auto) Not Reportable Absolute Basos (auto) Not Reportable Total Counted 100 Seg Neutrophils % Not Reportable Seg Neuts % (Manual) 86 H Band Neutrophils % 1 L Lymphocytes % (Manual) 8 L Monocytes % (Manual) 5 Eosinophils % (Manual) 0 Basophils % (Manual) 0 Abs Neuts (Manual) 8.4 H Abs Lymphs (Manual) 0.8 Abs Monocytes (Manual) 0.5 Absolute Eos (Manual) 0.0 Abs Basophils (Manual) 0.0 Nucleated RBCs Toxic Vacuolation PRESENT Platelet Comment DECREASED Polychromasia SLIGHT Poikilocytosis Anisocytosis SLIGHT Ovalocytes [place] Cells Retic Count (auto) PT INR APTT Sodium 133.9 L Potassium 4.0 Chloride 109 H Carbon Dioxide 19 L Anion Gap 6 BUN 9 Creatinine 0.64 Est GFR ( Amer) > 60 Est GFR (MDRD) Non-Af > 60 Glucose 158 H POC Glucose 159 H Calcium 7.5 L Magnesium Iron TIBC % Saturation Transferrin Ferritin Total Bilirubin 1.1 Direct Bilirubin 0.0 Neonat Total Bilirubin Not Reportable Neonat Direct Bilirubin Not Reportable Neonat Indirect Bili Not Reportable AST 26 ALT 17 Alkaline Phosphatase 50 Creatine Kinase CK-MB (CK-2) Troponin I Total Protein 4.7 L Albumin 2.2 L Prealbumin Triglycerides Cholesterol LDL Cholesterol Direct VLDL Cholesterol HDL Cholesterol Vitamin B12 Folate TSH Free T4 Free T3 pg/mL Random Cortisol Time Trough Drawn Vancomycin Trough Digoxin Blood Type Blood Type Confirm Antibody Screen Crossmatch 08/30/19 08/31/19 08/31/19 23:36 06:21 18:09 WBC RBC Hgb Hct MCV MCH MCHC RDW Plt Count Lymph % (Auto) Branch % (Auto) Eos % (Auto) Baso % (Auto) Reticulocyte # Absolute Neuts (auto) Absolute Lymphs (auto) Absolute Monos (auto) Absolute Eos (auto) Absolute Basos (auto) Total Counted Seg Neutrophils % Seg Neuts % (Manual) Band Neutrophils % Lymphocytes % (Manual) Monocytes % (Manual) Eosinophils % (Manual) Basophils % (Manual) Abs Neuts (Manual) Abs Lymphs (Manual) Abs Monocytes (Manual) Absolute Eos (Manual) Abs Basophils (Manual) Nucleated RBCs Toxic Vacuolation Platelet Comment Polychromasia Poikilocytosis Anisocytosis Ovalocytes [place] Cells Retic Count (auto) PT INR APTT Sodium Potassium Chloride Carbon Dioxide Anion Gap BUN Creatinine Est GFR ( Amer) Est GFR (MDRD) Non-Af Glucose POC Glucose 185 H 162 H 157 H Calcium Magnesium Iron TIBC % Saturation Transferrin Ferritin Total Bilirubin Direct Bilirubin Neonat Total Bilirubin Neonat Direct Bilirubin Neonat Indirect Bili AST ALT Alkaline Phosphatase Creatine Kinase CK-MB (CK-2) Troponin I Total Protein Albumin Prealbumin Triglycerides Cholesterol LDL Cholesterol Direct VLDL Cholesterol HDL Cholesterol Vitamin B12 Folate TSH Free T4 Free T3 pg/mL Random Cortisol Time Trough Drawn Vancomycin Trough Digoxin Blood Type Blood Type Confirm Antibody Screen Crossmatch 08/31/19 09/01/19 09/01/19 23:53 06:00 11:32 WBC RBC Hgb Hct MCV MCH MCHC RDW Plt Count Lymph % (Auto) Branch % (Auto) Eos % (Auto) Baso % (Auto) Reticulocyte # Absolute Neuts (auto) Absolute Lymphs (auto) Absolute Monos (auto) Absolute Eos (auto) Absolute Basos (auto) Total Counted Seg Neutrophils % Seg Neuts % (Manual) Band Neutrophils % Lymphocytes % (Manual) Monocytes % (Manual) Eosinophils % (Manual) Basophils % (Manual) Abs Neuts (Manual) Abs Lymphs (Manual) Abs Monocytes (Manual) Absolute Eos (Manual) Abs Basophils (Manual) Nucleated RBCs Toxic Vacuolation Platelet Comment Polychromasia Poikilocytosis Anisocytosis Ovalocytes [place] Cells Retic Count (auto) PT INR APTT Sodium Potassium Chloride Carbon Dioxide Anion Gap BUN Creatinine Est GFR ( Amer) Est GFR (MDRD) Non-Af Glucose POC Glucose 185 H 166 H 186 H Calcium Magnesium Iron TIBC % Saturation Transferrin Ferritin Total Bilirubin Direct Bilirubin Neonat Total Bilirubin Neonat Direct Bilirubin Neonat Indirect Bili AST ALT Alkaline Phosphatase Creatine Kinase CK-MB (CK-2) Troponin I Total Protein Albumin Prealbumin Triglycerides Cholesterol LDL Cholesterol Direct VLDL Cholesterol HDL Cholesterol Vitamin B12 Folate TSH Free T4 Free T3 pg/mL Random Cortisol Time Trough Drawn Vancomycin Trough Digoxin Blood Type Blood Type Confirm Antibody Screen Crossmatch 09/01/19 09/01/19 09/01/19 18:55 18:55 18:55 WBC 8.4 RBC 2.89 L Hgb 8.8 L Hct 25.5 L MCV 88 MCH 30.4 MCHC 34.4 RDW 15.6 H Plt Count 230 Lymph % (Auto) Not Reportable Branch % (Auto) Not Reportable Eos % (Auto) Not Reportable Baso % (Auto) Not Reportable Reticulocyte # Absolute Neuts (auto) Not Reportable Absolute Lymphs (auto) Not Reportable Absolute Monos (auto) Not Reportable Absolute Eos (auto) Not Reportable Absolute Basos (auto) Not Reportable Total Counted 100 Seg Neutrophils % Not Reportable Seg Neuts % (Manual) 78 Band Neutrophils % 3 Lymphocytes % (Manual) 13 Monocytes % (Manual) 6 Eosinophils % (Manual) 0 Basophils % (Manual) 0 Abs Neuts (Manual) 6.8 Abs Lymphs (Manual) 1.1 Abs Monocytes (Manual) 0.5 Absolute Eos (Manual) 0.0 Abs Basophils (Manual) 0.0 Nucleated RBCs 3 Toxic Vacuolation Platelet Comment ADEQUATE Polychromasia 1+ Poikilocytosis Anisocytosis 1+ Ovalocytes 1+ [place] Cells Retic Count (auto) PT INR APTT Sodium 133.0 L Potassium 4.7 Chloride 107 Carbon Dioxide 18 L Anion Gap 8 BUN 6 L Creatinine 0.43 L Est GFR ( Amer) > 60 Est GFR (MDRD) Non-Af > 60 Glucose 175 H POC Glucose Calcium 7.9 L Magnesium 1.9 Iron TIBC % Saturation Transferrin Ferritin Total Bilirubin 1.6 H Direct Bilirubin 0.3 Neonat Total Bilirubin Not Reportable Neonat Direct Bilirubin Not Reportable Neonat Indirect Bili Not Reportable AST 38 H ALT 25 Alkaline Phosphatase 53 Creatine Kinase CK-MB (CK-2) Troponin I Total Protein 5.2 L Albumin 2.3 L Prealbumin Triglycerides Cholesterol LDL Cholesterol Direct VLDL Cholesterol HDL Cholesterol Vitamin B12 Folate TSH Free T4 Free T3 pg/mL Random Cortisol Time Trough Drawn Vancomycin Trough Digoxin Blood Type Blood Type Confirm Antibody Screen Crossmatch 09/01/19 09/02/19 09/02/19 23:23 06:09 10:49 WBC RBC Hgb Hct MCV MCH MCHC RDW Plt Count Lymph % (Auto) Branch % (Auto) Eos % (Auto) Baso % (Auto) Reticulocyte # Absolute Neuts (auto) Absolute Lymphs (auto) Absolute Monos (auto) Absolute Eos (auto) Absolute Basos (auto) Total Counted Seg Neutrophils % Seg Neuts % (Manual) Band Neutrophils % Lymphocytes % (Manual) Monocytes % (Manual) Eosinophils % (Manual) Basophils % (Manual) Abs Neuts (Manual) Abs Lymphs (Manual) Abs Monocytes (Manual) Absolute Eos (Manual) Abs Basophils (Manual) Nucleated RBCs Toxic Vacuolation Platelet Comment Polychromasia Poikilocytosis Anisocytosis Ovalocytes [place] Cells Retic Count (auto) PT INR APTT Sodium Potassium Chloride Carbon Dioxide Anion Gap BUN Creatinine Est GFR ( Amer) Est GFR (MDRD) Non-Af Glucose POC Glucose 182 H 186 H 162 H Calcium Magnesium Iron TIBC % Saturation Transferrin Ferritin Total Bilirubin Direct Bilirubin Neonat Total Bilirubin Neonat Direct Bilirubin Neonat Indirect Bili AST ALT Alkaline Phosphatase Creatine Kinase CK-MB (CK-2) Troponin I Total Protein Albumin Prealbumin Triglycerides Cholesterol LDL Cholesterol Direct VLDL Cholesterol HDL Cholesterol Vitamin B12 Folate TSH Free T4 Free T3 pg/mL Random Cortisol Time Trough Drawn Vancomycin Trough Digoxin Blood Type Blood Type Confirm Antibody Screen Crossmatch 09/02/19 09/03/19 09/03/19 17:11 00:02 05:38 WBC RBC Hgb Hct MCV MCH MCHC RDW Plt Count Lymph % (Auto) Branch % (Auto) Eos % (Auto) Baso % (Auto) Reticulocyte # Absolute Neuts (auto) Absolute Lymphs (auto) Absolute Monos (auto) Absolute Eos (auto) Absolute Basos (auto) Total Counted Seg Neutrophils % Seg Neuts % (Manual) Band Neutrophils % Lymphocytes % (Manual) Monocytes % (Manual) Eosinophils % (Manual) Basophils % (Manual) Abs Neuts (Manual) Abs Lymphs (Manual) Abs Monocytes (Manual) Absolute Eos (Manual) Abs Basophils (Manual) Nucleated RBCs Toxic Vacuolation Platelet Comment Polychromasia Poikilocytosis Anisocytosis Ovalocytes [place] Cells Retic Count (auto) PT INR APTT Sodium Potassium Chloride Carbon Dioxide Anion Gap BUN Creatinine Est GFR ( Amer) Est GFR (MDRD) Non-Af Glucose POC Glucose 160 H 181 H 170 H Calcium Magnesium Iron TIBC % Saturation Transferrin Ferritin Total Bilirubin Direct Bilirubin Neonat Total Bilirubin Neonat Direct Bilirubin Neonat Indirect Bili AST ALT Alkaline Phosphatase Creatine Kinase CK-MB (CK-2) Troponin I Total Protein Albumin Prealbumin Triglycerides Cholesterol LDL Cholesterol Direct VLDL Cholesterol HDL Cholesterol Vitamin B12 Folate TSH Free T4 Free T3 pg/mL Random Cortisol Time Trough Drawn Vancomycin Trough Digoxin Blood Type Blood Type Confirm Antibody Screen Crossmatch 09/03/19 09/03/19 09/04/19 12:15 17:59 00:53 WBC RBC Hgb Hct MCV MCH MCHC RDW Plt Count Lymph % (Auto) Branch % (Auto) Eos % (Auto) Baso % (Auto) Reticulocyte # Absolute Neuts (auto) Absolute Lymphs (auto) Absolute Monos (auto) Absolute Eos (auto) Absolute Basos (auto) Total Counted Seg Neutrophils % Seg Neuts % (Manual) Band Neutrophils % Lymphocytes % (Manual) Monocytes % (Manual) Eosinophils % (Manual) Basophils % (Manual) Abs Neuts (Manual) Abs Lymphs (Manual) Abs Monocytes (Manual) Absolute Eos (Manual) Abs Basophils (Manual) Nucleated RBCs Toxic Vacuolation Platelet Comment Polychromasia Poikilocytosis Anisocytosis Ovalocytes [place] Cells Retic Count (auto) PT INR APTT Sodium Potassium Chloride Carbon Dioxide Anion Gap BUN Creatinine Est GFR ( Amer) Est GFR (MDRD) Non-Af Glucose POC Glucose 203 H 199 H 193 H Calcium Magnesium Iron TIBC % Saturation Transferrin Ferritin Total Bilirubin Direct Bilirubin Neonat Total Bilirubin Neonat Direct Bilirubin Neonat Indirect Bili AST ALT Alkaline Phosphatase Creatine Kinase CK-MB (CK-2) Troponin I Total Protein Albumin Prealbumin Triglycerides Cholesterol LDL Cholesterol Direct VLDL Cholesterol HDL Cholesterol Vitamin B12 Folate TSH Free T4 Free T3 pg/mL Random Cortisol Time Trough Drawn Vancomycin Trough Digoxin Blood Type Blood Type Confirm Antibody Screen Crossmatch 09/04/19 09/04/19 09/04/19 06:17 12:39 19:02 WBC RBC Hgb Hct MCV MCH MCHC RDW Plt Count Lymph % (Auto) Branch % (Auto) Eos % (Auto) Baso % (Auto) Reticulocyte # Absolute Neuts (auto) Absolute Lymphs (auto) Absolute Monos (auto) Absolute Eos (auto) Absolute Basos (auto) Total Counted Seg Neutrophils % Seg Neuts % (Manual) Band Neutrophils % Lymphocytes % (Manual) Monocytes % (Manual) Eosinophils % (Manual) Basophils % (Manual) Abs Neuts (Manual) Abs Lymphs (Manual) Abs Monocytes (Manual) Absolute Eos (Manual) Abs Basophils (Manual) Nucleated RBCs Toxic Vacuolation Platelet Comment Polychromasia Poikilocytosis Anisocytosis Ovalocytes [place] Cells Retic Count (auto) PT INR APTT Sodium Potassium Chloride Carbon Dioxide Anion Gap BUN Creatinine Est GFR ( Amer) Est GFR (MDRD) Non-Af Glucose POC Glucose 184 H 185 H 187 H Calcium Magnesium Iron TIBC % Saturation Transferrin Ferritin Total Bilirubin Direct Bilirubin Neonat Total Bilirubin Neonat Direct Bilirubin Neonat Indirect Bili AST ALT Alkaline Phosphatase Creatine Kinase CK-MB (CK-2) Troponin I Total Protein Albumin Prealbumin Triglycerides Cholesterol LDL Cholesterol Direct VLDL Cholesterol HDL Cholesterol Vitamin B12 Folate TSH Free T4 Free T3 pg/mL Random Cortisol Time Trough Drawn Vancomycin Trough Digoxin Blood Type Blood Type Confirm Antibody Screen Crossmatch 09/04/19 09/05/19 09/05/19 23:40 00:09 05:08 WBC RBC Hgb Hct MCV MCH MCHC RDW Plt Count Lymph % (Auto) Branch % (Auto) Eos % (Auto) Baso % (Auto) Reticulocyte # Absolute Neuts (auto) Absolute Lymphs (auto) Absolute Monos (auto) Absolute Eos (auto) Absolute Basos (auto) Total Counted Seg Neutrophils % Seg Neuts % (Manual) Band Neutrophils % Lymphocytes % (Manual) Monocytes % (Manual) Eosinophils % (Manual) Basophils % (Manual) Abs Neuts (Manual) Abs Lymphs (Manual) Abs Monocytes (Manual) Absolute Eos (Manual) Abs Basophils (Manual) Nucleated RBCs Toxic Vacuolation Platelet Comment Polychromasia Poikilocytosis Anisocytosis Ovalocytes [place] Cells Retic Count (auto) PT INR APTT Sodium Potassium Chloride Carbon Dioxide Anion Gap BUN Creatinine Est GFR ( Amer) Est GFR (MDRD) Non-Af Glucose POC Glucose 212 H 190 H 184 H Calcium Magnesium Iron TIBC % Saturation Transferrin Ferritin Total Bilirubin Direct Bilirubin Neonat Total Bilirubin Neonat Direct Bilirubin Neonat Indirect Bili AST ALT Alkaline Phosphatase Creatine Kinase CK-MB (CK-2) Troponin I Total Protein Albumin Prealbumin Triglycerides Cholesterol LDL Cholesterol Direct VLDL Cholesterol HDL Cholesterol Vitamin B12 Folate TSH Free T4 Free T3 pg/mL Random Cortisol Time Trough Drawn Vancomycin Trough Digoxin Blood Type Blood Type Confirm Antibody Screen Crossmatch 09/05/19 09/05/19 09/05/19 05:39 05:39 05:39 WBC 8.0 RBC 2.56 L Hgb 7.7 L Hct 23.1 L MCV 90 MCH 30.3 MCHC 33.5 RDW 16.2 H Plt Count 246 Lymph % (Auto) Branch % (Auto) Eos % (Auto) Baso % (Auto) Reticulocyte # Absolute Neuts (auto) Absolute Lymphs (auto) Absolute Monos (auto) Absolute Eos (auto) Absolute Basos (auto) Total Counted Seg Neutrophils % Seg Neuts % (Manual) Band Neutrophils % Lymphocytes % (Manual) Monocytes % (Manual) Eosinophils % (Manual) Basophils % (Manual) Abs Neuts (Manual) Abs Lymphs (Manual) Abs Monocytes (Manual) Absolute Eos (Manual) Abs Basophils (Manual) Nucleated RBCs Toxic Vacuolation Platelet Comment Polychromasia Poikilocytosis Anisocytosis Ovalocytes [place] Cells Retic Count (auto) PT INR APTT Sodium 135.9 L Potassium 3.4 L Chloride 111 H Carbon Dioxide 18 L Anion Gap 7 BUN 7 Creatinine 0.51 L Est GFR ( Amer) > 60 Est GFR (MDRD) Non-Af > 60 Glucose 178 H POC Glucose Calcium 7.5 L Magnesium Iron TIBC % Saturation Transferrin Ferritin Total Bilirubin 1.4 H Direct Bilirubin 0.4 Neonat Total Bilirubin Not Reportable Neonat Direct Bilirubin Not Reportable Neonat Indirect Bili Not Reportable AST 27 ALT 19 Alkaline Phosphatase 45 Creatine Kinase CK-MB (CK-2) Troponin I Total Protein 4.7 L Albumin 2.0 L Prealbumin Triglycerides Cholesterol LDL Cholesterol Direct VLDL Cholesterol HDL Cholesterol Vitamin B12 Folate TSH Free T4 Free T3 pg/mL Random Cortisol Time Trough Drawn Vancomycin Trough Digoxin 0.90 Blood Type Blood Type Confirm Antibody Screen Crossmatch 09/05/19 09/05/19 09/05/19 11:13 16:45 16:45 WBC RBC Hgb Hct MCV MCH MCHC RDW Plt Count Lymph % (Auto) Branch % (Auto) Eos % (Auto) Baso % (Auto) Reticulocyte # Absolute Neuts (auto) Absolute Lymphs (auto) Absolute Monos (auto) Absolute Eos (auto) Absolute Basos (auto) Total Counted Seg Neutrophils % Seg Neuts % (Manual) Band Neutrophils % Lymphocytes % (Manual) Monocytes % (Manual) Eosinophils % (Manual) Basophils % (Manual) Abs Neuts (Manual) Abs Lymphs (Manual) Abs Monocytes (Manual) Absolute Eos (Manual) Abs Basophils (Manual) Nucleated RBCs Toxic Vacuolation Platelet Comment Polychromasia Poikilocytosis Anisocytosis Ovalocytes [place] Cells Retic Count (auto) PT INR APTT Sodium Potassium Chloride Carbon Dioxide Anion Gap BUN Creatinine Est GFR ( Amer) Est GFR (MDRD) Non-Af Glucose POC Glucose 149 H Calcium Magnesium Iron 15.4 L TIBC 194 L % Saturation 8 Transferrin Ferritin 137.00 Total Bilirubin Direct Bilirubin Neonat Total Bilirubin Neonat Direct Bilirubin Neonat Indirect Bili AST ALT Alkaline Phosphatase Creatine Kinase 52 CK-MB (CK-2) 0.36 Troponin I 0.035 Total Protein Albumin Prealbumin Triglycerides Cholesterol LDL Cholesterol Direct VLDL Cholesterol HDL Cholesterol Vitamin B12 990.0 H Folate 19.80 TSH Free T4 Free T3 pg/mL Random Cortisol Time Trough Drawn Vancomycin Trough Digoxin Blood Type Blood Type Confirm Antibody Screen Crossmatch 09/05/19 09/05/19 09/05/19 16:45 16:45 17:31 WBC 7.2 RBC 2.53 L Hgb 7.6 L Hct 22.7 L MCV 90 MCH 29.8 MCHC 33.2 RDW 15.8 H Plt Count 269 Lymph % (Auto) 10.8 L Branch % (Auto) 8.7 Eos % (Auto) 0.6 Baso % (Auto) 0.3 Reticulocyte # 0.146 H Absolute Neuts (auto) 5.7 Absolute Lymphs (auto) 0.8 Absolute Monos (auto) 0.6 Absolute Eos (auto) 0.0 Absolute Basos (auto) 0.0 Total Counted Seg Neutrophils % 79.6 H Seg Neuts % (Manual) Band Neutrophils % Lymphocytes % (Manual) Monocytes % (Manual) Eosinophils % (Manual) Basophils % (Manual) Abs Neuts (Manual) Abs Lymphs (Manual) Abs Monocytes (Manual) Absolute Eos (Manual) Abs Basophils (Manual) Nucleated RBCs Toxic Vacuolation Platelet Comment Polychromasia Poikilocytosis Anisocytosis Ovalocytes [place] Cells Retic Count (auto) 5.78 H PT INR APTT Sodium Potassium Chloride Carbon Dioxide Anion Gap BUN Creatinine Est GFR ( Amer) Est GFR (MDRD) Non-Af Glucose POC Glucose 177 H Calcium Magnesium Iron TIBC % Saturation Transferrin 121.80 L Ferritin Total Bilirubin Direct Bilirubin Neonat Total Bilirubin Neonat Direct Bilirubin Neonat Indirect Bili AST ALT Alkaline Phosphatase Creatine Kinase CK-MB (CK-2) Troponin I Total Protein Albumin Prealbumin Triglycerides Cholesterol LDL Cholesterol Direct VLDL Cholesterol HDL Cholesterol Vitamin B12 Folate TSH Free T4 Free T3 pg/mL Random Cortisol Time Trough Drawn Vancomycin Trough Digoxin Blood Type Blood Type Confirm Antibody Screen Crossmatch 09/05/19 09/05/19 09/06/19 21:35 23:27 00:45 WBC RBC Hgb Hct MCV MCH MCHC RDW Plt Count Lymph % (Auto) Branch % (Auto) Eos % (Auto) Baso % (Auto) Reticulocyte # Absolute Neuts (auto) Absolute Lymphs (auto) Absolute Monos (auto) Absolute Eos (auto) Absolute Basos (auto) Total Counted Seg Neutrophils % Seg Neuts % (Manual) Band Neutrophils % Lymphocytes % (Manual) Monocytes % (Manual) Eosinophils % (Manual) Basophils % (Manual) Abs Neuts (Manual) Abs Lymphs (Manual) Abs Monocytes (Manual) Absolute Eos (Manual) Abs Basophils (Manual) Nucleated RBCs Toxic Vacuolation Platelet Comment Polychromasia Poikilocytosis Anisocytosis Ovalocytes [place] Cells Retic Count (auto) PT INR APTT Sodium Potassium Chloride Carbon Dioxide Anion Gap BUN Creatinine Est GFR ( Amer) Est GFR (MDRD) Non-Af Glucose POC Glucose 171 H Calcium Magnesium Iron TIBC % Saturation Transferrin Ferritin Total Bilirubin Direct Bilirubin Neonat Total Bilirubin Neonat Direct Bilirubin Neonat Indirect Bili AST ALT Alkaline Phosphatase Creatine Kinase 55 CK-MB (CK-2) Troponin I Total Protein Albumin Prealbumin Triglycerides Cholesterol LDL Cholesterol Direct VLDL Cholesterol HDL Cholesterol Vitamin B12 Folate TSH Free T4 Free T3 pg/mL Random Cortisol Time Trough Drawn Vancomycin Trough Digoxin Blood Type A POSITIVE Blood Type Confirm Antibody Screen NEGATIVE Crossmatch See Detail 09/06/19 09/06/19 09/06/19 00:45 05:19 06:04 WBC RBC Hgb Hct MCV MCH MCHC RDW Plt Count Lymph % (Auto) Branch % (Auto) Eos % (Auto) Baso % (Auto) Reticulocyte # Absolute Neuts (auto) Absolute Lymphs (auto) Absolute Monos (auto) Absolute Eos (auto) Absolute Basos (auto) Total Counted Seg Neutrophils % Seg Neuts % (Manual) Band Neutrophils % Lymphocytes % (Manual) Monocytes % (Manual) Eosinophils % (Manual) Basophils % (Manual) Abs Neuts (Manual) Abs Lymphs (Manual) Abs Monocytes (Manual) Absolute Eos (Manual) Abs Basophils (Manual) Nucleated RBCs Toxic Vacuolation Platelet Comment Polychromasia Poikilocytosis Anisocytosis Ovalocytes [place] Cells Retic Count (auto) PT INR APTT Sodium Potassium Chloride Carbon Dioxide Anion Gap BUN Creatinine Est GFR ( Amer) Est GFR (MDRD) Non-Af Glucose POC Glucose 154 H Calcium Magnesium Iron TIBC % Saturation Transferrin Ferritin Total Bilirubin Direct Bilirubin Neonat Total Bilirubin Neonat Direct Bilirubin Neonat Indirect Bili AST ALT Alkaline Phosphatase Creatine Kinase 50 CK-MB (CK-2) 0.46 Troponin I 0.032 Total Protein Albumin Prealbumin Triglycerides 87 Cholesterol 117.10 LDL Cholesterol Direct 76 VLDL Cholesterol 17.0 HDL Cholesterol 29 L Vitamin B12 Folate TSH Free T4 Free T3 pg/mL Random Cortisol Time Trough Drawn Vancomycin Trough Digoxin Blood Type Blood Type Confirm Antibody Screen Crossmatch 09/06/19 09/06/19 09/06/19 06:04 06:04 11:52 WBC 6.6 RBC 3.50 L Hgb 10.6 L D Hct 30.9 L MCV 88 MCH 30.2 MCHC 34.3 RDW 15.4 H Plt Count 246 Lymph % (Auto) 10.9 L Branch % (Auto) 10.4 Eos % (Auto) 0.4 Baso % (Auto) 0.5 Reticulocyte # Absolute Neuts (auto) 5.2 Absolute Lymphs (auto) 0.7 Absolute Monos (auto) 0.7 Absolute Eos (auto) 0.0 Absolute Basos (auto) 0.0 Total Counted Seg Neutrophils % 77.8 Seg Neuts % (Manual) Band Neutrophils % Lymphocytes % (Manual) Monocytes % (Manual) Eosinophils % (Manual) Basophils % (Manual) Abs Neuts (Manual) Abs Lymphs (Manual) Abs Monocytes (Manual) Absolute Eos (Manual) Abs Basophils (Manual) Nucleated RBCs Toxic Vacuolation Platelet Comment Polychromasia Poikilocytosis Anisocytosis Ovalocytes [place] Cells Retic Count (auto) PT INR APTT Sodium Potassium Chloride Carbon Dioxide Anion Gap BUN Creatinine Est GFR ( Amer) Est GFR (MDRD) Non-Af Glucose POC Glucose 197 H Calcium Magnesium Iron TIBC % Saturation Transferrin Ferritin Total Bilirubin Direct Bilirubin Neonat Total Bilirubin Neonat Direct Bilirubin Neonat Indirect Bili AST ALT Alkaline Phosphatase Creatine Kinase CK-MB (CK-2) 0.41 Troponin I 0.031 Total Protein Albumin Prealbumin Triglycerides Cholesterol LDL Cholesterol Direct VLDL Cholesterol HDL Cholesterol Vitamin B12 Folate TSH Free T4 Free T3 pg/mL Random Cortisol Time Trough Drawn Vancomycin Trough Digoxin Blood Type Blood Type Confirm Antibody Screen Crossmatch 09/07/19 09/07/19 09/07/19 00:01 05:22 05:22 WBC 5.8 RBC 3.83 Hgb 11.7 L Hct 33.4 L MCV 87 MCH 30.5 MCHC 35.0 RDW 15.4 H Plt Count 291 Lymph % (Auto) 16.6 Branch % (Auto) 11.8 Eos % (Auto) 0.5 Baso % (Auto) 0.4 Reticulocyte # Absolute Neuts (auto) 4.1 Absolute Lymphs (auto) 1.0 Absolute Monos (auto) 0.7 Absolute Eos (auto) 0.0 Absolute Basos (auto) 0.0 Total Counted Seg Neutrophils % 70.7 Seg Neuts % (Manual) Band Neutrophils % Lymphocytes % (Manual) Monocytes % (Manual) Eosinophils % (Manual) Basophils % (Manual) Abs Neuts (Manual) Abs Lymphs (Manual) Abs Monocytes (Manual) Absolute Eos (Manual) Abs Basophils (Manual) Nucleated RBCs Toxic Vacuolation Platelet Comment Polychromasia Poikilocytosis Anisocytosis Ovalocytes [place] Cells Retic Count (auto) PT INR APTT Sodium 139.2 Potassium 3.4 L Chloride 112 H Carbon Dioxide 21 L Anion Gap 6 BUN 5 L Creatinine 0.44 L Est GFR ( Amer) > 60 Est GFR (MDRD) Non-Af > 60 Glucose 183 H POC Glucose 233 H Calcium 7.7 L Magnesium 1.9 Iron TIBC % Saturation Transferrin Ferritin Total Bilirubin 1.8 H Direct Bilirubin 0.5 H Neonat Total Bilirubin Not Reportable Neonat Direct Bilirubin Not Reportable Neonat Indirect Bili Not Reportable AST 31 ALT 19 Alkaline Phosphatase 49 Creatine Kinase CK-MB (CK-2) Troponin I Total Protein 5.3 L Albumin 2.2 L Prealbumin Triglycerides Cholesterol LDL Cholesterol Direct VLDL Cholesterol HDL Cholesterol Vitamin B12 Folate TSH Free T4 Free T3 pg/mL Random Cortisol Time Trough Drawn Vancomycin Trough Digoxin Blood Type Blood Type Confirm Antibody Screen Crossmatch 09/07/19 09/07/19 09/07/19 05:22 05:49 06:08 WBC RBC Hgb Hct MCV MCH MCHC RDW Plt Count Lymph % (Auto) Branch % (Auto) Eos % (Auto) Baso % (Auto) Reticulocyte # Absolute Neuts (auto) Absolute Lymphs (auto) Absolute Monos (auto) Absolute Eos (auto) Absolute Basos (auto) Total Counted Seg Neutrophils % Seg Neuts % (Manual) Band Neutrophils % Lymphocytes % (Manual) Monocytes % (Manual) Eosinophils % (Manual) Basophils % (Manual) Abs Neuts (Manual) Abs Lymphs (Manual) Abs Monocytes (Manual) Absolute Eos (Manual) Abs Basophils (Manual) Nucleated RBCs Toxic Vacuolation Platelet Comment Polychromasia Poikilocytosis Anisocytosis Ovalocytes [place] Cells Retic Count (auto) PT INR APTT Sodium Potassium Chloride Carbon Dioxide Anion Gap BUN Creatinine Est GFR ( Amer) Est GFR (MDRD) Non-Af Glucose POC Glucose 195 H 182 H Calcium Magnesium 2.0 Iron TIBC % Saturation Transferrin Ferritin Total Bilirubin Direct Bilirubin Neonat Total Bilirubin Neonat Direct Bilirubin Neonat Indirect Bili AST ALT Alkaline Phosphatase Creatine Kinase CK-MB (CK-2) Troponin I Total Protein Albumin Prealbumin Triglycerides Cholesterol LDL Cholesterol Direct VLDL Cholesterol HDL Cholesterol Vitamin B12 Folate TSH Free T4 Free T3 pg/mL Random Cortisol Time Trough Drawn Vancomycin Trough Digoxin Blood Type Blood Type Confirm Antibody Screen Crossmatch 09/07/19 09/07/19 09/08/19 11:47 23:41 05:33 WBC RBC Hgb Hct MCV MCH MCHC RDW Plt Count Lymph % (Auto) Branch % (Auto) Eos % (Auto) Baso % (Auto) Reticulocyte # Absolute Neuts (auto) Absolute Lymphs (auto) Absolute Monos (auto) Absolute Eos (auto) Absolute Basos (auto) Total Counted Seg Neutrophils % Seg Neuts % (Manual) Band Neutrophils % Lymphocytes % (Manual) Monocytes % (Manual) Eosinophils % (Manual) Basophils % (Manual) Abs Neuts (Manual) Abs Lymphs (Manual) Abs Monocytes (Manual) Absolute Eos (Manual) Abs Basophils (Manual) Nucleated RBCs Toxic Vacuolation Platelet Comment Polychromasia Poikilocytosis Anisocytosis Ovalocytes [place] Cells Retic Count (auto) PT INR APTT Sodium Potassium Chloride Carbon Dioxide Anion Gap BUN Creatinine Est GFR ( Amer) Est GFR (MDRD) Non-Af Glucose POC Glucose 154 H 216 H 200 H Calcium Magnesium Iron TIBC % Saturation Transferrin Ferritin Total Bilirubin Direct Bilirubin Neonat Total Bilirubin Neonat Direct Bilirubin Neonat Indirect Bili AST ALT Alkaline Phosphatase Creatine Kinase CK-MB (CK-2) Troponin I Total Protein Albumin Prealbumin Triglycerides Cholesterol LDL Cholesterol Direct VLDL Cholesterol HDL Cholesterol Vitamin B12 Folate TSH Free T4 Free T3 pg/mL Random Cortisol Time Trough Drawn Vancomycin Trough Digoxin Blood Type Blood Type Confirm Antibody Screen Crossmatch 09/08/19 09/08/19 09/08/19 05:35 05:35 10:13 WBC 4.9 RBC 3.60 L Hgb 10.9 L Hct 31.3 L MCV 87 MCH 30.4 MCHC 34.9 RDW 15.6 H Plt Count 321 Lymph % (Auto) 15.0 Branch % (Auto) 15.0 H Eos % (Auto) 0.6 Baso % (Auto) 0.5 Reticulocyte # Absolute Neuts (auto) 3.4 Absolute Lymphs (auto) 0.7 Absolute Monos (auto) 0.7 Absolute Eos (auto) 0.0 Absolute Basos (auto) 0.0 Total Counted Seg Neutrophils % 68.9 Seg Neuts % (Manual) Band Neutrophils % Lymphocytes % (Manual) Monocytes % (Manual) Eosinophils % (Manual) Basophils % (Manual) Abs Neuts (Manual) Abs Lymphs (Manual) Abs Monocytes (Manual) Absolute Eos (Manual) Abs Basophils (Manual) Nucleated RBCs Toxic Vacuolation Platelet Comment Polychromasia Poikilocytosis Anisocytosis Ovalocytes [place] Cells Retic Count (auto) PT INR APTT Sodium 135.1 L Potassium 3.0 L* Chloride 107 Carbon Dioxide 24 Anion Gap 5 BUN 3 L Creatinine 0.42 L 0.43 L Est GFR ( Amer) > 60 > 60 Est GFR (MDRD) Non-Af > 60 > 60 Glucose 214 H POC Glucose Calcium 7.5 L Magnesium Iron TIBC % Saturation Transferrin Ferritin Total Bilirubin Direct Bilirubin Neonat Total Bilirubin Neonat Direct Bilirubin Neonat Indirect Bili AST ALT Alkaline Phosphatase Creatine Kinase CK-MB (CK-2) Troponin I Total Protein Albumin Prealbumin Triglycerides Cholesterol LDL Cholesterol Direct VLDL Cholesterol HDL Cholesterol Vitamin B12 Folate TSH Free T4 Free T3 pg/mL Random Cortisol Time Trough Drawn Vancomycin Trough Digoxin Blood Type Blood Type Confirm Antibody Screen Crossmatch 09/08/19 09/08/19 09/08/19 10:13 12:15 16:52 WBC RBC Hgb Hct MCV MCH MCHC RDW Plt Count Lymph % (Auto) Branch % (Auto) Eos % (Auto) Baso % (Auto) Reticulocyte # Absolute Neuts (auto) Absolute Lymphs (auto) Absolute Monos (auto) Absolute Eos (auto) Absolute Basos (auto) Total Counted Seg Neutrophils % Seg Neuts % (Manual) Band Neutrophils % Lymphocytes % (Manual) Monocytes % (Manual) Eosinophils % (Manual) Basophils % (Manual) Abs Neuts (Manual) Abs Lymphs (Manual) Abs Monocytes (Manual) Absolute Eos (Manual) Abs Basophils (Manual) Nucleated RBCs Toxic Vacuolation Platelet Comment Polychromasia Poikilocytosis Anisocytosis Ovalocytes [place] Cells Retic Count (auto) PT INR APTT Sodium Potassium Chloride Carbon Dioxide Anion Gap BUN Creatinine Est GFR ( Amer) Est GFR (MDRD) Non-Af Glucose POC Glucose 219 H 171 H Calcium Magnesium Iron TIBC % Saturation Transferrin Ferritin Total Bilirubin Direct Bilirubin Neonat Total Bilirubin Neonat Direct Bilirubin Neonat Indirect Bili AST ALT Alkaline Phosphatase Creatine Kinase CK-MB (CK-2) Troponin I Total Protein Albumin Prealbumin Triglycerides Cholesterol LDL Cholesterol Direct VLDL Cholesterol HDL Cholesterol Vitamin B12 Folate TSH Free T4 Free T3 pg/mL Random Cortisol Time Trough Drawn 1013 Vancomycin Trough 11.7 Digoxin Blood Type Blood Type Confirm Antibody Screen Crossmatch 09/08/19 09/09/19 09/09/19 23:52 05:52 06:00 WBC 5.8 RBC 3.48 L Hgb 10.4 L Hct 30.4 L MCV 87 MCH 29.9 MCHC 34.2 RDW 15.6 H Plt Count 295 Lymph % (Auto) 16.4 Branch % (Auto) 12.0 Eos % (Auto) 1.4 Baso % (Auto) 0.4 Reticulocyte # Absolute Neuts (auto) 4.1 Absolute Lymphs (auto) 1.0 Absolute Monos (auto) 0.7 Absolute Eos (auto) 0.1 Absolute Basos (auto) 0.0 Total Counted Seg Neutrophils % 69.8 Seg Neuts % (Manual) Band Neutrophils % Lymphocytes % (Manual) Monocytes % (Manual) Eosinophils % (Manual) Basophils % (Manual) Abs Neuts (Manual) Abs Lymphs (Manual) Abs Monocytes (Manual) Absolute Eos (Manual) Abs Basophils (Manual) Nucleated RBCs Toxic Vacuolation Platelet Comment Polychromasia Poikilocytosis Anisocytosis Ovalocytes [place] Cells Retic Count (auto) PT INR APTT Sodium Potassium Chloride Carbon Dioxide Anion Gap BUN Creatinine Est GFR ( Amer) Est GFR (MDRD) Non-Af Glucose POC Glucose 189 H 221 H Calcium Magnesium Iron TIBC % Saturation Transferrin Ferritin Total Bilirubin Direct Bilirubin Neonat Total Bilirubin Neonat Direct Bilirubin Neonat Indirect Bili AST ALT Alkaline Phosphatase Creatine Kinase CK-MB (CK-2) Troponin I Total Protein Albumin Prealbumin Triglycerides Cholesterol LDL Cholesterol Direct VLDL Cholesterol HDL Cholesterol Vitamin B12 Folate TSH Free T4 Free T3 pg/mL Random Cortisol Time Trough Drawn Vancomycin Trough Digoxin Blood Type Blood Type Confirm Antibody Screen Crossmatch 09/09/19 09/09/19 09/09/19 06:00 06:00 12:13 WBC RBC Hgb Hct MCV MCH MCHC RDW Plt Count Lymph % (Auto) Branch % (Auto) Eos % (Auto) Baso % (Auto) Reticulocyte # Absolute Neuts (auto) Absolute Lymphs (auto) Absolute Monos (auto) Absolute Eos (auto) Absolute Basos (auto) Total Counted Seg Neutrophils % Seg Neuts % (Manual) Band Neutrophils % Lymphocytes % (Manual) Monocytes % (Manual) Eosinophils % (Manual) Basophils % (Manual) Abs Neuts (Manual) Abs Lymphs (Manual) Abs Monocytes (Manual) Absolute Eos (Manual) Abs Basophils (Manual) Nucleated RBCs Toxic Vacuolation Platelet Comment Polychromasia Poikilocytosis Anisocytosis Ovalocytes [place] Cells Retic Count (auto) PT INR APTT Sodium 135.9 L Potassium 3.1 L Chloride 109 H Carbon Dioxide 24 Anion Gap 3 L BUN 4 L Creatinine 0.57 Est GFR ( Amer) > 60 Est GFR (MDRD) Non-Af > 60 Glucose 200 H POC Glucose 182 H Calcium 7.4 L Magnesium 1.7 Iron TIBC % Saturation Transferrin Ferritin Total Bilirubin 1.1 Direct Bilirubin 0.1 Neonat Total Bilirubin Not Reportable Neonat Direct Bilirubin Not Reportable Neonat Indirect Bili Not Reportable AST 23 ALT 14 Alkaline Phosphatase 43 Creatine Kinase CK-MB (CK-2) Troponin I Total Protein 4.6 L Albumin 1.9 L Prealbumin Triglycerides Cholesterol LDL Cholesterol Direct VLDL Cholesterol HDL Cholesterol Vitamin B12 Folate TSH Free T4 Free T3 pg/mL Random Cortisol Time Trough Drawn Vancomycin Trough Digoxin Blood Type Blood Type Confirm Antibody Screen Crossmatch 09/09/19 09/10/19 09/10/19 18:05 00:58 05:39 WBC RBC Hgb Hct MCV MCH MCHC RDW Plt Count Lymph % (Auto) Branch % (Auto) Eos % (Auto) Baso % (Auto) Reticulocyte # Absolute Neuts (auto) Absolute Lymphs (auto) Absolute Monos (auto) Absolute Eos (auto) Absolute Basos (auto) Total Counted Seg Neutrophils % Seg Neuts % (Manual) Band Neutrophils % Lymphocytes % (Manual) Monocytes % (Manual) Eosinophils % (Manual) Basophils % (Manual) Abs Neuts (Manual) Abs Lymphs (Manual) Abs Monocytes (Manual) Absolute Eos (Manual) Abs Basophils (Manual) Nucleated RBCs Toxic Vacuolation Platelet Comment Polychromasia Poikilocytosis Anisocytosis Ovalocytes [place] Cells Retic Count (auto) PT INR APTT Sodium Potassium Chloride Carbon Dioxide Anion Gap BUN Creatinine Est GFR ( Amer) Est GFR (MDRD) Non-Af Glucose POC Glucose 200 H 237 H 209 H Calcium Magnesium Iron TIBC % Saturation Transferrin Ferritin Total Bilirubin Direct Bilirubin Neonat Total Bilirubin Neonat Direct Bilirubin Neonat Indirect Bili AST ALT Alkaline Phosphatase Creatine Kinase CK-MB (CK-2) Troponin I Total Protein Albumin Prealbumin Triglycerides Cholesterol LDL Cholesterol Direct VLDL Cholesterol HDL Cholesterol Vitamin B12 Folate TSH Free T4 Free T3 pg/mL Random Cortisol Time Trough Drawn Vancomycin Trough Digoxin Blood Type Blood Type Confirm Antibody Screen Crossmatch 09/10/19 09/10/19 09/10/19 09:55 09:55 12:09 WBC RBC Hgb Hct MCV MCH MCHC RDW Plt Count Lymph % (Auto) Branch % (Auto) Eos % (Auto) Baso % (Auto) Reticulocyte # Absolute Neuts (auto) Absolute Lymphs (auto) Absolute Monos (auto) Absolute Eos (auto) Absolute Basos (auto) Total Counted Seg Neutrophils % Seg Neuts % (Manual) Band Neutrophils % Lymphocytes % (Manual) Monocytes % (Manual) Eosinophils % (Manual) Basophils % (Manual) Abs Neuts (Manual) Abs Lymphs (Manual) Abs Monocytes (Manual) Absolute Eos (Manual) Abs Basophils (Manual) Nucleated RBCs Toxic Vacuolation Platelet Comment Polychromasia Poikilocytosis Anisocytosis Ovalocytes [place] Cells Retic Count (auto) PT INR APTT Sodium Potassium Chloride Carbon Dioxide Anion Gap BUN Creatinine 0.73 Est GFR ( Amer) > 60 Est GFR (MDRD) Non-Af > 60 Glucose POC Glucose 279 H Calcium Magnesium Iron TIBC % Saturation Transferrin Ferritin Total Bilirubin Direct Bilirubin Neonat Total Bilirubin Neonat Direct Bilirubin Neonat Indirect Bili AST ALT Alkaline Phosphatase Creatine Kinase CK-MB (CK-2) Troponin I Total Protein Albumin Prealbumin Triglycerides Cholesterol LDL Cholesterol Direct VLDL Cholesterol HDL Cholesterol Vitamin B12 Folate TSH Free T4 Free T3 pg/mL Random Cortisol Time Trough Drawn 0955 Vancomycin Trough 18.2 Digoxin Blood Type Blood Type Confirm Antibody Screen Crossmatch IMPRESSION/RECOMMENDATION: 1. 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 Increase in the patient's altered mental status was with obtundation. CT of the head shows no evidence of intracranial hemorrhage. Hence we will continue Eliquis. 2. Lower GI bleed secondary to bleeding from sigmoid sigmoid diverticulum. S/p hemicolectomy. 3. Lower abdominal incisional wound infection draining pus. Continue antibiotics. Surgical hist on the case 4. Anemia: Patient's hemoglobin is dropped to 7.6 with decreased urine output. Recommend transfuse 2 units of packed RBCs as discussed with Dr. Reyes. . 5. Atrial fibrillation with rapid ventricular response. In view of the patient still being atrial fibrillation will discontinue the patient's amiodarone drip and start the patient on a Cardizem drip. We will also start the patient on digoxin 0.125 mg IV push daily. Will discuss with the attending physician and the surgical hist to see if it is safe to start the patient on chronic anticoagulation. The patient still not taking by mouth fully. Hence we will continue the patient on IV Cardizem and IV digoxin until the patient is able to take orally.Anemia: Watch the patient's hemoglobin. 6. Possible pneumonia: Continue antibiotics 7. History of hypertension: Blood pressure stable. 8. Hypothyroidism on replacement. 9. Diabetes mellitus: Continue Accu-Cheks and treat blood sugars accordingly since the patient is n.p.o. 10. Alzheimer's dementia by history. This seems to be mild. Medications reviewed. Medical management and medical regimen discussed with Dr. Oliver. Medical decision making is of moderate complexity. 40-minute spent with patient with more than 50% time spent in direct patient care. Will follow.
[2019-09-10] MEDS: ATORVASTATIN CALCIUM 80 MG TABLET PO SCH (21:23)
[2019-09-10] MEDS: MORPHINE SULFATE 10 MG/ML INJ IV PRN (21:24)
[2019-09-11] MEDS: INSULIN LISPRO 100 UNIT/ML 3 ML VIAL SUBCUT SCH ×4 (01:51→18:15)
[2019-09-11] MEDS: PIPERACILLIN SODIUM/TAZOBACTAM 3.375 GM in NORMAL SALINE 100 ML IV SCH ×4 (02:37→22:05)
[2019-09-11] MEDS: DILTIAZEM HCL/D5W 125 MG/125 ML RTUINJ IV PRN (05:36)
[2019-09-11 06:33] LABS: ABSOLUTE EOSINOPHILS # (AUTO) 0.1 10^3/uL (0.0-0.6); ABSOLUTE LYMPHOCYTES (AUTO) 0.7 10^3/uL (0.5-4.7); EOSINOPHILS % (AUTO) 0.6 % (0-6); HEMOGLOBIN 10.1 g/dL (12.0-15.5); RED BLOOD COUNT 3.38 10^6/uL (3.72-5.28); TOTAL CELLS COUNTED % (AUTO) 100 %
[2019-09-11 06:42] LABS: ABSOLUTE MONOCYTES (AUTO) 0.8 10^3/uL (0.1-1.4); ABSOLUTE NEUT (AUTO) 7.2 10^3/uL (1.7-8.2); BASOPHILS % (AUTO) 0.4 % (0-2); HEMATOCRIT 29.6 % (36.0-47.0); LYMPHOCYTES % (AUTO) 7.7 % (13-45); MEAN CORPUSCULAR HGB CONC 34.2 g/dL (32.0-36.0); MEAN CORPUSCULAR VOLUME 88 fl (80-97); MONOCYTES % (AUTO) 8.9 % (3-13); PLATELET COUNT 293 10^3/uL (150-450); RED CELL DISTRIBUTION WIDTH 15.6 % (11.5-14.0); SEGMENTED NEUTROPHILS % (AUTO) 82.4 % (42-78); WHITE BLOOD COUNT 8.7 10^3/uL (4.0-10.5)
[2019-09-11 07:09] LABS: ALBUMIN 1.9 g/dL (3.5-5.0); ALKALINE PHOSPHATASE 46 U/L (38-126); ASPARTATE AMINO TRANSFERASE 30 U/L (14-36); BILIRUBIN,DIRECT 0.2 mg/dL (0.0-0.4); BLOOD UREA NITROGEN 7 mg/dL (7-20); CALCIUM 7.4 mg/dL (8.4-10.2); CARBON DIOXIDE 25 mmol/L (22-30); CHLORIDE 111 mmol/L (98-107); GLUCOSE 258 mg/dL (75-110); POTASSIUM 3.1 mmol/L (3.6-5.0); TOTAL PROTEIN 4.6 g/dL (6.3-8.2)
[2019-09-11 07:12] LABS: ANION GAP 3 (5-19)
[2019-09-11] MEDS: NORMAL SALINE 1000 ML 1,000 ML IV PRN ×2 (07:30→18:28)
[2019-09-11] MEDS: MORPHINE SULFATE 10 MG/ML INJ IV PRN ×2 (11:15→20:17)
[2019-09-11] MEDS: DIGOXIN INJ 0.5 MG/2 ML AMPULE IV SCH (11:16)
[2019-09-11] MEDS: MULTIVITS W-MIN/IRON SOLN 60 ML PO SCH (11:20)
[2019-09-11] MEDS: RISPERIDONE 0.5 MG TAB.RAPDIS PO SCH ×2 (11:20→17:12)
[2019-09-11] MEDS: APIXABAN 5 MG TABLET PO SCH ×2 (11:20→17:12)
[2019-09-11] MEDS: ZINC SULFATE 220 MG CAPSULE PO SCH (11:39)
--- NOTE | 2019-09-11 18:53 | PDOC PROGRESS REPORT ---
Subjective Progress Note for:: 09/11/19 Subjective:: Patient still demonstrate intermittent episodes of increase somnolence and confusion. No expressed chest pain or difficulty with breathing. Persistent poor oral intake with her reporting dislike for the menu. No nausea or vomiting. No fever or chills. Nursing staff reported cheesy cream vaginal discharge. Reason For Visit: LOWER GI BLEED,DM TYPE 2,HTN,GERD,CAD Physical Exam Vital Signs: Temp Pulse Resp BP Pulse Ox 98.0 F 65 20 148/50 H 95 09/11/19 15:26 09/11/19 18:00 09/11/19 15:26 09/11/19 18:00 09/11/19 15:26 Intake & Output 09/10/19 09/11/19 09/12/19 06:59 06:59 06:59 Intake Total 2189 2828 1450 Output Total 3250 1125 250 Balance -1061 1703 1200 Weight 90 kg 89.6 kg Physical Exam: General appearance: PRESENT: no acute distress Head exam: PRESENT: atraumatic, normocephalic Eye exam: PRESENT: conjunctiva pink. ABSENT: pallor, scleral icterus Mouth exam: PRESENT: moist Respiratory exam: PRESENT: clear to auscultation, decreased breath sounds bilaterally Cardiovascular exam: PRESENT: Irregular rhythm, +S1, +S2. ABSENT: diastolic murmur, rubs, systolic murmur GI/Abdominal exam: PRESENT: normal bowel sounds, soft, minimal tenderness around lower surgical site with dressing in place. ABSENT: drainage tube is out, distended, guarding, mass, organomegaly, rebound Extremities exam: ABSENT: pedal edema Neurological exam: PRESENT: Awake, Alert, appropriate in simple responses during my bedside visit. Psychiatric exam: PRESENT: appropriate affect, normal mood. ABSENT: homicidal ideation, suicidal ideation Skin exam: PRESENT: dry, warm, multiple surgical jim anterior abdominal wall site of recent subtotal colectomy in place with purulent drainage from lower section on the incision region. Results Laboratory Results: 09/11/19 05:40 09/11/19 05:40 09/11/19 09/11/19 05:40 05:40 WBC 8.7 RBC 3.38 L Hgb 10.1 L Hct 29.6 L MCV 88 MCH 30.0 MCHC 34.2 RDW 15.6 H Plt Count 293 Seg Neutrophils % 82.4 H Sodium 138.5 Potassium 3.1 L Chloride 111 H Carbon Dioxide 25 Anion Gap 3 L BUN 7 Creatinine 1.01 Est GFR ( Amer) > 60 Glucose 258 H Calcium 7.4 L Total Bilirubin 1.0 AST 30 Alkaline Phosphatase 46 Total Protein 4.6 L Albumin 1.9 L 09/05/19 09/05/19 09/06/19 16:45 16:45 00:45 Creatine Kinase 52 55 CK-MB (CK-2) 0.36 Troponin I 0.035 09/06/19 09/06/19 09/06/19 00:45 06:04 06:04 Creatine Kinase 50 CK-MB (CK-2) 0.46 0.41 Troponin I 0.032 0.031 Impressions: GI Bleed Scan Nuclear Medicine 08/26/19 00:00 IMPRESSION: FINDINGS CONSISTENT WITH ACTIVE GI BLEEDING IN THE SIGMOID COLON. KUB X-Ray 08/31/19 00:00 IMPRESSION: Postoperative findings as detailed above without evidence of a mechanical bowel obstruction. 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 Distribution suggests embolic source. EVIDENCE OF ACUTE STROKE: YES. LEFT MCA and VERTEBROBASILAR. Head CT 09/08/19 00:00 IMPRESSION: 1. NO EVIDENCE OF ACUTE INTRACRANIAL PROCESS. 2. CHRONIC CHANGES OF ATROPHY AND MICROVASCULAR ISCHEMIA. EVIDENCE OF ACUTE STROKE: NO. Chest X-Ray 09/08/19 02:16 IMPRESSION: Findings suggesting mild changes of CHF. Assessment & Plan - Diagnosis (1) Lower GI bleed Is this a current diagnosis for this admission?: Yes (2) Colonic diverticular disease Is this a current diagnosis for this admission?: Yes (3) Atrial fibrillation with rapid ventricular response Is this a current diagnosis for this admission?: Yes (4) Senile dementia with delirium Qualifiers: Dementia behavioral disturbance: without behavioral disturbance Qualified Code(s): F03.90 - Unspecified dementia without behavioral disturbance; F05 - Delirium due to known physiological condition Is this a current diagnosis for this admission?: Yes (5) Diabetes mellitus, type 2 Qualifiers: Diabetes mellitus joint terminal attack controller insulin use: without joint terminal attack controller use Diabetes mellitus complication status: with other specified complication Qualified Code(s): E11.69 - Type 2 diabetes mellitus with other specified complication Is this a current diagnosis for this admission?: Yes (6) Hypertension Qualifiers: Hypertension type: unspecified Qualified Code(s): I10 - Essential (primary) hypertension Is this a current diagnosis for this admission?: Yes (7) Coronary artery disease Qualifiers: Coronary Disease-Associated Artery/Lesion type: unspecified vessel or lesion type [place] vs. transplanted heart: [place] heart Associated angina: angina presence unspecified Qualified Code(s): I25.10 - Atherosclerotic heart disease of [place] coronary artery without angina pectoris Is this a current diagnosis for this admission?: Yes (8) Hyperlipidemia Qualifiers: Hyperlipidemia type: unspecified Qualified Code(s): E78.5 - Hyperlipidemia, unspecified Is this a current diagnosis for this admission?: Yes (9) Hypothyroidism Qualifiers: Hypothyroidism type: acquired Qualified Code(s): E03.9 - Hypothyroidism, unspecified Is this a current diagnosis for this admission?: Yes (10) GERD (gastroesophageal reflux disease) Qualifiers: Esophagitis presence: esophagitis presence not specified Qualified Code(s): K21.9 - Gastro-esophageal reflux disease without esophagitis Is this a current diagnosis for this admission?: Yes (11) Embolic stroke involving left vertebral artery Is this a current diagnosis for this admission?: Yes (12) Left acute arterial ischemic stroke, MCA (middle cerebral artery) Is this a current diagnosis for this admission?: Yes (13) Subcutaneous abscess postop Is this a current diagnosis for this admission?: Yes (14) Hypokalemia due to inadequate potassium intake Is this a current diagnosis for this admission?: Yes (15) Yeast vaginitis Is this a current diagnosis for this admission?: Yes Plan: Start on IV Diflucan 200 mg daily. - Time Time Spent with patient: 25-34 minutes Level of Care: IMCU Medications reviewed and adjusted accordingly: Yes Anticipated discharge: SNF Within: Other - Inpatient Certification Based on my medical assessment, after consideration of the patient's comorbidities, presenting symptoms, or acuity I expect that the services needed warrant INPATIENT care.: Yes I certify that my determination is in accordance with my understanding of Medicare's requirements for reasonable and necessary INPATIENT services [42 CFR 412.3e].: Yes Medical Necessity: Significant Comorbidiites Make Outpatient Treatment Too Risky, Need Close Monitoring Due to Risk of Patient Decompensation, Need For IV Fluids, Need For Continuous Telemetry Monitoring, Need for IV Antibiotics, Risk of Complication if Not Cared For in Hospital, Risk of Diagnosis Which Will Requ minna Inpatient Eval/Care/Monitoring Post Hospital Care: D/C or Transfer Summary - Plan Summary Plan Summary: D/C IV Vancomycin. Maintain on IV Zoysn. Start on IV Diflucan 200 mg daily. Continue all other current medication management. Obtain BMP in AM.
[2019-09-11] MEDS ORDERED: FLUCONAZOLE 200 MG/NS RTU 200 MG/100 ML RTUPB IV ONE (19:45)
[2019-09-11] MEDS: POTASSI CL 20 MEQ/50 ML RIDER 20 MEQ/50 ML RTUPB IV SCH ×2 (20:02→22:05)
--- NOTE | 2019-09-11 20:18 | Progress Note ---
Provider Note Provider Note: CARDIOLOGY PROGRESS NOTE by Dr. Burton Herbert on 09/11/2019. SUBJECTIVE: The patient has intermittent episodes of confusion and somnolence since. Nurses states she at times takes her medications but mostly is not able to take her medications by mouth. Her intake is very poor. Her heart rate went down into 38 with a stable blood pressure on 5 mg/h of Cardizem infusion. This has been decreased to 2.5 mg/h. There is no ventricle arrhythmia seen on the monitor. PHYSICAL EXAMINATION: The patient appears to be ill. At present in no acute distress although she is confused. Selected Entries 09/11/19 09/11/19 15:26 16:00 Temperature 98.0 F Temperature Axillary Source Pulse Rate 79 Respiratory 20 Rate Blood Pressure 128/66 H BP Location Left Arm O2 Sat by Pulse 95 Oximetry Oxygen Delivery Room Air Method Head: Is atraumatic normocephalic. EYES: Pupils are equal round regular reactive light. There is no conjunctival pallor. There is no scleral icterus. EARS: Tympanic membranes are intact. External auditory canals are clear. NOSE: There is no deviated nasal septum. There is no inflammation of his mucous membrane. MOUTH: Mucous membranes in the mouth are dry. Tongue is dry. There is no ulcers of the mouth. There is no bleeding from the gums. THROAT: There is no redness of the oropharynx. There is no exudates. Acute neck: Supple. There is no JVD. Carotids are equal there is no bruit. There is no lymphadenopathy. There is no goiter. There is no accessory muscles of respiration use. Trachea central. LUNGS: There is a few dry crackles in the right mid zone right base. There is no rhonchi or wheezing. There is no rales of CHF. HEART: S1-S2 is heard. S1 is a variable intensity. There is no S3 gallop. There is no S4 gallop. There is systolic murmur left sternal border and the apex. There is murmur of aortic sclerosis present. There is no aortic stenosis or aortic regurgitation murmur heard. There is no significant valvular stenotic or regurgitant murmur heard. There is no rub. ABDOMEN: Soft dressing is dry. There is no hepatosplenomegaly. Bowel sounds are absent. Extremities: Femorals are diminished there is no femoral bruits. Leg pulses are diminished. There is no pedal edema. There is no DVT or cellulitis. [employer] patient the patient is very lethargic and difficult to arouse. Hence mental status cannot be adequately assessed. She does move all 4 extremities.. PSYCHIATRIC: Due to the patient's mental status meaningful psychiatric examination could not be performed. IMPRESSION/RECOMMENDATION: 1. 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 Increase in the patient's altered mental status was with obtundation. CT of the head shows no evidence of intracranial hemorrhage. Hence we will continue Eliquis. 2. Lower GI bleed secondary to bleeding from sigmoid sigmoid diverticulum. S/p hemicolectomy. 3. Lower abdominal incisional wound infection draining pus. Continue antibiotics. Surgical hist on the case 4. Anemia: Patient's hemoglobin is dropped to 7.6 with decreased urine output. Recommend transfuse 2 units of packed RBCs as discussed with Dr. Reyes. . 5. Atrial fibrillation with rapid ventricular response. In view of the patient still being atrial fibrillation will discontinue the patient's amiodarone drip and start the patient on a Cardizem drip. We will also start the patient on digoxin 0.125 mg IV push daily. Will discuss with the attending physician and the surgical hist to see if it is safe to start the patient on chronic anticoagulation. The patient still not taking by mouth fully. Hence we will continue the patient on IV Cardizem and IV digoxin until the patient is able to take orally.Anemia: Watch the patient's hemoglobin. 6. Possible pneumonia: Continue antibiotics. This probably is resolved. 7. History of hypertension: Blood pressure stable. 8. Hypothyroidism on replacement. 9. Diabetes mellitus: Continue Accu-Cheks and treat blood sugars accordingly since the patient is n.p.o. 10. Alzheimer's dementia by history. This seems to have increased. 7. Poor p.o. intake. Medications reviewed. Medical management and medical regimen discussed with Dr. Oliver. Medical decision making is of moderate complexity. 40-minute spent with patient with more than 50% time spent in direct patient care. Will follow.
[2019-09-11] MEDS ORDERED: VANCOMYCIN HCL 1,250 MG in DEXTROSE 5%-WATER 250 ML IV SCH (22:00)
[2019-09-11] MEDS: ATORVASTATIN CALCIUM 80 MG TABLET PO SCH (22:13)
[2019-09-12] MEDS: POTASSI CL 20 MEQ/50 ML RIDER 20 MEQ/50 ML RTUPB IV SCH (00:31)
[2019-09-12] MEDS: MORPHINE SULFATE 10 MG/ML INJ IV PRN ×2 (00:33→21:37)
[2019-09-12] MEDS: PIPERACILLIN SODIUM/TAZOBACTAM 3.375 GM in NORMAL SALINE 100 ML IV SCH ×4 (04:39→21:41)
[2019-09-12] MEDS: INSULIN LISPRO 100 UNIT/ML 3 ML VIAL SUBCUT SCH ×4 (05:20→21:41)
[2019-09-12] MEDS: NORMAL SALINE 1000 ML 1,000 ML IV PRN ×2 (06:37→17:19)
[2019-09-12] MEDS: DIGOXIN INJ 0.5 MG/2 ML AMPULE IV SCH (09:32)
[2019-09-12] MEDS: ZINC SULFATE 220 MG CAPSULE PO SCH (09:32)
[2019-09-12] MEDS: APIXABAN 5 MG TABLET PO SCH ×2 (09:32→17:14)
[2019-09-12] MEDS: MULTIVITS W-MIN/IRON SOLN 60 ML PO SCH (09:32)
[2019-09-12] MEDS: RISPERIDONE 0.5 MG TAB.RAPDIS PO SCH ×2 (09:32→17:14)
--- NOTE | 2019-09-12 13:03 | PDOC PROGRESS REPORT ---
Subjective Progress Note for:: 09/12/19 Subjective:: Patient is more lucid at the time of my visit. Son at bedside assisting with feeding. No nausea or vomiting. PO intake remain a challenge. No chest pain or difficulty with breathing. No fever or chills. Reason For Visit: LOWER GI BLEED,DM TYPE 2,HTN,GERD,CAD Physical Exam Vital Signs: Temp Pulse Resp BP Pulse Ox 97.7 F 82 19 157/64 H 100 09/12/19 11:17 09/12/19 11:17 09/12/19 11:17 09/12/19 11:17 09/12/19 11:17 Intake & Output 09/11/19 09/12/19 09/13/19 06:59 06:59 06:59 Intake Total 2828 2750 300 Output Total 1125 475 Balance 1703 2275 300 Weight 89.6 kg 91.4 kg Physical Exam: General appearance: PRESENT: no acute distress Head exam: PRESENT: atraumatic, normocephalic Eye exam: PRESENT: conjunctiva pink. ABSENT: pallor, scleral icterus Mouth exam: PRESENT: moist Respiratory exam: PRESENT: clear to auscultation, decreased breath sounds bilaterally Cardiovascular exam: PRESENT: Irregular rhythm, +S1, +S2. ABSENT: diastolic murmur, rubs, systolic murmur GI/Abdominal exam: PRESENT: normal bowel sounds, soft, minimal tenderness around lower surgical site with dressing in place. ABSENT: drainage tube is out, distended, guarding, mass, organomegaly, rebound Extremities exam: ABSENT: pedal edema Neurological exam: PRESENT: Awake, Alert, appropriate in simple responses during my bedside visit. Psychiatric exam: PRESENT: appropriate affect, normal mood. ABSENT: homicidal ideation, suicidal ideation Skin exam: PRESENT: dry, warm, multiple surgical jim anterior abdominal wall site of recent subtotal colectomy in place with purulent drainage from lower section on the incision region. Results Laboratory Results: 09/11/19 05:40 09/11/19 05:40 09/06/19 21:12 Blood Blood Culture - Final NO GROWTH IN 5 DAYS 09/06/19 20:54 Blood Blood Culture - Final NO GROWTH IN 5 DAYS 09/05/19 09/05/19 09/06/19 16:45 16:45 00:45 Creatine Kinase 52 55 CK-MB (CK-2) 0.36 Troponin I 0.035 09/06/19 09/06/19 09/06/19 00:45 06:04 06:04 Creatine Kinase 50 CK-MB (CK-2) 0.46 0.41 Troponin I 0.032 0.031 Impressions: GI Bleed Scan Nuclear Medicine 08/26/19 00:00 IMPRESSION: FINDINGS CONSISTENT WITH ACTIVE GI BLEEDING IN THE SIGMOID COLON. KUB X-Ray 08/31/19 00:00 IMPRESSION: Postoperative findings as detailed above without evidence of a mechanical bowel obstruction. 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 Distribution suggests embolic source. EVIDENCE OF ACUTE STROKE: YES. LEFT MCA and VERTEBROBASILAR. Head CT 09/08/19 00:00 IMPRESSION: 1. NO EVIDENCE OF ACUTE INTRACRANIAL PROCESS. 2. CHRONIC CHANGES OF ATROPHY AND MICROVASCULAR ISCHEMIA. EVIDENCE OF ACUTE STROKE: NO. Chest X-Ray 09/08/19 02:16 IMPRESSION: Findings suggesting mild changes of CHF. Assessment & Plan - Diagnosis (1) Lower GI bleed Is this a current diagnosis for this admission?: Yes (2) Colonic diverticular disease Is this a current diagnosis for this admission?: Yes (3) Atrial fibrillation with rapid ventricular response Is this a current diagnosis for this admission?: Yes (4) Senile dementia with delirium Qualifiers: Dementia behavioral disturbance: without behavioral disturbance Qualified Code(s): F03.90 - Unspecified dementia without behavioral disturbance; F05 - Delirium due to known physiological condition Is this a current diagnosis for this admission?: Yes (5) Diabetes mellitus, type 2 Qualifiers: Diabetes mellitus emt intermediate insulin use: without emt intermediate use Diabetes mellitus complication status: with other specified complication Qualified Code(s): E11.69 - Type 2 diabetes mellitus with other specified complication Is this a current diagnosis for this admission?: Yes (6) Hypertension Qualifiers: Hypertension type: unspecified Qualified Code(s): I10 - Essential (primary) hypertension Is this a current diagnosis for this admission?: Yes (7) Coronary artery disease Qualifiers: Coronary Disease-Associated Artery/Lesion type: unspecified vessel or lesion type [place] vs. transplanted heart: [place] heart Associated angina: angina presence unspecified Qualified Code(s): I25.10 - Atherosclerotic heart disease of [place] coronary artery without angina pectoris Is this a current diagnosis for this admission?: Yes (8) Hyperlipidemia Qualifiers: Hyperlipidemia type: unspecified Qualified Code(s): E78.5 - Hyperlipidemia, unspecified Is this a current diagnosis for this admission?: Yes (9) Hypothyroidism Qualifiers: Hypothyroidism type: acquired Qualified Code(s): E03.9 - Hypothyroidism, unspecified Is this a current diagnosis for this admission?: Yes (10) GERD (gastroesophageal reflux disease) Qualifiers: Esophagitis presence: esophagitis presence not specified Qualified Code(s): K21.9 - Gastro-esophageal reflux disease without esophagitis Is this a current diagnosis for this admission?: Yes (11) Embolic stroke involving left vertebral artery Is this a current diagnosis for this admission?: Yes (12) Left acute arterial ischemic stroke, MCA (middle cerebral artery) Is this a current diagnosis for this admission?: Yes (13) Subcutaneous abscess postop Is this a current diagnosis for this admission?: Yes (14) Hypokalemia due to inadequate potassium intake Is this a current diagnosis for this admission?: Yes (15) Yeast vaginitis Is this a current diagnosis for this admission?: Yes - Time Time Spent with patient: 25-34 minutes Level of Care: IMCU Medications reviewed and adjusted accordingly: Yes Anticipated discharge: Home with Homehealth, SNF Within: Other - Inpatient Certification Based on my medical assessment, after consideration of the patient's comorbidities, presenting symptoms, or acuity I expect that the services needed warrant INPATIENT care.: Yes I certify that my determination is in accordance with my understanding of Medicare's requirements for reasonable and necessary INPATIENT services [42 CFR 412.3e].: Yes Medical Necessity: Significant Comorbidiites Make Outpatient Treatment Too Risky, Need Close Monitoring Due to Risk of Patient Decompensation, Need For IV Fluids, Need For Continuous Telemetry Monitoring, Need for IV Antibiotics, Risk of Complication if Not Cared For in Hospital, Risk of Diagnosis Which Will Require Inpatient Eval/Care/Monitoring Post Hospital Care: D/C or Transfer Summary - Plan Summary Plan Summary: Continue current medication management. Start on Megestrol 400 mg po daily.
--- NOTE | 2019-09-12 14:21 | Progress Note ---
Provider Note Provider Note: CARDIOLOGY PROGRESS NOTE by Dr. Veena Grant on 09/12/2019. SUBJECTIVE: The patient more awake and her speech is less slurred. She knows where she is who she is, she recognizes her son and she recognizes when she is and she also recognizes me. She is not oriented to time. She is now taking by mouth satisfactorily. Hence we will stop the patient's IV Cardizem and change to p.o. Cardizem. There is no ventricular arrhythmias seen on the monitor. On questioning the patient denies chest pain or discomfort. There is no shortness of breath. There is no PND orthopnea. The patient is afebrile. She on antibiotics for the incisional wound. There is no progression of CVA symptoms. There is no bleeding on Eliquis. PHYSICAL EXAMINATION: The patient is mildly obese. In no acute distress. Selected Entries 09/12/19 11:17 Temperature 97.7 F Temperature Axillary Source Pulse Rate 82 Respiratory 19 Rate Blood Pressure 157/64 H Blood Pressure 95 Mean BP Location Left Arm BP Position Supine O2 Sat by Pulse 100 Oximetry Oxygen Delivery Room Air Method Head: Is atraumatic normocephalic. EYES: Pupils are equal round regular reactive light. There is no conjunctival pallor. There is no scleral icterus. EARS: Tympanic membranes are intact. External auditory canals are clear. NOSE: There is no deviated nasal septum. There is no inflammation of his mucous membrane. MOUTH: Mucous membranes in the mouth are dry. Tongue is dry. There is no ulcers of the mouth. There is no bleeding from the gums. THROAT: There is no redness of the oropharynx. There is no exudates. Acute neck: Supple. There is no JVD. Carotids are equal there is no bruit. There is no lymphadenopathy. There is no goiter. There is no accessory muscles of respiration use. Trachea central. LUNGS: There is a few dry crackles in the right mid zone right base. There is no rhonchi or wheezing. There is no rales of CHF. HEART: S1-S2 is heard. S1 is a variable intensity. There is no S3 gallop. There is no S4 gallop. There is systolic murmur left sternal border and the apex. There is murmur of aortic sclerosis present. There is no aortic stenosis or aortic regurgitation murmur heard. There is no significant valvular stenotic or regurgitant murmur heard. There is no rub. ABDOMEN: Soft dressing is dry. There is no hepatosplenomegaly. Bowel sounds are absent. Extremities: Femorals are diminished there is no femoral bruits. Leg pulses are diminished. There is no pedal edema. There is no DVT or cellulitis. OVEN DAUBER: Speech is less slurred. Patient more awake. She is oriented x2. She is able to recognize me and her son and knows where she is. She moves all 4 extremities. PSYCHIATRIC: The patient does not appear to be agitated or anxious. Labs- All tests 24 hr 09/11/19 09/12/19 09/12/19 18:12 00:18 06:13 POC Glucose 253 H 209 H 202 H GI Bleed Scan Nuclear Medicine 08/26/19 00:00 IMPRESSION: FINDINGS CONSISTENT WITH ACTIVE GI BLEEDING IN THE SIGMOID COLON. Chest X-Ray 08/28/19 05:00 IMPRESSION: Opacity left lateral lung base, question atelectasis or pneumonia KUB X-Ray 08/31/19 00:00 IMPRESSION: Postoperative findings as detailed above without evidence of a mechanical bowel obstruction. 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 Distribution suggests embolic source. EVIDENCE OF ACUTE STROKE: YES. LEFT MCA and VERTEBROBASILAR. Head CT 09/08/19 00:00 IMPRESSION: 1. NO EVIDENCE OF ACUTE INTRACRANIAL PROCESS. 2. CHRONIC CHANGES OF ATROPHY AND MICROVASCULAR ISCHEMIA. EVIDENCE OF ACUTE STROKE: NO. Chest X-Ray 09/08/19 02:16 IMPRESSION: Findings suggesting mild changes of CHF. MPRESSION/RECOMMENDATION: 1. 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 Increase in the patient's altered mental status was with obtundation. CT of the head shows no evidence of intracranial hemorrhage. Hence we will continue Eliquis. The patie nt is corrected Xavi vas 2 score is 7 2. Lower GI bleed secondary to bleeding from sigmoid sigmoid diverticulum. S/p hemicolectomy. 3. Lower abdominal incisional wound infection draining pus. Continue antibiotics. Surgical hist on the case 4. Anemia: Patient's hemoglobin is now stable there is no evidence of ongoing we will check chest x-ray tomorrow. 5. Atrial fibrillation with rapid ventricular response this is now controlled ventricular response. We will stop the patient's IV Cardizem and start the patient on oral metoprolol 50 mg p.o. every 12 hours since the patient is taking by mouth. 6. Possible pneumonia: Continue antibiotics. This probably is resolved. 7. History of hypertension: Blood pressure stable. 8. Hypothyroidism on replacement. 9. Diabetes mellitus: Continue Accu-Cheks and treat blood sugars accordingly since the patient is n.p.o. 10. Alzheimer's dementia by history. This seems to have improved. 7. Poor p.o. intake. Her oral intake seems to have improved Note patient's son IS AT THE BEDSIDE. DISCUSSED THE PATIENT CONDITION AND THE PATIENT'S XAVI VAS RISK FOR STROKE AND THE PROPHYLAXIS BEING TAKEN. Medications reviewed. Medical management and medical regimen discussed with Dr. Oliver. Medical decision making is of moderate complexity. 40-minute spent with patient with more than 50% time spent in direct patient care. Will follow.
[2019-09-12] MEDS: METOPROLOL TARTRATE 50 MG TABLET PO SCH ×2 (15:27→21:37)
[2019-09-12] MEDS: MEGESTROL ACETATE SUSP 400 MG/10 ML UDCUP PO SCH (15:41)
--- NOTE | 2019-09-12 15:41 | RADIOLOGY REPORT (SQ) ---
EXAM DESCRIPTION: CHEST SINGLE VIEW IMAGES COMPLETED DATE/TIME: 09/12/2019 2:58 pm REASON FOR STUDY: pNEUMONIA COMPARISON: 09/08/2019 TECHNIQUE: Single frontal radiographic view of the chest acquired. NUMBER OF VIEWS: One view. LIMITATIONS: None. FINDINGS: LUNGS AND PLEURA: No pneumothorax. Similar bibasilar subsegmental atelectasis and pleural effusions, increasing on the right. MEDIASTINUM AND HILAR STRUCTURES: Stable. HEART AND VASCULAR STRUCTURES: Stable. BONES: No acute findings. HARDWARE: Right IJ central venous catheter, stable. OTHER: No other significant finding. IMPRESSION: Similar bibasilar subsegmental atelectasis and pleural effusions, increasing on the rig ht. TECHNICAL DOCUMENTATION: JOB ID: [id number] [employer]- All Rights Reserved Reading location - IP/workstation name: [email or web address]
[2019-09-12] MEDS: FLUCONAZOLE 200 MG/NS RTU 200 MG/100 ML RTUPB IV SCH (17:14)
[2019-09-12] MEDS ORDERED: HYDRALAZINE HCL INJ/PF 20 MG/1 ML SDV IV PRN (19:28)
[2019-09-12] MEDS: ATORVASTATIN CALCIUM 80 MG TABLET PO SCH (21:36)
[2019-09-13] MEDS: PIPERACILLIN SODIUM/TAZOBACTAM 3.375 GM in NORMAL SALINE 100 ML IV SCH ×4 (03:00→20:31)
[2019-09-13] MEDS: NORMAL SALINE 1000 ML 1,000 ML IV PRN (04:26)
[2019-09-13] MEDS: PANTOPRAZOLE SODIUM 40 MG TABLET.DR PO SCH (05:46)
[2019-09-13 06:05] LABS: ABSOLUTE EOSINOPHILS # (AUTO) 0.1 10^3/uL (0.0-0.6); BASOPHILS % (AUTO) 0.4 % (0-2); EOSINOPHILS % (AUTO) 0.6 % (0-6); HEMOGLOBIN 10.6 g/dL (12.0-15.5); TOTAL CELLS COUNTED % (AUTO) 100 %
[2019-09-13 06:13] LABS: ABSOLUTE NEUT (AUTO) 6.6 10^3/uL (1.7-8.2); HEMATOCRIT 30.7 % (36.0-47.0); LYMPHOCYTES % (AUTO) 11.6 % (13-45); MEAN CORPUSCULAR HEMOGLOBIN 29.7 pg (27.0-33.4); MEAN CORPUSCULAR HGB CONC 34.5 g/dL (32.0-36.0); MEAN CORPUSCULAR VOLUME 86 fl (80-97); PLATELET COUNT 290 10^3/uL (150-450); RED BLOOD COUNT 3.56 10^6/uL (3.72-5.28); RED CELL DISTRIBUTION WIDTH 15.8 % (11.5-14.0); SEGMENTED NEUTROPHILS % (AUTO) 76.4 % (42-78); WHITE BLOOD COUNT 8.7 10^3/uL (4.0-10.5)
[2019-09-13 06:28] LABS: ALBUMIN 2.1 g/dL (3.5-5.0); ALKALINE PHOSPHATASE 49 U/L (38-126); ASPARTATE AMINO TRANSFERASE 34 U/L (14-36); BILIRUBIN,DIRECT 0.1 mg/dL (0.0-0.4); BILIRUBIN,TOTAL 0.8 mg/dL (0.2-1.3); BLOOD UREA NITROGEN 11 mg/dL (7-20); CALCIUM 7.8 mg/dL (8.4-10.2); GLUCOSE 207 mg/dL (75-110); POTASSIUM 3.6 mmol/L (3.6-5.0); TOTAL PROTEIN 5.2 g/dL (6.3-8.2)
[2019-09-13 06:33] LABS: CARBON DIOXIDE 23 mmol/L (22-30); CHLORIDE 116 mmol/L (98-107)
[2019-09-13 06:38] LABS: ANION GAP 3 (5-19)
[2019-09-13] MEDS: INSULIN LISPRO 100 UNIT/ML 3 ML VIAL SUBCUT SCH ×4 (09:36→21:57)
[2019-09-13] MEDS: DIGOXIN INJ 0.5 MG/2 ML AMPULE IV SCH (09:37)
[2019-09-13] MEDS: METOPROLOL TARTRATE 50 MG TABLET PO SCH ×2 (09:37→21:57)
[2019-09-13] MEDS: APIXABAN 5 MG TABLET PO SCH ×2 (09:37→17:38)
[2019-09-13] MEDS: ZINC SULFATE 220 MG CAPSULE PO SCH (09:38)
[2019-09-13] MEDS: MULTIVITS W-MIN/IRON SOLN 60 ML PO SCH (09:38)
[2019-09-13] MEDS: RISPERIDONE 0.5 MG TAB.RAPDIS PO SCH ×2 (09:38→17:38)
[2019-09-13] MEDS: MEGESTROL ACETATE SUSP 400 MG/10 ML UDCUP PO SCH (09:38)
--- NOTE | 2019-09-13 12:39 | PDOC PROGRESS REPORT ---
Subjective Progress Note for:: 09/13/19 Subjective:: Patient is more engaging today. Son and [id number] at bedside involved with self care assistance and feeding. P.O intake encouraging. No nausea, vomiting, and abdominal pain. No chest pain or difficulty with breathing. No fever or chills. She participated in PT session this morning. Reason For Visit: LOWER GI BLEED,DM TYPE 2,HTN,GERD,CAD Physical Exam Vital Signs: Temp Pulse Resp BP Pulse Ox 97.5 F 53 L 18 139/64 H 97 09/13/19 12:10 09/13/19 12:10 09/13/19 12:10 09/13/19 12:10 09/13/19 12:10 Intake & Output 09/12/19 09/13/19 09/14/19 06:59 06:59 06:59 Intake Total 2750 2875 50 Output Total 475 950 Balance 2275 1925 50 Weight 91.4 kg 93.6 kg Physical Exam: General appearance: PRESENT: no acute distress Head exam: PRESENT: atraumatic, normocephalic Eye exam: PRESENT: conjunctiva pink. ABSENT: pallor, scleral icterus Mouth exam: PRESENT: moist Respiratory exam: PRESENT: clear to auscultation, decreased breath sounds bilaterally Cardiovascular exam: PRESENT: Irregular rhythm, +S1, +S2. ABSENT: diastolic murmur, rubs, systolic murmur GI/Abdominal exam: PRESENT: normal bowel sounds, soft, less tenderness around lower surgical site with dressing in place. ABSENT: drainage tube is out, distended, guarding, mass, organomegaly, rebound Extremities exam: ABSENT: pedal edema Neurological exam: PRESENT: Awake, Alert, appropriate in simple responses during my bedside visit. Psychiatric exam: PRESENT: appropriate affect, normal mood. ABSENT: homicidal ideation, suicidal ideation Skin exam: PRESENT: dry, warm, multiple surgical jim anterior abdominal wall site of recent subtotal colectomy in place with purulent drainage from lower section on the incision region. Results Laboratory Results: 09/13/19 05:50 09/13/19 05:50 09/13/19 09/13/19 05:50 05:50 WBC 8.7 RBC 3.56 L Hgb 10.6 L Hct 30.7 L MCV 86 MCH 29.7 MCHC 34.5 RDW 15.8 H Plt Count 290 Seg Neutrophils % 76.4 Sodium 142.5 Potassium 3.6 Chloride 116 H Carbon Dioxide 23 Anion Gap 3 L BUN 11 Creatinine 1.12 Est GFR ( Amer) 56 L Glucose 207 H Calcium 7.8 L Total Bilirubin 0.8 AST 34 Alkaline Phosphatase 49 Total Protein 5.2 L Albumin 2.1 L 09/05/19 09/05/19 09/06/19 16:45 16:45 00:45 Creatine Kinase 52 55 CK-MB (CK-2) 0.36 Troponin I 0.035 09/06/19 09/06/19 09/06/19 00:45 06:04 06:04 Creatine Kinase 50 CK-MB (CK-2) 0.46 0.41 Troponin I 0.032 0.031 Impressions: GI Bleed Scan Nuclear Medicine 08/26/19 00:00 IMPRESSION: FINDINGS CONSISTENT WITH ACTIVE GI BLEEDING IN THE SIGMOID COLON. KUB X-Ray 08/31/19 00:00 IMPRESSION: Postoperative findings as detailed above without evidence of a mechanical bowel obstruction. 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 Distribution suggests embolic source. EVIDENCE OF ACUTE STROKE: YES. LEFT MCA and VERTEBROBASILAR. Head CT 09/08/19 00:00 IMPRESSION: 1. NO EVIDENCE OF ACUTE INTRACRANIAL PROCESS. 2. CHRONIC CHANGES OF ATROPHY AND MICROVASCULAR ISCHEMIA. EVIDENCE OF ACUTE STROKE: NO. Chest X-Ray 09/12/19 00:00 IMPRESSION: Similar bibasilar subsegmental atelectasis and pleural effusions, increasing on the right. Assessment & Plan - Diagnosis (1) Lower GI bleed Is this a current diagnosis for this admission?: Yes (2) Colonic diverticular disease Is this a current diagnosis for this admission?: Yes (3) Atrial fibrillation with rapid ventricular response Is this a current diagnosis for this admission?: Yes (4) Senile dementia with delirium Qualifiers: Dementia behavioral disturbance: without behavioral disturbance Qualified Code(s): F03.90 - Unspecified dementia without behavioral disturbance; F05 - Delirium due to known physiological condition Is this a current diagnosis for this admission?: Yes (5) Diabetes mellitus, type 2 Qualifiers: Diabetes mellitus detention insulin use: without exterminator helper use Diabetes mellitus complication status: with other specified complication Qualified Code(s): E11.69 - Type 2 diabetes mellitus with other specified complication Is this a current diagnosis for this admission?: Yes (6) Hypertension Qualifiers: Hypertension type: unspecified Qualified Code(s): I10 - Essential (primary) hypertension Is this a current diagnosis for this admission?: Yes (7) Coronary artery disease Qualifiers: Coronary Disease-Associated Artery/Lesion type: unspecified vessel or lesion type [place] vs. transplanted heart: [place] heart Associated angina: angina presence unspecified Qualified Code(s): I25.10 - Atherosclerotic heart disease of [place] coronary artery without angina pectoris Is this a current diagnosis for this admission?: Yes (8) Hyperlipidemia Qualifiers: Hyperlipidemia type: unspecified Qualified Code(s): E78.5 - Hyperlipidemia, unspecified Is this a current diagnosis for this admission?: Yes (9) Hypothyroidism Qualifiers: Hypothyroidism type: acquired Qualified Code(s): E03.9 - Hypothyroidism, unspecified Is this a current diagnosis for this admission?: Yes (10) GERD (gastroesophageal reflux disease) Qualifiers: Esophagitis presence: esophagitis presence not specified Qualified Code(s): K21.9 - Gastro-esophageal reflux disease without esophagitis Is this a current diagnosis for this admission?: Yes (11) Embolic stroke involving left vertebral artery Is this a current diagnosis for this admission?: Yes (12) Left acute arterial ischemic stroke, MCA (middle cerebral artery) Is this a current diagnosis for this admission?: Yes (13) Subcutaneous abscess postop Is this a current diagnosis for this admission?: Yes (14) Hypokalemia due to inadequate potassium intake Is this a current diagnosis for this admission?: Yes (15) Yeast vaginitis Is this a current diagnosis for this admission?: Yes - Time Time Spent with patient: 25-34 minutes Level of Care: IMCU Medications reviewed and adjusted accordingly: Yes Anticipated discharge: SNF Within: Other - Inpatient Certification Based on my medical assessment, after consideration of the patient's comorbidities, presenting symptoms, or acuity I expect that the services needed warrant INPATIENT care.: Yes I certify that my determination is in accordance with my understanding of Medicare's requirements for reasonable and necessary INPATIENT services [42 CFR 412.3e].: Yes Medical Necessity: Significant Comorbidiites Make Outpatient Treatment Too Risky, Need Close Monitoring Due to Risk of Patient Decompensation, Need For Continuous Telemetry Monitoring, Need for IV Antibiotics, Risk of Complication if Not Cared For in Hospital Post Hospital Care: D/C or Transfer Summary - Plan Summary Plan Summary: Continue current medication management. Discussed at length with family regarding SNF placement for short term rehabilitation.
[2019-09-13] MEDS: FLUCONAZOLE 200 MG/NS RTU 200 MG/100 ML RTUPB IV SCH (17:38)
[2019-09-13] MEDS: MORPHINE SULFATE 10 MG/ML INJ IV PRN (19:41)
--- NOTE | 2019-09-13 19:59 | Progress Note ---
Provider Note Provider Note: CARDIOLOGY PROGRESS NOTE by Dr. Veena Gratn on 09/13/2019. OBJECTIVE: The patient is more engaging today and she seems to be slightly more alert. She is oriented x2. She continues to be in atrial fibrillation with controlled ventricular response. Yesterday I had to write an order for IV hydralazine 10 mg IV push every 6 hours as a as needed order for systolic blood pressure greater than 160. There is no recurrence of TIA CVA symptoms. There is no bleeding on Eliquis. PHYSICAL EXAMINATION: The patient is well-built in no acute distress. Selected Entries 09/13/19 07:21 Temperature 97.4 F Temperature Axillary Source Pulse Rate 66 Respiratory 19 Rate Blood Pressure 151/72 H Blood Pressure 98 Mean BP Location Left Arm BP Position Supine O2 Sat by Pulse 99 Oximetry Oxygen Delivery Room Air Method Head: Is atraumatic normocephalic. EYES: Pupils are equal round regular reactive light. There is no conjunctival pallor. There is no scleral icterus. EARS: Tympanic membranes are intact. External auditory canals are clear. NOSE: There is no deviated nasal septum. There is no inflammation of his mucous membrane. MOUTH: Mucous membranes in the mouth are dry. Tongue is dry. There is no ulcers of the mouth. There is no bleeding from the gums. THROAT: There is no redness of the oropharynx. There is no exudates. Acute neck: Supple. There is no JVD. Carotids are equal there is no bruit. There is no lymphadenopathy. There is no goiter. There is no accessory muscles of respiration use. Trachea central. LUNGS: There is a few dry crackles in the right mid zone right base. There is no rhonchi or wheezing. There is no rales of CHF. HEART: S1-S2 is heard. S1 is a variable intensity. There is no S3 gallop. There is no S4 gallop. There is systolic murmur left sternal border and the apex. There is murmur of aortic sclerosis present. There is no aortic stenosis or aortic regurgitation murmur heard. There is no significant valvular stenotic or regurgitant murmur heard. There is no rub. ABDOMEN: Soft dressing is dry. There is no hepatosplenomegaly. Bowel sounds are absent. Extremities: Femorals are diminished there is no femoral bruits. Leg pulses are diminished. There is no pedal edema. There is no DVT or cellulitis. 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 Patient more awake. She is oriented x2. She is able to recognize me and her son and knows where she is. She moves all 4 extremities. PSYCHIATRIC: The patient does not appear to be agitated or anxious. Labs- All tests 24 hr 09/12/19 09/13/19 09/13/19 21:24 05:50 05:50 WBC 8.7 RBC 3.56 L Hgb 10.6 L Hct 30.7 L MCV 86 MCH 29.7 MCHC 34.5 RDW 15.8 H Plt Count 290 Lymph % (Auto) 11.6 L Posey % (Auto) 11.0 Eos % (Auto) 0.6 Baso % (Auto) 0.4 Absolute Neuts (auto) 6.6 Absolute Lymphs (auto) 1.0 Absolute Monos (auto) 1.0 Absolute Eos (auto) 0.1 Absolute Basos (auto) 0.0 Seg Neutrophils % 76.4 Sodium 142.5 Potassium 3.6 Chloride 116 H Carbon Dioxide 23 Anion Gap 3 L BUN 11 Creatinine 1.12 Est GFR ( Amer) 56 L Est GFR (MDRD) Non-Af 47 L Glucose 207 H POC Glucose 219 H Calcium 7.8 L Total Bilirubin 0.8 Direct Bilirubin 0.1 Neonat Total Bilirubin Not Reportable Neonat Direct Bilirubin Not Reportable Neonat Indirect Bili Not Reportable AST 34 ALT 17 Alkaline Phosphatase 49 Total Protein 5.2 L Albumin 2.1 L 09/13/19 09/13/19 09/13/19 07:21 12:11 16:08 WBC RBC Hgb Hct MCV MCH MCHC RDW Plt Count Lymph % (Auto) Posey % (Auto) Eos % (Auto) Baso % (Auto) Absolute Neuts (auto) Absolute Lymphs (auto) Absolute Monos (auto) Absolute Eos (auto) Absolute Basos (auto) Seg Neutrophils % Sodium Potassium Chloride Carbon Dioxide Anion Gap BUN Creatinine Est GFR ( Amer) Est GFR (MDRD) Non-Af Glucose POC Glucose 210 H 224 H 236 H Calcium Total Bilirubin Direct Bilirubin Neonat Total Bilirubin Neonat Direct Bilirubin Neonat Indirect Bili AST ALT Alkaline Phosphatase Total Protein Albumin GI Bleed Scan Nuclear Medicine 08/26/19 00:00 IMPRESSION: FINDINGS CONSISTENT WITH ACTIVE GI BLEEDING IN THE SIGMOID COLON. Chest X-Ray 08/28/19 05:00 IMPRESSION: Opacity left lateral lung base, question atelectasis or pneumonia KUB X-Ray 08/31/19 00:00 IMPRESSION: Postoperative findings as detailed above without evidence of a mechanical bowel obstruction. 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 Distribution suggests embolic source. EVIDENCE OF ACUTE STROKE: YES. LEFT MCA and VERTEBROBASILAR. Head CT 09/08/19 00:00 IMPRESSION: 1. NO EVIDENCE OF ACUTE INTRACRANIAL PROCESS. 2. CHRONIC CHANGES OF ATROPHY AND MICROVASCULAR ISCHEMIA. EVIDENCE OF ACUTE STROKE: NO. Chest X-Ray 09/08/19 02:16 IMPRESSION: Findings suggesting mild changes of CHF. Chest X-Ray 09/12/19 00:00 IMPRESSION: Similar bibasilar subsegmental atelectasis and pleural effusions, increasing on the right. IMPRESSION/RECOMMENDATION: 1. 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 Increase in the patient's altered mental status was with obtundation. CT of the head shows no evidence of intracranial hemorrhage. Hence we will continue Eliquis. The patient is corrected Xavi vas 2 score is 7 2. Lower GI bleed secondary to bleeding from sigmoid sigmoid diverticulum. S/p hemicolectomy. 3. Lower abdominal incisional wound infection draining pus. Continue antibiotics. Surgical hist on the case 4. Anemia: Patient's hemoglobin is now stable there is no evidence of ongoing we will check chest x-ray tomorrow. 5. Atrial fibrillation with rapid ventricular response this is now controlled ventricular response. We will stop the patient's IV Cardizem and start the patient on oral metoprolol 50 mg p.o. every 12 hours since the patient is taking by mouth. 6. Possible pneumonia: Continue antibiotics. This probably is resolved. 7. History of hypertension: Blood pressure stable. 8. Hypothyroidism on replacement. 9. Diabetes mellitus: Continue Accu-Cheks and treat blood sugars accordingly since the patient is n.p.o. 10. Alzheimer's dementia by history. This seems to have improved. 7. Poor p.o. intake. Her oral intake seems to have improved Medications reviewed. Medical management and medical regimen discussed with Dr. Oliver. Medical decision making is of moderate complexity. 40-minute spent with patient with more than 50% time spent in direct patient care. Will follow.
[2019-09-13] MEDS: ATORVASTATIN CALCIUM 80 MG TABLET PO SCH (21:57)
[2019-09-14] MEDS: MORPHINE SULFATE 10 MG/ML INJ IV PRN ×2 (03:08→10:22)
[2019-09-14] MEDS: NORMAL SALINE 1000 ML 1,000 ML IV PRN (03:17)
[2019-09-14] MEDS: PIPERACILLIN SODIUM/TAZOBACTAM 3.375 GM in NORMAL SALINE 100 ML IV SCH ×4 (03:17→20:47)
[2019-09-14] MEDS: PANTOPRAZOLE SODIUM 40 MG TABLET.DR PO SCH (05:41)
[2019-09-14] MEDS: INSULIN LISPRO 100 UNIT/ML 3 ML VIAL SUBCUT SCH ×4 (08:53→21:30)
[2019-09-14] MEDS: MULTIVITS W-MIN/IRON SOLN 60 ML PO SCH (10:16)
[2019-09-14] MEDS: ZINC SULFATE 220 MG CAPSULE PO SCH (10:16)
[2019-09-14] MEDS: RISPERIDONE 0.5 MG TAB.RAPDIS PO SCH ×2 (10:17→17:09)
[2019-09-14] MEDS: MEGESTROL ACETATE SUSP 400 MG/10 ML UDCUP PO SCH (10:17)
[2019-09-14] MEDS: METOPROLOL TARTRATE 50 MG TABLET PO SCH ×2 (10:21→21:30)
[2019-09-14] MEDS: DIGOXIN INJ 0.5 MG/2 ML AMPULE IV SCH (10:22)
[2019-09-14] MEDS: APIXABAN 5 MG TABLET PO SCH ×2 (10:22→17:08)
[2019-09-14] MEDS ORDERED: FUROSEMIDE INJ/PF 40 MG/4 ML SDV ONE (13:39)
[2019-09-14] MEDS ORDERED: FUROSEMIDE 40 MG TABLET PO ONE (13:45)
[2019-09-14] MEDS ORDERED: FUROSEMIDE INJ/PF 40 MG/4 ML SDV IV ONE (14:30)
--- NOTE | 2019-09-14 15:33 | Progress Note ---
Provider Note Provider Note: CARDIOLOGY PROGRESS NOTE by Dr. Veena Grant on 09/14/2019. SUBJECTIVE: The patient continues to be in atrial fibrillation with controlled ventricular response. There is no ventricle arrhythmia seen. The patient's mental status is the same. There is no progression of her CVA. Her p.o. intake is better. Her blood pressure is not optimally controlled. Will start the patient on amlodipine. She denies chest pain or discomfort. There is no shortness of breath. She is awaiting fpc placement. PHYSICAL EXAMINATION: The patient is moderately obese. In no acute distress. Selected Entries 09/14/19 12:11 Temperature 97.3 F Temperature Axillary Source Pulse Rate 71 Respiratory 16 Rate Blood Pressure 164/86 H Blood Pressure 112 Mean BP Location Left Arm BP Position Supine O2 Sat by Pulse 99 Oximetry Oxygen Delivery Room Air Method Head: Is atraumatic normocephalic. EYES: Pupils are equal round regular reactive light. There is no conjunctival pallor. There is no scleral icterus. EARS: Tympanic membranes are intact. External auditory canals are clear. NOSE: There is no deviated nasal septum. There is no inflammation of his mucous membrane. MOUTH: Mucous membranes in the mouth are dry. Tongue is dry. There is no ulcers of the mouth. There is no bleeding from the gums. THROAT: There is no redness of the oropharynx. There is no exudates. Acute neck: Supple. There is no JVD. Carotids are equal there is no bruit. There is no lymphadenopathy. There is no goiter. There is no accessory muscles of respiration use. Trachea central. LUNGS: Clear to auscultation percussion. There is no rales of CHF. HEART: S1-S2 is heard. S1 is a variable intensity. There is no S3 gallop. There is no S4 gallop. There is systolic murmur left sternal border and the apex. There is murmur of aortic sclerosis present. There is no aortic stenosis or aortic regurgitation murmur heard. There is no significant valvular stenotic or regurgitant murmur heard. There is no rub. ABDOMEN: Soft dressing is dry. There is no hepatosplenomegaly. Bowel sounds are absent. Extremities: Femorals are diminished there is no femoral bruits. Leg pulses are diminished. There is no pedal edema. There is no DVT or cell ulitis. 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 Patient more awake. She is oriented x2. She is able to recognize me and her son and knows where she is. She moves all 4 extremities. PSYCHIATRIC: The patient does not appear to be agitated or anxious. Labs- All tests 24 hr 09/14/19 09/14/19 09/14/19 08:12 12:10 17:04 POC Glucose 148 H 190 H 201 H 09/14/19 21:19 POC Glucose 167 H GI Bleed Scan Nuclear Medicine 08/26/19 00:00 IMPRESSION: FINDINGS CONSISTENT WITH ACTIVE GI BLEEDING IN THE SIGMOID COLON. Chest X-Ray 08/28/19 05:00 IMPRESSION: Opacity left lateral lung base, question atelectasis or pneumonia KUB X-Ray 08/31/19 00:00 IMPRESSION: Postoperative findings as detailed above without evidence of a mechanical bowel obstruction. 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 Distribution suggests embolic source. EVIDENCE OF ACUTE STROKE: YES. LEFT MCA and VERTEBROBASILAR. Head CT 09/08/19 00:00 IMPRESSION: 1. NO EVIDENCE OF ACUTE INTRACRANIAL PROCESS. 2. CHRONIC CHANGES OF ATROPHY AND MICROVASCULAR ISCHEMIA. EVIDENCE OF ACUTE STROKE: NO. Chest X-Ray 09/08/19 02:16 IMPRESSION: Findings suggesting mild changes of CHF. Chest X-Ray 09/12/19 00:00 IMPRESSION: Similar bibasilar subsegmental atelectasis and pleural effusions, increasing on the right. IMPRESSION/RECOMMENDATION: 1. 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 Increase in the patient's altered mental status was with obtundation. CT of the head shows no evidence of intracranial hemorrhage. Hence we will continue Eliquis. The patient is corrected Xavi vas 2 score is 7 2. Lower GI bleed secondary to bleeding from sigmoid sigmoid diverticulum. S/p hemicolectomy. 3. Lower abdominal incisional wound infection draining pus. Continue antibiotics. Surgical hist on the case 4. Anemia: Patient's hemoglobin is now stable there is no evidence of ongoing bleeding. We will check hemoglobin. Also we will check chest x-ray tomorrow. 5. Atrial fibrillation with rapid ventricular response this is now controlled ventricular response. We will stop the patient's IV Cardizem and start the patient on oral metoprolol 50 mg p.o. every 12 hours since the patient is taking by mouth. 6. Possible pneumonia: Continue antibiotics. This probably is resolved. 7. History of hypertension: Blood pressure not optimally controlled. Will start the patient on amlodipine. 8. Hypothyroidism on replacement. 9. Diabetes mellitus: Continue Accu-Cheks and treat blood sugars accordingly since the patient is n.p.o. 10. Alzheimer's dementia by history. This seems to have improved. 7. Poor p.o. intake. Her oral intake seems to have improved Medications reviewed. Medical management and medical regimen discussed with Dr. Oliver. Medical decision making is of moderate complexity. 40-minute spent with patient with more than 50% time spent in direct patient care. Will follow.
[2019-09-14] MEDS: FLUCONAZOLE 100 MG TABLET PO SCH (17:08)
--- NOTE | 2019-09-14 19:33 | PDOC PROGRESS REPORT ---
Subjective Progress Note for:: 09/14/19 Subjective:: No chest pain or difficulty with breathing. Patient participated in rehabilitation session today mainly sitting up in bed. She was able to assist with self feeding at lunch. No nausea, vomiting, and abdominal pain. No fever or chills. Reason For Visit: LOWER GI BLEED,DM TYPE 2,HTN,GERD,CAD Physical Exam Vital Signs: Temp Pulse Resp BP Pulse Ox 97.6 F 70 16 176/92 H 97 09/14/19 08:10 09/14/19 08:10 09/14/19 08:10 09/14/19 08:10 09/14/19 08:10 Intake & Output 09/13/19 09/14/19 09/15/19 06:59 06:59 06:59 Intake Total 2875 2100 Output Total 950 1290 Balance 1925 810 Weight 93.6 kg 97 kg Physical Exam: General appearance: PRESENT: no acute distress Head exam: PRESENT: atraumatic, normocephalic Eye exam: PRESENT: conjunctiva pink. ABSENT: pallor, scleral icterus Mouth exam: PRESENT: moist Respiratory exam: PRESENT: clear to auscultation, decreased breath sounds bilaterally Cardiovascular exam: PRESENT: Irregular rhythm, +S1, +S2. ABSENT: diastolic murmur, rubs, systolic murmur GI/Abdominal exam: PRESENT: normal bowel sounds, soft, less tenderness around lower surgical site with dressing in place. ABSENT: drainage tube is out, distended, guarding, mass, organomegaly, rebound Extremities exam: ABSENT: pedal edema Neurological exam: PRESENT: Awake, Alert, appropriate in simple responses during my bedside visit. Psychiatric exam: PRESENT: appropriate affect, normal mood. ABSENT: homicidal ideation, suicidal ideation Skin exam: PRESENT: dry, warm, multiple surgical jim anterior abdominal wall upper site of recent subtotal colectomy in place, lower section wound is pink without significant drainage or discharge. Results Laboratory Results: 09/13/19 05:50 09/13/19 05:50 09/05/19 09/05/19 09/06/19 16:45 16:45 00:45 Creatine Kinase 52 55 CK-MB (CK-2) 0.36 Troponin I 0.035 09/06/19 09/06/19 09/06/19 00:45 06:04 06:04 Creatine Kinase 50 CK-MB (CK-2) 0.46 0.41 Troponin I 0.032 0.031 Impressions: GI Bleed Scan Nuclear Medicine 08/26/19 00:00 IMPRESSION: FINDINGS CONSISTENT WITH ACTIVE GI BLEEDING IN THE SIGMOID COLON. KUB X-Ray 08/31/19 00:00 IMPRESSION: Postoperative findings as detailed above without evidence of a mechanical bowel obstruction. 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 Distribution suggests embolic source. EVIDENCE OF ACUTE STROKE: YES. LEFT MCA and VERTEBROBASILAR. Head CT 09/08/19 00:00 IMPRESSION: 1. NO EVIDENCE OF ACUTE INTRACRANIAL PROCESS. 2. CHRONIC CHANGES OF ATROPHY AND MICROVASCULAR ISCHEMIA. EVIDENCE OF ACUTE STROKE: NO. Chest X-Ray 09/12/19 00:00 IMPRESSION: Similar bibasilar subsegmental atelectasis and pleural effusions, increasing on the right. Assessment & Plan - Diagnosis (1) Lower GI bleed Is this a current diagnosis for this admission?: Yes (2) Colonic diverticular disease Is this a current diagnosis for this admission?: Yes (3) Atrial fibrillation with rapid ventricular response Is this a current diagnosis for this admission?: Yes (4) Senile dementia with delirium Qualifiers: Dementia behavioral disturbance: without behavioral disturbance Qualified Code(s): F03.90 - Unspecified dementia without behavioral disturbance; F05 - Delirium due to known physiological condition Is this a current diagnosis for this admission?: Yes (5) Diabetes mellitus, type 2 Qualifiers: Diabetes mellitus assisted insulin use: without parts counterman use Diabetes mellitus complication status: with other specified complication Qualified Code(s): E11.69 - Type 2 diabetes mellitus with other specified complication Is this a current diagnosis for this admission?: Yes (6) Hypertension Qualifiers: Hypertension type: unspecified Qualified Code(s): I10 - Essential (primary) hypertension Is this a current diagnosis for this admission?: Yes (7) Coronary artery disease Qualifiers: Coronary Disease-Associated Artery/Lesion type: unspecified vessel or lesion type [place] vs. transplanted heart: [place] heart Associated angina: angina presence unspecified Qualified Code(s): I25.10 - Atherosclerotic heart disease of [place] coronary artery without angina pectoris Is this a current diagnosis for this admission?: Yes (8) Hyperlipidemia Qualifiers: Hyperlipidemia type: unspecified Qualified Code(s): E78.5 - Hyperlipidemia, unspecified Is this a current diagnosis for this admission?: Yes (9) Hypothyroidism Qualifiers: Hypothyroidism type: acquired Qualified Code(s): E03.9 - Hypothyroidism, unspecified Is this a current diagnosis for this admission?: Yes (10) GERD (gastroesophageal reflux disease) Qualifiers: Esophagitis presence: esophagitis presence not specified Qualified Code(s): K21.9 - Gastro-esophageal reflux disease without esophagitis Is this a current diagnosis for this admission?: Yes (11) Embolic stroke involving left vertebral artery Is this a current diagnosis for this admission?: Yes (12) Left acute arterial ischemic stroke, MCA (middle cerebral artery) Is this a current diagnosis for this admission?: Yes (13) Subcutaneous abscess postop Is this a current diagnosis for this admission?: Yes (14) Hypokalemia due to inadequate potassium intake Is this a current diagnosis for this admission?: Yes (15) Yeast vaginitis Is this a current diagnosis for this admission?: Yes - Time Time Spent with patient: 25-34 minutes Level of Care: IMCU Medications reviewed and adjusted accordingly: Yes Anticipated discharge: SNF Within: Other - Inpatient Certification Based on my medical assessment, after consideration of the patient's comorbidities, presenting symptoms, or acuity I expect that the services needed warrant INPATIENT care.: Yes I certify that my determination is in accordance with my understanding of Medicare's requirements for reasonable and necessary INPATIENT services [42 CFR 412.3e].: Yes Medical Necessity: Significant Comorbidiites Make Outpatient Treatment Too Risky, Need Close Monitoring Due to Risk of Patient Decompensation, Need For Continuous Telemetry Monitoring, Need for IV Antibiotics, Risk of Complication if Not Cared For in Hospital, Risk of Diagnosis Which Will Require Inpatient Eval/Care/Monitoring Post Hospital Care: D/C or Transfer Summary - Plan Summary Plan Summary: Continue current medication management. Wound will need wound vac application for proper wound management.
[2019-09-14] MEDS: ATORVASTATIN CALCIUM 80 MG TABLET PO SCH (21:30)
[2019-09-15] MEDS: MORPHINE SULFATE 10 MG/ML INJ IV PRN ×3 (00:15→16:41)
[2019-09-15] MEDS: PIPERACILLIN SODIUM/TAZOBACTAM 3.375 GM in NORMAL SALINE 100 ML IV SCH ×4 (02:10→21:58)
[2019-09-15] MEDS: PANTOPRAZOLE SODIUM 40 MG TABLET.DR PO SCH (06:32)
[2019-09-15 07:05] LABS: ABSOLUTE EOSINOPHILS # (AUTO) 0.1 10^3/uL (0.0-0.6); ABSOLUTE LYMPHOCYTES (AUTO) 1.1 10^3/uL (0.5-4.7); ABSOLUTE MONOCYTES (AUTO) 0.8 10^3/uL (0.1-1.4); ABSOLUTE NEUT (AUTO) 7.6 10^3/uL (1.7-8.2); BASOPHILS % (AUTO) 0.5 % (0-2); HEMATOCRIT 33.6 % (36.0-47.0); HEMOGLOBIN 11.3 g/dL (12.0-15.5); LYMPHOCYTES % (AUTO) 11.4 % (13-45); MEAN CORPUSCULAR HEMOGLOBIN 29.3 pg (27.0-33.4); MEAN CORPUSCULAR HGB CONC 33.7 g/dL (32.0-36.0); MEAN CORPUSCULAR VOLUME 87 fl (80-97); MONOCYTES % (AUTO) 8.1 % (3-13); PLATELET COUNT 282 10^3/uL (150-450); RED BLOOD COUNT 3.87 10^6/uL (3.72-5.28); RED CELL DISTRIBUTION WIDTH 15.7 % (11.5-14.0); TOTAL CELLS COUNTED % (AUTO) 100 %; WHITE BLOOD COUNT 9.7 10^3/uL (4.0-10.5)
[2019-09-15 07:13] LABS: ALBUMIN 2.2 g/dL (3.5-5.0); ALKALINE PHOSPHATASE 51 U/L (38-126); ANION GAP 5 (5-19); ASPARTATE AMINO TRANSFERASE 54 U/L (14-36); BILIRUBIN,TOTAL 0.9 mg/dL (0.2-1.3); BLOOD UREA NITROGEN 12 mg/dL (7-20); CALCIUM 8.2 mg/dL (8.4-10.2); CARBON DIOXIDE 26 mmol/L (22-30); CHLORIDE 113 mmol/L (98-107); GLUCOSE 164 mg/dL (75-110); TOTAL PROTEIN 5.5 g/dL (6.3-8.2)
[2019-09-15 07:16] LABS: POTASSIUM 2.9 mmol/L (3.6-5.0)
[2019-09-15] MEDS: INSULIN LISPRO 100 UNIT/ML 3 ML VIAL SUBCUT SCH ×4 (08:38→21:59)
[2019-09-15] MEDS: POTASSIUM CHLORIDE 20 MEQ/50 ML RTU IV SCH ×3 (08:39→12:30)
--- NOTE | 2019-09-15 09:09 | RADIOLOGY REPORT (SQ) ---
EXAM DESCRIPTION: CHEST SINGLE VIEW IMAGES COMPLETED DATE/TIME: 09/15/2019 8:28 am REASON FOR STUDY: Pneumonia COMPARISON: AP view of the chest from 09/12/2019. EXAM PARAMETERS: NUMBER OF VIEWS: One view. TECHNIQUE: An AP view of the chest was obtained. RADIATION DOSE: NA LIMITATIONS: None. FINDINGS: LUNGS AND PLEURA: Unchanged radiographic appearance of the lungs and pleura. MEDIASTINUM AND HILAR STRUCTURES: Stable mediastinal and hilar contours. HEART AND VASCULAR STRUCTURES: Stable enlarged cardiac silhouette. BONES: No acute findings. HARDWARE: The tip of the right IJ central venous catheter projects at the level of the cavoatrial radha ction. OTHER: No other finding. IMPRESSION: Unchanged radiographic appearance of the chest. TECHNICAL DOCUMENTATION: JOB ID: [id number] 2010 [employer] All Rights Reserved Reading location - IP/workstation name: [email or web address]
[2019-09-15] MEDS: DIGOXIN INJ 0.5 MG/2 ML AMPULE IV SCH (10:41)
[2019-09-15] MEDS: MEGESTROL ACETATE SUSP 400 MG/10 ML UDCUP PO SCH (10:42)
[2019-09-15] MEDS: MULTIVITS W-MIN/IRON SOLN 60 ML PO SCH (10:42)
[2019-09-15] MEDS: AMLODIPINE BESYLATE 5 MG TABLET PO SCH ×2 (10:42→21:58)
[2019-09-15] MEDS: METOPROLOL TARTRATE 50 MG TABLET PO SCH ×2 (10:43→21:58)
[2019-09-15] MEDS: APIXABAN 5 MG TABLET PO SCH ×2 (10:43→17:30)
[2019-09-15] MEDS: RISPERIDONE 0.5 MG TAB.RAPDIS PO SCH ×2 (10:43→17:30)
[2019-09-15] MEDS: ZINC SULFATE 220 MG CAPSULE PO SCH (10:43)
--- NOTE | 2019-09-15 11:32 | Progress Note ---
Provider Note Provider Note: CARDIOLOGY PROGRESS NOTE by Dr. Veena Grant on 09/15/2019. SUBJECTIVE: The patient still mental status remains the same. She is in atrial fibrillation with controlled ventricular response. There is no ventricular arrhythmias seen on the monitor. There is no bleeding on Eliquis. There is no TIA CVA symptom recurrence. There is no leg edema. The patient denies any chest pain or discomfort or shortness of breath. Note a wound VAC has been placed at the lower end of infected abdominal wall incision. The patient is afebrile. PHYSICAL EXAMINATION: The patient mildly obese. Appears to be chronically ill. In no acute distress. Selected Entries 09/15/19 11:03 Temperature 97.4 F Temperature Oral Source Pulse Rate 75 Respiratory 18 Rate Blood Pressure 160/70 H Blood Pressure 100 Mean BP Location Left Arm BP Position Supine O2 Sat by Pulse 99 Oximetry Oxygen Delivery Room Air Method Head: Is atraumatic normocephalic. EYES: Pupils are equal round regular reactive light. There is no conjunctival pallor. There is no scleral icterus. EARS: Tympanic membranes are intact. External auditory canals are clear. NOSE: There is no deviated nasal septum. There is no inflammation of his mucous membrane. MOUTH: Mucous membranes in the mouth are dry. Tongue is dry. There is no ulcers of the mouth. There is no bleeding from the gums. THROAT: There is no redness of the oropharynx. There is no exudates. Acute neck: Supple. There is no JVD. Carotids are equal there is no bruit. There is no lymphadenopathy. There is no goiter. There is no accessory muscles of respiration use. Trachea central. LUNGS: Clear to auscultation percussion. There is no rales of CHF. HEART: S1-S2 is heard. S1 is a variable intensity. There is no S3 gallop. There is no S4 gallop. There is systolic murmur left sternal border and the apex. There is murmur of aortic sclerosis present. There is no aortic stenosis or aortic regurgitation murmur heard. There is no significant valvular stenotic or regurgitant murmur heard. There is no rub. ABDOMEN: Soft dressing is dry. There is no hepatosplenomegaly. Bowel sounds are absent. Extremities: Femorals are diminished there is no femoral bruits. Leg pulses are diminished. There is no pedal edema. There is no DVT or cellulitis. 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 Patient more awake. She is oriented x2. She is able to recognize me and her son and knows where she is. She moves all 4 extremities. PSYCHIATRIC: The patient does not appear to be agitated . Labs- All tests 24 hr 09/14/19 09/14/19 09/14/19 12:10 17:04 21:19 WBC RBC Hgb Hct MCV MCH MCHC RDW Plt Count Lymph % (Auto) [place] % (Auto) Eos % (Auto) Baso % (Auto) Absolute Neuts (auto) Absolute Lymphs (auto) Absolute Monos (auto) Absolute Eos (auto) Absolute Basos (auto) Seg Neutrophils % Sodium Potassium Chloride Carbon Dioxide Anion Gap BUN Creatinine Est GFR ( Amer) Est GFR (MDRD) Non-Af Glucose POC Glucose 190 H 201 H 167 H Calcium Magnesium Total Bilirubin Direct Bilirubin Neonat Total Bilirubin Neonat Direct Bilirubin Neonat Indirect Bili AST ALT Alkaline Phosphatase Total Protein Albumin 09/15/19 09/15/19 09/15/19 06:40 06:44 06:44 WBC 9.7 RBC 3.87 Hgb 11.3 L Hct 33.6 L MCV 87 MCH 29.3 MCHC 33.7 RDW 15.7 H Plt Count 282 Lymph % (Auto) 11.4 L [place] % (Auto) 8.1 Eos % (Auto) 1.0 Baso % (Auto) 0.5 Absolute Neuts (auto) 7.6 Absolute Lymphs (auto) 1.1 Absolute Monos (auto) 0.8 Absolute Eos (auto) 0.1 Absolute Basos (auto) 0.0 Seg Neutrophils % 79.0 H Sodium 143.6 Potassium 2.9 L* Chloride 113 H Carbon Dioxide 26 Anion Gap 5 BUN 12 Creatinine 1.10 Est GFR ( Amer) 58 L Est GFR (MDRD) Non-Af 48 L Glucose 164 H POC Glucose Calcium 8.2 L Magnesium 1.8 Total Bilirubin 0.9 Direct Bilirubin 0.0 Neonat Total Bilirubin Not Reportable Neonat Direct Bilirubin Not Reportable Neonat Indirect Bili Not Reportable AST 54 H ALT 22 Alkaline Phosphatase 51 Total Protein 5.5 L Albumin 2.2 L 09/15/19 09/15/19 08:19 11:11 WBC RBC Hgb Hct MCV MCH MCHC RDW Plt Count Lymph % (Auto) [place] % (Auto) Eos % (Auto) Baso % (Auto) Absolute Neuts (auto) Absolute Lymphs (auto) Absolute Monos (auto) Absolute Eos (auto) Absolute Basos (auto) Seg Neutrophils % Sodium Potassium Chloride Carbon Dioxide Anion Gap BUN Creatinine Est GFR ( Amer) Est GFR (MDRD) Non-Af Glucose POC Glucose 192 H 156 H Calcium Magnesium Total Bilirubin Direct Bilirubin GI Bleed Scan Nuclear Medicine 08/26/19 00:00 IMPRESSION: FINDINGS CONSISTENT WITH ACTIVE GI BLEEDING IN THE SIGMOID COLON. Chest X-Ray 08/28/19 05:00 IMPRESSION: Opacity left lateral lung base, question atelectasis or pneumonia KUB X-Ray 08/31/19 00:00 IMPRESSION: Postoperative findings as detailed above without evidence of a mechanical bowel obstruction. 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 Distribution suggests embolic source. EVIDENCE OF ACUTE STROKE: YES. LEFT MCA and VERTEBROBASILAR. Head CT 09/08/19 00:00 IMPRESSION: 1. NO EVIDENCE OF ACUTE INTRACRANIAL PROCESS. 2. CHRONIC CHANGES OF ATROPHY AND MICROVASCULAR ISCHEMIA. EVIDENCE OF ACUTE STROKE: NO. Chest X-Ray 09/08/19 02:16 IMPRESSION: Findings suggesting mild changes of CHF. Chest X-Ray 09/12/19 00:00 IMPRESSION: Similar bibasilar subsegmental atelectasis and pleural effusions, increasing on the right. Chest X-Ray 09/15/19 06:00 IMPRESSION: Unchanged radiographic appearance of the chest. Neonat Total Bilirubin Neonat Direct Bilirubin Neonat Indirect Bili AST ALT Alkaline Phosphatase Total Protein Albumin IMPRESSION/RECOMMENDATION: 1. 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 Increase in the patient's altered mental status was with obtundation. CT of the head shows no evidence of intracranial hemorrhage. Hence we will continue Eliquis. The patient is corrected Xavi vas 2 score is 7 2. Lower GI bleed secondary to bleeding from sigmoid sigmoid diverticulum. S/p hemicolectomy. 3. Lower abdominal incisional wound infection draining pus. Continue antibiotics. Surgical hist on the case 4. Anemia: Patient's hemoglobin is now stable there is no evidence of ongoing bleeding. Her hemoglobin is 11.3. 5. Atrial fibrillation with rapid ventricular response this is now controlled ventricular response. Continue metoprolol 50 mg p.o. every 12 hours. 6. Possible pneumonia: Continue antibiotics. This probably is resolved. 7. History of hypertension: Blood pressure not optimally controlled. The first dose of amlodipine is just been given. Earlier the nurse give hydralazine intravenously since the blood pressure was slightly elevated. At present reasonable blood pressure. 8. Hypothyroidism on replacement. 9. Diabetes mellitus: Continue Accu-Cheks and treat blood sugars accordingly since the patient is n.p.o. 10. Alzheimer's dementia by history. This seems to have improved. 11. Hypokalemia: Replace potassium. 12.. Poor p.o. intake. Her oral intake seems to have improved Medications reviewed. Medical management and medical regimen discussed with Dr. Oliver. Medical decision making is of moderate complexity. 40-minute spent with patient with more than 50% time spent in direct patient care. Will follow.
[2019-09-15] MEDS ORDERED: FUROSEMIDE INJ/PF 40 MG/4 ML SDV IV ONE (16:15)
[2019-09-15] MEDS: FLUCONAZOLE 100 MG TABLET PO SCH (17:30)
--- NOTE | 2019-09-15 18:31 | PDOC PROGRESS REPORT ---
Subjective Progress Note for:: 09/15/19 Subjective:: She is more lucid and engaging today. No chest pain or difficulty with breathing. No nausea, vomiting, and abdominal pain. No fever or chills. Reason For Visit: LOWER GI BLEED,DM TYPE 2,HTN,GERD,CAD Physical Exam Vital Signs: Temp Pulse Resp BP Pulse Ox 98.1 F 72 18 154/86 H 98 09/15/19 15:21 09/15/19 15:21 09/15/19 15:21 09/15/19 15:21 09/15/19 15:21 Intake & Output 09/14/19 09/15/19 09/16/19 06:59 06:59 06:59 Intake Total 2100 500 418 Output Total 1290 5230 1675 Balance 810 -3090 -1257 Weight 97 kg 90.4 kg Physical Exam: General appearance: PRESENT: no acute distress Head exam: PRESENT: atraumatic, normocephalic Eye exam: PRESENT: conjunctiva pink. ABSENT: pallor, scleral icterus Mouth exam: PRESENT: moist Respiratory exam: PRESENT: clear to auscultation, decreased breath sounds bilaterally Cardiovascular exam: PRESENT: Irregular rhythm, +S1, +S2. ABSENT: diastolic murmur, rubs, systolic murmur GI/Abdominal exam: PRESENT: normal bowel sounds, soft, less tenderness around lower surgical site with dressing in place. ABSENT: drainage tube is out, distended, guarding, mass, organomegaly, rebound Extremities exam: ABSENT: pedal edema Neurological exam: PRESENT: Awake, Alert, appropriate in simple responses during my bedside visit. Psychiatric exam: PRESENT: appropriate affect, normal mood. ABSENT: homicidal ideation, suicidal ideation Skin exam: PRESENT: dry, warm, multiple surgical jim anterior abdominal wall upper site of recent subtotal colectomy in place, lower section wound with wound vac in situ. Results Laboratory Results: 09/15/19 06:40 09/15/19 06:44 09/15/19 09/15/19 09/15/19 06:40 06:44 06:44 WBC 9.7 RBC 3.87 Hgb 11.3 L Hct 33.6 L MCV 87 MCH 29.3 MCHC 33.7 RDW 15.7 H Plt Count 282 Seg Neutrophils % 79.0 H Sodium 143.6 Potassium 2.9 L* Chloride 113 H Carbon Dioxide 26 Anion Gap 5 BUN 12 Creatinine 1.10 Est GFR ( Amer) 58 L Glucose 164 H Calcium 8.2 L Magnesium 1.8 Total Bilirubin 0.9 AST 54 H Alkaline Phosphatase 51 Total Protein 5.5 L Albumin 2.2 L 09/05/19 09/05/19 09/06/19 16:45 16:45 00:45 Creatine Kinase 52 55 CK-MB (CK-2) 0.36 Troponin I 0.035 09/06/19 09/06/19 09/06/19 00:45 06:04 06:04 Creatine Kinase 50 CK-MB (CK-2) 0.46 0.41 Troponin I 0.032 0.031 Impressions: GI Bleed Scan Nuclear Medicine 08/26/19 00:00 IMPRESSION: FINDINGS CONSISTENT WITH ACTIVE GI BLEEDING IN THE SIGMOID COLON. KUB X-Ray 08/31/19 00:00 IMPRESSION: Postoperative findings as detailed above without evidence of a mechanical bowel obstruction. 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 Distribution suggests embolic source. EVIDENCE OF ACUTE STROKE: YES. LEFT MCA and VERTEBROBASILAR. Head CT 09/08/19 00:00 IMPRESSION: 1. NO EVIDENCE OF ACUTE INTRACRANIAL PROCESS. 2. CHRONIC CHANGES OF ATROPHY AND MICROVASCULAR ISCHEMIA. EVIDENCE OF ACUTE STROKE: NO. Chest X-Ray 09/15/19 06:00 IMPRESSION: Unchanged radiographic appearance of the chest. Assessment & Plan - Diagnosis (1) Lower GI bleed Is this a current diagnosis for this admission?: Yes (2) Colonic diverticular disease Is this a current diagnosis for this admission?: Yes (3) Atrial fibrillation with rapid ventricular response Is this a current diagnosis for this admission?: Yes (4) Senile dementia with delirium Qualifiers: Dementia behavioral disturbance: without behavioral disturbance Qualified Code(s): F03.90 - Unspecified dementia without behavioral disturbance; F05 - Delirium due to known physiological condition Is this a current diagnosis for this admission?: Yes (5) Diabetes mellitus, type 2 Qualifiers: Diabetes mellitus meterman insulin use: without chcf use Diabetes mellitus complication status: with other specified complication Qualified Code(s): E11.69 - Type 2 diabetes mellitus with other specified complication Is this a current diagnosis for this admission?: Yes (6) Hypertension Qualifiers: Hypertension type: unspecified Qualified Code(s): I10 - Essential (primary) hypertension Is this a current diagnosis for this admission?: Yes (7) Coronary artery disease Qualifiers: Coronary Disease-Associated Artery/Lesion type: unspecified vessel or lesion type [place] vs. transplanted heart: [place] heart Associated angina: angina presence unspecified Qualified Code(s): I25.10 - Atherosclerotic heart disease of [place] coronary artery without angina pectoris Is this a current diagnosis for this admission?: Yes (8) Hyperlipidemia Qualifiers: Hyperlipidemia type: unspecified Qualified Code(s): E78.5 - Hyperlipidemia, unspecified Is this a current diagnosis for this admission?: Yes (9) Hypothyroidism Qualifiers: Hypothyroidism type: acquired Qualified Code(s): E03.9 - Hypothyroidism, unspecified Is this a current diagnosis for this admission?: Yes (10) GERD (gastroesophageal reflux disease) Qualifiers: Esophagitis presence: esophagitis presence not specified Qualified Code(s): K21.9 - Gastro-esophageal reflux disease without esophagitis Is this a current diagnosis for this admission?: Yes (11) Embolic stroke involving left vertebral artery Is this a current diagnosis for this admission?: Yes (12) Left acute arterial ischemic stroke, MCA (middle cerebral artery) Is this a current diagnosis for this admission?: Yes (13) Subcutaneous abscess postop Is this a current diagnosis for this admission?: Yes (14) Hypokalemia due to inadequate potassium intake Is this a current diagnosis for this admission?: Yes (15) Yeast vaginitis Is this a current diagnosis for this admission?: Yes - Time Time Spent with patient: 25-34 minutes Level of Care: IMCU Medications reviewed and adjusted accordingly: Yes Anticipated discharge: SNF Within: Other - Inpatient Certification Based on my medical assessment, after consideration of the patient's comorbidities, presenting symptoms, or acuity I expect that the services needed warrant INPATIENT care.: Yes I certify that my determination is in accordance with my understanding of Medicare's requirements for reasonable and necessary INPATIENT services [42 CFR 412.3e].: Yes Medical Necessity: Significant Comorbidiites Make Outpatient Treatment Too Risky, Need Close Monitoring Due to Risk of Patient Decompensation, Need For Continuous Telemetry Monitoring, Need for IV Antibiotics, Risk of Complication if Not Cared For in Hospital, Risk of Diagnosis Which Will Require Inpatient Eval/Care/Monitoring Post Hospital Care: D/C or Transfer Summary - Plan Summary Plan Summary: See attending physician orders for details. Possible transfer to SNF very soon if she continue to improve.
[2019-09-15] MEDS: ATORVASTATIN CALCIUM 80 MG TABLET PO SCH (21:59)
[2019-09-16] MEDS: PIPERACILLIN SODIUM/TAZOBACTAM 3.375 GM in NORMAL SALINE 100 ML IV SCH ×3 (02:08→14:42)
[2019-09-16] MEDS: PANTOPRAZOLE SODIUM 40 MG TABLET.DR PO SCH (05:11)
[2019-09-16] MEDS: INSULIN LISPRO 100 UNIT/ML 3 ML VIAL SUBCUT SCH ×4 (09:57→22:05)
[2019-09-16] MEDS: METOPROLOL TARTRATE 50 MG TABLET PO SCH ×2 (09:58→22:05)
[2019-09-16] MEDS: AMLODIPINE BESYLATE 5 MG TABLET PO SCH ×2 (09:58→22:07)
[2019-09-16] MEDS: DIGOXIN INJ 0.5 MG/2 ML AMPULE IV SCH (09:58)
[2019-09-16] MEDS: APIXABAN 5 MG TABLET PO SCH ×2 (09:58→17:38)
[2019-09-16] MEDS: MULTIVITS W-MIN/IRON SOLN 60 ML PO SCH (09:59)
[2019-09-16] MEDS: MEGESTROL ACETATE SUSP 400 MG/10 ML UDCUP PO SCH (09:59)
[2019-09-16] MEDS: ZINC SULFATE 220 MG CAPSULE PO SCH (09:59)
[2019-09-16] MEDS: RISPERIDONE 0.5 MG TAB.RAPDIS PO SCH ×2 (09:59→17:38)
[2019-09-16 11:53] LABS: ANION GAP 6 (5-19); BLOOD UREA NITROGEN 13 mg/dL (7-20); CALCIUM 8.4 mg/dL (8.4-10.2); CARBON DIOXIDE 28 mmol/L (22-30); CHLORIDE 109 mmol/L (98-107); GLUCOSE 244 mg/dL (75-110); POTASSIUM 3.2 mmol/L (3.6-5.0)
--- NOTE | 2019-09-16 13:21 | PDOC PROGRESS REPORT ---
Subjective Progress Note for:: 09/16/19 Subjective:: She is OOB in recliner chair. She denied chest pain or difficulty with breathing. No nausea, vomiting, and abdominal pain. No fever or chills. Reason For Visit: LOWER GI BLEED,DM TYPE 2,HTN,GERD,CAD Physical Exam Vital Signs: Temp Pulse Resp BP Pulse Ox 97.3 F 86 20 152/85 H 98 09/16/19 03:50 09/16/19 07:00 09/16/19 03:50 09/16/19 03:50 09/16/19 03:50 Intake & Output 09/15/19 09/16/19 09/17/19 06:59 06:59 06:59 Intake Total 500 618 Output Total 5277 5300 Balance -4730 -4681 Weight 90.4 kg 91.2 kg Physical Exam: General appearance: PRESENT: no acute distress Head exam: PRESENT: atraumatic, normocephalic Eye exam: PRESENT: conjunctiva pink. ABSENT: pallor, scleral icterus Mouth exam: PRESENT: moist Respiratory exam: PRESENT: clear to auscultation, decreased breath sounds bilaterally Cardiovascular exam: PRESENT: Irregular rhythm, +S1, +S2. ABSENT: diastolic murmur, rubs, systolic murmur GI/Abdominal exam: PRESENT: normal bowel sounds, soft, less tenderness around lower surgical site with dressing in place. ABSENT: drainage tube is out, distended, guarding, mass, organomegaly, rebound Extremities exam: ABSENT: pedal edema Neurological exam: PRESENT: Awake, Alert, appropriate in simple responses during my bedside visit. Psychiatric exam: PRESENT: appropriate affect, normal mood. ABSENT: homicidal ideation, suicidal ideation Skin exam: PRESENT: dry, warm, multiple surgical jim anterior abdominal wall upper site of recent subtotal colectomy in place, lower section wound with wound vac in situ. Results Laboratory Results: 09/15/19 06:40 09/15/19 06:44 09/05/19 09/05/19 09/06/19 16:45 16:45 00:45 Creatine Kinase 52 55 CK-MB (CK-2) 0.36 Troponin I 0.035 09/06/19 09/06/19 09/06/19 00:45 06:04 06:04 Creatine Kinase 50 CK-MB (CK-2) 0.46 0.41 Troponin I 0.032 0.031 Impressions: GI Bleed Scan Nuclear Medicine 08/26/19 00:00 IMPRESSION: FINDINGS CONSISTENT WITH ACTIVE GI BLEEDING IN THE SIGMOID COLON. KUB X-Ray 08/31/19 00:00 IMPRESSION: Postoperative findings as detailed above without evidence of a mechanical bowel obstruction. 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 Distribution suggests embolic source. EVIDENCE OF ACUTE STROKE: YES. LEFT MCA and VERTEBROBASILAR. Head CT 09/08/19 00:00 IMPRESSION: 1. NO EVIDENCE OF ACUTE INTRACRANIAL PROCESS. 2. CHRONIC CHANGES OF ATROPHY AND MICROVASCULAR ISCHEMIA. EVIDENCE OF ACUTE STROKE: NO. Chest X-Ray 09/15/19 06:00 IMPRESSION: Unchanged radiographic appearance of the chest. Assessment & Plan - Diagnosis (1) Lower GI bleed Is this a current diagnosis for this admission?: Yes (2) Colonic diverticular disease Is this a current diagnosis for this admission?: Yes (3) Atrial fibrillation with rapid ventricular response Is this a current diagnosis for this admission?: Yes (4) Senile dementia with delirium Qualifiers: Dementia behavioral disturbance: without behavioral disturbance Qualified Code(s): F03.90 - Unspecified dementia without behavioral disturbance; F05 - Delirium due to known physiological condition Is this a current diagnosis for this admission?: Yes (5) Diabetes mellitus, type 2 Qualifiers: Diabetes mellitus skilled nursing insulin use: without termite control servicer use Diabetes mellitus complication status: with other specified complication Qualified Code(s): E11.69 - Type 2 diabetes mellitus with other specified complication Is this a current diagnosis for this admission?: Yes (6) Hypertension Qualifiers: Hypertension type: unspecified Qualified Code(s): I10 - Essential (primary) hypertension Is this a current diagnosis for this admission?: Yes (7) Coronary artery disease Qualifiers: Coronary Disease-Associated Artery/Lesion type: unspecified vessel or lesion type [place] vs. transplanted heart: [place] heart Associated angina: angina presence unspecified Qualified Code(s): I25.10 - Atherosclerotic heart disease of [place] coronary artery without angina pectoris Is this a current diagnosis for this admission?: Yes (8) Hyperlipidemia Qualifiers: Hyperlipidemia type: unspecified Qualified Code(s): E78.5 - Hyperlipidemia, unspecified Is this a current diagnosis for this admission?: Yes (9) Hypothyroidism Qualifiers: Hypothyroidism type: acquired Qualified Code(s): E03.9 - Hypothyroidism, unspecified Is this a current diagnosis for this admission?: Yes (10) GERD (gastroesophageal reflux disease) Qualifiers: Esophagitis presence: esophagitis presence not specified Qualified Code(s): K21.9 - Gastro-esophageal reflux disease without esophagitis Is this a current diagnosis for this admission?: Yes (11) Embolic stroke involving left vertebral artery Is this a current diagnosis for this admission?: Yes (12) Left acute arterial ischemic stroke, MCA (middle cerebral artery) Is this a current diagnosis for this admission?: Yes (13) Subcutaneous abscess postop Is this a current diagnosis for this admission?: Yes (14) Hypokalemia due to inadequate potassium intake Is this a current diagnosis for this admission?: Yes (15) Yeast vaginitis Is this a current diagnosis for this admission?: Yes - Time Time Spent with patient: 25-34 minutes Level of Care: IMCU Medications reviewed and adjusted accordingly: Yes Anticipated discharge: SNF Within: Other - Inpatient Certification Based on my medical assessment, after consideration of the patient's comorbidities, presenting symptoms, or acuity I expect that the services needed warrant INPATIENT care.: Yes I certify that my determination is in accordance with my understanding of Medicare's requirements for reasonable and necessary INPATIENT services [42 CFR 412.3e].: Yes Medical Necessity: Significant Comorbidiites Make Outpatient Treatment Too Risky, Need Close Monitoring Due to Risk of Patient Decompensation, Need For Continuous Telemetry Monitoring, Need for IV Antibiotics, Risk of Complication if Not Cared For in Hospital, Risk of Diagnosis Which Will Require Inpatient Eval/Care/Monitoring Post Hospital Care: D/C or Transfer Summary - Plan Summary Plan Summary: Continue current medication management. Follow up with surgical team regarding the surgical jim removal Day # 21 post colectomy operation.
[2019-09-16] MEDS: POTASSI CL 20 MEQ/50 ML RIDER 20 MEQ/50 ML RTUPB IV SCH ×3 (14:42→20:04)
[2019-09-16] MEDS: FLUCONAZOLE 100 MG TABLET PO SCH (17:38)
--- NOTE | 2019-09-16 19:17 | Progress Note ---
Provider Note Provider Note: CARDIOLOGY PROGRESS NOTE by Dr. Veena Grant on 09/16/2019. Subjective: The patient is more awake and alert today. She still oriented x2. Patient's son at bedside. Patient continues to be in atrial fibrillation controlled ventricular response. Her p.o. intake is improved. There is no recurrence of TIA CVA symptoms. There is no ventricular arrhythmias seen on the monitor. The patient denies any chest pain or discomfort. There is no shortness of breath. There is a wound VAC the lower end of the surgical incision. The dressing appears to be dry. PHYSICAL EXAMINATION: The patient is well-built. At present in no acute distress. Selected Entries 09/16/19 12:07 Temperature 97.7 F Temperature Axillary Source Pulse Rate 70 Respiratory 16 Rate Blood Pressure 124/56 L Blood Pressure 78 Mean BP Location Left Arm BP Position Sitting O2 Sat by Pulse 98 Oximetry Oxygen Delivery Room Air Method Head: Is atraumatic normocephalic. EYES: Pupils are equal round regular reactive light. There is no conjunctival pallor. There is no scleral icterus. EARS: Tympanic membranes are intact. External auditory canals are clear. NOSE: There is no deviated nasal septum. There is no inflammation of his mucous membrane. MOUTH: Mucous membranes in the mouth are dry. Tongue is dry. There is no ulcers of the mouth. There is no bleeding from the gums. THROAT: There is no redness of the oropharynx. There is no exudates. Acute neck: Supple. There is no JVD. Carotids are equal there is no bruit. There is no lymphadenopathy. There is no goiter. There is no accessory muscles of respiration use. Trachea central. LUNGS: Clear to auscultation percussion. There is no rales of CHF. HEART: S1-S2 is heard. S1 is a variable intensity. There is no S3 gallop. There is no S4 gallop. There is systolic murmur left sternal border and the apex. There is murmur of aortic sclerosis present. There is no aortic stenosis or aortic regurgitation murmur heard. There is no significant valvular stenotic or regurgitant murmur heard. There is no rub. ABDOMEN: Soft dressing is dry. There is no hepatosplenomegaly. Bowel sounds are absent. Extremities: Femorals are diminished there is no femoral bruits. Leg pulses are diminished. There is no pedal edema. There is no DVT or cellulitis. GUARD CAPTAIN: Speech is less slurred. Patient more awake. She is oriented x2. She is able to recognize me and her son and knows where she is. She moves all 4 extremities. PSYCHIATRIC: The patient does not appear to be agitated. Labs- All tests 24 hr 09/15/19 09/16/19 09/16/19 21:19 07:55 11:12 Sodium 143.3 Potassium 3.2 L Chloride 109 H Carbon Dioxide 28 Anion Gap 6 BUN 13 Creatinine 1.01 Est GFR ( Amer) > 60 Est GFR (MDRD) Non-Af 52 L Glucose 244 H POC Glucose 230 H 218 H Calcium 8.4 09/16/19 09/16/19 12:08 16:53 Sodium Potassium Chloride Carbon Dioxide Anion Gap BUN Creatinine Est GFR ( Amer) Est GFR (MDRD) Non-Af Glucose POC Glucose 211 H 189 H Calcium GI Bleed Scan Nuclear Medicine 08/26/19 00:00 IMPRESSION: FINDINGS CONSISTENT WITH ACTIVE GI BLEEDING IN THE SIGMOID COLON. Chest X-Ray 08/28/19 05:00 IMPRESSION: Opacity left lateral lung base, question atelectasis or pneumonia KUB X-Ray 08/31/19 00:00 IMPRESSION: Postoperative findings as detailed above without evidence of a mechanical bowel obstruction. 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 Distribution suggests embolic source. EVIDENCE OF ACUTE STROKE: YES. LEFT MCA and VERTEBROBASILAR. Head CT 09/08/19 00:00 IMPRESSION: 1. NO EVIDENCE OF ACUTE INTRACRANIAL PROCESS. 2. CHRONIC CHANGES OF ATROPHY AND MICROVASCULAR ISCHEMIA. EVIDENCE OF ACUTE STROKE: NO. Chest X-Ray 09/08/19 02:16 IMPRESSION: Findings suggesting mild changes of CHF. Chest X-Ray 09/12/19 00:00 IMPRESSION: Similar bibasilar subsegmental atelectasis and pleural effusions, increasing on the right. Chest X-Ray 09/15/19 06:00 IMPRESSION: Unchanged radiographic appearance of the chest. IMPRESSION/RECOMMENDATION: 1. 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 Increase in the patient's altered mental status was with obtundation. CT of the head shows no evidence of intracranial hemorrhage. Hence we will continue Eliquis. The patient is corrected Xavi vas 2 score is 7 2. Lower GI bleed secondary to bleeding from sigmoid sigmoid diverticulum. S/p hemicolectomy. 3. Lower abdominal incisional wound infection draining pus. Continue antibiotics. Surgical hist on the case 4. Anemia: Patient's hemoglobin is now stable there is no evidence of ongoing bleeding. Her hemoglobin is 11.3. 5. Atrial fibrillation with rapid ventricular response this is now controlled ventricular response. Continue metoprolol 50 mg p.o. every 12 hours. 6. Possible pneumonia: Continue antibiotics. This probably is resolved. 7. History of hypertension: Blood pressure not optimally controlled. The first dose of amlodipine is just been given. Earlier the nurse give hydralazine intravenously since the blood pressure was slightly elevated. At present reasonable blood pressure. 8. Hypothyroidism on replacement. 9. Diabetes mellitus: Continue Accu-Cheks and treat blood sugars accordingly since the patient is n.p.o. 10. Alzheimer's dementia by history. This seems to have improved. 11. Hypokalemia: Replace potassium. 12.. Poor p.o. intake. Her oral intake seems to have improved. She has mild renal insufficiency. Would encourage the patient to increase the patient's fluid intake. Discussed with the son my recommendation that the patient have an IV Lexiscan Cardiolite stress test. This should as per my recommendation will be done about 4 to 6 weeks after the acute/subacute CVA. The patient can follow-up in the office. The son is agreeable. Also the need to continue anticoagulation chronically has been discussed again with the patient and the patient's son. Discussed with Dr. Oliver also. Medications reviewed. Medical management and medical regimen discussed with Dr. Oliver. Medical decision making is of moderate complexity. 40-minute spent with patient with more than 50% time spent in direct patient care. Will follow.
[2019-09-16] MEDS: ATORVASTATIN CALCIUM 80 MG TABLET PO SCH (22:05)
[2019-09-17] MEDS: PANTOPRAZOLE SODIUM 40 MG TABLET.DR PO SCH (05:41)
[2019-09-17] MEDS: DIGOXIN INJ 0.5 MG/2 ML AMPULE IV SCH (10:24)
[2019-09-17] MEDS: MULTIVITS W-MIN/IRON SOLN 60 ML PO SCH (10:25)
[2019-09-17] MEDS: INSULIN LISPRO 100 UNIT/ML 3 ML VIAL SUBCUT SCH ×4 (10:26→21:22)
[2019-09-17] MEDS: METOPROLOL TARTRATE 50 MG TABLET PO SCH ×2 (10:27→21:14)
[2019-09-17] MEDS: AMLODIPINE BESYLATE 5 MG TABLET PO SCH ×2 (10:27→21:14)
[2019-09-17] MEDS: RISPERIDONE 0.5 MG TAB.RAPDIS PO SCH ×2 (10:27→17:46)
[2019-09-17] MEDS: MEGESTROL ACETATE SUSP 400 MG/10 ML UDCUP PO SCH (10:27)
[2019-09-17] MEDS: APIXABAN 5 MG TABLET PO SCH ×2 (10:27→17:45)
[2019-09-17] MEDS: ZINC SULFATE 220 MG CAPSULE PO SCH (10:27)
--- NOTE | 2019-09-17 17:02 | PDOC PROGRESS REPORT ---
Subjective Progress Note for:: 09/17/19 Subjective:: No chest pain or difficulty with breathing. P.O intake so far today has been challenging. No nausea, vomiting, and abdominal pain. No fever or chills. Reason For Visit: LOWER GI BLEED,DM TYPE 2,HTN,GERD,CAD Physical Exam Vital Signs: Temp Pulse Resp BP Pulse Ox 97.9 F 93 18 134/70 H 99 09/17/19 15:08 09/17/19 15:08 09/17/19 15:08 09/17/19 15:08 09/17/19 15:08 Intake & Output 09/16/19 09/17/19 09/18/19 06:59 06:59 06:59 Intake Total 618 380 50 Output Total 5300 1025 200 Balance -4682 -645 -150 Weight 91.2 kg 92 kg Physical Exam: General appearance: PRESENT: no acute distress Head exam: PRESENT: atraumatic, normocephalic Eye exam: PRESENT: conjunctiva pink. ABSENT: pallor, scleral icterus Mouth exam: PRESENT: moist Respiratory exam: PRESENT: clear to auscultation, decreased breath sounds bilaterally Cardiovascular exam: PRESENT: Irregular rhythm, +S1, +S2. ABSENT: diastolic murmur, rubs, systolic murmur GI/Abdominal exam: PRESENT: normal bowel sounds, soft, less tenderness around lower surgical site with dressing in place. ABSENT: drainage tube is out, distended, guarding, mass, organomegaly, rebound Extremities exam: ABSENT: pedal edema Neurological exam: PRESENT: Awake, Alert, appropriate in simple responses during my bedside visit. Psychiatric exam: PRESENT: appropriate affect, normal mood. ABSENT: homicidal ideation, suicidal ideation Skin exam: PRESENT: dry, warm, multiple surgical jim anterior abdominal wall upper site of recent subtotal colectomy in place, lower section wound with wound vac in situ. Results Laboratory Results: 09/15/19 06:40 09/16/19 11:12 09/05/19 09/05/19 09/06/19 16:45 16:45 00:45 Creatine Kinase 52 55 CK-MB (CK-2) 0.36 Troponin I 0.035 09/06/19 09/06/19 09/06/19 00:45 06:04 06:04 Creatine Kinase 50 CK-MB (CK-2) 0.46 0.41 Troponin I 0.032 0.031 Impressions: GI Bleed Scan Nuclear Medicine 08/26/19 00:00 IMPRESSION: FINDINGS CONSISTENT WITH ACTIVE GI BLEEDING IN THE SIGMOID COLON. KUB X-Ray 08/31/19 00:00 IMPRESSION: Postoperative findings as detailed above without evidence of a mechanical bowel obstruction. 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 Distribution suggests embolic source. EVIDENCE OF ACUTE STROKE: YES. LEFT MCA and VERTEBROBASILAR. Head CT 09/08/19 00:00 IMPRESSION: 1. NO EVIDENCE OF ACUTE INTRACRANIAL PROCESS. 2. CHRONIC CHANGES OF ATROPHY AND MICROVASCULAR ISCHEMIA. EVIDENCE OF ACUTE STROKE: NO. Chest X-Ray 09/15/19 06:00 IMPRESSION: Unchanged radiographic appearance of the chest. Assessment & Plan - Diagnosis (1) Lower GI bleed Is this a current diagnosis for this admission?: Yes (2) Colonic diverticular disease Is this a current diagnosis for this admission?: Yes (3) Atrial fibrillation with rapid ventricular response Is this a current diagnosis for this admission?: Yes (4) Senile dementia with delirium Qualifiers: Dementia behavioral disturbance: without behavioral disturbance Qualified Code(s): F03.90 - Unspecified dementia without behavioral disturbance; F05 - Delirium due to known physiological condition Is this a current diagnosis for this admission?: Yes (5) Diabetes mellitus, type 2 Qualifiers: Diabetes mellitus long goods drier insulin use: without nursing home use Diabetes da litus complication status: with other specified complication Qualified Co de(s): E11.69 - Type 2 diabetes mellitus with other specified complication Is this a current diagnosis for this admission?: Yes (6) Hypertension Qualifiers: Hypertension type: unspecified Qualified Code(s): I10 - Essential (primary) hypertension Is this a current diagnosis for this admission?: Yes (7) Coronary artery disease Qualifiers: Coronary Disease-Associated Artery/Lesion type: unspecified vessel or lesion type [place] vs. transplanted heart: [place] heart Associated angina: angina presence unspecified Qualified Code(s): I25.10 - Atherosclerotic heart disease of [place] coronary artery without angina pectoris Is this a current diagnosis for this admission?: Yes (8) Hyperlipidemia Qualifiers: Hyperlipidemia type: unspecified Qualified Code(s): E78.5 - Hyperlipidemia, unspecified Is this a current diagnosis for this admission?: Yes (9) Hypothyroidism Qualifiers: Hypothyroidism type: acquired Qualified Code(s): E03.9 - Hypothyroidism, unspecified Is this a current diagnosis for this admission?: Yes (10) GERD (gastroesophageal reflux disease) Qualifiers: Esophagitis presence: esophagitis presence not specified Qualified Code(s): K21.9 - Gastro-esophageal reflux disease without esophagitis Is this a current diagnosis for this admission?: Yes (11) Embolic stroke involving left vertebral artery Is this a current diagnosis for this admission?: Yes (12) Left acute arterial ischemic stroke, MCA (middle cerebral artery) Is this a current diagnosis for this admission?: Yes (13) Subcutaneous abscess postop Is this a current diagnosis for this admission?: Yes (14) Hypokalemia due to inadequate potassium intake Is this a current diagnosis for this admission?: Yes (15) Yeast vaginitis Is this a current diagnosis for this admission?: Yes - Time Time Spent with patient: 25-34 minutes Level of Care: IMCU Medications reviewed and adjusted accordingly: Yes Anticipated discharge: SNF Within: Other - Inpatient Certification Based on my medical assessment, after consideration of the patient's comorbidities, presenting symptoms, or acuity I expect that the services needed warrant INPATIENT care.: Yes I certify that my determination is in accordance with my understanding of Medicare's requirements for reasonable and necessary INPATIENT services [42 CFR 412.3e].: Yes Medical Necessity: Significant Comorbidiites Make Outpatient Treatment Too [place], Need Close Monitoring Due to Risk of Patient Decompensation, Need For Continuous Telemetry Monitoring, Risk of Complication if Not Cared For in Hospital, Risk of Diagnosis Which Will Require Inpatient Eval/Care/Monitoring Post Hospital Care: D/C or Transfer Summary - Plan Summary Plan Summary: Continue current medication management. Encouraged participation in PT session and increase food intake.
[2019-09-17] MEDS: FLUCONAZOLE 100 MG TABLET PO SCH (17:45)
[2019-09-17 18:33] LABS: BLOOD UREA NITROGEN 13 mg/dL (7-20); CALCIUM 8.7 mg/dL (8.4-10.2); CARBON DIOXIDE 31 mmol/L (22-30); CHLORIDE 111 mmol/L (98-107); GLUCOSE 180 mg/dL (75-110); POTASSIUM 3.2 mmol/L (3.6-5.0)
[2019-09-17 18:37] LABS: ANION GAP 2 (5-19)
[2019-09-17] MEDS: POTASSIUM CHLORIDE 20 MEQ/50 ML RTU IV SCH ×2 (20:30→22:20)
[2019-09-17] MEDS: ATORVASTATIN CALCIUM 80 MG TABLET PO SCH (21:13)
[2019-09-18] MEDS: POTASSIUM CHLORIDE 20 MEQ/50 ML RTU IV SCH (00:14)
[2019-09-18] MEDS: PANTOPRAZOLE SODIUM 40 MG TABLET.DR PO SCH (06:24)
[2019-09-18 06:55] LABS: BLOOD UREA NITROGEN 13 mg/dL (7-20); CALCIUM 8.6 mg/dL (8.4-10.2); CARBON DIOXIDE 31 mmol/L (22-30); CHLORIDE 110 mmol/L (98-107); GLUCOSE 213 mg/dL (75-110); POTASSIUM 3.6 mmol/L (3.6-5.0)
[2019-09-18 07:04] LABS: ANION GAP 2 (5-19)
[2019-09-18] MEDS: INSULIN LISPRO 100 UNIT/ML 3 ML VIAL SUBCUT SCH ×4 (09:52→21:25)
[2019-09-18] MEDS: DIGOXIN INJ 0.5 MG/2 ML AMPULE IV SCH (10:27)
[2019-09-18] MEDS: METOPROLOL TARTRATE 50 MG TABLET PO SCH ×2 (10:29→21:19)
[2019-09-18] MEDS: AMLODIPINE BESYLATE 5 MG TABLET PO SCH ×2 (10:29→21:18)
[2019-09-18] MEDS: RISPERIDONE 0.5 MG TAB.RAPDIS PO SCH ×2 (10:29→18:07)
[2019-09-18] MEDS: MEGESTROL ACETATE SUSP 400 MG/10 ML UDCUP PO SCH (10:29)
[2019-09-18] MEDS: APIXABAN 5 MG TABLET PO SCH ×2 (10:29→18:07)
[2019-09-18] MEDS: MULTIVITS W-MIN/IRON SOLN 60 ML PO SCH (10:29)
[2019-09-18] MEDS: ZINC SULFATE 220 MG CAPSULE PO SCH (10:29)
--- NOTE | 2019-09-18 17:59 | PDOC PROGRESS REPORT ---
Subjective Progress Note for:: 09/18/19 Subjective:: Patient seen by the bedside she is trying to speak but she is impaired from CVA, the speech is dysarthric, cannot understand her Reason For Visit: LOWER GI BLEED,DM TYPE 2,HTN,GERD,CAD Physical Exam Vital Signs: Temp Pulse Resp BP Pulse Ox 97.6 F 74 18 152/70 H 96 09/18/19 14:47 09/18/19 14:47 09/18/19 14:47 09/18/19 14:47 09/18/19 14:47 Intake & Output 09/17/19 09/18/19 09/19/19 06:59 06:59 06:59 Intake Total 380 444 100 Output Total 1025 925 300 Balance -645 -481 -200 Weight 92 kg 87.2 kg General appearance: PRESENT: no acute distress Eye exam: PRESENT: PERRLA Respiratory exam: PRESENT: clear to auscultation jaison Cardiovascular exam: PRESENT: +S1 Results Laboratory Results: 09/15/19 06:40 09/18/19 06:20 09/17/19 09/18/19 17:50 06:20 Sodium 144.3 143.4 Potassium 3.2 L 3.6 Chloride 111 H 110 H Carbon Dioxide 31 H 31 H Anion Gap 2 L 2 L BUN 13 13 Creatinine 1.04 1.00 Est GFR ( Amer) > 60 > 60 Glucose 180 H 213 H Calcium 8.7 8.6 09/05/19 09/05/19 09/06/19 16:45 16:45 00:45 Creatine Kinase 52 55 CK-MB (CK-2) 0.36 Troponin I 0.035 09/06/19 09/06/19 09/06/19 00:45 06:04 06:04 Creatine Kinase 50 CK-MB (CK-2) 0.46 0.41 Troponin I 0.032 0.031 Impressions: GI Bleed Scan Nuclear Medicine 08/26/19 00:00 IMPRESSION: FINDINGS CONSISTENT WITH ACTIVE GI BLEEDING IN THE SIGMOID COLON. KUB X-Ray 08/31/19 00:00 IMPRESSION: Postoperative findings as detailed above without evidence of a mechanical bowel obstruction. 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 Distribution suggests embolic source. EVIDENCE OF ACUTE STROKE: YES. LEFT MCA and VERTEBROBASILAR. Head CT 09/08/19 00:00 IMPRESSION: 1. NO EVIDENCE OF ACUTE INTRACRANIAL PROCESS. 2. CHRONIC CHANGES OF ATROPHY AND MICROVASCULAR ISCHEMIA. EVIDENCE OF ACUTE STROKE: NO. Chest X-Ray 09/15/19 06:00 IMPRESSION: Unchanged radiographic appearance of the chest. Assessment & Plan - Diagnosis (1) Acute GI bleeding Is this a current diagnosis for this admission?: Yes (2) Diverticulosis of large intestine without perforation or abscess without bleeding Is this a current diagnosis for this admission?: Yes (3) Atherosclerotic heart disease of [place] coronary artery without angina pectoris Qualifiers: [place] vs. transplanted heart: [place] heart Qualified Code(s): I25.10 - Atherosclerotic heart disease of [place] coronary artery without angina pectoris Is this a current diagnosis for this admission?: Yes (4) Unspecified atrial fibrillation Qualifiers: Atrial fibrillation type: paroxysmal Qualified Code(s): I48.0 - Paroxysmal atrial fibrillation Is this a current diagnosis for this admission?: Yes (5) Delirium Is this a current diagnosis for this admission?: Yes (6) Left acute arterial ischemic stroke, MCA (middle cerebral artery) Is this a current diagnosis for this admission?: Yes (7) Embolic stroke involving left cerebellar artery Is this a current diagnosis for this admission?: Yes (8) Anemia Qualifiers: Anemia type: unspecified type Qualified Code(s): D64.9 - Anemia, unspecified Is this a current diagnosis for this admission?: Yes - Time Time Spent with patient: 25-34 minutes Level of Care: [facility]
[2019-09-18] MEDS: FLUCONAZOLE 100 MG TABLET PO SCH (18:07)
--- NOTE | 2019-09-18 19:38 | Progress Note ---
Provider Note Provider Note: Cardiology PROGRESS NOTE by Dr. Veena Grant on 09/18/2019. SUBJECTIVE: The patient is mental status is the same. Her p.o. intake seems to have improved. She denies any chest pain or discomfort. She continues to be in atrial fibrillation with controlled ventricular response. There is no bleeding on Eliquis. There is no recurrence of TIA CVA symptoms. The patient does not have any fever. PHYSICAL EXAMINATION: The patient mildly obese. In no acute distress. Selected Entries 09/18/19 08:57 Temperature 97.6 F Temperature Oral Source Pulse Rate 79 Respiratory 18 Rate Blood Pressure 134/61 H Blood Pressure 85 Mean BP Location Left Arm BP Position Supine O2 Sat by Pulse 98 Oximetry Oxygen Delivery Room Air Method Head: Is atraumatic normocephalic. EYES: Pupils are equal round regular reactive light. There is no conjunctival pallor. There is no scleral icterus. EARS: Tympanic membranes are intact. External auditory canals are clear. NOSE: There is no deviated nasal septum. There is no inflammation of his mucous membrane. MOUTH: Mucous membranes in the mouth are dry. Tongue is dry. There is no ulcers of the mouth. There is no bleeding from the gums. THROAT: There is no redness of the oropharynx. There is no exudates. Acute neck: Supple. There is no JVD. Carotids are equal there is no bruit. There is no lymphadenopathy. There is no goiter. There is no accessory muscles of respiration use. Trachea central. LUNGS: Clear to auscultation percussion. There is no rales of CHF. HEART: S1-S2 is heard. S1 is a variable intensity. There is no S3 gallop. There is no S4 gallop. There is systolic murmur left sternal border and the apex. There is murmur of aortic sclerosis present. There is no aortic stenosis or aortic regurgitation murmur heard. There is no significant valvular stenotic or regurgitant murmur heard. There is no rub. ABDOMEN: Soft dressing is dry. There is no hepatosplenomegaly. Bowel sounds are absent. Extremities: Femorals are diminished there is no femoral bruits. Leg pulses are diminished. There is no pedal edema. There is no DVT or cellulitis. ACUTE DIALYSIS NURSE: Speech is less slurred. Patient more awake. She is oriented x2. She is able to recognize me and her son and knows where she is. She moves all 4 extremities. PSYCHIATRIC: The patient does not appear to be agitated. Labs- All tests 24 hr 09/15/19 09/17/19 09/18/19 16:10 21:18 06:20 Sodium 143.4 Potassium 3.6 Chloride 110 H Carbon Dioxide 31 H Anion Gap 2 L BUN 13 Creatinine 1.00 Est GFR ( Amer) > 60 Est GFR (MDRD) Non-Af 53 L Glucose 213 H POC Glucose 172 H Calcium 8.6 COVID-19 Source NASOPHARYNGEAL COVID-19 ([facility]JI) NOT DETECTED 09/18/19 09/18/19 09/18/19 08:57 11:51 16:04 Sodium Potassium Chloride Carbon Dioxide Anion Gap BUN Creatinine Est GFR ( Amer) Est GFR (MDRD) Non-Af Glucose POC Glucose 209 H 253 H 253 H Calcium COVID-19 Source COVID-19 (SHAJI) GI Bleed Scan Nuclear Medicine 08/26/19 00:00 IMPRESSION: FINDINGS CONSISTENT WITH ACTIVE GI BLEEDING IN THE SIGMOID COLON. Chest X-Ray 08/28/19 05:00 IMPRESSION: Opacity left lateral lung base, question atelectasis or pneumonia KUB X-Ray 08/31/19 00:00 IMPRESSION: Postoperative findings as detailed above without evidence of a mechanical bowel obstruction. 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 Distribution suggests embolic source. EVIDENCE OF ACUTE STROKE: YES. LEFT MCA and VERTEBROBASILAR. Head CT 09/08/19 00:00 IMPRESSION: 1. NO EVIDENCE OF ACUTE INTRACRANIAL PROCESS. 2. CHRONIC CHANGES OF ATROPHY AND MICROVASCULAR ISCHEMIA. EVIDENCE OF ACUTE STROKE: NO. Chest X-Ray 09/08/19 02:16 IMPRESSION: Findings suggesting mild changes of CHF. Chest X-Ray 09/12/19 00:00 IMPRESSION: Similar bibasilar subsegmental atelectasis and pleural effusions, increasing on the right. Chest X-Ray 09/15/19 06:00 IMPRESSION: Unchanged radiographic appearance of the chest. IMPRESSION/RECOMMENDATION: 1. 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 Increase in the patient's altered mental status was with obtundation. CT of the head shows no evidence of intracranial hemorrhage. Hence we will continue Eliquis. The patient is corrected Xavi vas 2 score is 7 2. Lower GI bleed secondary to bleeding from sigmoid sigmoid diverticulum. S/p hemicolectomy. 3. Lower abdominal incisional wound infection draining pus. Continue antibiotics. Surgical hist on the case 4. Anemia: Patient's hemoglobin is now stable there is no evidence of ongoing bleeding. Her hemoglobin is 11.3. 5. Atrial fibrillation with rapid ventricular response this is now controlled ventricular response. Continue metoprolol 50 mg p.o. every 12 hours. 6. Possible pneumonia: Continue antibiotics. This probably is resolved. 7. History of hypertension: Blood pressure not optimally controlled. The first dose of amlodipine is just been given. Earlier the nurse give hydralazine intravenously since the blood pressure was slightly elevated. At present reasonable blood pressure. 8. Hypothyroidism on replacement. 9. Diabetes mellitus: Continue Accu-Cheks and treat blood sugars accordingly since the patient is n.p.o. 10. Alzheimer's dementia by history. This seems to have improved. 11. Hypokalemia: Replace potassium. 12.. Poor p.o. intake. Her oral intake seems to have improved. She has mild renal insufficiency. Would encourage the patient to increase the patient's fluid intake. Medications reviewed. Medications management plan discussed with attending provider covering Dr. Oliver. Medical decision making is of moderate complexity. 40 minutes spent as patient more than 50% of time spent in direct patient care. Will follow.
[2019-09-18] MEDS: ATORVASTATIN CALCIUM 80 MG TABLET PO SCH (21:18)
[2019-09-19] MEDS: PANTOPRAZOLE SODIUM 40 MG TABLET.DR PO SCH (05:18)
[2019-09-19] MEDS: INSULIN LISPRO 100 UNIT/ML 3 ML VIAL SUBCUT SCH ×4 (08:54→21:46)
[2019-09-19] MEDS: DIGOXIN INJ 0.5 MG/2 ML AMPULE IV SCH (11:03)
[2019-09-19] MEDS: MULTIVITS W-MIN/IRON SOLN 60 ML PO SCH (11:03)
[2019-09-19] MEDS: APIXABAN 5 MG TABLET PO SCH ×2 (11:03→17:04)
[2019-09-19] MEDS: AMLODIPINE BESYLATE 5 MG TABLET PO SCH ×2 (11:03→21:48)
[2019-09-19] MEDS: MEGESTROL ACETATE SUSP 400 MG/10 ML UDCUP PO SCH (11:03)
[2019-09-19] MEDS: METOPROLOL TARTRATE 50 MG TABLET PO SCH ×2 (11:04→21:52)
[2019-09-19] MEDS: RISPERIDONE 0.5 MG TAB.RAPDIS PO SCH ×2 (11:05→17:04)
[2019-09-19] MEDS: ZINC SULFATE 220 MG CAPSULE PO SCH (11:05)
[2019-09-19 14:43] LABS: ALBUMIN 2.1 g/dL (3.5-5.0); ALKALINE PHOSPHATASE 48 U/L (38-126); ASPARTATE AMINO TRANSFERASE 45 U/L (14-36); BILIRUBIN,TOTAL 0.5 mg/dL (0.2-1.3); BLOOD UREA NITROGEN 15 mg/dL (7-20); CALCIUM 8.6 mg/dL (8.4-10.2); GLUCOSE 215 mg/dL (75-110); POTASSIUM 3.4 mmol/L (3.6-5.0); TOTAL PROTEIN 5.3 g/dL (6.3-8.2)
[2019-09-19 14:48] LABS: CARBON DIOXIDE 33 mmol/L (22-30); CHLORIDE 109 mmol/L (98-107)
[2019-09-19 14:52] LABS: ANION GAP 1 (5-19)
--- NOTE | 2019-09-19 18:43 | PDOC PROGRESS REPORT ---
Subjective Progress Note for:: 09/19/19 Subjective:: Patient seen by the bedside she has diminished urine output, serum creatinine is normal, she needs to increase p.o. fluid intake Reason For Visit: LOWER GI BLEED,DM TYPE 2,HTN,GERD,CAD Physical Exam Vital Signs: Temp Pulse Resp BP Pulse Ox 97.4 F 52 L 18 111/44 L 97 09/19/19 14:48 09/19/19 14:48 09/19/19 14:48 09/19/19 14:48 09/19/19 14:48 Intake & Output 09/18/19 09/19/19 09/20/19 06:59 06:59 06:59 Intake Total 444 450 250 Output Total 925 1200 200 Balance -481 -750 50 Weight 87.2 kg 86.7 kg General appearance: PRESENT: no acute distress Eye exam: PRESENT: PERRLA Respiratory exam: PRESENT: clear to auscultation jaison Cardiovascular exam: PRESENT: +S1, +S2 Neurological exam: PRESENT: alert Results Laboratory Results: 09/15/19 06:40 09/19/19 14:10 09/19/19 14:10 Sodium 143.4 Potassium 3.4 L Chloride 109 H Carbon Dioxide 33 H Anion Gap 1 L BUN 15 Creatinine 0.99 Est GFR ( Amer) > 60 Glucose 215 H Calcium 8.6 Total Bilirubin 0.5 AST 45 H Alkaline Phosphatase 48 Total Protein 5.3 L Albumin 2.1 L 09/05/19 09/05/19 09/06/19 16:45 16:45 00:45 Creatine Kinase 52 55 CK-MB (CK-2) 0.36 Troponin I 0.035 09/06/19 09/06/19 09/06/19 00:45 06:04 06:04 Creatine Kinase 50 CK-MB (CK-2) 0.46 0.41 Troponin I 0.032 0.031 Impressions: GI Bleed Scan Nuclear Medicine 08/26/19 00:00 IMPRESSION: FINDINGS CONSISTENT WITH ACTIVE GI BLEEDING IN THE SIGMOID COLON. KUB X-Ray 08/31/19 00:00 IMPRESSION: Postoperative findings as detailed above without evidence of a mechanical bowel obstruction. 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 Distribution suggests embolic source. EVIDENCE OF ACUTE STROKE: YES. LEFT MCA and VERTEBROBASILAR. Head CT 09/08/19 00:00 IMPRESSION: 1. NO EVIDENCE OF ACUTE INTRACRANIAL PROCESS. 2. CHRONIC CHANGES OF ATROPHY AND MICROVASCULAR ISCHEMIA. EVIDENCE OF ACUTE STROKE: NO. Chest X-Ray 09/15/19 06:00 IMPRESSION: Unchanged radiographic appearance of the chest. Assessment & Plan - Diagnosis (1) Acute GI bleeding Is this a current diagnosis for this admission?: Yes (2) Diverticulosis of large intestine without perforation or abscess without bleeding Is this a current diagnosis for this admission?: Yes (3) Atherosclerotic heart disease of [place] coronary artery without angina pectoris Qualifiers: [place] vs. transplanted heart: [place] heart Qualified Code(s): I25.10 - Atherosclerotic heart disease of [place] coronary artery without angina pectoris Is this a current diagnosis for this admission?: Yes (4) Unspecified atrial fibrillation Qualifiers: Atrial fibrillation type: paroxysmal Qualified Code(s): I48.0 - Paroxysmal atrial fibrillation Is this a current diagnosis for this admission?: Yes (5) Delirium Is this a current diagnosis for this admission?: Yes (6) Left acute arterial ischemic stroke, MCA (middle cerebral artery) Is this a current diagnosis for this admission?: Yes (7) Embolic stroke involving left cerebellar artery Is this a current diagnosis for this admission?: Yes (8) Anemia Qualifiers: Anemia type: unspecified type Qualified Code(s): D64.9 - Anemia, unspecified Is this a current diagnosis for this admission?: Yes - Time Time Spent with patient: 25-34 minutes Level of Care: CU
--- NOTE | 2019-09-19 20:48 | Progress Note ---
Provider Note Provider Note: CARDIOLOGY PROGRESS NOTE by Dr. Veena Grant on SUBJECTIVE: The patient is more awake and alert today. She has no focal deficits. She is oriented x2. She is in atrial fibrillation with controlled ventricular response. Her renal function is come back to normal. There is no extension or recurrence of TIA or CVA. There is no bleeding on Eliquis. PHYSICAL EXAMINATION: The patient is mildly obese. In no acute distress. Selected Entries 09/19/19 11:44 Temperature 97.6 F Temperature Oral Source Pulse Rate 81 Respiratory 18 Rate Blood Pressure 125/49 L Blood Pressure 74 Mean BP Location Left Arm BP Position Supine O2 Sat by Pulse 100 Oximetry Oxygen Delivery Room Air Method Head: Is atraumatic normocephalic. EYES: Pupils are equal round regular reactive light. There is no conjunctival pallor. There is no scleral icterus. EARS: Tympanic membranes are intact. External auditory canals are clear. NOSE: There is no deviated nasal septum. There is no inflammation of his mucous membrane. MOUTH: Mucous membranes in the mouth are dry. Tongue is dry. There is no ulcers of the mouth. There is no bleeding from the gums. THROAT: There is no redness of the oropharynx. There is no exudates. Acute neck: Supple. There is no JVD. Carotids are equal there is no bruit. There is no lymphadenopathy. There is no goiter. There is no accessory muscles of respiration use. Trachea central. LUNGS: Clear to auscultation percussion. There is no rales of CHF. HEART: S1-S2 is heard. S1 is a variable intensity. There is no S3 gallop. There is no S4 gallop. There is systolic murmur left sternal border and the apex. There is murmur of aortic sclerosis present. There is no aortic stenosis or aortic regurgitation murmur heard. There is no significant valvular stenotic or regurgitant murmur heard. There is no rub. ABDOMEN: Soft dressing is dry. There is no hepatosplenomegaly. Bowel sounds are absent. Extremities: Femorals are diminished there is no femoral bruits. Leg pulses are diminished. There is no pedal edema. There is no DVT or cellulitis. 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 Patient more awake. She is oriented x2. She is able to recognize me and her son and knows where she is. She moves all 4 extremities. PSYCHIATRIC: The patient does not appear to be agitated. GI Bleed Scan Nuclear Medicine 08/26/19 00:00 IMPRESSION: FINDINGS CONSISTENT WITH ACTIVE GI BLEEDING IN THE SIGMOID COLON. Chest X-Ray 08/28/19 05:00 IMPRESSION: Opacity left lateral lung base, question atelectasis or pneumonia KUB X-Ray 08/31/19 00:00 IMPRESSION: Postoperative findings as detailed above without evidence of a mechanical bowel obstruction. 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 Distribution suggests embolic source. EVIDENCE OF ACUTE STROKE: YES. LEFT MCA and VERTEBROBASILAR. Head CT 09/08/19 00:00 IMPRESSION: 1. NO EVIDENCE OF ACUTE INTRACRANIAL PROCESS. 2. CHRONIC CHANGES OF ATROPHY AND MICROVASCULAR ISCHEMIA. EVIDENCE OF ACUTE STROKE: NO. Chest X-Ray 09/08/19 02:16 IMPRESSION: Findings suggesting mild changes of CHF. Chest X-Ray 09/12/19 00:00 IMPRESSION: Similar bibasilar subsegmental atelectasis and pleural effusions, increasing on the right. Chest X-Ray 09/15/19 06:00 IMPRESSION: Unchanged radiographic appearance of the chest. Labs- All tests 24 hr 09/18/19 09/19/19 09/19/19 21:05 07:11 11:43 Sodium Potassium Chloride Carbon Dioxide Anion Gap BUN Creatinine Est GFR ( Amer) Est GFR (MDRD) Non-Af Glucose POC Glucose 203 H 273 H 216 H Calcium Total Bilirubin Direct Bilirubin Neonat Total Bilirubin Neonat Direct Bilirubin Neonat Indirect Bili AST ALT Alkaline Phosphatase Total Protein Albumin 09/19/19 09/19/19 14:10 16:33 Sodium 143.4 Potassium 3.4 L Chloride 109 H Carbon Dioxide 33 H Anion Gap 1 L BUN 15 Creatinine 0.99 Est GFR ( Amer) > 60 Est GFR (MDRD) Non-Af 54 L Glucose 215 H POC Glucose 370 H Calcium 8.6 Total Bilirubin 0.5 Direct Bilirubin 0.0 Neonat Total Bilirubin Not Reportable Neonat Direct Bilirubin Not Reportable Neonat Indirect Bili Not Reportable AST 45 H ALT 25 Alkaline Phosphatase 48 Total Protein 5.3 L Albumin 2.1 L IMPRESSION/RECOMMENDATION: 1. 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 Increase in the patient's altered mental status was with obtundation. CT of the head shows no evidence of intracranial hemorrhage. Hence we will continue Eliquis. The patient is corrected Xavi vas 2 score is 7 2. Lower GI bleed secondary to bleeding from sigmoid sigmoid diverticulum. S/p hemicolectomy. 3. Lower abdominal incisional wound infection draining pus. Continue antibi otics. Surgical hist on the case 4. Anemia: Patient's hemoglobin is now stable there is no evidence of ongoing bleeding. Her hemoglobin is 11.3. 5. Atrial fibrillation with rapid ventricular response this is now controlled ventricular response. Continue metoprolol 50 mg p.o. every 12 hours. 6. Possible pneumonia: Continue antibiotics. This probably is resolved. 7. History of hypertension: Blood pressure not optimally controlled. The first dose of amlodipine is just been given. Earlier the nurse give hydralazine intravenously since the blood pressure was slightly elevated. At present reasonable blood pressure. 8. Hypothyroidism on replacement. 9. Diabetes mellitus: Continue Accu-Cheks and treat blood sugars accordingly since the patient is n.p.o. 10. Alzheimer's dementia by history. This seems to have improved. 11. Hypokalemia: Replace potassium. 12.. Poor p.o. intake. Her oral intake seems to have improved. She had mild renal insufficiency. Her GFR now is greater than 60. Would encourage the patient to increase the patient's fluid intake. MEDICATIONS reviewed. Medical regimen and management plan discussed with Dr. Reyes covering Dr. Oliver. Medical decision making is a moderate complexity. The patient's cardiac status is stable. The patient is being transferred to the residential facility. We will follow the patient after she gets out of the residential facility. At present cardiac status stable. We will sign off. 40 minutes spent on this patient more than 50% time spent in direct patient care. Thanking you
[2019-09-19] MEDS: ATORVASTATIN CALCIUM 80 MG TABLET PO SCH (21:48)
[2019-09-20] MEDS: PANTOPRAZOLE SODIUM 40 MG TABLET.DR PO SCH (05:29)
[2019-09-20] MEDS: INSULIN LISPRO 100 UNIT/ML 3 ML VIAL SUBCUT SCH ×4 (08:41→22:21)
[2019-09-20] MEDS: DIGOXIN INJ 0.5 MG/2 ML AMPULE IV SCH (11:07)
[2019-09-20] MEDS: RISPERIDONE 0.5 MG TAB.RAPDIS PO SCH ×2 (11:15→17:38)
[2019-09-20] MEDS: APIXABAN 5 MG TABLET PO SCH ×2 (11:15→17:38)
[2019-09-20] MEDS: METOPROLOL TARTRATE 50 MG TABLET PO SCH ×2 (11:15→22:20)
[2019-09-20] MEDS: AMLODIPINE BESYLATE 5 MG TABLET PO SCH ×2 (11:15→22:20)
[2019-09-20] MEDS: MEGESTROL ACETATE SUSP 400 MG/10 ML UDCUP PO SCH (11:15)
[2019-09-20] MEDS: ZINC SULFATE 220 MG CAPSULE PO SCH (11:15)
[2019-09-20] MEDS: MULTIVITS W-MIN/IRON SOLN 60 ML PO SCH (11:16)
--- NOTE | 2019-09-20 20:34 | PDOC PROGRESS REPORT ---
Subjective Progress Note for:: 09/20/19 Subjective:: Patient denied any chest pain or difficulty with breathing. No nausea, vomiting, and abdominal pain. No fever or chills. Limited participation in PT session today with need for june lift for her transfer from bed to recliner chair. Reason For Visit: LOWER GI BLEED,DM TYPE 2,HTN,GERD,CAD Physical Exam Vital Signs: Temp Pulse Resp BP Pulse Ox 97.4 F 52 L 16 120/54 L 99 09/20/19 12:08 09/20/19 14:00 09/20/19 12:08 09/20/19 12:08 09/20/19 12:08 Intake & Output 09/19/19 09/20/19 09/21/19 06:59 06:59 06:59 Intake Total 450 350 Output Total 1200 650 190 Balance -750 -300 -190 Weight 86.7 kg 84.7 kg Physical Exam: General appearance: PRESENT: no acute distress Head exam: PRESENT: atraumatic, normocephalic Eye exam: PRESENT: conjunctiva pink. ABSENT: pallor, scleral icterus Mouth exam: PRESENT: moist Respiratory exam: PRESENT: clear to auscultation, decreased breath sounds bilaterally Cardiovascular exam: PRESENT: Irregular rhythm, +S1, +S2. ABSENT: diastolic murmur, rubs, systolic murmur GI/Abdominal exam: PRESENT: normal bowel sounds, soft, less tenderness around lower surgical site with dressing in place. ABSENT: drainage tube is out, distended, guarding, mass, organomegaly, rebound Extremities exam: ABSENT: pedal edema Neurological exam: PRESENT: Awake, Alert, appropriate in simple responses during my bedside visit. Psychiatric exam: PRESENT: appropriate affect, normal mood. ABSENT: homicidal ideation, suicidal ideation Skin exam: PRESENT: dry, warm, multiple surgical jim anterior abdominal wall upper site of recent subtotal colectomy in place, lower section wound with wound vac in situ. Results Laboratory Results: 09/15/19 06:40 09/19/19 14:10 09/05/19 09/05/19 09/06/19 16:45 16:45 00:45 Creatine Kinase 52 55 CK-MB (CK-2) 0.36 Troponin I 0.035 09/06/19 09/06/19 09/06/19 00:45 06:04 06:04 Creatine Kinase 50 CK-MB (CK-2) 0.46 0.41 Troponin I 0.032 0.031 Impressions: GI Bleed Scan Nuclear Medicine 08/26/19 00:00 IMPRESSION: FINDINGS CONSISTENT WITH ACTIVE GI BLEEDING IN THE SIGMOID COLON. KUB X-Ray 08/31/19 00:00 IMPRESSION: Postoperative findings as detailed above without evidence of a mechanical bowel obstruction. 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 Distribution suggests embolic source. EVIDENCE OF ACUTE STROKE: YES. LEFT MCA and VERTEBROBASILAR. Head CT 09/08/19 00:00 IMPRESSION: 1. NO EVIDENCE OF ACUTE INTRACRANIAL PROCESS. 2. CHRONIC CHANGES OF ATROPHY AND MICROVASCULAR ISCHEMIA. EVIDENCE OF ACUTE STROKE: NO. Chest X-Ray 09/15/19 06:00 IMPRESSION: Unchanged radiographic appearance of the chest. Assessment & Plan - Diagnosis (1) Lower GI bleed Is this a current diagnosis for this admission?: Yes (2) Colonic diverticular disease Is this a current diagnosis for this admission?: Yes (3) Atrial fibrillation with rapid ventricular response Is this a current diagnosis for this admission?: Yes (4) Senile dementia with delirium Qualifiers: Dementia behavioral disturbance: without behavioral disturbance Qualified Code(s): F03.90 - Unspecified dementia without behavioral disturbance; F05 - Delirium due to known physiological condition Is this a current diagnosis for this admission?: Yes (5) Diabetes mellitus, type 2 Qualifiers: Diabetes mellitus senior living insulin use: without exterminator termite use Diabetes mellitus complication status: with other specified complication Qualified Code(s): E11.69 - Type 2 diabetes mellitus with other specified complication Is this a current diagnosis for this admission?: Yes (6) Hypertension Qualifiers: Hypertension type: unspecified Qualified Code(s): I10 - Essential (primary) hypertension Is this a current diagnosis for this admission?: Yes (7) Coronary artery disease Qualifiers: Coronary Disease-Associated Artery/Lesion type: unspecified vessel or lesion type [place] vs. transplanted heart: [place] heart Associated angina: angina presence unspecified Qualified Code(s): I25.10 - Atherosclerotic heart disease of [place] coronary artery without angina pectoris Is this a current diagnosis for this admission?: Yes (8) Hyperlipidemia Qualifiers: Hyperlipidemia type: unspecified Qualified Code(s): E78.5 - Hyperlipidemia, unspecified Is this a current diagnosis for this admission?: Yes (9) Hypothyroidism Qualifiers: Hypothyroidism type: acquired Qualified Code(s): E03.9 - Hypothyroidism, unspecified Is this a current diagnosis for this admission?: Yes (10) GERD (gastroesophageal reflux disease) Qualifiers: Esophagitis presence: esophagitis presence not specified Qualified Code(s): K21.9 - Gastro-esophageal reflux disease without esophagitis Is this a current diagnosis for this admission?: Yes (11) Embolic stroke involving left vertebral artery Is this a current diagnosis for this admission?: Yes (12) Left acute arterial ischemic stroke, MCA (middle cerebral artery) Is this a current diagnosis for this admission?: Yes (13) Subcutaneous abscess postop Is this a current diagnosis for this admission?: Yes (14) Hypokalemia due to inadequate potassium intake Is this a current diagnosis for this admission?: Yes (15) Yeast vaginitis Is this a current diagnosis for this admission?: Yes - Time Time Spent with patient: 25-34 minutes Level of Care: IMCU Medications reviewed and adjusted accordingly: Yes Anticipated discharge: SNF Within: Other - Inpatient Certification Based on my medical assessment, after consideration of the patient's comorbidities, presenting symptoms, or acuity I expect that the services needed warrant INPATIENT care.: Yes I certify that my determination is in accordance with my understanding of Medicare's requirements for reasonable and necessary INPATIENT services [42 CFR 412.3e].: Yes Medical Necessity: Significant Comorbidiites Make Outpatient Treatment Too Risky, Need Close Monitoring Due to Risk of Patient Decompensation, Need For Continuous Telemetry Monitoring, Risk of Complication if Not Cared For in Hospital, Risk of Diagnosis Which Will Require Inpatient Eval/Care/Monitoring Post Hospital Care: D/C or Transfer Summary - Plan Summary Plan Summary: Maintain on current medication management. Follow up with the surgical team for jim removal Day # 25 post subtotal colectomy surgery. Obtain CBC with diff and CMP in AM.
[2019-09-20] MEDS: ATORVASTATIN CALCIUM 80 MG TABLET PO SCH (22:19)
[2019-09-20] MEDS: MORPHINE SULFATE 10 MG/ML INJ IV PRN (22:23)
[2019-09-21] MEDS: PANTOPRAZOLE SODIUM 40 MG TABLET.DR PO SCH (06:23)
[2019-09-21 08:02] LABS: ABSOLUTE BASOPHILS # (AUTO) 0.1 10^3/uL (0.0-0.2); ABSOLUTE EOSINOPHILS # (AUTO) 0.1 10^3/uL (0.0-0.6); ABSOLUTE LYMPHOCYTES (AUTO) 1.8 10^3/uL (0.5-4.7); ABSOLUTE MONOCYTES (AUTO) 0.6 10^3/uL (0.1-1.4); ABSOLUTE NEUT (AUTO) 6.5 10^3/uL (1.7-8.2); BASOPHILS % (AUTO) 0.6 % (0-2); EOSINOPHILS % (AUTO) 0.9 % (0-6); HEMATOCRIT 31.2 % (36.0-47.0); HEMOGLOBIN 10.6 g/dL (12.0-15.5); LYMPHOCYTES % (AUTO) 19.9 % (13-45); MEAN CORPUSCULAR HEMOGLOBIN 29.6 pg (27.0-33.4); MEAN CORPUSCULAR HGB CONC 33.8 g/dL (32.0-36.0); MEAN CORPUSCULAR VOLUME 87 fl (80-97); MONOCYTES % (AUTO) 6.8 % (3-13); PLATELET COUNT 216 10^3/uL (150-450); RED BLOOD COUNT 3.57 10^6/uL (3.72-5.28); RED CELL DISTRIBUTION WIDTH 16.4 % (11.5-14.0); SEGMENTED NEUTROPHILS % (AUTO) 71.8 % (42-78); TOTAL CELLS COUNTED % (AUTO) 100 %
[2019-09-21 08:24] LABS: ALBUMIN 2.1 g/dL (3.5-5.0); ALKALINE PHOSPHATASE 50 U/L (38-126); ASPARTATE AMINO TRANSFERASE 43 U/L (14-36); BILIRUBIN,TOTAL 0.6 mg/dL (0.2-1.3); BLOOD UREA NITROGEN 17 mg/dL (7-20); CALCIUM 8.4 mg/dL (8.4-10.2); CHLORIDE 110 mmol/L (98-107); GLUCOSE 232 mg/dL (75-110); POTASSIUM 3.3 mmol/L (3.6-5.0); TOTAL PROTEIN 5.2 g/dL (6.3-8.2)
[2019-09-21 08:29] LABS: CARBON DIOXIDE 32 mmol/L (22-30)
[2019-09-21] MEDS: INSULIN LISPRO 100 UNIT/ML 3 ML VIAL SUBCUT SCH ×4 (08:30→22:23)
[2019-09-21 08:31] LABS: ANION GAP 1 (5-19)
[2019-09-21] MEDS: APIXABAN 5 MG TABLET PO SCH ×2 (09:33→17:04)
[2019-09-21] MEDS: METOPROLOL TARTRATE 50 MG TABLET PO SCH ×2 (09:33→22:24)
[2019-09-21] MEDS: ZINC SULFATE 220 MG CAPSULE PO SCH (09:34)
[2019-09-21] MEDS: MULTIVITS W-MIN/IRON SOLN 60 ML PO SCH (09:34)
[2019-09-21] MEDS: AMLODIPINE BESYLATE 5 MG TABLET PO SCH ×2 (09:34→22:24)
[2019-09-21] MEDS: MEGESTROL ACETATE SUSP 400 MG/10 ML UDCUP PO SCH (09:34)
[2019-09-21] MEDS: RISPERIDONE 0.5 MG TAB.RAPDIS PO SCH ×2 (09:35→17:04)
[2019-09-21] MEDS: MORPHINE SULFATE 10 MG/ML INJ IV PRN (13:32)
--- NOTE | 2019-09-21 18:36 | PDOC PROGRESS REPORT ---
Subjective Progress Note for:: 09/21/19 Subjective:: No chest pain or difficulty with breathing. Her reported operative site pain is adequately controlled on IV Morphine 1 mg q 4 hours. No nausea, vomiting, and abdominal pain. Oral intake remain a challenge. No fever or chills. Reason For Visit: LOWER GI BLEED,DM TYPE 2,HTN,GERD,CAD Physical Exam Vital Signs: Temp Pulse Resp BP Pulse Ox 97.7 F 64 18 128/59 H 100 09/21/19 16:11 09/21/19 16:11 09/21/19 16:11 09/21/19 16:11 09/21/19 16:11 Intake & Output 09/20/19 09/21/19 09/22/19 06:59 06:59 06:59 Intake Total 350 120 498 Output Total 650 565 220 Balance -300 -445 278 Weight 84.7 kg 86.6 kg 86.6 kg Results Laboratory Results: 09/21/19 07:35 09/21/19 07:35 09/21/19 09/21/19 07:35 07:35 WBC 9.0 RBC 3.57 L Hgb 10.6 L Hct 31.2 L MCV 87 MCH 29.6 MCHC 33.8 RDW 16.4 H Plt Count 216 Seg Neutrophils % 71.8 Sodium 143.3 Potassium 3.3 L Chloride 110 H Carbon Dioxide 32 H Anion Gap 1 L BUN 17 Creatinine 0.90 Est GFR ( Amer) > 60 Glucose 232 H Calcium 8.4 Total Bilirubin 0.6 AST 43 H Alkaline Phosphatase 50 Total Protein 5.2 L Albumin 2.1 L 09/05/19 09/05/19 09/06/19 16:45 16:45 00:45 Creatine Kinase 52 55 CK-MB (CK-2) 0.36 Troponin I 0.035 09/06/19 09/06/19 09/06/19 00:45 06:04 06:04 Creatine Kinase 50 CK-MB (CK-2) 0.46 0.41 Troponin I 0.032 0.031 Impressions: GI Bleed Scan Nuclear Medicine 08/26/19 00:00 IMPRESSION: FINDINGS CONSISTENT WITH ACTIVE GI BLEEDING IN THE SIGMOID COLON. KUB X-Ray 08/31/19 00:00 IMPRESSION: Postoperative findings as detailed above without evidence of a mechanical bowel obstruction. 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 Distribution suggests embolic source. EVIDENCE OF ACUTE STROKE: YES. LEFT MCA and VERTEBROBASILAR. Head CT 09/08/19 00:00 IMPRESSION: 1. NO EVIDENCE OF ACUTE INTRACRANIAL PROCESS. 2. CHRONIC CHANGES OF ATROPHY AND MICROVASCULAR ISCHEMIA. EVIDENCE OF ACUTE STROKE: NO. Chest X-Ray 09/15/19 06:00 IMPRESSION: Unchanged radiographic appearance of the chest. Assessment & Plan - Diagnosis (1) Lower GI bleed Is this a current diagnosis for this admission?: Yes (2) Colonic diverticular disease Is this a current diagnosis for this admission?: Yes (3) Atrial fibrillation with rapid ventricular response Is this a current diagnosis for this admission?: Yes (4) Senile dementia with delirium Qualifiers: Dementia behavioral disturbance: without behavioral disturbance Qualified Code(s): F03.90 - Unspecified dementia without behavioral disturbance; F05 - Delirium due to known physiological condition Is this a current diagnosis for this admission?: Yes (5) Diabetes mellitus, type 2 Qualifiers: Diabetes mellitus long term care social worker insulin use: without long term care social worker use Diabetes mellitus complication status: with other specified complication Qualified Code(s): E11.69 - Type 2 diabetes mellitus with other specified complication Is this a current diagnosis for this admission?: Yes (6) Hypertension Qualifiers: Hypertension type: unspecified Qualified Code(s): I10 - Essential (primary) hypertension Is this a current diagnosis for this admission?: Yes (7) Coronary artery disease Qualifiers: Coronary Disease-Associated Artery/Lesion type: unspecified vessel or lesion type [place] vs. transplanted heart: [place] heart Associated angina: angina presence unspecified Qualified Code(s): I25.10 - Atherosclerotic heart disease of [place] coronary artery without angina pectoris Is this a current diagnosis for this admission?: Yes (8) Hyperlipidemia Qualifiers: Hyperlipidemia type: unspecified Qualified Code(s): E78.5 - Hyperlipidemia, unspecified Is this a current diagnosis for this admission?: Yes (9) Hypothyroidism Qualifiers: Hypothyroidism type: acquired Qualified Code(s): E03.9 - Hypothyroidism, unspecified Is this a current diagnosis for this admission?: Yes (10) GERD (gastroesophageal reflux disease) Qualifiers: Esophagitis presence: esophagitis presence not specified Qualified Code(s): K21.9 - Gastro-esophageal reflux disease without esophagitis Is this a current diagnosis for this admission?: Yes (11) Embolic stroke involving left vertebral artery Is this a current diagnosis for this admission?: Yes (12) Left acute arterial ischemic stroke, MCA (middle cerebral artery) Is this a current diagnosis for this admission?: Yes (13) Subcutaneous abscess postop Is this a current diagnosis for this admission?: Yes (14) Hypokalemia due to inadequate potassium intake Is this a current diagnosis for this admission?: Yes (15) Yeast vaginitis Is this a current diagnosis for this admission?: Yes - Time Time Spent with patient: 25-34 minutes Level of Care: IMCU Medications reviewed and adjusted accordingly: Yes Anticipated discharge: SNF Within: Other - Inpatient Certification Based on my medical assessment, after consideration of the patient's comorbidities, presenting symptoms, or acuity I expect that the services needed warrant INPATIENT care.: Yes I certify that my determination is in accordance with my understanding of Medicare's requirements for reasonable and necessary INPATIENT services [42 CFR 412.3e].: Yes Medical Necessity: Significant Comorbidiites Make Outpatient Treatment Too Risky, Need Close Monitoring Due to Risk of Patient Decompensation, Need For Continuous Telemetry Monitoring, Risk of Complication if Not Cared For in Hospital, Risk of Diagnosis Which Will Require Inpatient Eval/Care/Monitoring Post Hospital Care: D/C or Transfer Summary - Plan Summary Plan Summary: Continue current medication management. Advance diet to mechanical soft consistency. Continue rehabilitation efforts. Possible transfer to SNF in next 48 hours.
[2019-09-21] MEDS: ATORVASTATIN CALCIUM 80 MG TABLET PO SCH (22:24)
[2019-09-21] MEDS: POTASSI CL 20 MEQ/50 ML RIDER 20 MEQ/50 ML RTUPB IV SCH (22:26)
[2019-09-22] MEDS: POTASSI CL 20 MEQ/50 ML RIDER 20 MEQ/50 ML RTUPB IV SCH ×2 (00:42→03:39)
[2019-09-22] MEDS ORDERED: POTASSI CL 20 MEQ/50 ML RIDER 20 MEQ/50 ML RTUPB IV ONE (03:37)
[2019-09-22] MEDS: PANTOPRAZOLE SODIUM 40 MG TABLET.DR PO SCH (05:49)
[2019-09-22 06:22] LABS: BLOOD UREA NITROGEN 18 mg/dL (7-20); CALCIUM 8.6 mg/dL (8.4-10.2); CARBON DIOXIDE 31 mmol/L (22-30); GLUCOSE 219 mg/dL (75-110)
[2019-09-22 06:28] LABS: CHLORIDE 113 mmol/L (98-107)
[2019-09-22 06:30] LABS: ANION GAP 2 (5-19); POTASSIUM 4.3 mmol/L (3.6-5.0)
[2019-09-22] MEDS: INSULIN LISPRO 100 UNIT/ML 3 ML VIAL SUBCUT SCH ×4 (07:57→21:38)
[2019-09-22] MEDS: MORPHINE SULFATE 10 MG/ML INJ IV PRN (08:51)
[2019-09-22] MEDS: ZINC SULFATE 220 MG CAPSULE PO SCH (10:28)
[2019-09-22] MEDS: AMLODIPINE BESYLATE 5 MG TABLET PO SCH ×2 (10:28→21:40)
[2019-09-22] MEDS: RISPERIDONE 0.5 MG TAB.RAPDIS PO SCH ×2 (10:28→19:32)
[2019-09-22] MEDS: MEGESTROL ACETATE SUSP 400 MG/10 ML UDCUP PO SCH (10:28)
[2019-09-22] MEDS: APIXABAN 5 MG TABLET PO SCH ×2 (10:28→19:32)
[2019-09-22] MEDS: METOPROLOL TARTRATE 50 MG TABLET PO SCH ×2 (10:28→21:31)
[2019-09-22] MEDS: MULTIVITAMINS W-IRON TABLET, CHEWABLE PO SCH (11:39)
--- NOTE | 2019-09-22 18:03 | PDOC PROGRESS REPORT ---
Subjective Progress Note for:: 09/22/19 Subjective:: No chest pain or difficulty with breathing. No nausea, vomiting, and abdominal pain. No fever or chills. Reason For Visit: LOWER GI BLEED,DM TYPE 2,HTN,GERD,CAD Physical Exam Vital Signs: Temp Pulse Resp BP Pulse Ox 97.4 F 71 18 119/61 100 09/22/19 07:42 09/22/19 07:42 09/22/19 07:42 09/22/19 07:42 09/22/19 07:42 Intake & Output 09/21/19 09/22/19 09/23/19 06:59 06:59 06:59 Intake Total 120 728 Output Total 565 570 Balance -445 158 Weight 86.6 kg 84.4 kg Physical Exam: General appearance: PRESENT: no acute distress Head exam: PRESENT: atraumatic, normocephalic Eye exam: PRESENT: conjunctiva pink. ABSENT: pallor, scleral icterus Mouth exam: PRESENT: moist Respiratory exam: PRESENT: clear to auscultation, decreased breath sounds bilaterally Cardiovascular exam: PRESENT: Irregular rhythm, +S1, +S2. ABSENT: diastolic murmur, rubs, systolic murmur GI/Abdominal exam: PRESENT: normal bowel sounds, soft ABSENT: drainage tube is out, distended, guarding, mass, organomegaly, rebound Extremities exam: ABSENT: pedal edema Neurological exam: PRESENT: Awake, Alert, appropriate in simple responses during my bedside visit. Psychiatric exam: PRESENT: appropriate affect, normal mood. ABSENT: homicidal ideation, suicidal ideation Skin exam: PRESENT: dry, warm, surgical jim off and skin healing satisfactory, lower section wound with wound vac in situ. Results Laboratory Results: 09/21/19 07:35 09/22/19 05:45 09/21/19 09/21/19 09/22/19 07:35 07:35 05:45 Sodium 143.3 145.8 H Potassium 3.3 L 4.3 D Chloride 110 H 113 H Carbon Dioxide 32 H 31 H Anion Gap 1 L 2 L BUN 17 18 Creatinine 0.90 0.97 Est GFR ( Amer) > 60 > 60 Glucose 232 H 219 H Calcium 8.4 8.6 Magnesium 2.1 Total Bilirubin 0.6 AST 43 H Alkaline Phosphatase 50 Total Protein 5.2 L Albumin 2.1 L 09/05/19 09/05/19 09/06/19 16:45 16:45 00:45 Creatine Kinase 52 55 CK-MB (CK-2) 0.36 Troponin I 0.035 09/06/19 09/06/19 09/06/19 00:45 06:04 06:04 Creatine Kinase 50 CK-MB (CK-2) 0.46 0.41 Troponin I 0.032 0.031 Impressions: GI Bleed Scan Nuclear Medicine 08/26/19 00:00 IMPRESSION: FINDINGS CONSISTENT WITH ACTIVE GI BLEEDING IN THE SIGMOID COLON. KUB X-Ray 08/31/19 00:00 IMPRESSION: Postoperative findings as detailed above without evidence of a mechanical bowel obstruction. 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 Distribution suggests embolic source. EVIDENCE OF ACUTE STROKE: YES. LEFT MCA and VERTEBROBASILAR. Head CT 09/08/19 00:00 IMPRESSION: 1. NO EVIDENCE OF ACUTE INTRACRANIAL PROCESS. 2. CHRONIC CHANGES OF ATROPHY AND MICROVASCULAR ISCHEMIA. EVIDENCE OF ACUTE STROKE: NO. Chest X-Ray 09/15/19 06:00 IMPRESSION: Unchanged radiographic appearance of the chest. Assessment & Plan - Diagnosis (1) Lower GI bleed Is this a current diagnosis for this admission?: Yes (2) Colonic diverticular disease Is this a current diagnosis for this admission?: Yes (3) Atrial fibrillation with rapid ventricular response Is this a current diagnosis for this admission?: Yes (4) Senile dementia with delirium Qualifiers: Dementia behavioral disturbance: without behavioral disturbance Qualified Code(s): F03.90 - Unspecified dementia without behavioral disturbance; F05 - Delirium due to known physiological condition Is this a current diagnosis for this admission?: Yes (5) Diabetes mellitus, type 2 Qualifiers: Diabetes mellitus varnish finisher insulin use: without varnish finisher use Diabetes mellitus complication status: with other specified complication Qualified Cod e(s): E11.69 - Type 2 diabetes mellitus with other specified complication Is this a current diagnosis for this admission?: Yes (6) Hypertension Qualifiers: Hypertension type: unspecified Qualified Code(s): I10 - Essential (primary) hypertension Is this a current diagnosis for this admission?: Yes (7) Coronary artery disease Qualifiers: Coronary Disease-Associated Artery/Lesion type: unspecified vessel or lesion type [place] vs. transplanted heart: [place] heart Associated angina: angina presence unspecified Qualified Code(s): I25.10 - Atherosclerotic heart disease of [place] coronary artery without angina pectoris Is this a current diagnosis for this admission?: Yes (8) Hyperlipidemia Qualifiers: Hyperlipidemia type: unspecified Qualified Code(s): E78.5 - Hyperlipidemia, unspecified Is this a current diagnosis for this admission?: Yes (9) Hypothyroidism Qualifiers: Hypothyroidism type: acquired Qualified Code(s): E03.9 - Hypothyroidism, unspecified Is this a current diagnosis for this admission?: Yes (10) GERD (gastroesophageal reflux disease) Qualifiers: Esophagitis presence: esophagitis presence not specified Qualified Code(s): K21.9 - Gastro-esophageal reflux disease without esophagitis Is this a current diagnosis for this admission?: Yes (11) Embolic stroke involving left vertebral artery Is this a current diagnosis for this admission?: Yes (12) Left acute arterial ischemic stroke, MCA (middle cerebral artery) Is this a current diagnosis for this admission?: Yes (13) Subcutaneous abscess postop Is this a current diagnosis for this admission?: Yes (14) Hypokalemia due to inadequate potassium intake Is this a current diagnosis for this admission?: Yes (15) Yeast vaginitis Is this a current diagnosis for this admission?: Yes - Time Time Spent with patient: 25-34 minutes Level of Care: IMCU Medications reviewed and adjusted accordingly: Yes Anticipated discharge: SNF Within: Other - Inpatient Certification Based on my medical assessment, after consideration of the patient's comorbidities, presenting symptoms, or acuity I expect that the services needed warrant INPATIENT care.: Yes I certify that my determination is in accordance with my understanding of Medicare's requirements for reasonable and necessary INPATIENT services [42 CFR 412.3e].: Yes Medical Necessity: Significant Comorbidiites Make Outpatient Treatment Too Ri sarah, Need Close Monitoring Due to Risk of Patient Decompensation, Need For Continuous Telemetry Monitoring, Need for Pain Control, Risk of Complication if Not Cared For in Hospital, Risk of Diagnosis Which Will Require Inpatient Eval/Care/Monitoring Post Hospital Care: D/C or Transfer Summary - Plan Summary Plan Summary: Continue current medication management. Coordinate with senior program planner and family regarding transfer to SNF tomorrow. 17:57 pm Patient has been more somnolent throughout the day as per nursing report with m inimal urine output and poor oral intake. She had total of 2 mg of IV morphine since ordered for pain management last night. No reported fever. Some demonstrable bradycardia while sleeping. P/E: Arousable and appropriate in simple responses. No demonstrable worsening focal deficit ASS: Concern for drug induced AMS due to addition of IV Morphine to her regimen. Other possibility is occult infection. PLAN: Obtain portable chest X ray, urinalysis with reflex urine culture. Start on IV fluid N/S at 75 ml/hour D/C IV Morphine usage. Maintain on Tylenol 650 mg po q 4 hours prn for pain management. Review possible transfer to SNF in AM.
--- NOTE | 2019-09-22 19:03 | RADIOLOGY REPORT (SQ) ---
EXAM DESCRIPTION: CHEST SINGLE VIEW IMAGES COMPLETED DATE/TIME: 09/22/2019 6:30 pm REASON FOR STUDY: Change in mental status r/o pneumonia COMPARISON: 09/15/2019 EXAM PARAMETERS: NUMBER OF VIEWS: One view. TECHNIQUE: Single frontal radiographic view of the chest acquired. RADIATION DOSE: NA LIMITATIONS: None. FINDINGS: LUNGS AND PLEURA: Small pleural effusions. Retrocardiac opacification on the left obscure s the left hemidiaphragm. MEDIASTINUM AND HILAR STRUCTURES: No masses. Contour normal. HEART AND VASCULAR STRUCTURES: Cardiomegaly. BONES: No acute findings. HARDWARE: Right internal jugular catheter. OTHER: No other significant finding. IMPRESSION: Cardiomegaly without anson pulmonary edema. Small pleural effusions. Cannot exclude ai rspace disease in the left base, atelectasis versus pneumonia. TECHNICAL DOCUMENTATION: JOB ID: [id number] 2010 [employer]- All Rights Reserved Reading location - IP/workstation name: [email or web address]
[2019-09-22] MEDS: NORMAL SALINE 1000 ML 1,000 ML IV PRN (19:30)
[2019-09-22] MEDS: ATORVASTATIN CALCIUM 80 MG TABLET PO SCH (21:39)
[2019-09-23] MEDS: PANTOPRAZOLE SODIUM 40 MG TABLET.DR PO SCH (05:53)
[2019-09-23 06:41] LABS: APPEARANCE,URINE CLEAR; BILIRUBIN,URINE NEGATIVE (NEGATIVE); COLOR,URINE YELLOW; GLUCOSE, URINE 150 mg/dL (NEGATIVE); KETONES,URINE TRACE mg/dL (NEGATIVE); PROTEIN,URINE 30 mg/dL (NEGATIVE); URINE SPECIFIC GRAVITY 1.017; UROBILINOGEN,URINE NEGATIVE mg/dL (<2.0)
[2019-09-23] MEDS: NORMAL SALINE 1000 ML 1,000 ML IV PRN ×2 (09:50→22:52)
[2019-09-23] MEDS: ZINC SULFATE 220 MG CAPSULE PO SCH (09:58)
[2019-09-23] MEDS: METOPROLOL TARTRATE 50 MG TABLET PO SCH ×2 (09:58→23:10)
[2019-09-23] MEDS: AMLODIPINE BESYLATE 5 MG TABLET PO SCH ×2 (09:58→23:10)
[2019-09-23] MEDS: INSULIN LISPRO 100 UNIT/ML 3 ML VIAL SUBCUT SCH ×4 (09:58→23:09)
[2019-09-23] MEDS: RISPERIDONE 0.5 MG TAB.RAPDIS PO SCH ×2 (09:58→17:26)
[2019-09-23] MEDS: APIXABAN 5 MG TABLET PO SCH ×2 (09:58→17:27)
[2019-09-23] MEDS: MEGESTROL ACETATE SUSP 400 MG/10 ML UDCUP PO SCH (09:59)
[2019-09-23] MEDS: MULTIVITAMINS W-IRON TABLET, CHEWABLE PO SCH (09:59)
--- NOTE | 2019-09-23 14:18 | PDOC PROGRESS REPORT ---
Subjective Progress Note for:: 09/23/19 Subjective:: Patient is more lucid and appropriate so far today. PO intake remain a challenge. She denied any nausea or vomiting. No abdominal pain. No chest pain or difficulty with breathing. Reason For Visit: LOWER GI BLEED,DM TYPE 2,HTN,GERD,CAD Physical Exam Vital Signs: Temp Pulse Resp BP Pulse Ox 97.3 F 53 L 17 126/59 H 100 09/23/19 11:30 09/23/19 11:30 09/23/19 11:30 09/23/19 11:30 09/23/19 11:30 Intake & Output 09/22/19 09/23/19 09/24/19 06:59 06:59 06:59 Intake Total 292 962 7325 Output Total 570 375 Balance 158 -39 1050 Weight 84.4 kg 84.1 kg Physical Exam: General appearance: PRESENT: no acute distress Head exam: PRESENT: atraumatic, normocephalic Eye exam: PRESENT: conjunctiva pink. ABSENT: pallor, scleral icterus Mouth exam: PRESENT: moist Respiratory exam: PRESENT: clear to auscultation, decreased breath sounds bilaterally Cardiovascular exam: PRESENT: Irregular rhythm, +S1, +S2. ABSENT: diastolic murmur, rubs, systolic murmur GI/Abdominal exam: PRESENT: normal bowel sounds, soft ABSENT: drainage tube is out, distended, guarding, mass, organomegaly, rebound Extremities exam: ABSENT: pedal edema Neurological exam: PRESENT: Awake, Alert, appropriate in simple responses during my bedside visit. Psychiatric exam: PRESENT: appropriate affect, normal mood. ABSENT: homicidal ideation, suicidal ideation Skin exam: PRESENT: dry, warm, surgical jim off and skin healing satisfactory, lower section wound with wound vac in situ. Results Laboratory Results: 09/21/19 07:35 09/22/19 05:45 09/21/19 09/23/19 07:35 05:45 Sodium 143.3 Potassium 3.3 L Chloride 110 H Carbon Dioxide 32 H Anion Gap 1 L BUN 17 Creatinine 0.90 Est GFR ( Amer) > 60 Glucose 232 H Calcium 8.4 Total Bilirubin 0.6 AST 43 H Alkaline Phosphatase 50 Total Protein 5.2 L Albumin 2.1 L Urine Color YELLOW Urine Appearance CLEAR Urine pH 6.0 Ur Specific [place] 1.017 Urine Protein 30 H Urine Glucose (UA) 150 H Urine Ketones TRACE H Urine Blood MODERATE H Urine RBC (Auto) 7 09/05/19 09/05/19 09/06/19 16:45 16:45 00:45 Creatine Kinase 52 55 CK-MB (CK-2) 0.36 Troponin I 0.035 09/06/19 09/06/19 09/06/19 00:45 06:04 06:04 Creatine Kinase 50 CK-MB (CK-2) 0.46 0.41 Troponin I 0.032 0.031 Impressions: GI Bleed Scan Nuclear Medicine 08/26/19 00:00 IMPRESSION: FINDINGS CONSISTENT WITH ACTIVE GI BLEEDING IN THE SIGMOID COLON. KUB X-Ray 08/31/19 00:00 IMPRESSION: Postoperative findings as detailed above without evidence of a mechanical bowel obstruction. 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 Distribution suggests embolic source. EVIDENCE OF ACUTE STROKE: YES. LEFT MCA and VERTEBROBASILAR. Head CT 09/08/19 00:00 IMPRESSION: 1. NO EVIDENCE OF ACUTE INTRACRANIAL PROCESS. 2. CHRONIC CHANGES OF ATROPHY AND MICROVASCULAR ISCHEMIA. EVIDENCE OF ACUTE STROKE: NO. Chest X-Ray 09/22/19 00:00 IMPRESSION: Cardiomegaly without anson pulmonary edema. Small pleural effusions. Cannot exclude airspace disease in the left base, atelectasis versus pneumonia. Assessment & Plan - Diagnosis (1) Lower GI bleed Is this a current diagnosis for this admission?: Yes (2) Colonic diverticular disease Is this a current diagnosis for this admission?: Yes (3) Atrial fibrillation with rapid ventricular response Is this a current diagnosis for this admission?: Yes (4) Senile dementia with delirium Qualifiers: Dementia behavioral disturbance: without behavioral disturbance Qualified Code(s): F03.90 - Unspecified dementia without behavioral disturbance; F05 - Delirium due to known physiological condition Is this a current diagnosis for this admission?: Yes (5) Diabetes mellitus, type 2 Qualifiers: Diabetes mellitus longwall shearer operator insulin use: without longwall shearer operator use Diabetes mellitus complication status: with other specified complication Qualified Code(s): E11.69 - Type 2 diabetes mellitus with other specified complication Is this a current diagnosis for this admission?: Yes (6) Hypertension Qualifiers: Hypertension type: unspecified Qualified Code(s): I10 - Essential (primary) hypertension Is this a current diagnosis for this admission?: Yes (7) Coronary artery disease Qualifiers: Coronary Disease-Associated Artery/Lesion type: unspecified vessel or lesion type [place] vs. transplanted heart: [place] heart Associated angina: angina presence unspecified Qualified Code(s): I25.10 - Atherosclerotic heart disease of [place] coronary artery without angina pectoris Is this a current diagnosis for this admission?: Yes (8) Hyperlipidemia Qualifiers: Hyperlipidemia type: unspecified Qualified Code(s): E78.5 - Hyperlipidemia, unspecified Is this a current diagnosis for this admission?: Yes (9) Hypothyroidism Qualifiers: Hypothyroidism type: acquired Qualified Code(s): E03.9 - Hypothyroidism, unspecified Is this a current diagnosis for this admission?: Yes (10) GERD (gastroesophageal reflux disease) Qualifiers: Esophagitis presence: esophagitis presence not specified Qualified Code(s): K21.9 - Gastro-esophageal reflux disease without esophagitis Is this a current diagnosis for this admission?: Yes (11) Embolic stroke involving left vertebral artery Is this a current diagnosis for this admission?: Yes (12) Left acute arterial ischemic stroke, MCA (middle cerebral artery) Is this a current diagnosis for this admission?: Yes (13) Subcutaneous abscess postop Is this a current diagnosis for this admission?: Yes (14) Hypokalemia due to inadequate potassium intake Is this a current diagnosis for this admission?: Yes (15) Yeast vaginitis Is this a current diagnosis for this admission?: Yes - Time Time Spent with patient: 25-34 minutes Level of Care: IMCU Medications reviewed and adjusted accordingly: Yes Anticipated discharge: SNF Within: within 24 hours - Inpatient Certification Based on my medical assessment, after consideration of the patient's comorbidities, presenting symptoms, or acuity I expect that the services needed warrant INPATIENT care.: Yes I certify that my determination is in accordance with my understanding of Medicare's requirements for reasonable and necessary INPATIENT services [42 CFR 412.3e].: Yes Medical Necessity: Significant Comorbidiites Make Outpatient Treatment Too Risky, Need Close Monitoring Due to Risk of Patient Decompensation, Need For IV Fluids, Need For Continuous Telemetry Monitoring, Risk of Complication if Not Cared For in Hospital, Risk of Diagnosis Which Will Require Inpatient Eval/Care/Monitoring Post Hospital Care: D/C Graduate Recruiter Documentation - Plan Summary Plan Summary: Obtain CBC with diff, BMP. Maintain on current medication management. Possible transfer to SNF tomorrow if her blood work are within acceptable limits. Her chest X ray finding about possible airspace disease process is less likely in her current clinical status and more likely atelectasis. Her urinalysis is suggestive but I will obtain CB with differential in light of her afebrile status.
[2019-09-23 19:29] LABS: ABSOLUTE EOSINOPHILS # (AUTO) 0.1 10^3/uL (0.0-0.6); ABSOLUTE LYMPHOCYTES (AUTO) 2.3 10^3/uL (0.5-4.7); ABSOLUTE MONOCYTES (AUTO) 0.5 10^3/uL (0.1-1.4); ABSOLUTE NEUT (AUTO) 4.4 10^3/uL (1.7-8.2); BASOPHILS % (AUTO) 0.5 % (0-2); EOSINOPHILS % (AUTO) 0.9 % (0-6); HEMATOCRIT 33.2 % (36.0-47.0); LYMPHOCYTES % (AUTO) 31.1 % (13-45); MEAN CORPUSCULAR HEMOGLOBIN 29.1 pg (27.0-33.4); MEAN CORPUSCULAR HGB CONC 33.2 g/dL (32.0-36.0); MEAN CORPUSCULAR VOLUME 87 fl (80-97); MONOCYTES % (AUTO) 7.3 % (3-13); PLATELET COUNT 190 10^3/uL (150-450); RED CELL DISTRIBUTION WIDTH 16.6 % (11.5-14.0); SEGMENTED NEUTROPHILS % (AUTO) 60.2 % (42-78); TOTAL CELLS COUNTED % (AUTO) 100 %; WHITE BLOOD COUNT 7.2 10^3/uL (4.0-10.5)
[2019-09-23 19:47] LABS: BLOOD UREA NITROGEN 20 mg/dL (7-20); CALCIUM 8.4 mg/dL (8.4-10.2); GLUCOSE 219 mg/dL (75-110); POTASSIUM 3.9 mmol/L (3.6-5.0)
[2019-09-23 19:53] LABS: ANION GAP 5 (5-19); CARBON DIOXIDE 26 mmol/L (22-30); CHLORIDE 117 mmol/L (98-107)
[2019-09-23] MEDS: ATORVASTATIN CALCIUM 80 MG TABLET PO SCH (23:10)
[2019-09-24] MEDS: PANTOPRAZOLE SODIUM 40 MG TABLET.DR PO SCH (05:50)
--- NOTE | 2019-09-24 07:52 | PDOC PROGRESS REPORT ---
Subjective Progress Note for:: 09/24/19 Subjective:: No chest pain or difficulty with breathing. No fever or chills. No nausea, vomiting, or abdominal pain. Reason For Visit: LOWER GI BLEED,DM TYPE 2,HTN,GERD,CAD Physical Exam Vital Signs: Temp Pulse Resp BP Pulse Ox 98.1 F 66 20 136/77 H 98 09/24/19 03:40 09/24/19 03:40 09/24/19 03:40 09/24/19 03:40 09/24/19 03:40 Intake & Output 09/23/19 09/24/19 09/25/19 06:59 06:59 06:59 Intake Total 336 2295 Output Total 375 275 Balance -39 2020 Weight 84.1 kg Physical Exam: General appearance: PRESENT: no acute distress Head exam: PRESENT: atraumatic, normocephalic Eye exam: PRESENT: conjunctiva pink. ABSENT: pallor, scleral icterus Mouth exam: PRESENT: moist Respiratory exam: PRESENT: clear to auscultation, decreased breath sounds bilaterally Cardiovascular exam: PRESENT: Irregular rhythm, +S1, +S2. ABSENT: diastolic murmur, rubs, systolic murmur GI/Abdominal exam: PRESENT: normal bowel sounds, soft ABSENT: drainage tube is out, distended, guarding, mass, organomegaly, rebound Extremities exam: ABSENT: pedal edema Neurological exam: PRESENT: Awake, Alert, appropriate in simple responses during my bedside visit. Psychiatric exam: PRESENT: appropriate affect, normal mood. ABSENT: homicidal ideation, suicidal ideation Skin exam: PRESENT: dry, warm, surgical jim off and skin healing satisf actory, lower section wound with wound vac in situ. Results Laboratory Results: 09/23/19 19:16 09/23/19 19:16 09/21/19 09/23/19 09/23/19 07:35 19:16 19:16 WBC 7.2 RBC 3.80 Hgb 11.0 L Hct 33.2 L MCV 87 MCH 29.1 MCHC 33.2 RDW 16.6 H Plt Count 190 Seg Neutrophils % 60.2 Sodium 143.3 147.5 H Potassium 3.3 L 3.9 Chloride 110 H 117 H Carbon Dioxide 32 H 26 Anion Gap 1 L 5 BUN 17 20 Creatinine 0.90 0.86 Est GFR ( Amer) > 60 > 60 Glucose 232 H 219 H Calcium 8.4 8.4 Total Bilirubin 0.6 AST 43 H Alkaline Phosphatase 50 Total Protein 5.2 L Albumin 2.1 L 09/05/19 09/05/19 09/06/19 16:45 16:45 00:45 Creatine Kinase 52 55 CK-MB (CK-2) 0.36 Troponin I 0.035 09/06/19 09/06/19 09/06/19 00:45 06:04 06:04 Creatine Kinase 50 CK-MB (CK-2) 0.46 0.41 Troponin I 0.032 0.031 Impressions: GI Bleed Scan Nuclear Medicine 08/26/19 00:00 IMPRESSION: FINDINGS CONSISTENT WITH ACTIVE GI BLEEDING IN THE SIGMOID COLON. KUB X-Ray 08/31/19 00:00 IMPRESSION: Postoperative findings as detailed above without evidence of a mechanical bowel obstruction. 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 Distribution suggests embolic source. EVIDENCE OF ACUTE STROKE: YES. LEFT MCA and VERTEBROBASILAR. Head CT 09/08/19 00:00 IMPRESSION: 1. NO EVIDENCE OF ACUTE INTRACRANIAL PROCESS. 2. CHRONIC CHANGES OF ATROPHY AND MICROVASCULAR ISCHEMIA. EVIDENCE OF ACUTE STROKE: NO. Chest X-Ray 09/22/19 00:00 IMPRESSION: Cardiomegaly without anson pulmonary edema. Small pleural ef fusions. Cannot exclude airspace disease in the left base, atelectasis versus pneumonia. Assessment & Plan - Diagnosis (1) Lower GI bleed Is this a current diagnosis for this admission?: Yes (2) Colonic diverticular disease Is this a current diagnosis for this admission?: Yes (3) Atrial fibrillation with rapid ventricular response Is this a current diagnosis for this admission?: Yes (4) Senile dementia with delirium Qualifiers: Dementia behavioral disturbance: without behavioral disturbance Qualified Code(s): F03.90 - Unspecified dementia without behavioral disturbance; F05 - Delirium due to known physiological condition Is this a current diagnosis for this admission?: Yes (5) Diabetes mellitus, type 2 Qualifiers: Diabetes mellitus remote computer terminal operator insulin use: without remote computer terminal operator use Diabetes mellitus complication status: with other specified complication Qualified Code(s): E11.69 - Type 2 diabetes mellitus with other specified complication Is this a current diagnosis for this admission?: Yes (6) Hypertension Qualifiers: Hypertension type: unspecified Qualified Code(s): I10 - Essential (primary) hypertension Is this a current diagnosis for this admission?: Yes (7) Coronary artery disease Qualifiers: Coronary Disease-Associated Artery/Lesion type: unspecified vessel or lesion type [place] vs. transplanted heart: [place] heart Associated angina: angina presence unspecified Qualified Code(s): I25.10 - Atherosclerotic heart disease of [place] coronary artery without angina pectoris Is this a current diagnosis for this admission?: Yes (8) Hyperlipidemia Qualifiers: Hyperlipidemia type: unspecified Qualified Code(s): E78.5 - Hyperlipidemia, unspecified Is this a current diagnosis for this admission?: Yes (9) Hypothyroidism Qualifiers: Hypothyroidism type: acquired Qualified Code(s): E03.9 - Hypothyroidism, unspecified Is this a current diagnosis for this admission?: Yes (10) GERD (gastroesophageal reflux disease) Qualifiers: Esophagitis presence: esophagitis presence not specified Qualified Code(s): K21.9 - Gastro-esophageal reflux disease without esophagitis Is this a current diagnosis for this admission?: Yes (11) Embolic stroke involving left vertebral artery Is this a current diagnosis for this admission?: Yes (12) Left acute arterial ischemic stroke, MCA (middle cerebral artery) Is this a current diagnosis for this admission?: Yes (13) Subcutaneous abscess postop Is this a current diagnosis for this admission?: Yes (14) Hypokalemia due to inadequate potassium intake Is this a current diagnosis for this admission?: Yes (15) Yeast vaginitis Is this a current diagnosis for this admission?: Yes - Time Time Spent with patient: 25-34 minutes Level of Care: IMCU Medications reviewed and adjusted accordingly: Yes Anticipated discharge: SNF Within: Other - Inpatient Certification Based on my medical assessment, after consideration of the patient's comorbidities, presenting symptoms, or acuity I expect that the services needed warrant INPATIENT care.: Yes I certify that my determination is in accordance with my understanding of Medicare's requirements for reasonable and necessary INPATIENT services [42 CFR 412.3e].: Yes Medical Necessity: Significant Comorbidiites Make Outpatient Treatment Too Risky, Need Close Monitoring Due to Risk of Patient Decompensation, Need For Continuous Telemetry Monitoring, Risk of Complication if Not Cared For in Hospital, Risk of Diagnosis Which Will Require Inpatient Eval/Care/Monitoring Post Hospital Care: D/C or Transfer Summary - Plan Summary Plan Summary: SNF demanded for repeat COVID-19 test before accepting the patient to the facility. Continue all current medication management.
[2019-09-24] MEDS: INSULIN LISPRO 100 UNIT/ML 3 ML VIAL SUBCUT SCH ×3 (09:50→17:25)
[2019-09-24] MEDS: MEGESTROL ACETATE SUSP 400 MG/10 ML UDCUP PO SCH (09:51)
[2019-09-24] MEDS: AMLODIPINE BESYLATE 5 MG TABLET PO SCH (09:51)
[2019-09-24] MEDS: RISPERIDONE 0.5 MG TAB.RAPDIS PO SCH (09:51)
[2019-09-24] MEDS: APIXABAN 5 MG TABLET PO SCH (09:51)
[2019-09-24] MEDS: ZINC SULFATE 220 MG CAPSULE PO SCH (09:51)
[2019-09-24] MEDS: METOPROLOL TARTRATE 50 MG TABLET PO SCH (09:51)
[2019-09-24] MEDS: MULTIVITAMINS W-IRON TABLET, CHEWABLE PO SCH (09:51)
[2019-09-24 12:56] VITALS: BP 106/56
[2019-09-24] MEDS ORDERED: LEVOFLOXACIN 250 MG TABLET PO ONE (15:30)
--- NOTE | 2019-09-24 15:53 | PDOC TRANSFER SUMMARY ---
Impression - Admit/DC Date/PCP Admission Date/Primary Care Provider: 08/24/19 13:48 MYRA MERLE Discharge Date: 09/24/19 - Discharge Diagnosis (1) Lower GI bleed Is this a current diagnosis for this admission?: Yes (2) Colonic diverticular disease Is this a current diagnosis for this admission?: Yes (3) Atrial fibrillation with rapid ventricular response Is this a current diagnosis for this admission?: Yes (4) Senile dementia with delirium Is this a current diagnosis for this admission?: Yes (5) Diabetes mellitus, type 2 Is this a current diagnosis for this admission?: Yes (6) Hypertension Is this a current diagnosis for this admission?: Yes (7) Coronary artery disease Is this a current diagnosis for this admission?: Yes (8) Hyperlipidemia Is this a current diagnosis for this admission?: Yes (9) Hypothyroidism Is this a current diagnosis for this admission?: Yes (10) GERD (gastroesophageal reflux disease) Is this a current diagnosis for this admission?: Yes (11) Embolic stroke involving left vertebral artery Is this a current diagnosis for this admission?: Yes (12) Left acute arterial ischemic stroke, MCA (middle cerebral artery) Is this a current diagnosis for this admission?: Yes (13) Subcutaneous abscess postop Is this a current diagnosis for this admission?: Yes (14) Hypokalemia due to inadequate potassium intake Is this a current diagnosis for this admission?: Yes (15) Yeast vaginitis Is this a current diagnosis for this admission?: Yes - Assessment Summary: Patient was admitted for rectal bleed with left lower abdominal pain and concern for possible diverticular bleed. Due to several recurence and significant blood loss she was seen in consultation by surgicalist team and eventually taken to surgery for subtotal colectomy. Her post operative period was complicated by wound dehiscent and possible infection. She has been on wound vac management thereafter. She was taken off her anticoagulant therapy for chronic atrial fibrillation due to her surgery and unfortunately had embolic stroke event necessitating speech pathologist involvement. Her hospitalization was further complicated by development of acute delirium related to acute illness and baseline dementia. Her nutritional status has been a challenge with poor oral intake. She had feeding assistance with family involvement and has been on oral supplementation. She has a short course of Megestrol with some improvement. Her recent decrease mental alertness improved with discontinuation IV Morphine. Her recent urine culture did grew gram negative rods > 100,000 colonies / mL. Her wound culture growth were unger-sensitive to Levofloxacin. She will be started on oral Levofloxacin 250 mg p.o daily x 5 days. facility should follow up on organism identification an sensitivity report for possible adjustment of her coverage. She will need [facility] services [facility] The [facility] staff should call my office for appointment before discharge from the facility. It is highly recommended that she should continue wound vac therapy for her wound management. - Additional Information Resuscitation Status: Full Code Discharge Diet: Cardiac, Diabetic Discharge Activity: Activity As Tolerated, Slowly Increase Activity, Supervised Activity Referrals: MYRA BLOOM MD [Primary Care Provider] - Follow up as needed ([facility] staff to call office for follow up appointment before discharge from the facility.) Home Medications: Metformin HCl [Glucophage 500 mg Tablet] 1,000 mg PO BID 04/04/11 Omeprazole [Prilosec 20 mg Capsule] 20 mg PO Q6AM 04/04/11 Acetylcyst/[id number]/Levomefol [Metafolbic Plus Caplet] 1 tab PO DAILY 08/24/19 Famotidine [Pepcid 20 mg Tablet] 40 mg PO DAILY 08/24/19 Gabapentin [Neurontin 100 mg Capsule] 100 mg PO BID 08/24/19 Glipizide [Glucotrol 10 mg Tablet] 10 mg PO BID 08/24/19 Levothyroxine Sodium [Synthroid 0.05 mg Tablet] 0.05 mg PO Q6AM 08/24/19 Amlodipine Besylate [Norvasc 5 mg Tablet] 5 mg PO Q12 tablet 09/24/19 Apixaban [Eliquis 5 mg Tablet] 5 mg PO BID tablet 09/24/19 Atorvastatin Calcium [Lipitor 80 mg Tablet] 80 mg PO QHS tablet 09/24/19 Docusate Sodium [Colace 100 mg Capsule] 100 mg PO DAILYP PRN capsule 09/24/19 Insulin Lispro [Humalog Insulin (Lispro) 100 unit/mL] 0 - 12 unit SUBCUT ACHS unit 09/24/19 Metoprolol Tartrate [Lopressor 50 mg Tablet] 50 mg PO Q12 tablet 09/24/19 Multivitamins W-Iron [Flintstones Chewable Multivit W/Fe Tab] 1 tab PO DAILY tab.chew 09/24/19 Risperidone [Risperdal M-Tab 0.5 mg Odt Tablet] 0.5 mg PO BID tab.rapdis 09/24/19 Zinc Sulfate [Zinc-220 Capsule] 220 mg PO DAILY capsule 09/24/19 History of Present Illiness History of Present Illness: AVNDA TAYLOR is a 83 year old female patient known to my practice who presented at the office earlier today with complain about three episodes of large amount of blood with bowel movement today. She reported that her toilet bowl was filled with blood and clot. She reported abdominal pain more to left side of her abdomen. No associated nausea or vomiting. No rectal pain or any protruding mass through her anus. She denied any significant history of hemorrhoid or constipation. She reported feeling sickly but denied dizziness, passing out, headache, fever or chills. While in the office she excused herself to use the bathroom but denied recurrent blood in her stool since she mainly urinate. Review of her laboratory report in the office revealed downward trend in her hemoglobin from 12 to 10 gm /dl over last 3 months. She was advised hospitalization for further evaluation and management. Her morbidities are as listed below. Hospital Course Hospital Course: Patient was admitted for rectal bleed with left lower abdominal pain and concern for possible diverticular bleed. Due to several recurence and significant blood loss she was seen in consultation by surgicalist team and eventually taken to surgery for subtotal colectomy. Her post operative period was complicated by wound dehiscent and possible infection. She has been on wound vac management thereafter. She was taken off her anticoagulant therapy for chronic atrial fibrillation due to her surgery and unfortunately had embolic stroke event necessitating speech pathologist involvement. Her hospitalization was further complicated by development of acute delirium related to acute illness and baseline dementia. Her nutritional status has been a challenge with poor oral intake. She had feeding assistance with family involvement and has been on oral supplementation. She has a short course of Megestrol with some improvement. Her recent decrease mental alertness improved with discontinuation IV Morphine. Her recent urine culture did grew gram negative rods > 100,000 colonies / mL. Her wound culture growth were unger-sensitive to Levofloxacin. She will be started on oral Levofloxacin 250 mg p.o daily x 5 days. facility should follow up on organism identification an sensitivity report for possible adjustment of her coverage. She will need [facility] services [facility]. The [facility] staff should call my office for appointment before discharge from the facility. It is highly recommended that she should continue wound vac therapy for her wound management. Physical Exam Vital Signs: Temp Pulse Resp BP Pulse Ox 97.5 F 63 14 106/56 L 100 09/24/19 11:53 09/24/19 11:53 09/24/19 11:53 09/24/19 11:53 09/24/19 11:53 Intake & Output 09/23/19 09/24/19 09/25/19 06:59 06:59 06:59 Intake Total 336 2345 75 Output Total 375 525 125 Balance -39 1820 -50 Weight 84.1 kg 85.3 kg General appearance: PRESENT: no acute distress Head exam: PRESENT: atraumatic, normocephalic Eye exam: PRESENT: conjunctiva pink. ABSENT: pallor, scleral icterus Mouth exam: PRESENT: moist Respiratory exam: PRESENT: clear to auscultation, decreased breath sounds bilaterally Cardiovascular exam: PRESENT: Irregular rhythm, +S1, +S2. ABSENT: diastolic murmur, rubs, systolic murmur GI/Abdominal exam: PRESENT: normal bowel sounds, soft ABSENT: drainage tube is out, distended, guarding, mass, organomegaly, rebound Extremities exam: ABSENT: pedal edema Neurological exam: PRESENT: Awake, Alert, appropriate in simple responses during my bedside visit. Psychiatric exam: PRESENT: appropriate affect, normal mood. ABSENT: homicidal ideation, suicidal ideation Skin exam: PRESENT: dry, warm, surgical jim off and skin healing satisfactory, lower section wound with wound vac in situ. Results Laboratory Results: WBC 7.2 10^3/uL (4.0-10.5) 09/23/19 19:16 RBC 3.80 10^6/uL (3.72-5.28) 09/23/19 19:16 Hgb 11.0 g/dL (12.0-15.5) L 09/23/19 19:16 Hct 33.2 % (36.0-47.0) L 09/23/19 19:16 MCV 87 fl (80-97) 09/23/19 19:16 MCH 29.1 pg (27.0-33.4) 09/23/19 19:16 MCHC 33.2 g/dL (32.0-36.0) 09/23/19 19:16 RDW 16.6 % (11.5-14.0) H 09/23/19 19:16 Plt Count 190 10^3/uL (150-450) 09/23/19 19:16 Lymph % (Auto) 31.1 % (13-45) 09/23/19 19:16 Alexander % (Auto) 7.3 % (3-13) 09/23/19 19:16 Eos % (Auto) 0.9 % (0-6) 09/23/19 19:16 Baso % (Auto) 0.5 % (0-2) 09/23/19 19:16 Reticulocyte # 0.146 10^6/uL (0.028-0.122) H 09/05/19 16:45 Absolute Neuts (auto) 4.4 10^3/uL (1.7-8.2) 09/23/19 19:16 Absolute Lymphs (auto) 2.3 10^3/uL (0.5-4.7) 09/23/19 19:16 Absolute Monos (auto) 0.5 10^3/uL (0.1-1.4) 09/23/19 19:16 Absolute Eos (auto) 0.1 10^3/uL (0.0-0.6) 09/23/19 19:16 Absolute Basos (auto) 0.0 10^3/uL (0.0-0.2) 09/23/19 19:16 Total Counted 100 09/01/19 18:55 Seg Neutrophils % 60.2 % (42-78) 09/23/19 19:16 Seg Neuts % (Manual) 78 % (42-78) 09/01/19 18:55 Band Neutrophils % 3 % (3-5) 09/01/19 18:55 Lymphocytes % (Manual) 13 % (13-45) 09/01/19 18:55 Monocytes % (Manual) 6 % (3-13) 09/01/19 18:55 Eosinophils % (Manual) 0 % (0-6) 09/01/19 18:55 Basophils % (Manual) 0 % (0-2) 09/01/19 18:55 Abs Neuts (Manual) 6.8 10^3/uL (1.7-8.2) 09/01/19 18:55 Abs Lymphs (Manual) 1.1 10^3/uL (0.5-4.7) 09/01/19 18:55 Abs Monocytes (Manual) 0.5 10^3/uL (0.1-1.4) 09/01/19 18:55 Absolute Eos (Manual) 0.0 10^3/uL (0.0-0.6) 09/01/19 18:55 Abs Basophils (Manual) 0.0 10^3/uL (0.0-0.2) 09/01/19 18:55 Nucleated RBCs 3 /100 WBC (0) 09/01/19 18:55 Toxic Vacuolation PRESENT 08/30/19 10:50 Platelet Comment ADEQUATE 09/01/19 18:55 Polychromasia 1+ 09/01/19 18:55 Poikilocytosis SLIGHT 08/29/19 04:33 Anisocytosis 1+ 09/01/19 18:55 Ovalocytes 1+ 09/01/19 18:55 [place] Cells SLIGHT 08/29/19 04:33 Retic Count (auto) 5.78 % (0.66-2.85) H 09/05/19 16:45 PT 18.4 SEC (11.4-15.4) H 08/26/19 18:42 INR 1.51 08/26/19 18:42 APTT 27.6 SEC (23.5-35.8) 08/24/19 14:10 Sodium 147.5 mmol/L (137-145) H 09/23/19 19:16 Potassium 3.9 mmol/L (3.6-5.0) 09/23/19 19:16 Chloride 117 mmol/L (98-107) H 09/23/19 19:16 Carbon Dioxide 26 mmol/L (22-30) 09/23/19 19:16 Anion Gap 5 (5-19) 09/23/19 19:16 BUN 20 mg/dL (7-20) 09/23/19 19:16 Creatinine 0.86 mg/dL (0.52-1.25) 09/23/19 19:16 Est GFR ( Amer) > 60 (>60) 09/23/19 19:16 Est GFR (MDRD) Non-Af > 60 (>60) 09/23/19 19:16 Glucose 219 mg/dL (75-110) H 09/23/19 19:16 POC Glucose 338 mg/dL (70-110) H 09/24/19 11:52 Glucose Tolerance Cancelled 09/21/19 07:35 Calcium 8.4 mg/dL (8.4-10.2) 09/23/19 19:16 Magnesium 2.1 mg/dL (1.6-2.3) 09/21/19 07:35 Iron 15.4 ug/dL (37-170) L 09/05/19 16:45 TIBC 194 ug/dL (250-450) L 09/05/19 16:45 % Saturation 8 % 09/05/19 16:45 Transferrin 121.80 mg/dL (206.00-381.00) L 09/05/19 16:45 Ferritin 137.00 ng/mL (11.1-264.0) 09/05/19 16:45 Total Bilirubin 0.6 mg/dL (0.2-1.3) 09/21/19 07:35 Direct Bilirubin 0.0 mg/dL (0.0-0.4) 09/21/19 07:35 Neonat Total Bilirubin Not Reportable 09/21/19 07:35 Neonat Direct Bilirubin Not Reportable 09/21/19 07:35 Neonat Indirect Bili Not Reportable 09/21/19 07:35 AST 43 U/L (14-36) H 09/21/19 07:35 ALT 24 U/L (<35) 09/21/19 07:35 Alkaline Phosphatase 50 U/L (38-126) 09/21/19 07:35 Creatine Kinase 50 U/L (30-135) 09/06/19 06:04 CK-MB (CK-2) 0.41 ng/mL (<4.55) 09/06/19 06:04 Troponin I 0.031 ng/mL 09/06/19 06:04 Total Protein 5.2 g/dL (6.3-8.2) L 09/21/19 07:35 Albumin 2.1 g/dL (3.5-5.0) L 09/21/19 07:35 Prealbumin 11.1 mg/dL (17.6-36.0) L 08/28/19 04:24 Triglycerides 87 mg/dL (<150) 09/06/19 06:04 Cholesterol 117.10 mg/dL (0-200) 09/06/19 06:04 LDL Cholesterol Direct 76 mg/dL (<100) 09/06/19 06:04 VLDL Cholesterol 17.0 mg/dL (10-31) 09/06/19 06:04 HDL Cholesterol 29 mg/dL (>40) L 09/06/19 06:04 Vitamin B12 990.0 pg/mL (239-931) H 09/05/19 16:45 Folate 19.80 ng/mL (>2.76) 09/05/19 16:45 TSH 2.38 uIU/mL (0.47-4.68) 08/27/19 04:30 Free T4 1.57 ng/dL (0.78-2.19) 08/27/19 04:30 Free T3 pg/mL 1.94 pg/mL (2.77-5.27) L 08/27/19 04:30 Random Cortisol 49.80 ug/dL (None Established) 08/28/19 04:24 Urine Color YELLOW 09/23/19 05:45 Urine Appearance CLEAR 09/23/19 05:45 Urine pH 6.0 (5.0-9.0) 09/23/19 05:45 Ur Specific [place] 1.017 09/23/19 05:45 Urine Protein 30 mg/dL (NEGATIVE) H 09/23/19 05:45 Urine Glucose (UA) 150 mg/dL (NEGATIVE) H 09/23/19 05:45 Urine Ketones TRACE mg/dL (NEGATIVE) H 09/23/19 05:45 Urine Blood MODERATE (NEGATIVE) H 09/23/19 05:45 Urine Nitrite (Reflex) NEGATIVE (NEGATIVE) 09/23/19 05:45 Urine Bilirubin NEGATIVE (NEGATIVE) 09/23/19 05:45 Urine Urobilinogen NEGATIVE mg/dL (<2.0) 09/23/19 05:45 Leukocyte Esterase Rfl NEGATIVE (NEGATIVE) 09/23/19 05:45 Urine RBC (Auto) 7 /HPF 09/23/19 05:45 Urine Bacteria (Auto) 3+ /HPF 09/23/19 05:45 Urine WBC (Reflex) 5 /HPF 06/18/20 05:45 Squamous Epi Cells Auto <1 /HPF 09/23/19 05:45 Urine Mucus (Auto) OCC /LPF 09/23/19 05:45 Urine Ascorbic Acid NEGATIVE (NEGATIVE) 09/23/19 05:45 Time Trough Drawn 0955 09/10/19 09:55 Vancomycin Trough 18.2 ug/mL (5.0-20.0) 09/10/19 09:55 Digoxin 0.90 ng/mL (0.8-2.0) 09/05/19 05:39 COVID-19 Source NASOPHARYNGEAL 09/15/19 16:10 COVID-19 (SHAJI) NOT DETECTED 09/15/19 16:10 Blood Type A POSITIVE 09/05/19 21:35 Blood Type Confirm A POSITIVE 08/26/19 11:51 Antibody Screen NEGATIVE 09/05/19 21:35 Crossmatch See Detail 09/05/19 21:35 09/05/19 09/06/19 09/06/19 16:45 00:45 06:04 CK-MB (CK-2) 0.36 0.46 0.41 Troponin I 0.035 0.032 0.031 Impressions: GI Bleed Scan Nuclear Medicine 08/26/19 00:00 IMPRESSION: FINDINGS CONSISTENT WITH ACTIVE GI BLEEDING IN THE SIGMOID COLON. Chest X-Ray 08/28/19 05:00 IMPRESSION: Opacity left lateral lung base, question atelectasis or pneumonia KUB X-Ray 08/31/19 00:00 IMPRESSION: Postoperative findings as detailed above without evidence of a mechanical bowel obstruction. 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 Distribution suggests embolic source. EVIDENCE OF ACUTE STROKE: YES. LEFT MCA and VERTEBROBASILAR. Head CT 09/08/19 00:00 IMPRESSION: 1. NO EVIDENCE OF ACUTE INTRACRANIAL PROCESS. 2. CHRONIC CHANGES OF ATROPHY AND MICROVASCULAR ISCHEMIA. EVIDENCE OF ACUTE STROKE: NO. Chest X-Ray 09/08/19 02:16 IMPRESSION: Findings suggesting mild changes of CHF. Chest X-Ray 09/12/19 00:00 IMPRESSION: Similar bibasilar subsegmental atelectasis and pleural effusions, increasing on the right. Chest X-Ray 09/15/19 06:00 IMPRESSION: Unchanged radiographic appearance of the chest. Chest X-Ray 09/22/19 00:00 IMPRESSION: Cardiomegaly without anson pulmonary edema. Small pleural effusions. Cannot exclude airspace disease in the left base, atelectasis versus pneumonia. Plan Health Concerns: Poor nutritional status with increase risk of poor wound healing. Plan of Treatment: Short term rehabilitation, nutritional support program, stringent wound care management. Goals: Reduce readmission risk and increase her chance of wound healing. Reduce readmission risk level. Time Spent: Greater than 30 Minutes Stroke Is this a Stroke Patient?: Yes Stroke Pt being discharged on Anti-coagulation therapy?: Yes Stroke Pt being discharged on Statins?: Yes Acute Heart Failure - Is this a Heart Failure Patient?: No
== END 2019-09-24 17:26 | DRG 329 ==
LOC: ER 13:15 → EH 13:48 → 3W 17:13 → ICU 08-26 19:40 → 3W 08-29 13:47
PROVIDERS: ADMIT Internal Medicine Geriatric Medicine; ATTEND Internal Medicine Geriatric Medicine
PROC: 0DTK0ZZ Resection of Ascending Colon, Open Approach (ICD-10-PCS; 2019-08-26)
PROC: 30233N1 Transfusion of Nonautologous Red Blood Cells into Peripheral Vein, Percutaneous Approach (ICD-10-PCS; 2019-08-26)
PROC: 30233L1 Transfusion of Nonautologous Fresh Plasma into Peripheral Vein, Percutaneous Approach (ICD-10-PCS; 2019-08-26)
PROC: 0DTL0ZZ Resection of Transverse Colon, Open Approach (ICD-10-PCS; principal; 2019-08-26 13:45)
PROC: 02HV33Z Insertion of Infusion Device into Superior Vena Cava, Percutaneous Approach (ICD-10-PCS; 2019-09-08)
PROC: B548ZZA Ultrasonography of Superior Vena Cava, Guidance (ICD-10-PCS; 2019-09-08)
DX: K57.31 Diverticulosis of large intestine without perforation or abscess with bleeding (principal); I63.112 Cerebral infarction due to embolism of left vertebral artery; I63.412 Cerebral infarction due to embolism of left middle cerebral artery; F05 Delirium due to known physiological condition; K91.89 Other postprocedural complications and disorders of digestive system; I97.191 Other postprocedural cardiac functional disturbances following other surgery; F02.81 Dementia in other diseases classified elsewhere, unspecified severity, with behavioral disturbance; I45.2 Bifascicular block; T81.41XA Infection following a procedure, superficial incisional surgical site, initial encounter; L02.211 Cutaneous abscess of abdominal wall; K57.30 Diverticulosis of large intestine without perforation or abscess without bleeding; I10 Essential (primary) hypertension; I25.10 Atherosclerotic heart disease of native coronary artery without angina pectoris; E78.5 Hyperlipidemia, unspecified; E03.9 Hypothyroidism, unspecified; K21.9 Gastro-esophageal reflux disease without esophagitis; E87.6 Hypokalemia; G30.9 Alzheimer's disease, unspecified; B37.3 Candidiasis of vulva and vagina; K94.00 Colostomy complication, unspecified; Y83.6 Removal of other organ (partial) (total) as the cause of abnormal reaction of the patient, or of later complication, without mention of misadventure at the time of the procedure; E66.9 Obesity, unspecified; E11.69 Type 2 diabetes mellitus with other specified complication; R29.810 Facial weakness; I87.2 Venous insufficiency (chronic) (peripheral); I48.0 Paroxysmal atrial fibrillation; B96.20 Unspecified Escherichia coli [E. coli] as the cause of diseases classified elsewhere; B96.4 Proteus (mirabilis) (morganii) as the cause of diseases classified elsewhere; B96.5 Pseudomonas (aeruginosa) (mallei) (pseudomallei) as the cause of diseases classified elsewhere; Z79.899 Other long term (current) drug therapy; Z79.890 Hormone replacement therapy; Z79.01 Long term (current) use of anticoagulants; Z79.84 Long term (current) use of oral hypoglycemic drugs; Z03.818 Encounter for observation for suspected exposure to other biological agents ruled out
CPT/HCPCS: 00790; 36415; 36430; 70450; 70551; 71045; 74018; 78278; 80048; 80053; 80061; 80162; 80202; 81001; 82040; 82533; 82550; 82553; 82565; 82607; 82728; 82746; 82962; 83540; 83550; 83735; 84134; 84439; 84443; 84466; 84481; 84484; 85025; 85027; 85045; 85610; 85730; 86850; 86900; 86901; 86920; 87040; 87070; 87077; 87086; 87088; 87186; 87205; 87635; 88307; 93005; 93010; 93306; 94799; 99140; 99285; 99291; A9560; C9113; C9290; C9803; J0282; J0330; J0360; J1100; J1160; J1450; J1630; J1642; J1815; J1885; J1940; J2250; J2270; J2405; J2543; J2550; J2704; J2710; J3010; J3370; J3475; J3480; J3490; J7030; J7050; J7060; J7120; P9016; P9017; Q9969

== ENCOUNTER 2019-10-01 09:03 | Emergency (ER) | payer MEDICARE, OTHER ==
[~2019-10-01 09:03] MED LIST: EPINEPHRINE INJ 1 MG/10 ML DISP.SYRIN ONE
[2019-10-01] MEDS ORDERED: NORMAL SALINE 1000 ML 1,000 ML IV ONE ×2 (09:30→10:16)
[2019-10-01 09:47] LABS: INTERNATIONAL RATION (INR) 2.49; PARTIAL THROMBOPLASTIN TIME 28.4 SEC (23.5-35.8); PROTHROMBIN TIME 27.4 SEC (11.4-15.4)
--- NOTE | 2019-10-01 09:59 | RADIOLOGY REPORT (SQ) ---
EXAM DESCRIPTION: CHEST SINGLE VIEW IMAGES COMPLETED DATE/TIME: 10/01/2019 9:47 am REASON FOR STUDY: post-arrest COMPARISON: 09/22/2019 EXAM PARAMETERS: NUMBER OF VIEWS: One view. TECHNIQUE: Single frontal radiographic view of the chest acquired. RADIATION DOSE: NA LIMITATIONS: None. FINDINGS: LUNGS AND PLEURA: Increased patchy right mid lung and basilar opacities. Stable small jaison ateral pleural effusions. No pneumothorax. MEDIASTINUM AND HILAR STRUCTURES: No discrete mass. HEART AND VASCULAR STRUCTURES: Enlarged cardiac silhouette with central vascular congestion, stable. Vascular calcifications with unfolded thoracic aorta. BONES: No acute findings. HARDWARE: Endotracheal tube tip overlies midthoracic trachea. Enteric tube tip below diaphragm but e xcluded by collimation. Defibrillator pads overlie chest. OTHER: No other significant finding. IMPRESSION: New right mid lung and basilar ill-defined opacities possibly asymmetric edema or infect ion/aspiration. Stable enlarged cardiac silhouette and small bilateral effusions. Endotracheal tube tip overlies midthoracic trachea. TECHNICAL DOCUMENTATION: JOB ID: [id number] 2010 [employer]- All Rights Reserved Reading location - IP/workstation name: [email or web address]
--- NOTE | 2019-10-01 10:01 | ER Document Report ---
ED General - General Chief Complaint: Cardiac Arrest Stated Complaint: CHEST PAIN Primary Care Provider: ROVERTO MCNAIR MD [Primary Care Provider] - Follow up as needed TRAVEL OUTSIDE OF THE [place] IN LAST 30 DAYS: No - HPI Notes: Chief complaint: Post cardiac arrest History of present illness: 84-year-old female retirement resident followed by Dr. Oliver transported here from the facility via EMS after resuscitation from a V. fib arrest with multiple defibrillations provided prior to transport. Patient was unresponsive with brief CPR and had been endotracheally intubated by EMS prior to transport. They had also started IV amiodarone. Upon arrival here the patient was unresponsive and intubated and had blood pressure approximately 80/60. EMS indicated they had spoken with patient's codey r of child watch attendant and next of kin, her son Shane Taylor, who it indicated that he did not want any further resuscitation and requested that the ET tube be removed. Review of prior records shows that this lady was discharged from the hospital here approximately 6 weeks ago after she sustained a lower GI bleed requiring partial colectomy. I HAVE SUBSEQUENTLY SPOKEN WITH MR. SHANE TAYLOR HER SON [phone] AND HAVE UPDATED HIM TO CURRENT CONDITION AND FINDINGS. HE REITERATES TO ME THAT HE WANTS HIS MOTHER VANDA CASTELLON TO BE PLACED ON A DO NOT RESUSCITATE/DO NOT INTUBATE STATUS AT THIS TIME. HE DESIRES THAT WE REMOVE THE ENDOTRACHEAL TUBE AND PROVIDE COMFORT MEASURES ONLY. - Related Data Allergies/Adverse Reactions: No Known Allergies Allergy (Verified 12/11/11 09:56) Past Medical History - General Information source: Relative, [facility] Records - Social History Smoking Status: Unknown if Ever Smoked Family History: Reviewed & Not Pertinent Patient has homicidal ideation: No - Past Medical History Cardiac Medical History: Reports: Hx Atrial Fibrillation, Hx Hypertension Denies: Hx Congestive Heart Failure, Hx Coronary Artery Disease, Hx Heart Attack, Hx Hypercholesterolemia, Hx Peripheral Vascular Disease, Hx Heart Murmur Pulmonary Medical History: Reports: Hx Pneumonia Denies: Hx Tuberculosis Neurological Medical History: Denies: Hx Cerebrovascular Accident, Hx Seizures, Hx Parkinson's Disease Endocrine Medical History: Reports: Hx Diabetes Mellitus Type 2, Hx Hyperthyroidism. Denies: Hx Graves' Disease, Hx Hypothyroidism Malignancy Medical History: Denies: Hx Leukemia GI Medical History: Reports: Hx Gastroesophageal Reflux Disease. Denies: Hx Crohn's Disease, Hx Hiatal Hernia, Hx Irritable Bowel, Hx Liver Failure, Hx Pancreatitis, Hx Ulcer Musculoskeletal Medical History: Reports Hx Arthritis, Denies Hx Fibromyalgia, Denies Hx Multiple Sclerosis, Denies Hx Muscular Dystrophy, Denies Hx Systemic Lupus Erythematosus Psychiatric Medical History: Denies: Hx Dementia, Hx Depression Traumatic Medical History: Reports: Hx Fractures - toes Infectious Medical History: Denies: Hx HIV Past Surgical History: Reports: Hx Thyroid Surgery, Hx Tonsillectomy. Denies: Hx Appendectomy, Hx Bowel Surgery, Hx Section, Hx Cholecystectomy, Hx Colostomy, Hx Coronary Artery Bypass Graft, Hx Gastric Bypass Surgery, Hx Herniorrhaphy, Hx Hysterectomy, Hx Mastectomy, Hx Pacemaker, Hx Tubal Ligation - Immunizations Hx Diphtheria, Pertussis, Tetanus Vaccination: No Hx Pneumococcal Vaccination: 01/05/06 Review of Systems - Review of Systems -: Yes ROS unobtainable due to patient's medical condition Physical Exam - Vital signs Vitals: BP 160/61 H 10/01/19 09:06 - Notes Notes: GENERAL: Elderly female who is intubated and being bagged on arrival with no spontaneous respirations. SKIN: Cool. Good turgor no rashes. HEAD: Normocephalic atraumatic. EYES: Pupils are small equal and sluggish. EARS: CANALS AND TMS CLEAR. NOSE: CLEAR. MOUTH: Edentulous with ET tube present to a depth of 22 at the lip. NECK: Supple. No masses or thyromegaly. No adenopathy. Carotids 2+ without bruits. No JVD. BACK: Symmetrical. CHEST: Patient is being bagged with breath sounds clear and symmetrical. HEART: Irregularly irregular rhythm. No murmur gallop or rub. ABDOMEN: Suprapubic catheter present. Healed low midline surgical scar present. Soft nontender without masses, organomegaly or rebound. Bowel sounds normally active. No bruits. GENITALIA: Normal female. EXTREMITIES: Intraosseous line present right pretibial area. No edema. No calf tenderness. Cap refill less than 1.5 seconds. Dorsalis pedis and posterior tibial pulses 3+ and symmetrical. NEUROLOGICAL: Unresponsive to painful stimuli. GCS 3T. Course - Re-evaluation Re-evalutation: 10/01/19 11:24 This lady came to us post V. fib arrest intubated by EMS in the field and receiving IV amiodarone. She is unresponsive with GCS of 3T. Upon arrival here she was in atrial fib which she is chronically with a right bundle branch with no other new findings on EKG. Her troponin is mildly elevated 0.9. Chest x-ray shows presence of ET tube in appropriate position and vascular congestion versus right perihilar infiltrate possibly consistent with aspiration. Her hemoglobin is 9.5 which is essentially her baseline. White count is 11. She is afebrile. She is hypernatremic with a sodium of 154. She was shocky with a blood pressure around 80/45. She was started on IV Levaquin and given IV fluids. I spoke with her son, Shane, who has her power of child watch attendant. He was emphatic that he wanted the ET tube out, did not want vasopressors and wanted comfort measures only. I have given her IV Levaquin and IV fluids. Patient has been extubated as per wishes of the family. At this time she has a blood pressure of 90/35 and is in atrial fib with rate of about 85. Respirations are 18/min. Findings have been discussed with her primary care provider Dr. Oliver who requests that patient be admitted to [facility] and remain on DNR/DNI status. We will obtain a noncontrast head CT prior to admission to [facility]. - Vital Signs Vital signs: Temp Pulse Resp BP Pulse Ox 97.8 F 20 95/29 L 94 10/01/19 09:40 10/01/19 11:16 10/01/19 11:16 10/01/19 11:16 - Laboratory Result Diagrams: 10/01/19 10:20 10/01/19 09:29 Laboratory results interpreted by me: 10/01/19 10/01/19 10/01/19 09:29 09:29 10:20 WBC 11.0 H RBC 3.28 L Hgb 9.5 L Hct 30.4 L MCHC 31.3 L RDW 18.3 H Seg Neuts % (Manual) 91 H Lymphocytes % (Manual) 8 L Monocytes % (Manual) 1 L Abs Neuts (Manual) 10.0 H PT 27.4 H Sodium 159.1 H Potassium 3.5 L Chloride 131 H Carbon Dioxide 17 L BUN 40 H Creatinine 1.60 H Est GFR ( Amer) 37 L Est GFR (MDRD) Non-Af 31 L Glucose 242 H Calcium 8.1 L Magnesium 2.9 H AST 229 H ALT 74 H Total Protein 6.0 L Albumin 2.3 L - Diagnostic Test Radiology reviewed: Reports reviewed - Right perihilar infiltrate suggestive of possible aspiration with vascular congestion. - EKG Interpretation by Me Additional EKG results interpreted by me: 10/01/19 11:29 Twelve-lead EKG from 0932 hrs. reviewed contemporaneously by me showing atrial fibrillation with a rate of 116 and occasional supraventricular extrasystoles. There is incomplete right bundle branch block which was present on previous EKG. There is considerable motion artifact. Critical Care Note - Critical Care Note Total time excluding time spent on procedures (mins): 65 - Postarrest (V. fib) from retirement was on IV amiodarone after multiple defibrillations by EMS and endotracheal intubation by EMS. See further comments under ER course. Discharge - Discharge Clinical Impression: Cardiac arrest with ventricular fibrillation, Hypernatremia Condition: Critical Disposition: ADMITTED INPATIENT Admitting Provider: [facility] Unit Admitted: I[facility]U Referrals: ROVERTO MCNAIR MD [Primary Care Provider] - Follow up as needed
[2019-10-01 10:06] LABS: ALBUMIN 2.3 g/dL (3.5-5.0); ALKALINE PHOSPHATASE 58 U/L (38-126); ANION GAP 11 (5-19); ASPARTATE AMINO TRANSFERASE 229 U/L (14-36); BILIRUBIN,DIRECT 0.2 mg/dL (0.0-0.4); BILIRUBIN,TOTAL 0.6 mg/dL (0.2-1.3); BLOOD UREA NITROGEN 40 mg/dL (7-20); CALCIUM 8.1 mg/dL (8.4-10.2); CARBON DIOXIDE 17 mmol/L (22-30); CHLORIDE 131 mmol/L (98-107); GLUCOSE 242 mg/dL (75-110); POTASSIUM 3.5 mmol/L (3.6-5.0)
[2019-10-01 10:33] LABS: HEMATOCRIT 30.4 % (36.0-47.0); HEMOGLOBIN 9.5 g/dL (12.0-15.5); MEAN CORPUSCULAR HEMOGLOBIN 29.1 pg (27.0-33.4); MEAN CORPUSCULAR HGB CONC 31.3 g/dL (32.0-36.0); PLATELET COUNT 205 10^3/uL (150-450); RED BLOOD COUNT 3.28 10^6/uL (3.72-5.28); RED CELL DISTRIBUTION WIDTH 18.3 % (11.5-14.0)
[2019-10-01 10:56] LABS: MEAN CORPUSCULAR VOLUME 93 fl (80-97)
[2019-10-01 10:59] LABS: ABSOLUTE LYMPHOCYTES# (MANUAL) 0.9 10^3/uL (0.5-4.7); ABSOLUTE MONOCYTES # (MANUAL) 0.1 10^3/uL (0.1-1.4); ANISOCYTOSIS 2+; BASOPHILS % (MANUAL) 0 % (0-2); EOSINOPHILS % (MANUAL) 0 % (0-6); HYPOCHROMASIA SLIGHT; LYMPHOCYTES % (MANUAL) 8 % (13-45); MONOCYTES % (MANUAL) 1 % (3-13); PLATELET COMMENT ADEQUATE; SEGMENTED NEUTROPHILS % (MAN) 91 % (42-78); TOTAL CELLS COUNTED 100
[2019-10-01 11:00] LABS: OVALOCYTES SLIGHT; POIKILOCYTOSIS SLIGHT
[2019-10-01] MEDS ORDERED: LEVOFLOXACIN 750 MG/D5W RTU 750 MG/150 ML RTUPB IV SCH (11:30)
--- NOTE | 2019-10-01 11:58 | RADIOLOGY REPORT (SQ) ---
EXAM DESCRIPTION: CT HEAD WITHOUT IMAGES COMPLETED DATE/TIME: 10/01/2019 11:39 am REASON FOR STUDY: AMS post-arrest COMPARISON: 09/08/2019 TECHNIQUE: Axial images acquired through the brain without intravenous contrast. Images reviewed wi th bone, brain and subdural windows. Additional sagittal and coronal reconstructions were generated. Images stored on PACS. All CT scanners at this facility use dose modulation, iterative reconstruction, and/or weight based d osing when appropriate to reduce radiation dose to as low as reasonably achievable (ALARA). [facility]: Dose Right [facility]: CareDose [facility]: Dose Right [facility]: Teradose 4D [facility]: Knovel RADIATION DOSE: CT Rad equipment meets quality standard of care and radiation dose reduction techniq ues were employed. CTDIvol: 53.2 mGy. DLP: 1017 mGy-cm. mGy. LIMITATIONS: None. FINDINGS: VENTRICLES: Prominent, stable. CEREBRUM: No masses. No hemorrhage. No midline shift. Areas of low density in the white matter mos t likely due to chronic micro-vascular ischemic change. No evidence for acute large vascular territo ry infarction. CEREBELLUM: No masses. No hemorrhage. No alteration of density. No evidence for acute infarction. EXTRAAXIAL SPACES: Mild age-related involutional change. No fluid collections. No masses. ORBITS AND GLOBE: No intra- or extraconal masses. Normal contour of globe without masses. CALVARIUM: No fracture. PARANASAL SINUSES: No fluid or mucosal thickening. SOFT TISSUES: No mass or hematoma. OTHER: Vascular calcifications. IMPRESSION: MILD CHRONIC CHANGES OF ATROPHY AND MICROVASCULAR ISCHEMIA. NO ACUTE PROCESS. EVIDENCE OF ACUTE STROKE: NO. TECHNICAL DOCUMENTATION: JOB ID: [id number] Quality ID # [id number]: Final reports with documentation of one or more dose reduction techniques (e.g., Au tomated exposure control, adjustment of the mA and/or kV according to patient size, use of iterative reconstruction technique) 2010 [employer]- All Rights Reserved Reading location - IP/workstation name: [email or web address]
[2019-10-01 12:05] VITALS: BP 79/42
--- NOTE | 2019-10-01 19:31 | EKG REPORT ---
SEVERITY:- DEFECTIVE ECG - UNDETERMINED RHYTHM: REVIEW NO FURTHER ANALYSIS ATTEMPTED FOR THIS ECG - NOT ENOUGH LEADS COULD BE MEASURED REC REPEAT EKG, CAN NOT R/O V FIB, : Confirmed by: Favian Pleitez 01-Oct-2019 19:31:23
--- NOTE | 2019-10-01 19:32 | EKG REPORT ---
SEVERITY:- ABNORMAL ECG - ATRIAL FIBRILLATION ABERRANT COMPLEX, POSSIBLY SUPRAVENTRICULAR INCOMPLETE RIGHT BUNDLE BRANCH BLOCK INFERIOR INFARCT, POSSIBLY ACUTE : Confirmed by: Favian Pleitez 01-Oct-2019 19:31:53
== END 2019-10-01 13:58 | disposition expired ==
LOC: ER 09:03
DX: I49.01 Ventricular fibrillation (principal); I46.2 Cardiac arrest due to underlying cardiac condition; E87.0 Hyperosmolality and hypernatremia; I48.20 Chronic atrial fibrillation, unspecified; I45.10 Unspecified right bundle-branch block; Z90.49 Acquired absence of other specified parts of digestive tract; Z66 Do not resuscitate; R40.2432 Glasgow coma scale score 3-8, at arrival to emergency department
CPT/HCPCS: 93005; 36415; 87040; 83735; 85025; 85610; 85730; 80053; 84484; 71045; 70450; 94660; 93010; J0171; J7030; J1956